=== PATIENT | male | born 1985 | race Caucasian/White ===

== ENCOUNTER 2019-10-12 12:28 | Emergency (ER) | payer BC ==
--- NOTE | 2019-10-12 13:20 | RAD REPORT ---
EXAM DESCRIPTION: CT - Head Brain Wo Cont - 10/12/2019 1:08 pm CLINICAL HISTORY: Dizziness;Headache Headache, drowsiness, previous surgery COMPARISON: Head Brain Wo Cont dated 09/25/2016; Rad Therapy [facility] Head dated 09/17/2016; Head Br ain Wo Cont dated 07/02/2016; Brain W/Wo Cont dated 11/14/2016 TECHNIQUE: All CT scans are performed using dose optimization technique as appropriate and may inclu de automated exposure control or mA/KV adjustment according to patient size. FINDINGS: No intracranial hemorrhage, hydrocephalus or extra-axial fluid collection.No areas of brai n edema or evidence of midline shift. Small hypodensity in the left posterior parietal lobe appears l ess prominent than on the comparative study and is likely related to gliosis. The paranasal sinuses and mastoids are clear. Left posterior superior craniotomy changes noted. IMPRESSION: No acute intracranial abnormality.
[2019-10-12] MEDS ORDERED: MEPERIDINE HCL 25 MG/0.5 ML ONE (13:41)
[2019-10-12] MEDS ORDERED: ONDANSETRON 4 MG/2 ML VIAL ONE (13:42)
[2019-10-12] MEDS ORDERED: METOCLOPRAMIDE 10 MG/2mL INJ ONE (13:42)
[2019-10-12] MEDS ORDERED: NA CHLORIDE 0.9% 1,000 ML ONE (13:42)
[2019-10-12] MEDS ORDERED: LORazepam 2 MG/ML VIAL ONE (14:04)
[2019-10-12 14:16] LABS: Absolute Lymphocytes (CBC) 1.8 K/uL (0.7-4.9); Basophils % 0.6 % (0-1.3); Hematocrit 39.8 % (39.6-49.0); Lymphocytes % 20.6 % (15.3-44.8); MPV 7.6 fL (7.6-11.3); RBC Red Blood Cell Count 4.37 M/uL (4.33-5.43)
--- NOTE | 2019-10-12 15:06 | RAD REPORT ---
EXAM DESCRIPTION: MRI - Brain W/Wo Cont - 10/12/2019 2:56 pm CLINICAL HISTORY: hx of brain cancer, sudden onset dizzy and headache Headache, drowsiness COMPARISON: Head Brain Wo Cont dated 10/12/2019; Brain W/Wo Cont dated 11/14/2016; Brain W/Wo Cont d ated 09/12/2016; Brain W/Wo Cont dated 07/03/2016 TECHNIQUE: Multi-sequence, multiplanar MR imaging of the brain was performed with contrast. FINDINGS: No intracranial hemorrhage, hydrocephalus, or extra-axial fluid collection.Small nonenhanc ing FLAIR hyperintense focus is present in the posterior left temporal lobe measuring 7 mm. Minimal a nd T2 and FLAIR hyperintensity in the periventricular white matter noted. No edema or shift of midlin e structures. No intracranial mass. DWI is negative for acute CVA. The midline structures are normally formed. Mild right mastoid effusion noted. Paranasal sinuses appe ar clear. Post-contrast images show no abnormal enhancement to suggest tumor or infection. Evidence of prior le ft posterior parietal craniotomy noted. IMPRESSION: No acute intracranial abnormality detected. Mild right mastoid effusion is present. No pathologic post-contrast enhancement suspected. 7 mm focus of FLAIR hyperintensity in the left temporal lobe is nonspecific. Followup MRI brain would be advised in 6 months for surveillance purposes.
--- NOTE | 2019-10-12 17:22 | ER ---
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 Onset of symptoms was October 12, 2019 at 11:30. Risk Assessment: Do you want to hurt yourself or someone else? Patient reports no desire to harm self or others. Care prior to arrival: None. 12:33 Method Of Arrival: Ambulatory hb 12:33 Acuity: EAN 3 hb 14:30 Initial Sepsis Screen: Does the patient meet any 2 criteria? No. Patient's initial tr5 sepsis screen is negative. Does the patient have a suspected source of infection? No. Patient's initial sepsis screen is negative. Triage Assessment: 14:30 Pain: Also complains of. tr5 Historical: - Allergies: 12:36 Amoxicillin; hb 12:36 Aztreonam; hb 12:36 cefadyl; hb 12:36 cefotetan; hb 12:36 PENICILLINS; hb 12:36 Sulfa (Sulfonamide Antibiotics); hb 12:36 Xanax; hb - PMHx: 12:36 Cancer; Depression; chemotherapy; brain cancer; Back pain; Anemia; Osteoporosis; hb radiation therapy; LYMPHOMA; Seizures; - PSHx: 12:36 kyphoplasty; stem cell; hb - Immunization history:: Adult Immunizations up to date. - Social history:: Smoking status: Patient/guardian denies using tobacco. - Ebola Screening: : No symptoms or risks identified at this time. - Family history:: not pertinent. - Hospitalizations: : No recent hospitalization is reported. Screenin:30 Abuse screen: Denies threats or abuse. Nutritional screening: No deficits noted. tr5 Tuberculosis screening: No symptoms or risk factors identified. Fall Risk None identified. Assessment: 13:30 General: Appears uncomfortable, Behavior is calm, cooperative, appropriate for age. tr5 Pain: Complains of pain in face. Neuro: Level of Consciousness is awake, alert, obeys commands, Oriented to person, place, time, Card Services Specialist are equal bilaterally Moves all extremities. Neuro: Reports blurred vision dizziness, headache photophobia weakness. Cardiovascular: Heart tones present Capillary refill < 3 seconds Pulses are all present. Respiratory: Airway is patent Respiratory effort is even, unlabored, Respiratory pattern is regular, symmetrical. GI: No signs and/or symptoms were reported involving the gastrointestinal system. : No signs and/or symptoms were reported regarding the genitourinary system. EENT: No signs and/or symptoms were reported regarding the EENT system. Derm: No signs and/or symptoms reported regarding the dermatologic system. Musculoskeletal: No signs and/or symptoms reported regarding the musculoskeletal system. 15:00 Reassessment: Patient appears in no apparent distress at this time. Patient and/or tr5 family updated on plan of care and expected duration. Pain level reassessed. Patient is alert, oriented x 3, equal unlabored respirations, skin warm/dry/pink. 16:00 Reassessment: Patient appears in no apparent distress at this time. No changes from tr5 previously documented assessment. Patient and/or family updated on plan of care and expected duration. Pain level reassessed. Patient is alert, oriented x 3, equal unlabored respirations, skin warm/dry/pink. Vital Signs: 12:34 BP 107 / 69; Pulse 88; Resp 16; Temp 97.9; Pulse Ox 99% on R/A; Weight 77.11 kg; Height hb 5 ft. 9 in. (175.26 cm); Pain 6/10; 14:00 BP 110 / 78; Pulse 80; Resp 17; Pulse Ox 100% on R/A; tr5 16:00 BP 106 / 70; Pulse 82; Resp 15; Pulse Ox 99% on R/A; tr5 12:34 Body Mass Index 25.10 (77.11 kg, 175.26 cm) hb [place] Coma Score: 17:17 Eye Response: spontaneous(4). Verbal Response: oriented(5). Motor Response: obeys rn commands(6). Total: 15. ED Course: 12:30 Patient arrived in ED. mr 12:34 Triage completed. hb 12:34 Arm band placed on. hb 13:07 Head Brain Wo Cont CT In Process Unspecified. EDMS 13:08 Tan Carroll MD is Attending Physician. rn 13:26 Jr Callahan, MAURI is Primary Nurse. tr5 13:30 Placed in gown. Bed in low position. Call light in reach. Side rails up X 1. tr5 13:45 Initial lab(s) drawn, by me, sent to lab. Inserted saline lock: 22 gauge in right tr5 forearm, using aseptic technique. 14:51 MRI - Brain W/Wo Cont In Process Unspecified. EDMS 15:47 EKG done, by test engineering technician. reviewed by Tan Carroll MD. 3 17:20 Nolan Salas MD is Referral Physician. rn 18:11 No provider procedures requiring assistance completed. IV discontinued. tr5 Administered Medications: 13:50 Drug: NS 0.9% 1000 ml Route: IV; Rate: 1000 ml; Site: right forearm; tr5 16:11 Follow up: IV Status: Completed infusion; IV Intake: 1000ml tr5 13:50 Drug: Reglan 10 mg Route: IVP; Site: right forearm; tr5 17:35 Follow up: Response: No adverse reaction tr5 13:50 Drug: Demerol 25 mg Route: IVP; Site: right forearm; tr5 14:30 Follow up: Response: Pain is decreased; RASS: Alert and Calm (0) tr5 13:50 Drug: Zofran 4 mg Route: IVP; Site: right forearm; tr5 16:09 Follow up: Response: Marked relief of symptoms tr5 14:09 Drug: Ativan 0.5 mg Route: IVP; Site: right forearm; tr5 16:09 Follow up: Response: Marked relief of symptoms tr5 17:35 Drug: Keppra 1000 mg Route: IV; Rate: calculated rate; Site: right antecubital; tr5 Intake: 16:11 IV: 1000ml; Total: 1000ml. tr5 Outcome: 17:20 Discharge ordered by . rn 18:11 Discharged to home ambulatory. tr5 18:11 Condition: stable 18:11 Discharge instructions given to patient, Instructed on discharge instructions, follow up and referral plans. the need for admit, Demonstrated understanding of instructions, follow-up care. 18:13 Patient left the ED. tr5 Signatures: Dispatcher [employer] EDTX Jeri Contreras Roman, MD MD rn Baxter, Heather, RN RN hb Montes, Octavia sm3 Jr Callahan, RN RN tr5
--- NOTE | 2019-10-12 17:22 | EDPHYS ---
Physician Documentation [facility] Name: Alvarez Ortiz Age: 34 yrs Sex: Male : 1985 Arrival Date: 10/12/2019 Time: 12:30 Bed 24 Private MD: ED Physician Tan Carroll HPI: 10/12 13:48 This 34 yrs old Male presents to ER via Ambulatory with complaints of rn Headache, Dizziness. 13:48 The patient complains of pain to the forehead. The patient describes the headache as rn throbbing. Onset: The symptoms/episode began/occurred just prior to arrival. Associated signs and symptoms: Pertinent positives:. 14:24 Severity of symptoms: At its worst the pain was moderate, in the emergency department rn the pain has improved. The symptoms are alleviated by nothing. the symptoms are aggravated by nothing. The patient has not experienced similar symptoms in the past. Reports at work, sudden onset of headache, throbbing, assoc with nausea and dizziness, no focal weakness or paresthesias. No head trauma. 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 No fever. [place] fine prior to symptoms. Was at rest at work. . Historical: - Allergies: 12:36 Amoxicillin; hb 12:36 Aztreonam; hb 12:36 cefadyl; hb 12:36 cefotetan; hb 12:36 PENICILLINS; hb 12:36 Sulfa (Sulfonamide Antibiotics); hb 12:36 Xanax; hb - PMHx: 12:36 Cancer; Depression; chemotherapy; brain cancer; Back pain; Anemia; Osteoporosis; hb radiation therapy; LYMPHOMA; Seizures; - PSHx: 12:36 kyphoplasty; stem cell; hb - Immunization history:: Adult Immunizations up to date. - Social history:: Smoking status: Patient/guardian denies using tobacco. - Ebola Screening: : No symptoms or risks identified at this time. - Family history:: not pertinent. - Hospitalizations: : No recent hospitalization is reported. ROS: 14:24 Constitutional: Negative for fever, chills, and weight loss, Eyes: Negative for injury, rn pain, redness, and discharge, ENT: Negative for injury, pain, and discharge, Neck: Negative for injury, pain, and swelling, Cardiovascular: Negative for chest pain, palpitations, and edema, Respiratory: Negative for shortness of breath, cough, wheezing, and pleuritic chest pain, Abdomen/GI: Negative for abdominal pain, vomiting, diarrhea, and constipation, Back: Negative for injury and pain, : Negative for injury, bleeding, discharge, and swelling, MS/Extremity: Negative for injury and deformity, Skin: Negative for injury, rash, and discoloration, Neuro: Negative for weakness, numbness, tingling, and seizure. Exam: 14:24 Constitutional: This is a well developed, well nourished patient who is awake, alert, rn and in no acute distress. Head/Face: Normocephalic, atraumatic. Eyes: Pupils equal round and reactive to light, extra-ocular motions intact. Lids and lashes normal. Conjunctiva and sclera are non-icteric and not injected. Cornea within normal limits. Periorbital areas with no swelling, redness, or edema. ENT: MMM Neck: Trachea midline, no thyromegaly or masses palpated, and no cervical lymphadenopathy. Supple, full range of motion without nuchal rigidity, or vertebral point tenderness. No Meningismus. Cardiovascular: Regular rate and rhythm. No pulse deficits. Respiratory: No increased work of breathing, no retractions or nasal flaring. Abdomen/GI: soft, non-tender MS/ Extremity: Pulses equal, no cyanosis. Neurovascular intact. Full, normal range of motion. Equal circumference. Neuro: Awake and alert, GCS 15, oriented to person, place, time, and situation. Cranial nerves II-XII grossly intact. Motor strength 5/5 in all extremities. Sensory grossly intact. Cerebellar exam normal. Vital Signs: 12:34 BP 107 / 69; Pulse 88; Resp 16; Temp 97.9; Pulse Ox 99% on R/A; Weight 77.11 kg; Height hb 5 ft. 9 in. (175.26 cm); Pain 6/10; 14:00 BP 110 / 78; Pulse 80; Resp 17; Pulse Ox 100% on R/A; tr5 16:00 BP 106 / 70; Pulse 82; Resp 15; Pulse Ox 99% on R/A; tr5 12:34 Body Mass Index 25.10 (77.11 kg, 175.26 cm) hb [place] Coma Score: 17:17 Eye Response: spontaneous(4). Verbal Response: oriented(5). Motor Response: obeys rn commands(6). Total: 15. MDM: 13:08 Patient medically screened. rn 13:09 ED course: Went to see patient, in CT. rn 17:17 Differential diagnosis: migraine, neoplasm, tension headache, vasomotor headache, rn partial seizure, seizure. Data reviewed: vital signs, nurses notes, lab test result(s), EKG, radiologic studies, CT scan, MRI, and as a result, I will discharge patient. Counseling: I had a detailed discussion with the patient and/or guardian regarding: the historical points, exam findings, and any diagnostic results supporting the discharge/admit diagnosis, lab results, radiology results, the need for outpatient follow up, to return to the emergency department if symptoms worsen or persist or if there are any questions or concerns that arise at home. Response to treatment: the patient's symptoms have markedly improved after treatment, the patient's condition has returned to base line, the patient is now symptom free, patient is well hydrated. and as a result, I will discharge patient. Special discussion: I discussed with the patient/guardian in detail that at this point there is no indication for admission to the hospital. It is understood, however, that if the symptoms persist or worsen the patient needs to return immediately for re-evaluation. Based on the history and exam findings, there is no indication for further emergent testing or inpatient evaluation. I discussed with the patient/guardian the need to see the neurologist for further evaluation of the symptoms. ED course: Consulted with Dr. Salas after MRI results, thinks may have been partial seizure given aura and visual/speech problems and rapid resolution. Recommend placing patient back on keppra, which patient had been on and taken off. FLAIR hyperintensity corresponds to surgical and resection location. Back to baseline with no other acute findings on imaging or bloodwork.. 10/12 13:35 Order name: CBC with Diff; Complete Time: 14:53 rn 10/12 13:35 Order name: Basic Metabolic Panel; Complete Time: 14:53 rn 10/12 12:38 Order name: Head Brain Wo Cont CT; Complete Time: 13:33 hb 10/12 13:35 Order name: MRI - Brain W/Wo Cont; Complete Time: 15:14 rn 10/12 13:35 Order name: IV Start; Complete Time: 14:10 rn 10/12 13:35 Order name: EKG; Complete Time: 13:36 rn 10/12 13:35 Order name: EKG - Nurse/Tech; Complete Time: 16:11 rn Administered Medications: 13:50 Drug: NS 0.9% 1000 ml Route: IV; Rate: 1000 ml; Site: right forearm; tr5 16:11 Follow up: IV Status: Completed infusion; IV Intake: 1000ml tr5 13:50 Drug: Reglan 10 mg Route: IVP; Site: right forearm; tr5 17:35 Follow up: Response: No adverse reaction tr5 13:50 Drug: Demerol 25 mg Route: IVP; Site: right forearm; tr5 14:30 Follow up: Response: Pain is decreased; RASS: Alert and Calm (0) tr5 13:50 Drug: Zofran 4 mg Route: IVP; Site: right forearm; tr5 16:09 Follow up: Response: Marked relief of symptoms tr5 14:09 Drug: Ativan 0.5 mg Route: IVP; Site: right forearm; tr5 16:09 Follow up: Response: Marked relief of symptoms tr5 17:35 Drug: Keppra 1000 mg Route: IV; Rate: calculated rate; Site: right antecubital; tr5 Disposition: 10/12/19 17:20 Discharged to Home. Impression: Localization-related (focal) (partial) symptomatic epilepsy and epileptic syndromes with complex partial seizures. - Condition is Stable. - Discharge Instructions: Seizure, Adult. - Prescriptions for Keppra 500 mg Oral Tablet - take 1 tablet by ORAL route every 12 hours; 60 tablet. - Medication Reconciliation Form, Thank You Letter, Antibiotic Education, Prescription Opioid Use form. - Follow up: Nolan Salas MD; When: As needed; Reason: Recheck today's complaints, Re-evaluation by your physician. - Problem is new. - Symptoms have improved. Signatures: Dispatcher [employer] EDTan Schaeffer MD MD rn Baxter, Heather, RN RN hb Acob, Cheryl, RN RN ca1 Rodriguez, Tommie, RN RN tr5 Corrections: (The following items were deleted from the chart) 18:13 17:20 10/12/2019 17:20 Discharged to Home. Impression: Localization-related (focal) tr5 (partial) symptomatic epilepsy and epileptic syndromes with complex partial seizures. Condition is Stable. Forms are Medication Reconciliation Form, Thank You Letter, Antibiotic Education, Prescription Opioid Use. Follow up: Nolan Salas; When: As needed; Reason: Recheck today's complaints, Re-evaluation by your physician. Problem is new. Symptoms have improved. rn
[2019-10-12] MEDS ORDERED: levETIRAcetam 1,000 MG in NA CHLORIDE 0.9% 100 ML IV ONE (18:00)
[2019-10-12 18:39] VITALS: TEMP 97.8
[2019-10-12 18:50] VITALS: BP 198/61; O2SAT 97
--- NOTE | 2019-10-13 07:25 | EKG ---
Test Date: 2019-10-12 Test Time: 15:28:44 Product Development Scientist: SHMUEL MEASUREMENT RESULTS: Intervals: Rate: 84 ND: 162 QRSD: 80 QT: 354 QTc: 418 [place]: P: 74 ND: 162 QRS: 43 T: 113 INTERPRETIVE STATEMENTS: Normal sinus rhythm ST & T wave abnormality, consider lateral ischemia Abnormal ECG Compared to ECG 08/07/2017 22:50:46 Possible ischemia now present ST (T wave) deviation still present Electronically Signed On 10-13-19 07:23:41 [employer] by Barry Nichols
== END 2019-10-12 18:13 | disposition home or self-care (01) ==
LOC: ER 12:28
DX: G40.209 Localization-related (focal) (partial) symptomatic epilepsy and epileptic syndromes with complex partial seizures, not intractable, without status epilepticus (principal); Z85.841 Personal history of malignant neoplasm of brain; Z85.72 Personal history of non-Hodgkin lymphomas; Z88.2 Allergy status to sulfonamides; Z88.5 Allergy status to narcotic agent; Z88.6 Allergy status to analgesic agent
CPT/HCPCS: 93005; 85025; 80048; 36415; 70450; 70553; 99284; A9577; J2765; J2175; J1953; J7030; J2405

== ENCOUNTER 2020-01-13 16:17 | Emergency (ER) | payer BC, OTHER ==
[2020-01-13] MEDS ORDERED: LORazepam 2 MG/ML VIAL ONE (16:58)
--- NOTE | 2020-01-13 17:17 | RAD REPORT ---
EXAM DESCRIPTION: CT - Head Brain Wo Cont - 01/13/2020 5:11 pm CLINICAL HISTORY: Dizziness;Seizure COMPARISON: Head Brain Wo Cont dated 10/12/2019; Head Brain Wo Cont dated 09/25/2016 TECHNIQUE: All CT scans are performed using dose optimization technique as appropriate and may inclu de automated exposure control or mA/KV adjustment according to patient size. FINDINGS: No intracranial hemorrhage, hydrocephalus or extra-axial fluid collection.Small area of gl iosis left posterior parietal lobe is unchanged.No areas of brain edema or evidence of midline shift. The paranasal sinuses and mastoids are clear. Left posterior parietal craniotomy. IMPRESSION: No acute intracranial abnormality.
[2020-01-13 17:33] LABS: Protime INR 0.96
[2020-01-13 17:50] LABS: Albumin 4.4 g/dL (3.4-5.0); Bilirubin Direct 0.2 mg/dL (0-0.2); Bilirubin Total 0.6 mg/dL (0.2-1.0); Magnesium 2.1 mg/dL (1.8-2.4); Potassium 3.7 mmol/L (3.5-5.1); Protein, Total 8.2 g/dL (6.4-8.2)
[2020-01-13 17:55] LABS: Absolute Lymphocytes (CBC) 5.6 K/uL (0.7-4.9); Basophils % 0.5 % (0-1.3); Hematocrit 43.9 % (39.6-49.0); Lymphocytes % 53.8 % (15.3-44.8); MPV 8.1 fL (7.6-11.3); RBC Red Blood Cell Count 4.81 M/uL (4.33-5.43)
[2020-01-13] MEDS ORDERED: METOCLOPRAMIDE 10 MG/2mL INJ ONE (18:15)
[2020-01-13] MEDS ORDERED: NA CHLORIDE 0.9% 100 ML IV ONE (18:15)
[2020-01-13] MEDS ORDERED: DIPHENHYDRAMINE 50 MG/ML VIAL ONE (18:15)
--- NOTE | 2020-01-13 18:29 | ER ---
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 Presenting complaint: Father states: he is taking the keppra only once a day, dr. Gonzalez is his oncologist, they consulted with a neurologist here, dr. duque. Transition of care: patient was not received from another setting of care. Onset of symptoms was January 13, 2020. Risk Assessment: Do you want to hurt yourself or someone else? Patient reports no desire to harm self or others. Initial Sepsis Screen: Does the patient meet any 2 criteria? No. Patient's initial sepsis screen is negative. Does the patient have a suspected source of infection? No. Patient's initial sepsis screen is negative. Care prior to arrival: None. 16:31 Method Of Arrival: Wheelchair tw2 16:31 Acuity: EAN 3 tw2 Triage Assessment: 16:38 General: Appears in no apparent distress. Behavior is calm, cooperative, appropriate tw2 for age. Pain: Complains of pain in headache. Neuro: Level of Consciousness is awake, alert, obeys commands. Historical: - Allergies: 16:37 Amoxicillin; tw2 16:37 Aztreonam; tw2 16:37 cefadyl; tw2 16:37 cefotetan; tw2 16:37 PENICILLINS; tw2 16:37 Sulfa (Sulfonamide Antibiotics); tw2 16:37 Xanax; tw2 16:37 Alprazolam; tw2 - Home Meds: 16:37 Keppra 500 mg Oral tab 1 tab once a day [Active]; doxycycline hyclate 100 mg Oral cap 1 tw2 cap every 12 hours [Active]; venlafaxine 75 mg Oral cp24 2 caps once daily [Active]; valacyclovir 500 mg Oral tab 1 tab once daily [Active]; mirtazapine 15 mg Oral TbDL 1 tab once daily [Active]; montelukast 10 mg Oral tab 1 tab once daily [Active]; levetiracetam 500 mg Oral tab 1 tab 2 times per day [Active]; Klor-Con 10 10 mEq Oral TbER 2 tabs 2 times per day [Active]; gabapentin 300 mg Oral cap 1 cap 3 times per day [Active]; - PMHx: 16:37 Anemia; Back pain; brain cancer; Cancer; chemotherapy; Depression; LYMPHOMA; tw2 Osteoporosis; radiation therapy; Seizures; - PSHx: 16:37 kyphoplasty; stem cell; tw2 - Immunization history:: Adult Immunizations. - Coronavirus screen:: The patient has NOT traveled to [place] in the past 14 days. - Social history:: Smoking status: . - Ebola Screening: : Patient denies travel to an Ebola-affected area in the 21 days before illness onset. Screenin:09 Abuse screen: Denies threats or abuse. Denies injuries from another. Nutritional mg2 screening: No deficits noted. Tuberculosis screening: No symptoms or risk factors identified. Fall Risk Secondary diagnosis (15 points) seizures, IV access (20 points). Assessment: 17:00 General: Appears in no apparent distress. comfortable, Behavior is calm, cooperative. mg2 Pain: Denies pain. Neuro: Level of Consciousness is awake, alert, obeys commands, Oriented to person, place, time, situation. Cardiovascular: Capillary refill < 3 seconds Patient's skin is warm and dry. Respiratory: Airway is patent Respiratory effort is even, unlabored, Respiratory pattern is regular, symmetrical. GI: No signs and/or symptoms were reported involving the gastrointestinal system. : No signs and/or symptoms were reported regarding the genitourinary system. EENT: No signs and/or symptoms were reported regarding the EENT system. Derm: Skin is intact, is healthy with good turgor, Skin is pink, warm \T\ dry. normal. Musculoskeletal: Circulation, motion, and sensation intact. Capillary refill < 3 seconds. 17:08 Reassessment: patient sent to ct scan via stretcher. mg2 18:56 Reassessment: Patient appears in no apparent distress at this time. Patient states mg2 feeling better. Patient states symptoms have improved. Vital Signs: 16:37 BP 99 / 67; Pulse 88; Resp 17; Temp 97.8(TE); Pulse Ox 100% on R/A; Weight 79.38 kg tw2 (R); Height 5 ft. 9 in. (175.26 cm); Pain 6/10; 18:15 BP 116 / 78; Pulse 76; Resp 18; Pulse Ox 100% on R/A; mg2 16:37 Body Mass Index 25.84 (79.38 kg, 175.26 cm) tw2 [place] Coma Score: 16:38 Eye Response: spontaneous(4). Verbal Response: oriented(5). Motor Response: obeys tw2 commands(6). Total: 15. ED Course: 16:20 Patient arrived in ED. mr 16:35 Triage completed. tw2 16:35 Arm band placed on. tw2 16:39 [facility]. jr8 16:39 Myke Crawford MD is Attending Physician. jr8 16:58 Som Wills, MAURI is Primary Nurse. mg2 17:07 No provider procedures requiring assistance completed. Inserted saline lock: 20 gauge mg2 in right forearm, using aseptic technique. Blood collected. by MIKE Alves Tech. 17:09 Patient has correct armband on for positive identification. Placed in gown. Call light mg2 in reach. Side rails up X2. Seizure precautions initiated. multi skilled operator on. Pulse ox on. NIBP on. Door closed. Warm blanket given. 17:19 Safety checks: Family/friend present: yes. Family/friends encouraged to stay with jp3 patient. 17:19 Initial lab(s) drawn, by me, sent to lab. EKG done, by ED staff, reviewed by Prashanth CAR[place]. Patient maintains SpO2 saturation greater than 95% on room air. 18:26 Nolan Duque MD is Referral Physician. jr8 18:55 IV discontinued, intact, bleeding controlled, No redness/swelling at site. Pressure mg2 dressing applied. Administered Medications: 17:07 Drug: Ativan 0.5 mg Route: IVP; Site: right forearm; mg2 17:46 Follow up: Response: No adverse reaction mg2 18:14 Drug: Benadryl 12.5 mg Route: IVP; Site: right forearm; mg2 18:45 Follow up: Response: No adverse reaction; Marked relief of symptoms mg2 18:15 Drug: Reglan 10 mg Route: IVP; Site: right forearm; mg2 18:45 Follow up: Response: No adverse reaction; Marked relief of symptoms mg2 Outcome: 18:26 Discharge ordered by . areli 18:57 Discharged to home ambulatory, with family. mg2 18:57 Condition: stable 18:57 Discharge instructions given to patient, family, Instructed on discharge instructions, follow up and referral plans. medication usage, Demonstrated understanding of instructions, follow-up care, medications, Prescriptions given X 1. 18:59 Patient left the ED. mg2 Signatures: Jeri Contreras Josh, PA PA jr8 Gisell Posey RN RN tw2 Som Wills RN RN mg2 Steven Sheehan jp3
--- NOTE | 2020-01-13 18:30 | EDPHYS ---
Physician Documentation [facility] Name: Alvarez Ortiz Age: 34 yrs Sex: Male : 1985 Arrival Date: 01/13/2020 Time: 16:20 Bed 25 Private MD: ED Physician Myke Crawford HPI: 01/13 17:28 This 34 yrs old Male presents to ER via Wheelchair with complaints of jr8 Probable Seizure. 17:28 Seizure onset: today. Current symptoms: headache, that is moderate, visual disturbance, jr8 blurred vision. The patient has experienced similar episodes in the past, a few times. The patient has not recently seen a physician. Patient with history of micro seizures secondary to lymphoma. Had been doing well and off meds for quite a while. About 3 months ago started to have problems. Was put back on Keppra. Stated that he started to have it again today. Scheduling appointment with neurologist but has yet to get into him since they have restarted. Stated that his seizures present as migraines, speech deficits, visual deficits, and paresthesias which is exactly what he is feeling today . Historical: - Allergies: 16:37 Amoxicillin; tw2 16:37 Aztreonam; tw2 16:37 cefadyl; tw2 16:37 cefotetan; tw2 16:37 PENICILLINS; tw2 16:37 Sulfa (Sulfonamide Antibiotics); tw2 16:37 Xanax; tw2 16:37 Alprazolam; tw2 - Home Meds: 16:37 Keppra 500 mg Oral tab 1 tab once a day [Active]; doxycycline hyclate 100 mg Oral cap 1 tw2 cap every 12 hours [Active]; venlafaxine 75 mg Oral cp24 2 caps once daily [Active]; valacyclovir 500 mg Oral tab 1 tab once daily [Active]; mirtazapine 15 mg Oral TbDL 1 tab once daily [Active]; montelukast 10 mg Oral tab 1 tab once daily [Active]; levetiracetam 500 mg Oral tab 1 tab 2 times per day [Active]; Klor-Con 10 10 mEq Oral TbER 2 tabs 2 times per day [Active]; gabapentin 300 mg Oral cap 1 cap 3 times per day [Active]; - PMHx: 16:37 Anemia; Back pain; brain cancer; Cancer; chemotherapy; Depression; LYMPHOMA; tw2 Osteoporosis; radiation therapy; Seizures; - PSHx: 16:37 kyphoplasty; stem cell; tw2 - Immunization history:: Adult Immunizations. - Coronavirus screen:: The patient has NOT traveled to [place] in the past 14 days. - Social history:: Smoking status: . - Ebola Screening: : Patient denies travel to an Ebola-affected area in the 21 days before illness onset. ROS: 17:28 Eyes: Negative for injury, pain, redness, and discharge, ENT: Negative for injury, jr8 pain, and discharge, Neck: Negative for injury, pain, and swelling, Cardiovascular: Negative for chest pain, palpitations, and edema, Respiratory: Negative for shortness of breath, cough, wheezing, and pleuritic chest pain, Abdomen/GI: Negative for abdominal pain, nausea, vomiting, diarrhea, and constipation, Back: Negative for injury and pain, MS/Extremity: Negative for injury and deformity, Skin: Negative for injury, rash, and discoloration. 17:28 Neuro: Positive for headache, seizure activity, speech changes, tingling, visual changes. Exam: 17:28 Eyes: Pupils equal round and reactive to light, extra-ocular motions intact. Lids and jr8 lashes normal. Conjunctiva and sclera are non-icteric and not injected. Cornea within normal limits. Periorbital areas with no swelling, redness, or edema. ENT: Nares patent. No nasal discharge, no septal abnormalities noted. Tympanic membranes are normal and external auditory canals are clear. Oropharynx with no redness, swelling, or masses, exudates, or evidence of obstruction, uvula midline. Mucous membranes moist. Neck: Trachea midline, no thyromegaly or masses palpated, and no cervical lymphadenopathy. Supple, full range of motion without nuchal rigidity, or vertebral point tenderness. No Meningismus. Cardiovascular: Regular rate and rhythm with a normal S1 and S2. No gallops, murmurs, or rubs. Normal PMI, no JVD. No pulse deficits. Respiratory: Lungs have equal breath sounds bilaterally, clear to auscultation and percussion. No rales, rhonchi or wheezes noted. No increased work of breathing, no retractions or nasal flaring. Abdomen/GI: Soft, non-tender, with normal bowel sounds. No distension or tympany. No guarding or rebound. No evidence of tenderness throughout. Back: No spinal tenderness. No costovertebral tenderness. Full range of motion. Skin: Warm, dry with normal turgor. Normal color with no rashes, no lesions, and no evidence of cellulitis. MS/ Extremity: Pulses equal, no cyanosis. Neurovascular intact. Full, normal range of motion. 17:28 Neuro: Orientation: to person, place, time \T\ situation. Mentation: is normal, Memory: immediate memory is intact, remote memory is intact. recent memory is intact, Cranial nerves: CN I not tested, CN II- XII are normal as tested, extraocular movements are intact, no gross hearing deficit,. Nystagmus is absent. Speech is slowed, Tongue strength is normal, Cerebellar function: normal finger to nose testing, heel to grijalva testing is normal, Motor: moves all fours, strength is 5/5 in all extremities, Sensation: no obvious gross deficits, Gait: not tested. Abnormal movements: there are no abnormal movements. 17:40 ECG was reviewed by the Attending Physician. [facility] Vital Signs: 16:37 BP 99 / 67; Pulse 88; Resp 17; Temp 97.8(TE); Pulse Ox 100% on R/A; Weight 79.38 kg tw2 (R); Height 5 ft. 9 in. (175.26 cm); Pain 6/10; 18:15 BP 116 / 78; Pulse 76; Resp 18; Pulse Ox 100% on R/A; mg2 16:37 Body Mass Index 25.84 (79.38 kg, 175.26 cm) tw2 [place] Coma Score: 16:38 Eye Response: spontaneous(4). Verbal Response: oriented(5). Motor Response: obeys tw2 commands(6). Total: 15. MDM: 16:43 Patient medically screened. [facility] 18:26 Data reviewed: vital signs, nurses notes, lab test result(s), EKG, radiologic studies, [facility] CT scan, plain films. Data interpreted: Pulse oximetry: on room air is 100 %. Interpretation: normal. Counseling: I had a detailed discussion with the patient and/or guardian regarding: the historical points, exam findings, and any diagnostic results supporting the discharge/admit diagnosis, lab results, radiology results, the need for outpatient follow up, a family practitioner, a neurologist, to return to the emergency department if symptoms worsen or persist or if there are any questions or concerns that arise at home. Response to treatment: the patient's symptoms have markedly improved after treatment. 01/13 16:55 Order name: Basic Metabolic Panel; Complete Time: 18:01/13 16:55 Order name: CBC with Diff 01/13 16:55 Order name: LFT's; Complete Time: 18:01/13 16:55 Order name: Magnesium; Complete Time: 18:01/13 16:55 Order name: PT-INR; Complete Time: 18:01/13 16:55 Order name: CT Head Brain wo Cont 01/13 16:55 Order name: EKG; Complete Time: 16:56 01/13 16:55 Order name: Cardiac monitoring; Complete Time: 17:01/13 16:55 Order name: EKG - Nurse/Tech; Complete Time: 17:01/13 16:55 Order name: IV Saline Lock; Complete Time: 17:01/13 16:55 Order name: Labs collected and sent; Complete Time: 17:01/13 16:55 Order name: O2 Per Protocol; Complete Time: :01/13 16:55 Order name: O2 Sat Monitoring; Complete Time: : EC:40 Rate is 73 beats/min. Rhythm is regular, Normal Sinus Rhythm. QRS [place] is Normal. [place] jr8 interval is normal at 156 msec. QRS interval is normal at 84 msec. QT interval is normal at 396 msec. No Q waves. T waves are Inverted in leads I, aVL. T waves are Flattened in leads V5, V6. No ST changes noted. Clinical impression: NSR w/ Non-specific ST/T Changes. Interpreted by me. Reviewed by me. Administered Medications: 17:07 Drug: Ativan 0.5 mg Route: IVP; Site: right forearm; mg2 17:46 Follow up: Response: No adverse reaction mg2 18:14 Drug: Benadryl 12.5 mg Route: IVP; Site: right forearm; mg2 18:45 Follow up: Response: No adverse reaction; Marked relief of symptoms mg2 18:15 Drug: Reglan 10 mg Route: IVP; Site: right forearm; mg2 18:45 Follow up: Response: No adverse reaction; Marked relief of symptoms mg2 Disposition: 01/14 08:47 Co-signature as Attending Physician, Myke Crawford MD I agree with the assessment and kdr plan of care. Disposition: 01/13/20 18:26 Discharged to Home. Impression: Migraine, Seizure . - Condition is Stable. - Discharge Instructions: Migraine Headache, Nonepileptic Seizures. - Prescriptions for Ativan 1 mg Oral Tablet - take 1 tablet by ORAL route every 8 hours As needed; 20 tablet. - Medication Reconciliation Form, Thank You Letter, Antibiotic Education, Prescription Opioid Use, Work release form form. - Follow up: Nolan Salas MD; When: 5 - 6 days; Reason: Recheck today's complaints, Continuance of care, Re-evaluation by your physician. - Problem is new. - Symptoms have improved. Signatures: Dispatcher [employer] EDMS Myke Crawford MD MD [facility] Prashanth Chavez PA PA jr8 Gisell Posey RN RN tw2 Som Wills RN RN mg2 Corrections: (The following items were deleted from the chart) 01/13 18:59 18:26 01/13/2020 18:26 Discharged to Home. Impression: Migraine; Seizure . Condition is mg2 Stable. Forms are Medication Reconciliation Form, Thank You Letter, Antibiotic Education, Prescription Opioid Use. Follow up: Nolan Salas; When: 5 - 6 days; Reason: Recheck today's complaints, Continuance of care, Re-evaluation by your physician. Problem is new. Symptoms have improved. jr8
[2020-01-13 19:11] VITALS: TEMP 97.8; O2SAT 100
[2020-01-13 19:13] VITALS: BP 116/78
[2020-01-13 19:58] LABS: Platelet Estimate ADEQ
[2020-01-13 19:59] LABS: Blood Morphology Comment NOT SEEN (NOT SEEN)
--- NOTE | 2020-01-14 07:52 | EKG ---
Test Date: 2020-01-13 Test Time: 16:58:36 Boat Ride Operator: MEASUREMENT RESULTS: Intervals: Rate: 73 TX: 156 QRSD: 84 QT: 360 QTc: 396 [place]: P: 78 TX: 156 QRS: 36 T: 126 INTERPRETIVE STATEMENTS: Normal sinus rhythm T wave abnormality, consider lateral ischemia Abnormal ECG Compared to ECG 10/12/2019 15:28:44 T-wave abnormality now present ST (T wave) deviation no longer present Possible ischemia still present Electronically Signed On 01-14-20 07:51:35 GUN BARREL FINISHER by Barry Nichols
== END 2020-01-13 18:59 | disposition home or self-care (01) ==
LOC: ER 16:17
DX: G40.909 Epilepsy, unspecified, not intractable, without status epilepticus (principal); F32.9 Major depressive disorder, single episode, unspecified; Z85.72 Personal history of non-Hodgkin lymphomas; Z88.0 Allergy status to penicillin; Z88.1 Allergy status to other antibiotic agents; Z88.2 Allergy status to sulfonamides; Z88.5 Allergy status to narcotic agent; Z88.8 Allergy status to other drugs, medicaments and biological substances; Z85.841 Personal history of malignant neoplasm of brain
CPT/HCPCS: 93005; 85025; 80048; 36415; 83735; 85610; 80076; 70450; 96375; 96374; 99285; J2765; J1200

== ENCOUNTER 2020-03-30 13:16 | Emergency (ER) | payer BC, OTHER ==
--- OUTSIDE RECORDS SUMMARY | 2020-03-30 13:20 | XMS REPORT | Clinical Summary ---
:1985 Author Organization [facility] Address [address] [place] [address] Care Team Providers Name Role Phone Michael Gonzalez MD Primary Care Provider Allergies Active Allergy Reactions Severity Noted Date Comments Amoxicillin Hives 04/15/2016 Pt states he ge ts fever Aztreonam Rash Medium 02/11/2017 Cefadyl Hives 04/15/2016 Pt states he ge ts fever Penicillins Hives 04/15/2016 Pt states he ge ts fevers Jon Other (See 04/15/2016 Numbness Comments) Sulfa (Sulfonamide Hives 04/15/2016 Pt states he gets fever Antibiotics) Alprazolam Other (See 07/12/2016 "climbing up wa lls" and Comments) hallucinations Medications Medication Sig Dispensed Refills Start Date End Date Status calcium Take 1 tablet 0 Active carbonate-vitamin D3 by mouth 500 mg-200 unit per daily. tablet ergocalciferol Take 1 12 capsule 3 01/12/2019 Act arie (VITAMIN D2) 50,000 capsule unit capsule (50,000 Units total) by mouth once a week. ibuprofen Take 200 mg 0 Active (ADVIL,MOTRIN) 400 by mouth MG tablet every 12 (twelve) hours as needed for mild pain (due to vaccines). therapeutic Take 1 tablet 0 Disc ontinued multivitamin by mouth 9 (THERAGRAN) tablet daily. venlafaxine XR Take 1 90 capsule 3 01/12/2019 Exp ired (EFFEXOR-XR) 75 MG capsule (75 0 24 hr capsule mg total) by mouth daily. levoFLOXacin Take 1 tablet 14 tablet 0 03/16/2019 Ex pired (LEVAQUIN) 500 MG (500 mg 9 tablet total) by mouth daily for 14 days. fexofenadine-pseudoe Take 1 tablet 30 tablet 3 03/16/2019 06/2 0/201 Discontinued pHEDrine (EUGENE-D by mouth 9 24 HOUR) 180-240 mg daily for 30 per 24 hr tablet days. Active Problems Problem Noted Date Need for vaccinations against single bacterial disease 04/27/2018 Need for hepatitis B vaccination 02/04/2018 Need for Tdap vaccination 02/04/2018 Osteoporosis 08/20/2017 Bone pain 02/24/2017 H/O stem cell transplant 02/06/2017 Overview: 1. 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 A. Received 4.826 x 10(6) CD34/kg cells on 02/06/17. Transplant was complicated with non-infectious neutropenic fever with negative blood cxs, grade II nausea/diarrhea/mucositis. GI panel was negative, bone pain B. Engrafted 02/20/17 (day 14) with WBC 1 .88, ANC 564, Hgb 9.2, and Plts 144K. Received Pentamidine prophylaxis due to Sulfa allergies. ischarged home on 02/21/17 (day 15). 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 Anemia of chronic disease 08/31/2016 NHL (non-Hodgkin's lymphoma) 08/29/2016 Chronic back pain 08/29/2016 Seizure disorder 07/13/2016 Brain metastases 07/04/2016 Depression 04/15/2016 Anxiety 04/15/2016 Encounters Date Type Specialty Care Team Description 11/12/2019 Hospital Encounter Radiology Janes Gonzalez and rodger cell (diffuse) non-Hodgkin's lymphoma (HCC); MD Michael Nonintractable headache, unspecified chronicity pattern, unspecified headache type 11/12/2019 Hospital Encounter Radiology Janes Gonzalez and rodger Rodriguez MD cell (diffuse) non-Hodgkin's l ymphoma (HCC) 11/12/2019 Orders Only Oncology Janes Gonzalez MD 08/05/2019 Transcribe Orders Access Janes Gonzalez sm all and large cell (diffuse) non-Hodgkin's lymphoma (HCC) (Primary Dx); MD Michael Nonintractable headache, unspecified chronicity pattern, unspecified headache type 07/15/2019 Hospital Encounter Hematology and Lidia Siu fuse large B- cell lymphoma of lymph nodes of multiple regions (HCC) (Primary Dx); Oncology C., DISTRICT MANAGER IN TRAINING H/O stem cell transplant (HCC); Lui Flaherty, Need for vac cinations against single bacterial disease; Need for vaccination Yudith Piña MD Anyadike, Gloria A., DONOVAN 07/13/2019 Hospital Encounter Hematology and Lidia Siu Dif fuse large B- cell lymphoma of lymph nodes of multiple regions (HCC) (Primary Dx); Oncology C., DISTRICT MANAGER IN TRAINING Need for vaccination; Lui Flaherty, H/O stem isha l transplant (HCC); Other osteoporosis, unspecified patholog ical fracture presence; Yudith Piña Need for va ccinations against single bacterial disease MD Fartun Parsons Gloria A., DONOVAN 06/08/2019 Infusion Oncology Janes Gonzalez Osteoporosis with current pathological fracture with routine healing, unspecified osteoporosis type, subsequent encounter (Primary Dx); MD Michael Bone pain; H/O stem cell t ransplant (HCC); Diffuse large B -cell lymphoma of lymph nodes of multiple regions (HCC) 05/18/2019 Hospital Encounter Hematology and Lidia Siu fuse large B-cell Oncology C., DISTRICT MANAGER IN TRAINING lymphoma of lymph Lui Flaherty, nodes of mul tiple MD regions (HCC) (Primary Yudith Piña Dx) MD Fartun Parsons Gloria A., DISTRICT MANAGER IN TRAINING 05/14/2019 Hospital Encounter Radiology Janes Gnozalez pecified types of non-hodgkin lymphoma, unspecified site (HCC); MD Michael Chronic intract able headache, unspecified headache type 05/14/2019 Hospital Encounter Radiology Janes Gonzalez pecified types of non-hodgkin lymphoma, unspecified site (HCC); MD Michael Chronic intract able headache, unspecified headache type 05/14/2019 Orders Only Oncology Janes Gonzalez MD 05/13/2019 Hospital Encounter Hematology and Lidia Siu fuse large B- cell lymphoma of lymph nodes of multiple regions (HCC) (Primary Dx); Oncology C., DISTRICT MANAGER IN TRAINING Need for vaccinations against single natalia terial disease Lui Flaherty, Yudith Umaña, Michelle Hudson, DISTRICT MANAGER IN TRAINING 04/20/2019 Transcribe Orders Access Janes Gonzalez sp ecified types of non- hodgkin lymphoma, unspecified site (HCC) (Primary Dx); MD Michael Chronic intract able headache, unspecified headache type 04/13/2019 Hospital Encounter Hematology and Lidia Siu for vaccinations against single bacterial disease (Primary Dx); Oncology C., DISTRICT MANAGER IN TRAINING H/O stem cell transplant (HCC); Lui Flaherty, Rochelle larg e B-cell lymphoma of lymph nodes of multiple regions (HCC) Yudith Umaña, Michelle Hudson, DISTRICT MANAGER IN TRAINING after 03/30/2019 Immunizations Name Administration Dates Next Due Hepatitis A 06/24/2018 Hepatitis B 09/30/2018, 03/31/2018, 02/04/2018 Hib (PRP-T) 01/12/2019, 06/24/2018, 03/31/2018 IPV 09/30/2018, 07/29/2018, 04/28/2018 MMR 05/13/2019, 04/13/2019 Meningococcal MCV4P 06/24/2018 Pneumococcal Conjugate 13-Valent 04/28/2018 Pneumococcal Polysaccharide 05/13/2019 Tdap 07/29/2018, 04/28/2018, 02/04/2018 Zoster Vaccine Recombinant 07/15/2019, 04/13/2019 Family History Medical History Relation Name Comments Diabetes type II Father Hyperlipidemia Father Hypertension Father Prostate cancer Maternal Grandfather Breast cancer Maternal Grandmother Lung cancer Paternal Grandfather Relation Name Status Comments Father Maternal Grandfather Maternal Grandmother Paternal Grandfather Social History Tobacco Use Types Packs/Day Years Used Date Former Smoker Smokeless Tobacco: Never Used Alcohol Use Drinks/Week oz/Week Comments Yes socially/ past Sex Assigned at Date Recorded Not on file Job Start Date Occupation Industry Not on file Not on file Not on file Travel History Travel Start Travel End No recent travel history available. Last Filed Vital Signs Vital Sign Reading Time Taken Comments Blood Pressure 133/67 11/12/2019 10:53 AM GEOGRAPHIC INFORMATION SYSTEMS MANAGER Pulse 93 11/12/2019 10:53 AM GEOGRAPHIC INFORMATION SYSTEMS MANAGER Temperature 37 C (98.6 F) 07/15/2019 12:04 PM CDT Respiratory Rate 16 11/12/2019 10:53 AM GEOGRAPHIC INFORMATION SYSTEMS MANAGER Oxygen Saturation 99% 11/12/2019 10:53 AM GEOGRAPHIC INFORMATION SYSTEMS MANAGER Inhaled Oxygen Concentration - - Weight 77.1 kg (170 lb) 11/12/2019 10:50 AM GEOGRAPHIC INFORMATION SYSTEMS MANAGER Height 172.7 cm (5' 8") 11/12/2019 10:50 AM GEOGRAPHIC INFORMATION SYSTEMS MANAGER Body Mass Index 25.85 11/12/2019 10:50 AM GEOGRAPHIC INFORMATION SYSTEMS MANAGER Plan of Treatment Health Maintenance Due Date Last Done Comments INFLUENZA VACCINE 06/24/2020 Implants Implanted Type Area Insurance Premium Auditor Device Shelf Model / Identifier Expiration Serial / Lot Date Screw Bone Slf-Drl Mtrxnuro Ti 4mm - [id number] Cranial Left: SYNT HES [id number] / Implanted: Qty: 12 on 07/12/2016 by Kathe Wallace MD at [facility] Plate or Skull MAXIOFACIAL / [place] IMPLANT Cover Cover Bur Hol Lpr Nurosurgy 17mm - [id number] Cranial Left: SYNTHE S 11/24/2019 [id number] / Implanted: Qty: 2 on 07/12/2016 by Kathe Wallace MD at [facility] Plate or Skull MAXIOFACIAL / [place] IMPLANT N/A Cover Screw Bone Slf-Drl Mtrxnuro Ti 4mm - [id number] Cranial Left: SYNT HES [id number] / Implanted: Qty: 4 on 07/12/2016 by Kathe Wallace MD at [facility] Plate or Skull MAXIOFACIAL / [place] IMPLANT Cover Plate Bone Lpr 4hl Box Ti Neuro [id number] - [id number] Cranial Left: SYNTHES 11/24/2019 [id number] / Implanted: Qty: 1 on 07/12/2016 by Kathe Wallace MD at [facility] Plate or Skull MAXIOFACIAL / [place] IMPLANT N/A Cover Kit Cmnt Spinal Hiviscocty 11ml Confidence Plus - [id number] Spina l N/A: N/A DEPUY SPINE 03/23/2018 [id number] / Implanted: 07/09/2016 at [facility] (Quantity not on file) Implants / HVGBH3 Kit Spinal Cmnt W/O Ndl Pmma Confidence Strl Ltxf - [id number] Spi nal N/A: N/A DEPUY SPINE 03/23/2018 [id number] / Implanted: 07/09/2016 at [facility] (Quantity not on file) Implants / [id number] Matrix Hmstc Floseal 10ml W/ Humn F2 - [id number] Surgical Left: DAVIS 10/23/2017 [id number] / Implanted: Qty: 1 on 07/12/2016 by Kathe Wallace MD at [facility] Implants; Skull BIOSCIENCE / Expanders; [id number] Extenders; Surgical Wires Procedures Procedure Name Priority Date/Time Associated Diagnosis Comme nts MRI BRAIN W WO Routine 11/12/2019 11:53 Mixed small and Result s for this CONTRAST AM GEOGRAPHIC INFORMATION SYSTEMS MANAGER large cell (diffuse) procedu re are in non-Hodgkin's the results lymphoma (HCC) section. Nonintractable headache, unspecified chronicity pattern, unspecified headache type PET CT SKULL BASE TO Routine 11/12/2019 10:36 Mixed small and Results for this MID THIGH AM GEOGRAPHIC INFORMATION SYSTEMS MANAGER large cell (diffuse) procedu re are in non-Hodgkin's the results lymphoma (HCC) section. POC GLUCOSE Routine 11/12/2019 9:00 Results for this AM GEOGRAPHIC INFORMATION SYSTEMS MANAGER procedure are i n the results section. ESTIMATED GFR STAT 07/15/2019 11:03 Results fo r this AM CDT procedure are i n the results section. MAGNESIUM LEVEL STAT 07/15/2019 11:03 Need for Results for this AM CDT vaccinations against procedu re are in single bacterial the results disease section. Diffuse large B-cell lymphoma of lymph nodes of multiple regions (HCC) LDH STAT 07/15/2019 11:03 Need for Results for this AM CDT vaccinations against procedu re are in single bacterial the results disease section. Diffuse large B-cell lymphoma of lymph nodes of multiple regions (HCC) COMPREHENSIVE STAT 07/15/2019 11:03 Need for Results fo r this METABOLIC PANEL AM CDT vaccinations against proc edure are in single bacterial the results disease section. Diffuse large B-cell lymphoma of lymph nodes of multiple regions (HCC) HC COMPLETE BLD COUNT STAT 07/15/2019 11:03 Need for Re sults for this W/AUTO DIFF AM CDT vaccinations against procedu re are in single bacterial the results disease section. Diffuse large B-cell lymphoma of lymph nodes of multiple regions (HCC) ESTIMATED GFR STAT 06/08/2019 10:36 Results fo r this AM CDT procedure are i n the results section. COMPREHENSIVE STAT 06/08/2019 10:36 Osteoporosis with Resul ts for this METABOLIC PANEL AM CDT current pathological proc edure are in fracture with the results routine healing, section. unspecified osteoporosis type, subsequent encou nter Bone pain H/O stem cell transplant (HCC) Diffuse large B-cell lymphoma of lymph nodes of multiple regions (HCC) MRI BRAIN W WO Routine 05/14/2019 1:03 Other specified Result s for this CONTRAST PM CDT types of non-hodgkin procedu re are in lymphoma, the results unspecified site section. (HCC) Chronic intractable headache, unspecified headache type PET CT SKULL BASE TO Routine 05/14/2019 10:13 Other specified Results for this MID THIGH AM CDT types of non-hodgkin procedu re are in lymphoma, the results unspecified site section. (HCC) Chronic intractable headache, unspecified headache type POC GLUCOSE Routine 05/14/2019 8:50 Results for this AM CDT procedure are i n the results section. after 03/30/2019 Results MRI Brain W Wo Contrast (11/12/2019 11:53 AM GEOGRAPHIC INFORMATION SYSTEMS MANAGER)Only the most recent of2 resultswithin the time period is included. Specimen Narrative Performed At This result has an attachment that is no t available. EXAMINATION: MRI BRAIN W WO CONTRAST HM RADIANT CLINICAL HISTORY: C85.80 Other specified types of non-hodgkin lymphoma unspecified site, R51 Headache, HEADACHE R51 NHL C85.80 COMPARISON: MRI brain 05/14/2019 TECHNIQUE: Multiplanar and multisequence MRI imaging of the brain was obtained with and without contrast. FINDINGS: No evidence of acute intracranial hemorr abel, mass, mass effect, midline shift, or acute infarct. Stable postsurgical changes related to l eft parieto-occipital craniotomy with small subjacent resection cavity in the left parietal lobe where there is minimal hemosiderin deposition. Stable scattered s ubcortical and periventricular white matter T2 FLAIR hyperintensities likely reflecting mini mal chronic microvascular ischemic changes. Major intracranial vascular flow voids appear preserved. Orbits are normal in appearance. Small l eft and moderate right mastoid fluid. Few areas of mild mucosal thickening within the paranasal sinuses. IMPRESSION: Stable exam compared with 05/14/2019. [id number] Procedure Note Hm Interface, Radiology Results Incoming - 11/12/2019 12:06 PM GEOGRAPHIC INFORMATION SYSTEMS MANAGER EXAMINATION: MRI BRAIN W WO CONTRAST CLINICAL HISTORY: C85.80 Other specified types of non-hodgkin lymphoma unspecified site, R51 Headache, HEADACHE R51 NHL C85.80 COMPARISON: MRI brain 05/14/2019 TECHNIQUE: Multiplanar and multisequence MRI imaging of the brain was obtained with and without contrast. FINDINGS: No evidence of acute intracranial hemorr abel, mass, mass effect, midline shift, or acute infarct. Stable postsurgical changes related to l eft parieto-occipital craniotomy with small subjacent resection cavity in the left parietal lobe where there is minimal hemosiderin deposition. Stable scattered subcortical and periventricular white matter T2 FLAIR hyperintensities likely reflecting mini mal chronic microvascular ischemic changes. Major intracranial vascular flow voids appear preserved. Orbits are normal in appearance. Small l eft and moderate right mastoid fluid. Few areas of mild mucosal thickening within the paranasal sinuses. IMPRESSION: Stable exam compared with 05/14/2019. [id number] Performing Organization Address City/State/Zipcode Phone Number [facility] [address] [place] [address] PET/CT Skull Base To Mid Thigh (11/12/2019 10:36 AM GEOGRAPHIC INFORMATION SYSTEMS MANAGER)Only the most recent of2 resultswithin the time period is included. Specimen Narrative Performed At EXAMINATION: PET CT SKULL BASE TO MID THIGH RADIANT CLINICAL HISTORY: C85.80 Other specified types of non- hodgkin lymphoma unspecified site, C85.80 NHL ; RESTAGI NG COMPARISON: PET/CT 05/14/2019, MRI brain 05/14/2009. M RI brain today will be performed later TECHNIQUE: The patient received 10-15 mCi 18-FDG intra venously. 1 hour later, PET/CT scanning from the top of the head to the mid thighs was performed. CT scanning was nondiagnostic and used for attenuation correction purposes and to aid in locali zation of any abnormal findings on the PET images. Automated dose exposure control was utilized. Blood glucose = 95 . FINDINGS: Head and Neck There is no suspicious lymph node uptake and no eviden ce of malignancy in the visualized brain. Mild uptake in a small right upper parajugular lymph node is likely benign/inflammatory Chest No suspicious uptake in the lungs, media stinum, courtney, or axillae. Abdomen Uptake in the liver, spleen, adrenal glands, pancreas, kidneys, and stomach is normal. There is no suspicious retroperiton eal or mesenteric lymph node uptake. Pelvis There is no suspicious pelvic or inguina l lymph node uptake. Osseous Structures There is no suspicious osseous uptake. IMPRESSION: No evidence of active lymphoma, unchange d. [id number] Procedure Note Interface, Radiology Results Incoming - 11/12/2019 11:36 AM GEOGRAPHIC INFORMATION SYSTEMS MANAGER EXAMINATION: PET CT SKULL BASE TO MID THIGH CLINICAL HISTORY: C85.80 Other specified types of non-hodgkin lymphoma unspecified site, C85.80 NHL ; RESTAGING COMPARISON: PET/CT 05/14/2019, MRI brain 05/14/2009. MRI brain today will be performed later TECHNIQUE: The patient received 10-15 mC i 18-FDG intravenously. 1 hour later, PET/CT scanning from the top of the head to the mid thighs was performed. CT scanning was nondiagnostic and used for attenuation correction purposes and to aid in locali zation of any abnormal findings on the PET imag es. Automated dose exposure control was utilized. Blood glucose = 95. FINDINGS: Head and Neck There is no suspicious lymph node uptake and no evidence of malignancy in the visualized brain. Mild uptake in a small right upper parajugular lymph node is likely benign/inflammatory Chest No suspicious uptake in the lungs, media stinum, courtney, or axillae. Abdomen Uptake in the liver, spleen, adrenal gla nds, pancreas, kidneys, and stomach is normal. There is no suspicious retroperitoneal or mesenteric lymph node uptake. Pelvis There is no suspicious pelvic or inguina l lymph node uptake. Osseous Structures There is no suspicious osseous uptake. IMPRESSION: No evidence of active lymphoma, unchange d. [id number] Performing Organization Address [facility] Cent[facility]ode Phone Number [facility] [address] [place] [phone] POC glucose (11/12/2019 9:00 AM GEOGRAPHIC INFORMATION SYSTEMS MANAGER)Only the most recent of2 resultswithin the time period is included. Pathologist [facility] [place] POC glucose 95 65 - 99 mg/dL [facility] Comment: HOSPITAL Lookback Coordinator Name: Shoshana Clark Device ID: [id number] Chartable: No Action Needed Specimen Performing Organization Address City/[facility]/Zipcode Phone Number [facility] DEPARTMENT OF PATHOLOGY AND [address], [place] [address] GENOM[address] [address] Estimated GFR (07/15/2019 11:03 AM CDT)Only the most recent of2 resultswithin the time period is included. Estimated GFR 85 mL/min/1.73 [facility] Comment: m2 HOSPITAL Catergory Units Interpretation G1 >=90 Normal or high G2 60-89 Mildly decreased G3a 45-59 Mildly to moderately decreas ed G3b 30-44 Moderately to severely decre ased G4 15-29 Severely decreased G5 <15 Kidney failure The eGFR was calculated using the Chronic Kidney Disea se Epidemiology Collaboration (CKD-EPI) equation. Interpretation is based on recommendations of the National Kidney Foundation-Kidney Disease Outcomes Chente lity Initiative (NKF-KDOQI) published in 2014. Specimen Plasma specimen Performing Organization Address City/State/[facility] Centercoil Phone Number [facility] DEPARTMENT OF PATHOLOGY AND [address], [place] [address] GENOMIC MEDICINE [facility] [address] [place] [address] CBC with platelet and differential (07/15/2019 11:03 AM CDT) Pathologist Sig nature WBC 7.52 4.50 - 11.00 k/uL [facility] RBC 4.39 (L) 4.40 - 6.00 m/uL [facility] HGB 14.2 14.0 - 18.0 g/dL [facility] HCT 40.1 (L) 41.0 - 51.0 % [facility] MCV 91.3 82.0 - 100.0 fL [facility] MCH 32.3 27.0 - 34.0 pg [facility] MCHC 35.4 31.0 - 37.0 g/dL [facility] RDW - SD 41.2 37.0 - 55.0 fL [facility] MPV 9.5 8.8 - 13.2 fL [facility] Platelet count 281 150 - 400 k/uL [facility] Neutrophils 54.7 39.0 - 69.0 % [facility] Lymphocytes 36.2 25.0 - 45.0 % [facility] Monocytes 7.3 0.0 - 10.0 % [facility] Eosinophils 1.5 0.0 - 5.0 % [facility] Basophils 0.3 0.0 - 1.0 % [facility] Specimen Blood Performing Organization Address City/State/[facility] Centercode Phone Number [facility] DEPARTMENT OF PATHOLOGY AND [address] [place] [phone] [facility] [address] [place] [phone] Magnesium level (07/15/2019 11:03 AM CDT) Pathologist Sig nature Magnesium 2.2 1.6 - 2.6 mg/dL [facility] L Specimen Plasma specimen Performing Organization Address City/[facility] Centercode Phone Number [facility] DEPARTMENT OF PATHOLOGY AND [address] [place] [phone] LDH (07/15/2019 11:03 AM CDT) Pathologist Sig nature LDH 157 87 - 225 U/L [facility] Specimen Plasma specimen Performing Organization Address [facility] Phone Number [facility] DEPARTMENT OF PATHOLOGY AND [address] [place] [address] [place] [phone] Comprehensive metabolic panel (07/15/2019 11:03 AM CDT)Only the most recent of2 resultswithin the time period is included. Sodium 139 135 - 148 [facility] mEq/L [facility] Potassium 4.2 3.5 - 5.0 [facility] mEq/L [facility] Chloride 101 98 - 112 [facility] mEq/L [facility] CO2 25 24 - 31 mEq/L [facility] Anion gap 13@ANIO 7 - 15 mEq/L [facility] BUN 12 6 - 20 mg/dL [facility] Creatinine 1.12 0.70 - 1.20 [facility] mg/dL HOSPITAL Glucose 146 (H) 65 - 99 mg/dL [facility] Calcium 9.5 8.3 - 10.2 [facility] mg/dL HOSPITAL Protein 7.8 6.3 - 8.3 [facility] Comment: g/dL HOSPITAL 4.6-7.0 g/dL 1 week 4.4-7.6 g/dL 7 months-1year 5.1-7.3 g/dL 1-2 years 5.6-7.5 g/dL >3 years 6.0-8.0 g/dL 18-150 6.3-8.3 g/dL Albumin 4.3 3.5 - 5.0 [facility] g/dL HOSPITAL A/G ratio 1.2 0.7 - 3.8 [facility] Alkaline phosphatase 74 40 - 129 U/L [facility] AST 28 10 - 50 U/L [facility] ALT 51 (H) 5 - 50 U/L [facility] Total bilirubin 0.6 0.0 - 1.2 [facility] mg/dL HOSPITAL Specimen Plasma specimen Performing Organization Address City/State/Zipcode Phone Number [facility] DEPARTMENT OF PATHOLOGY AND [address], [place] [address] GENOMIC MEDICINE [facility] [address] [place] [address] after 03/30/2019 Advance Directives For more information, please contact: [phone] Type Date Recorded Patient Step Finisher Explanati on Advance Directives, copy is at t he transplant Living Will and Medical facility Power of Stripper Soft Plastic Code Status Date Activated Date Inactivated Comments Full Code 08/29/2016 2:56 PM 09/04/2016 6:24 PM Code Status decision reached by: Patient
[2020-03-30] MEDS ORDERED: ONDANSETRON 4 MG/2 ML VIAL ONE (13:59)
[2020-03-30] MEDS ORDERED: NA CHLORIDE 0.9% 1,000 ML ONE ×2 (13:59→15:32)
[2020-03-30 14:16] LABS: Absolute Lymphocytes (CBC) 3.9 K/uL (0.7-4.9); Basophils % 0.7 % (0-1.3); Hematocrit 44.1 % (39.6-49.0); Lymphocytes % 33.1 % (15.3-44.8); MPV 8.1 fL (7.6-11.3); RBC Red Blood Cell Count 4.77 M/uL (4.33-5.43)
[2020-03-30 14:41] LABS: Albumin 4.4 g/dL (3.4-5.0); Bilirubin Direct 0.1 mg/dL (0-0.2); Bilirubin Total 0.5 mg/dL (0.2-1.0); Potassium 3.9 mmol/L (3.5-5.1); Protein, Total 8.2 g/dL (6.4-8.2)
[2020-03-30] MEDS ORDERED: PROMETHAZINE INJ 25 MG/ML AMP ONE (15:08)
--- NOTE | 2020-03-30 15:23 | RAD REPORT ---
EXAM DESCRIPTION: CT - Abdomen Pelvis W Contrast - 03/30/2020 3:11 pm CLINICAL HISTORY: ABD PAIN COMPARISON: No comparisons TECHNIQUE: Biphasic, helical CT imaging of the abdomen and pelvis was performed following 100 ml non -ionic IV contrast. No oral contrast administered. All CT scans are performed using dose optimization technique as appropriate and may include automated exposure control or mA/KV adjustment according to patient size. FINDINGS: No acute lung base finding. There are atelectasis changes adjacent to a significantly elev ated left hemidiaphragm The liver, spleen, and pancreas show no suspicious findings. Gallbladder and biliary tree are also wi thout suspicious finding. Symmetric renal function is seen with no hydronephrosis or suspicious renal mass. No pyelonephritis o r acute parenchymal process. No bladder abnormalities. No adrenal abnormalities. No dilated bowel loops or bowel wall thickening. No appendicitis findings. No free air, free fluid or inflammatory stranding. No hernia, mass or bulky lymphadenopathy. No suspicious bony findings. IMPRESSION: Contrast enhanced CT abdomen and pelvis showing no significant or emergent finding.
--- NOTE | 2020-03-30 16:24 | EDPHYS ---
Physician Documentation [facility] Name: Alvarez Ortiz Age: 34 yrs Sex: Male : 1985 Arrival Date: 03/30/2020 Time: 13:20 Bed 6 Private MD: ED Physician Myke Crawford HPI: 03/30 14:45 This 34 yrs old Male presents to ER via Wheelchair with complaints of jr8 Abdominal Pain, Vomiting. 14:45 The patient presents with abdominal pain in the upper abdomen. Onset: The jr8 symptoms/episode began/occurred acutely, today. The symptoms do not radiate. Associated signs and symptoms: Pertinent positives: nausea and vomiting. The symptoms are described as stabbing. Modifying factors: The symptoms are alleviated by nothing, the symptoms are aggravated by nothing. Severity of pain: At its worst the pain was moderate in the emergency department the pain is unchanged. The patient has not experienced similar symptoms in the past. The patient has not recently seen a physician. Historical: - Allergies: 13:40 Alprazolam; iw 13:40 Amoxicillin; iw 13:40 Aztreonam; iw 13:40 cefadyl; iw 13:40 cefotetan; iw 13:40 PENICILLINS; iw 13:40 Sulfa (Sulfonamide Antibiotics); iw 13:40 Xanax; iw - Home Meds: 13:40 Keppra 500 mg Oral tab 1 tab once a day [Active]; venlafaxine 75 mg Oral cp24 2 caps iw once daily [Active]; 17:28 valacyclovir 500 mg Oral tab 1 tab once daily [Active]; montelukast 10 mg Oral tab 1 bp tab once daily [Active]; mirtazapine 15 mg Oral TbDL 1 tab once daily [Active]; levetiracetam 500 mg Oral tab 1 tab 2 times per day [Active]; Klor-Con 10 10 mEq Oral TbER 2 tabs 2 times per day [Active]; gabapentin 300 mg Oral cap 1 cap 3 times per day [Active]; doxycycline hyclate 100 mg Oral cap 1 cap every 12 hours [Active]; - PMHx: 13:40 Anemia; Back pain; brain cancer; Cancer; chemotherapy; Depression; LYMPHOMA; iw Osteoporosis; radiation therapy; Seizures; - PSHx: 13:41 kyphoplasty; stem cell; iw - Immunization history:: Adult Immunizations up to date. - Social history:: Smoking status: Patient/guardian denies using tobacco. ROS: 14:45 Eyes: Negative for injury, pain, redness, and discharge, ENT: Negative for injury, jr8 pain, and discharge, Neck: Negative for injury, pain, and swelling, Cardiovascular: Negative for chest pain, palpitations, and edema, Respiratory: Negative for shortness of breath, cough, wheezing, and pleuritic chest pain, Back: Negative for injury and pain, MS/Extremity: Negative for injury and deformity, Skin: Negative for injury, rash, and discoloration, Neuro: Negative for headache, weakness, numbness, tingling, and seizure. 14:45 Abdomen/GI: Positive for abdominal pain, nausea and vomiting, Negative for diarrhea, constipation, abdominal distension. Exam: 14:45 Eyes: Pupils equal round and reactive to light, extra-ocular motions intact. Lids and jr8 lashes normal. Conjunctiva and sclera are non-icteric and not injected. Cornea within normal limits. Periorbital areas with no swelling, redness, or edema. ENT: Nares patent. No nasal discharge, no septal abnormalities noted. Tympanic membranes are normal and external auditory canals are clear. Oropharynx with no redness, swelling, or masses, exudates, or evidence of obstruction, uvula midline. Mucous membranes moist. Neck: Trachea midline, no thyromegaly or masses palpated, and no cervical lymphadenopathy. Supple, full range of motion without nuchal rigidity, or vertebral point tenderness. No Meningismus. Cardiovascular: Regular rate and rhythm with a normal S1 and S2. No gallops, murmurs, or rubs. Normal PMI, no JVD. No pulse deficits. Respiratory: Lungs have equal breath sounds bilaterally, clear to auscultation and percussion. No rales, rhonchi or wheezes noted. No increased work of breathing, no retractions or nasal flaring. Back: No spinal tenderness. No costovertebral tenderness. Full range of motion. MS/ Extremity: Pulses equal, no cyanosis. Neurovascular intact. Full, normal range of motion. Neuro: Awake and alert, GCS 15, oriented to person, place, time, and situation. Cranial nerves II-XII grossly intact. Motor strength 5/5 in all extremities. Sensory grossly intact. Cerebellar exam normal. Normal gait. 14:45 Abdomen/GI: Inspection: abdomen appears normal, Bowel sounds: active, all quadrants, Palpation: soft, in all quadrants, mild abdominal tenderness, in the epigastric area, left upper quadrant and left lower quadrant, mass, is not appreciated, rebound tenderness, is not appreciated, voluntary guarding, is elicited in all quadrants, involuntary guarding, is not appreciated, no appreciated organomegaly, Indicators: McBurney's point is not tender, Sagastume's sign is negative, Rovsing's sign is negative, Obturator sign is negative, Liver: tenderness, is not appreciated. 14:45 Skin: Appearance: Color: pale, Temperature: cool, Moisture: damp. Vital Signs: 13:36 BP 111 / 68; Pulse 87; Resp 16; Pulse Ox 100% on R/A; Weight 78.02 kg; Height 5 ft. 8 iw in. (172.72 cm); 14:42 BP 116 / 83; Pulse 78; Resp 16; Pulse Ox 98% ; bp 16:00 BP 105 / 71; Pulse 72; Resp 15; Pulse Ox 97% ; bp 17:26 BP 123 / 75; Pulse 81; Resp 16; Temp 98; Pulse Ox 98% ; bp 13:36 Body Mass Index 26.15 (78.02 kg, 172.72 cm) iw MDM: 13:43 Patient medically screened. jr8 16:21 Data reviewed: vital signs, nurses notes, lab test result(s), radiologic studies, CT jr8 scan. Data interpreted: Pulse oximetry: on room air is 98 %. Interpretation: normal. Counseling: I had a detailed discussion with the patient and/or guardian regarding: the historical points, exam findings, and any diagnostic results supporting the discharge/admit diagnosis, lab results, radiology results, the need for outpatient follow up, a family practitioner, to return to the emergency department if symptoms worsen or persist or if there are any questions or concerns that arise at home. Response to treatment: the patient's symptoms have markedly improved after treatment, patient is well hydrated. and as a result, I will discharge patient. Special discussion: Based on the patient's Hx, exam, and Dx evaluation, there is no indication for emergent surgery or inpatient Tx. It is understood by the patient/guardian that if the Sx's persist or worsen they need to return immediately for re-evaluation. 03/30 13:43 Order name: Basic Metabolic Panel; Complete Time: 14:46 03/30 13:43 Order name: CBC with Diff; Complete Time: 14:46 03/30 13:43 Order name: Creatinine for Radiology; Complete Time: 14:46 03/30 13:43 Order name: Hepatic Function; Complete Time: 14:46 03/30 13:43 Order name: Lipase; Complete Time: 14:46 03/30 14:47 Order name: CT Abd/Pelvis - IV Contrast Only; Complete Time: 15:43 03/30 13:43 Order name: IV Saline Lock; Complete Time: 13:57 03/30 13:43 Order name: Labs collected and sent; Complete Time: 13:57 Administered Medications: 13:50 Drug: NS 0.9% 1000 ml Route: IV; Rate: 1000 ml; Site: right antecubital; bp 17:29 Follow up: IV Status: Completed infusion; IV Intake: 1000ml bp 13:50 Drug: Zofran (Ondansetron) 4 mg Route: IVP; Site: right antecubital; bp 15:30 Follow up: Response: Nausea is decreased bp 15:00 Drug: NS 0.9% 1000 ml Route: IV; Rate: 1000 ml; Site: right antecubital; bp 17:29 Follow up: IV Status: Completed infusion; IV Intake: 1000ml bp 15:06 Drug: Promethazine 12.5 mg Route: IVP; Site: right antecubital; iw 17:28 Follow up: Response: Nausea is decreased bp Disposition: 03/31 01:29 Co-signature as Attending Physician, Myke Crawford MD I agree with the assessment and kdr plan of care. Disposition: 03/30/20 16:23 Discharged to Home. Impression: Acute Gastroenteritis, Dehydration. - Condition is Stable. - Discharge Instructions: Dehydration, Adult, Viral Gastroenteritis, Adult. - Prescriptions for promethazine 25 mg Oral Tablet - take 1 tablet by ORAL route every 6 hours As needed; 20 tablet. - Medication Reconciliation Form, Thank You Letter, Antibiotic Education, Prescription Opioid Use form. - Follow up: Private Physician; When: 2 - 3 days; Reason: Recheck today's complaints, Continuance of care, Re-evaluation by your physician. - Problem is new. - Symptoms have improved. Signatures: Dispatcher [employer] EDMS Myke Crawford MD MD kdr Mine Hammer, RN RN Prashanth Pepper PA PA jr8 Rajesh Mcneal, RN RN bp Corrections: (The following items were deleted from the chart) 03/30 17:29 16:23 03/30/2020 16:23 Discharged to Home. Impression: Acute Gastroenteritis; bp Dehydration. Condition is Stable. Forms are Medication Reconciliation Form, Thank You Letter, Antibiotic Education, Prescription Opioid Use. Follow up: Private Physician; When: 2 - 3 days; Reason: Recheck today's complaints, Continuance of care, Re-evaluation by your physician. Problem is new. Symptoms have improved. jr8
--- NOTE | 2020-03-30 16:24 | ER ---
Nurse's Notes [facility] Name: Alvarez Ortiz Age: 34 yrs Sex: Male : 1985 Arrival Date: 03/30/2020 Time: 13:20 Bed 6 Private MD: Diagnosis: Acute Gastroenteritis;Dehydration Presentation: 03/30 13:36 Chief complaint: Patient states: worsening vomiting since last night, has bad motion iw sickness, has pain all over, feels sore in joints, denies fever, +constipation, denies urinary s/s , pain with respiration, appears pale, cool, clammy. Coronavirus screen: Proceed with normal triage. Patient denies a cough. Patient denies shortness of breath or difficulty breathing. Patient denies measured and/or subjective temperature greater than 100.4F prior to today's visit. Patient denies travel on a cruise ship or to a country the [facility] currently lists as an affected area. Patient denies contact with known and/or suspected case of COVID-19. Ebola Screen: Patient negative for fever greater than or equal to 101.5 degrees Fahrenheit, and additional compatible Ebola Virus Disease symptoms Patient denies exposure to infectious person. Patient denies travel to an Ebola-affected area in the 21 days before illness onset. No symptoms or risks identified at this time. Initial Sepsis Screen: Does the patient meet any 2 criteria? No. Patient's initial sepsis screen is negative. Does the patient have a suspected source of infection? No. Patient's initial sepsis screen is negative. Risk Assessment: Do you want to hurt yourself or someone else? Patient reports no desire to harm self or others. Onset of symptoms was March 29, 2020. 13:36 Method Of Arrival: Wheelchair iw 13:36 Acuity: EAN 2 iw Triage Assessment: 13:45 General: Appears in no apparent distress. comfortable, Behavior is cooperative, bp appropriate for age, anxious. Pain: Complains of pain in abdomen. EENT: No deficits noted. Neuro: No deficits noted. Cardiovascular: No deficits noted. Respiratory: No deficits noted. GI: Reports nausea, vomiting. : No signs and/or symptoms were reported regarding the genitourinary system. Derm: No deficits noted. Musculoskeletal: No deficits noted. Historical: - Allergies: 13:40 Alprazolam; iw 13:40 Amoxicillin; iw 13:40 Aztreonam; iw 13:40 cefadyl; iw 13:40 cefotetan; iw 13:40 PENICILLINS; iw 13:40 Sulfa (Sulfonamide Antibiotics); iw 13:40 Xanax; iw - Home Meds: 13:40 Keppra 500 mg Oral tab 1 tab once a day [Active]; venlafaxine 75 mg Oral cp24 2 caps iw once daily [Active]; 17:28 valacyclovir 500 mg Oral tab 1 tab once daily [Active]; montelukast 10 mg Oral tab 1 bp tab once daily [Active]; mirtazapine 15 mg Oral TbDL 1 tab once daily [Active]; levetiracetam 500 mg Oral tab 1 tab 2 times per day [Active]; Klor-Con 10 10 mEq Oral TbER 2 tabs 2 times per day [Active]; gabapentin 300 mg Oral cap 1 cap 3 times per day [Active]; doxycycline hyclate 100 mg Oral cap 1 cap every 12 hours [Active]; - PMHx: 13:40 Anemia; Back pain; brain cancer; Cancer; chemotherapy; Depression; LYMPHOMA; iw Osteoporosis; radiation therapy; Seizures; - PSHx: 13:41 kyphoplasty; stem cell; iw - Immunization history:: Adult Immunizations up to date. - Social history:: Smoking status: Patient/guardian denies using tobacco. Screenin:46 Abuse screen: Denies threats or abuse. Denies injuries from another. Nutritional bp screening: No deficits noted. Tuberculosis screening: No symptoms or risk factors identified. Fall Risk None identified. Assessment: 13:46 General: SEE TRIAGE NOTE. bp 14:43 Reassessment: NO ACTIVE VOMITING, NO S/S ACUTE DISTRESS. bp 16:30 Reassessment: D/C ON HOLD FOR IVF. bp 17:24 Reassessment: PT D/C HOME VIA W/C, DX WITH VIRAL GASTROENTERITIS. bp Vital Signs: 13:36 BP 111 / 68; Pulse 87; Resp 16; Pulse Ox 100% on R/A; Weight 78.02 kg; Height 5 ft. 8 iw in. (172.72 cm); 14:42 BP 116 / 83; Pulse 78; Resp 16; Pulse Ox 98% ; bp 16:00 BP 105 / 71; Pulse 72; Resp 15; Pulse Ox 97% ; bp 17:26 BP 123 / 75; Pulse 81; Resp 16; Temp 98; Pulse Ox 98% ; bp 13:36 Body Mass Index 26.15 (78.02 kg, 172.72 cm) ED Course: 13:20 Patient arrived in ED. ag5 13:38 Triage completed. iw 13:43 Prashanth Chavez PA is PHCP. jr8 13:43 Myke Crawford MD is Attending Physician. jr8 13:45 Rajesh Mcneal RN is Primary Nurse. bp 13:46 Arm band placed on. bp 13:46 Patient has correct armband on for positive identification. Bed in low position. Call bp light in reach. Side rails up X2. 13:50 Inserted saline lock: 20 gauge in right antecubital area, using aseptic technique. bp Blood collected. 15:20 CT Abd/Pelvis - IV Contrast Only In Process Unspecified. EDMS 17:25 No provider procedures requiring assistance completed. IV discontinued, intact, bp bleeding controlled, No redness/swelling at site. Pressure dressing applied. Administered Medications: 13:50 Drug: NS 0.9% 1000 ml Route: IV; Rate: 1000 ml; Site: right antecubital; bp 17:29 Follow up: IV Status: Completed infusion; IV Intake: 1000ml bp 13:50 Drug: Zofran (Ondansetron) 4 mg Route: IVP; Site: right antecubital; bp 15:30 Follow up: Response: Nausea is decreased bp 15:00 Drug: NS 0.9% 1000 ml Route: IV; Rate: 1000 ml; Site: right antecubital; bp 17:29 Follow up: IV Status: Completed infusion; IV Intake: 1000ml bp 15:06 Drug: Promethazine 12.5 mg Route: IVP; Site: right antecubital; iw 17:28 Follow up: Response: Nausea is decreased bp Intake: 17:29 IV: 1000ml; Total: 1000ml. bp 17:29 IV: 1000ml; Total: 2000ml. bp Outcome: 16:23 Discharge ordered by . jr8 17:25 Discharged to home via wheelchair. bp 17:25 Condition: stable 17:25 Discharge instructions given to patient, Instructed on discharge instructions, follow up and referral plans. medication usage, Demonstrated understanding of instructions, follow-up care, medications, Prescriptions given X 1. 17:29 Patient left the ED. bp Signatures: Dispatcher [employer] Mine Villalta, MAURI RN Prashanth Pepper PA PA jr8 Rajesh Mcneal RN RN Slime Gallagher ag5
[2020-03-31 05:20] VITALS: BP 123/75; TEMP 98; O2SAT 98
== END 2020-03-30 17:29 | disposition home or self-care (01) ==
LOC: ER 13:16
DX: K52.9 Noninfective gastroenteritis and colitis, unspecified (principal); E86.0 Dehydration; R11.2 Nausea with vomiting, unspecified; F32.9 Major depressive disorder, single episode, unspecified; G40.909 Epilepsy, unspecified, not intractable, without status epilepticus; Z88.0 Allergy status to penicillin; Z88.1 Allergy status to other antibiotic agents; Z88.2 Allergy status to sulfonamides; Z88.8 Allergy status to other drugs, medicaments and biological substances; Z85.72 Personal history of non-Hodgkin lymphomas; Z85.841 Personal history of malignant neoplasm of brain
CPT/HCPCS: 96361; 85025; 80048; 36415; 80076; 83690; 74177; 96375; 96374; 99284; Q9967; J2550; J7030 ×2; J2405

== ENCOUNTER 2021-01-24 13:27 | Emergency (ER) | payer BC, OTHER ==
--- OUTSIDE RECORDS SUMMARY | 2021-01-24 13:31 | XMS REPORT | Continuity of Care Document ---
:1985 Author Organization [facility] t Address [address] [place] [address] Care Team Providers Name Role Phone Carlos EASTMAN A. Primary Care Physician Michael Gonzalez MD Attending Clinician Provider, Urgent Care Attending Clinician Unavailable Payers Payer Name Policy Type Policy Effective Date Expiration Date Sour ce Number BCBSBCBS CHOICE [id number] 2016 [place] PPO/FEDERAL 00:00:00 Gnosticism EMPL [id number] 2016-Presen tPPO Problems Condition Condition Condition Status Onset Resolution Last Treating Co mments Source Name Details Category Date Date Treatment Clinician Date Need for Need for Disease Active [place] vaccinatio vaccinatio 6-04 Me thodi ns against ns against 00:00: st single single 00 bacterial bacterial disease disease Need for Need for Disease Active [place] hepatitis hepatitis 3-14 Meth juan miguel B B 00:00: st vaccinatio vaccinatio 00 n n Need for Need for Disease Active [place] Tdap Tdap 3-14 Methodi vaccinatio vaccinatio 00:00: st n n 00 Osteoporos Osteoporos Disease Active [place] is is 9 Methodi 00:00: st 00 Bone pain Bone pain Disease Active Sun[place] ston 4-03 Methodi 00:00: st 00 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 A. Received 4.826 x 10(6) CD34/kg cells on 02/06/17. Transplan t was complicat ed with non-infec tious neutropen ic fever with negative blood cxs, grade II nausea/di arrhea/mu cositis. GI panel was negative, bone painB. Engrafted 02/20/17 (day 14) with WBC 1.88, ANC 564, Hgb 9.2, and Plts 144K. Received Pentamidi ne prophylax is due to Sulfa allergies . ischarged home on 02/21/17 (day 15). 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 of nodes of multiple multiple regions regions Anemia of Anemia of Disease Active 2015-11 [place] chronic chronic 0-08 Methodi disease disease 00:00: st 00 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 [place] (non-Hodgk (non-Hodgk 0-06 Me thodi in's in's 00:00: st lymphoma) lymphoma) 00 Chronic Chronic Disease Active 2015-11 [place] back pain back pain 0-06 Meth juan miguel 00:00: st 00 Seizure Seizure Disease Active [place] disorder disorder 8-20 Method i 00:00: st 00 Brain Brain Disease Active [place] metastases metastases 8-11 Me thodi 00:00: st 00 Depression Depression Disease Active [place] 5-23 Methodi 00:00: st 00 Anxiety Anxiety Disease Active [place] 5-23 Methodi 00:00: st 00 Allergies, Adverse Reactions, Alerts Allergy Allergy Status Severity Reaction(s) Onset Inactive Treating Comm ents Source Name Type Date Date Clinician Aztremikhail Propensi Active Rash [place] m ty to 3-21 Method[facility] adverse 00:00: st reaction 00 s to drug Alprazol Propensi Active Other (See "climbing [place] am ty to Comments) 07-12 up huang" Meth juan miguel adverse 00:00: and st reaction 00 hallucina s to tions drug Amoxicil Propensi Active Hives Pt states Suni ston adri ty to 04-15 he gets Methodi adverse 00:00: fever st reaction 00 s to drug Cefadyl Propensi Active Hives Pt states [place] ty to 04-15 he gets Methodi adverse 00:00: fever st reaction 00 s to drug Penicill Propensi Active Hives Pt states [place] ins ty to 04-15 he gets Methodi adverse 00:00: fevers st reaction 00 s to drug Jon Propensi Active Other (See Numbness [place] ty to Comments) 04-15 Methodi adverse 00:00: st reaction 00 s to drug Sulfa Propensi Active Hives Pt states [place] (Sulfona ty to 04-15 he gets Methodi mide adverse 00:00: fever st Antibiot reaction 00 ics) s to drug Family History Family Member Diagnosis Comments Start Date Stop Date Source Natural father Diabetes type II [place] Gnosticism Natural father Hyperlipidemia [place] Gnosticism Natural father Hypertension [place] Gnosticism Maternal grandfather Prostate cancer [place] Gnosticism Maternal grandmother [facility] Gnostic[facility] Paternal grandfather Lung cancer Suni Arceoist Social History Social Habit Start Date Stop Date Quantity Comments Source Sex Assigned At [facility] ethodist Tobacco use and 2020-12-20 2020-12-20 Never used [facility] ethodist exposure 00:00:00 00:00:00 Alcohol intake 2020-12-20 2020-12-20 Current drinker [place] Gnosticism 00:00:00 00:00:00 of alcohol (finding) Alcohol Comment 2017-01-31 2017-01-31 socially/ past [place] Gnosticism 00:00:00 00:00:00 Smoking Status Start Date Stop Date Source Former smoker 2020-12-20 00:00:00 2020-12-20 00:00:00 [place] Gnosticism Medications Ordered Filled Start Stop Current Ordering Indication Dosage Frequency Signature Comments Components Source Medication Medication Date Date Medication? Clinician (SIG) Name Name calcium 2018- Yes 1{tbl} QD Take 1 [place] carbonate-v 2-20 tablet by Met lopez itamin D3 11:02: mouth st 500 mg-200 31 daily. unit per tablet ibuprofen 2018-11 Yes 200mg Q12H Take 200 [place] (ADVIL,MOTR 2-20 mg by Methodi IN) 400 MG 11:02: mouth st tablet 31 every 12 (twelve) hours as needed for mild pain (due to vaccines). ergocalcife Yes [id number] Q7D Take 1 [place] rol 2-19 capsule Methodi (VITAMIN 00:00: (50,000 st D2) 50,000 00 Units unit total) by capsule mouth once a week. Immunizations Ordered Immunization Filled Immunization Date Status Commen ts Source Name Name Zoster Vaccine 2019-07-15 Completed [place] Recombinant 00:00:00 [place] MMR 2019-05-13 Completed [place] 00:00:00 [facility] Pneumococcal 2019-05-13 Completed [place] Polysaccharide 00:00:00 Gnosticism MMR 2019-04-13 Completed [place] 00:00:00 [place] Zoster Vaccine 2019-04-13 Completed [place] Recombinant 00:00:00 Gn[facility] Hib (PRP-T) 2019-01-12 Completed [place] 00:00:00 Gnosticism IPV 2018-09-30 Completed [place] 00:00:00 Gnosticism Hepatitis B 2018-09-30 Completed [place] 00:00:00 Gnosticism Tdap 2018-07-29 Completed [place] 00:00:00 Gnosticism IPV 2018-07-29 Completed [place] 00:00:00 Gnosticism Hepatitis A 2018-06-24 Completed [place] 00:00:00 Gnosticism Meningococcal MCV4P 2018-06-24 Completed [facility] on 00:00:00 Gnosticism Hib (PRP-T) 2018-06-24 Completed [place] 00:00:00 Gnosticism Tdap 2018-04-28 Completed [place] 00:00:00 Gnosticism IPV 2018-04-28 Completed [place] 00:00:00 Gnosticism Pneumococcal 2018-04-28 Completed [place] Conjugate 13-Valent 00:00:00 Metho dist Hepatitis B 2018-03-31 Completed [place] 00:00:00 Gnosticism Hib (PRP-T) 2018-03-31 Completed [place] 00:00:00 Gnosticism Tdap 2018-02-04 Completed [place] 00:00:00 Gnosticism Hepatitis B 2018-02-04 Completed [place] 00:00:00 Gnosticism Vital Signs Vital Name Observation Time Observation Value Comments Source Body weight 2020-12-20 12:47:00 81.647 kg Jerome Martins BMI 2020-12-20 12:47:00 28.19 kg/m2 Jerome Martins Systolic blood 2020-12-20 12:08:00 135 mm[Hg] [place] Gnosticism pressure Diastolic blood 2020-12-20 12:08:00 68 mm[Hg] [place] Gnosticism pressure Heart rate 2020-12-20 12:08:00 91 /min Jerome Martins Respiratory rate 2020-12-20 12:08:00 18 /min Chapin Martins Oxygen saturation in 2020-12-20 12:08:00 98 /min Jerome Martins Arterial blood by Pulse oximetry Body temperature 2020-10-26 14:30:00 36.61 Mayuri Chapin Martins Body height 2020-10-26 14:30:00 170.2 cm Jerome Martins Procedures Procedure Date / Time Performed Performing Clinician [facility] e MRI BRAIN W WO CONTRAST 2020-12-20 13:09:34 BeJanes brantley BASIC METABOLIC PANEL 2020-10-26 14:45:00 BeJanes brantley Gnosticism ESTIMATED GFR 2020-10-26 14:45:00 Janes Gonzalez Pr thodist VITAMIN D 25 HYDROXY 2020-10-26 14:21:00 Janes Gonzalez on Gnosticism LEVEL HCG QUALITATIVE, URINE 2020-10-26 14:21:00 BeJanes brantley Gnosticism SCREEN HCG QUALITATIVE, URINE 2020-09-20 15:15:00 BeJanes brantley Gnosticism SCREEN BASIC METABOLIC PANEL 2020-09-20 15:10:00 BeJanes brantley Gnosticism ESTIMATED GFR 2020-09-20 15:10:00 Janes Gonzalez Me thodist HEPATIC FUNCTION PANEL 2020-09-20 15:10:00 BeJanes brantley VITAMIN D 25 HYDROXY 2020-09-20 14:45:00 Janes Gonzalez on Gnosticism LEVEL MRI BRAIN W WO CONTRAST 2020-09-19 16:15:[address] SKULL BASE TO MID 2020-09-19 14:49:39 Janes Gonzalez [place] Gnosticism THIGH POC GLUCOSE 2020-09-19 13:29:00 Janes Gonzalez Pr thodi Plan of Care Planned Activity Planned Date Details Comments Source Future Scheduled 2020-06-24 INFLUENZA VACCINE [place] [facility] Test 00:00:00 [code = INFLUENZA VACCINE] Future Scheduled 2000 COVID-19 VACCINE (1 [place] Gnosticism Test 00:00:00 of 2) [code = COVID-19 VACCINE (1 of 2)] Encounters Start End Encounter Admission Attending Care Care Encounter Source Date/Time Date/Time Type Type Clinicians Facility Department ID 2020-12-20 2020-12-20 Outpatient [place], [facility] [id number] [place] 00:00:00 00:00:00 JANES [address] 2020-11-07 2020-11-07 Urgent Provider, [facility] [id number] 13:02:18 13:56:39 [facility] [id number] [facility] [id number] [facility] [id number] [address]al [address] 2020-10-26 2020-10-26 Outpatient [place], [facility] [id number] [place] 00:00:00 00:00:00 JANES [address] 2020-09-20 2020-09-20 Outpatient [place], [facility] [id number] [place] 00:00:00 00:00:00 JANES [address] 2020-09-19 2020-09-19 Outpatient [place], [facility] [id number] [place] 00:00:00 00:00:00 JANES [address] 2020-09-19 2020-09-19 Outpatient [place], [facility] [id number] [place] 00:00:00 00:00:00 JANES [address] 2019-11-12 2019-11-12 Outpatient [place], [facility] [id number] [place] 00:00:00 00:00:00 JANES [address] 2019-11-12 2019-11-12 Outpatient [place], [facility] [id number] [place] 00:00:00 00:00:00 GARTH [address] Results Test Description Test Time Test Comments Results Result Sourc e Comments MRI Brain W Wo 2020-11- [facility] [place] Contrast [address] 13:23:55 - 12/20/2020 1:26 PM CSTEXAMINATION: MRI BRAIN W WO CONTRASTCLINICAL HISTORY: C85.90 Non-Hodgkin lymphoma unspecified unspecified site, R51.9 Headache unspecified, C85.90 NHL R51 HEADACHECOMPARISON: Brain MR September 19, 2020.TECHNIQUE: Multiplanar and multisequence MRI imaging of the brain was obtained with and without contrast.FINDINGS:No evidence of acute intracranial hemorrhage, mass, mass effect, acute infarct or midline shift. Stable left parietal postsurgical changes/craniotomy.No abnormal intracranial enhancement. No suspicious leptomeningeal enhancement or disease identified.There is a similar pattern of scattered punctate foci of white matter T2/flair hyperintensities that are nonspecific however likely related to microvascular ischemic changes. Ventricles and sulci are normal in appearance for patient's age. With a punctate focus of susceptibility within the posterior aspect of the pontomedullary junction, possibly sequela from old microhemorrhage. Basal cisterns are clear. Major intracranial flow voids are maintained. Orbits are normal in appearance. Visualized paranasal sinuses and mastoid air cells are clear.IMPRESSION:1. No acute intracranial abnormality. No suspicious enhancement.2. Unchanged punctate focus of susceptibility within the posterior aspect of the pontomedullary junction, and remains nonspecific and suspected sequela from chronic microvascular hemorrhage.[id number] Vitamin D 25 hydroxy level 2020-10-26 16:55:56 Test Item Value Reference Range Interpretation Comme nts Vitamin D, 25-hydroxy (test 30.5 ng/mL 30-150 This assay reports the sum of code = 1989-3) 25-hydroxy vi tamin D3 and 25-hydroxy vitamin D2. Ref erence range:0-17 years:Deficienc y: less than 20ng/mLOptimum level: greater than or equal to 20 ng/ mL.18 years and older:Deficienc y: less than 20ng/mLInsuffic iency: 20-29 ng/mLOptimum Le celia: 30-80 ng/mLThe assay reportabl e range is 3.4 155.9 ng/mL. Levels h igher than 150 ng/mL may be associat ed with toxicity.If toxicity is cli nically suspected and the reported re sult is >155.9 ng/mL,contact l ab for alternative methods to obta in a definitive level.If separa te quantitation of 25-hydroxy shruthi min D3 and 25-hydroxy vitamin D2 is n eeded, please contact lab for alterna tive methods. [place] [facility] [id number] 15:43:02 Test Item Value Reference Range Interpretation Comments Sodium (test code = 141 See_Comment [Automa noemy message] 2951-2) The system [employer] generated this result transmitted ref erence range: 135 - 14 8 mEq/L. The refe rence range was not u sed to interpret this result as normal/abnor mal. Potassium (test code 4.2 See_Comment [Autom ated message] = 2203-3) The system [employer] generated this result transmitted ref erence range: 3.5 - 5. 0 mEq/L. The refe rence range was not u sed to interpret this result as normal/abnor mal. Chloride (test code = 105 See_Comment [Auto mated message] 2074-0) The system [employer] generated this result transmitted ref erence range: 98 - 112 mEq/L. The reference r karen was not used to interpret this result as normal/abnor mal. CO2 (test code = 27 See_Comment [Automated message] 2028-07) The system [employer] generated this result transmitted ref erence range: 24 - 31 mEq/L. The reference r karen was not used to interpret this result as normal/abnor mal. Anion gap (test code 9@ANIO See_Comment [Autom ated message] = 74319-5) The system [employer] generated this result transmitted ref erence range: 7 - 15 m Eq/L. The reference r karen was not used to interpret this result as normal/abnor mal. BUN (test code = 16 mg/dL 6-20 3094-0) Creatinine (test code 1.00 mg/dL 0.7-1.2 = 2160-0) Glucose (test code = 87 mg/dL 65-99 2345-7) Calcium (test code = 9.6 mg/dL 8.3-10.2 26598-0) Jerome MartinsEstimated [id number] 15:43:02 Test Item Value Reference Range Interpretation Comments Estimated GFR (test >=90 mL/min/1.73 m2 Adela fontaine Units code = 5488) InterpretationG 1 >=90 Normal or highG2 60-89 Mildly oygyertycK0e 45-59 Mildly to mode rately chvrzghwsG2g 30-44 Moderately to severely decreasedG4 15-29 Severely decre asedG5 <15 Kidn ey failureThe eGFR was calculated walter elder the Chronic Kidney Disease Epidemiology Co llaboration (CKD-EPI) equat ion. Interpretation is based on recommendations of the National Kidney Foundation-Kidn ey Disease Outcomes Qualit y Initiative (NKF-KDOQI) pub lished in 2014. Jerome MartinshCG qualitative, urine [id number] 14:49:24 Test Item Value Reference Range Interpretation Comments hCG qualitative, Negative Sensitivity of HCG test: urine (test code = 25 mIU/mL 2105-3) Jerome MartinsHepatic function [id number] 21:06:59 Test Item Value Reference Range Interpretation Comments Albumin (test code = 4.1 g/dL 3.5-5 175-7) Total bilirubin 0.4 mg/dL 0-1.2 (test code = 1974-2) Bilirubin direct <0.2 0-0.3 (test code = 1967-7) Alkaline phosphatase 66 U/L 40-129 (test code = 6768-6) Protein (test code = 7.2 g/dL 6.3-8.3 -[place] n 2885-2) 4.6-7.0 g/dL1 week 4.4-7.6 g/dL7 months-1year 5.1-7.3 g/dL1-2 years 5.6-7.5 g/dL>3 years 6.0-8.0 g/rC18-296 6.3-8.3 g/dL ALT (test code = 44 U/L 2-6) AST (test code = 28 U/L 1920-8) LIDIA (test code = LIVER ADDED AND LIDIA) READ BACK TO DR NYE ON 09/20/2020 16:50 NXL Jerome MartinsPET/CT Skull Base To Mid [id number] 16:08:04Hm Interface, Radiology Results - 09/19/2020 4:11 PM CDTPROCEDURE: PET CT SKULL BASE TO MID THIGHINDICATION: C85.90 Non-Hodgkin lymphoma unspecified unspecified site, R51.9 Headache unspecified, C85.90 NHL Restaging PET scan. COMPARISON: PET CT 11/12/2019 TECHNIQUE: Blood glucose measured at the time of injection was 99 mg/dL. The patient was then intravenously injected with 12 mCi of 18F-FDG. Approximately one hour later, PET images were acquired from the skull base to the mid thighs.Corresponding, low dose, non-contrast CT scanning was performed as part of the attenuation correction process. FINDINGS: Head and neck: Left parietal lobe craniotomy changes should be evaluated with MRI. No suspicious lesions are seen in the imaged head and neck. Chest: Chronic parenchymal changes in the anterior and medial pleura of the left upper lung and volume loss are stable. No hypermetabolicpulmonary lesions are seen in the remainder of the left lung or throughout the entire right lung. Nomediastinal or hilar lymphadenopathy is seen. There are no suspicious axillary lesions. Abdomen: Intr a-abdominal solid organs demonstrate normal metabolic activity without evidence of mass lesions. No hypermetabolic retroperitoneal or mesenteric lymphadenopathy is seen. Pelvis: There are no suspiciouspelvic masses or lymphadenopathy. Musculoskeletal: No worrisome bony lesions are identified. IMPRESSION: Interval stable PET scan demonstrating no definitive evidence of FDG-avid lymphoma. [facility]-[id number] MethodistPOC [id number] 13:37:51 Test Item Value Reference Range Interpretation Comments POC glucose (test 99 mg/dL 65-99 Curing Finisher N brit: Naldo code = 74930-1) GordonDevice ID: [id number] able: [facility] Notified MAURI Martins
[2021-01-24 14:14] LABS: Absolute Lymphocytes (CBC) 2.3 K/uL (0.7-4.9); Basophils % 0.7 % (0-1.3); Hematocrit 40.9 % (39.6-49.0); Lymphocytes % 41.9 % (15.3-44.8); MPV 7.6 fL (7.6-11.3); RBC Red Blood Cell Count 4.48 M/uL (4.33-5.43)
[2021-01-24 14:27] LABS: Protime INR 1.01
--- NOTE | 2021-01-24 14:43 | RAD REPORT ---
EXAM DESCRIPTION: Jamar Single View01/24/2021 2:30 pm CLINICAL HISTORY: Shortness of breath COMPARISON: Due to technical issues the prior exams were available for comparison FINDINGS: Chronic elevation of the left hemidiaphragm with left lung scarring. Right lung appears clear of acute infiltrate. Heart is normal size
[2021-01-24 14:57] LABS: ALT/SGPT 60 U/L (12-78); AST/SGOT 26 U/L (15-37); Albumin 3.9 g/dL (3.4-5.0); Alkaline Phosphatase 59 U/L (45-117); BUN Blood Urea Nitrogen 10 mg/dL (7-18); Bicarbonate 24 mmol/L (21-32); Bilirubin Direct < 0.1 mg/dL (0-0.2); Bilirubin Total 0.5 mg/dL (0.2-1.0); Glucose Level 118 mg/dL (74-106); Magnesium 1.9 mg/dL (1.8-2.4); NT PRO-BNP 111 pg/mL (<125); Potassium 3.7 mmol/L (3.5-5.1); Protein, Total 7.1 g/dL (6.4-8.2); Sodium Level 141 mmol/L (136-145); Troponin (Emerg Dept Use Only) < 0.02 ng/mL (0.0-0.045)
[2021-01-24] MEDS ORDERED: NA CHLORIDE 0.9% 1,000 ML ONE (15:21)
[2021-01-24 15:27] LABS: Thyroid Stimulating Hormone 1.36 uIU/mL (0.360-3.740)
--- NOTE | 2021-01-24 15:36 | ER ---
Nurse's Notes [facility] Name[facility] Alvarez Ortiz Age: 35 yrs Sex: Male : 1985 Arrival Date: 01/24/2021 Time: 13:29 Bed 8 Private MD: Rajesh Birmingham Diagnosis: Chest pain, unspecified;Palpitations Presentation: 01/24 13:36 Chief complaint: Patient states: Chest pain, SOB, and palpitations since 2 am. No fever ll1 or cough. Coronavirus screen: Client denies travel out of the [place] in the last 14 days. At this time, the client does not indicate any symptoms associated with coronavirus-19. Ebola Screen: Patient denies travel to an Ebola-affected area in the 21 days before illness onset. Initial Sepsis Screen: Does the patient meet any 2 criteria? HR > 90 bpm. No. Patient's initial sepsis screen is negative. Does the patient have a suspected source of infection? Yes: Other: chest pain. Risk Assessment: Do you want to hurt yourself or someone else? Patient reports no desire to harm self or others. Onset of symptoms was January 24, 2021. 13:36 Method Of Arrival: Wheelchair ll1 13:36 Acuity: EAN 3 ll1 Historical: - Allergies: 13:39 Sulfa (Sulfonamide Antibiotics); ll1 13:39 PENICILLINS; ll1 13:39 Xanax; ll1 13:39 cefotetan; ll1 13:39 cefadyl; ll1 13:39 Aztreonam; ll1 13:39 Amoxicillin; ll1 13:39 Alprazolam; ll1 - PMHx: 13:39 Osteoporosis; Depression; radiation therapy; LYMPHOMA; chemotherapy; brain cancer; Back ll1 pain; Anemia; Cancer; Seizures; - PSHx: 13:39 kyphoplasty; stem cell; ll1 - Immunization history:: Flu vaccine is up to date. - Social history:: Smoking status: Patient denies any tobacco usage or history of. Screenin:45 Abuse screen: Denies threats or abuse. Nutritional screening: No deficits noted. vg1 Tuberculosis screening: No symptoms or risk factors identified. Fall Risk No fall in past 12 months (0 pts). No secondary diagnosis (0 pts). IV access (20 points). Ambulatory Aid- None/Bed Rest/Nurse Assist (0 pts). Gait- Normal/Bed Rest/Wheelchair (0 pts) Mental Status- Oriented to own ability (0 pts). Total Lind Fall Scale indicates No Risk (0-24 pts). Assessment: 14:31 General: Appears in no apparent distress. uncomfortable, Behavior is calm, cooperative. vg1 Pain: Complains of pain in chest Pain does not radiate. Pain currently is 5 out of 10 on a pain scale. Pain began last night around 2am. Neuro: Level of Consciousness is awake, alert, obeys commands, Oriented to person, place, time, situation. Neuro: Reports dizziness. Cardiovascular: Patient's skin is warm and dry. Respiratory: Airway is patent Respiratory effort is even, unlabored, Respiratory pattern is regular, symmetrical, Breath sounds are diminished in left posterior lower lobe. GI: Patient currently denies diarrhea, nausea, vomiting. : No signs and/or symptoms were reported regarding the genitourinary system. EENT: Derm: Skin is intact, is healthy with good turgor. Musculoskeletal: Circulation, motion, and sensation intact. Vital Signs: 13:36 BP 120 / 77; Pulse 110; Resp 17; Temp 97.3; Pulse Ox 100% ; Weight 81.65 kg; Height 5 ll1 ft. 8 in. (172.72 cm); Pain 4/10; 13:45 BP 121 / 73; Pulse 108; Resp 16; Pulse Ox 100% ; vg1 13:36 Body Mass Index 27.37 (81.65 kg, 172.72 cm) ll1 [place] Coma Score: 14:13 Eye Response: spontaneous(4). Verbal Response: oriented(5). Motor Response: obeys jr8 commands(6). Total: 15. NIH Stroke Scale Scores: 14:13 NIHSS Score: 0 jr8 ED Course: 13:29 Patient arrived in ED. am2 13:29 Rajesh Birmingham MD is Private Physician. am2 13:38 Triage completed. ll1 13:39 Arm band placed on Patient placed in an exam room, on a stretcher. ll1 13:40 Prashanth Chavez PA is PHCP. jr8 13:40 Myke Crawford MD is Attending Physician. jr8 13:41 Danae Mckeon RN is Primary Nurse. vg1 13:45 Allergy band placed. Placed in gown. Bed in low position. Call light in reach. Side vg1 rails up X2. 14:05 Initial lab(s) drawn, by me, sent to lab. Inserted saline lock: 20 gauge in right vg1 forearm, using aseptic technique. Blood collected. 14:36 director strategic planning on. Pulse ox on. NIBP on. vg1 15:36 Rajesh Birmingham MD is Referral Physician. jr8 16:29 No provider procedures requiring assistance completed. IV discontinued, intact, ss bleeding controlled, No redness/swelling at site. Pressure dressing applied. Patient maintains SpO2 saturation greater than 95% on room air. Administered Medications: 15:11 Drug: NS 0.9% 1000 ml Route: IV; Rate: 1000 ml; Site: right forearm; vg1 16:31 Follow up: IV Status: Completed infusion; IV Intake: 1000ml ss Intake: 16:31 IV: 1000ml; Total: 1000ml. Outcome: 15:36 Discharge ordered by . jr8 16:29 Discharged to home ambulatory. 16:29 Condition: improved 16:29 Discharge instructions given to patient, Instructed on discharge instructions, follow up and referral plans. Demonstrated understanding of instructions. 16:31 Patient left the ED. NIH Stroke Scale - NIH Stroke Score Date: 01/24/2021 Time: 14:13 Total Score = 0 1a. Level of Consciousness (LOC) - 0(Alert) 1b. Level of Consciousness (LOC) (Year \T\ Age) - 0(Both) 1c. LOC Commands (Open \T\ Closes Eyes/Pilates Coordinator) - 0(Both) 2. Best Gaze (Lateral Gaze Paresis) - 0(Normal) 3. Visual Field Loss - 0(No visual loss) 4. Facial Palsy - 0(Normal) 5a. Left Arm: Motor (10-second hold) - 0(No drift) 5b. Right Arm: Motor (10-second hold) - 0(No drift) 6a. Left Leg: Motor (5-second hold - always test supine) - 0(No drift) 6b. Right Leg: Motor (5-second hold - always test supine) - 0(No drift) 7. Limb Ataxia (finger/nose \T\ heel/grijalva - test with eyes open) - 0(Absent) 8. Sensory Loss (pinprick arms/legs/face) - 0(Normal) 9. Best Language: Aphasia (description/naming/reading) - 0(No aphasia) 10. Dysarthria (speech clarity - read or repeat words) - 0(Normal) 11. Extinction and Inattention (visual/tactile/auditory/spatial/personal) - 0(No abnormality) Initials: jr8 Signatures: Divina Hernandez, RN RN ss Prashanth Chavez PA PA jr8 Zabrina Freed am2 Danae Mckeon RN RN vg1 Dave Rico RN RN ll1
--- NOTE | 2021-01-24 15:37 | EDPHYS ---
Physician Documentation [facility] Name: Alvarez Ortiz Age: 35 yrs Sex: Male : 1985 Arrival Date: 01/24/2021 Time: 13:29 Bed 8 Private MD: Rajesh Birmingham ED Physician Myke Crawford HPI: 01/24 14:09 This 35 yrs old Male presents to ER via Wheelchair with complaints of Chest jr8 Tightness, Headache, Dizziness, heart fluttering. 14:09 Onset: The symptoms/episode began/occurred this morning, at 02:00. Associated signs and jr8 symptoms: Pertinent positives: chest pain, shortness of breath. The patient has not experienced similar symptoms in the past. Pt reports having palpitations this morning at 2 am with non-radiating CP, SOB. He denies N/V with episode. His PMHx: Seizures, lymphoma with radiation. During that course he received a pericardial window for effusion. He denies drug use, smoking, or drinking. He take Keppra and Effexor daily. Radiation location was to chest and head.. Historical: - Allergies: 13:39 Sulfa (Sulfonamide Antibiotics); ll1 13:39 PENICILLINS; ll1 13:39 Xanax; ll1 13:39 cefotetan; ll1 13:39 cefadyl; ll1 13:39 Aztreonam; ll1 13:39 Amoxicillin; ll1 13:39 Alprazolam; ll1 - PMHx: 13:39 Osteoporosis; Depression; radiation therapy; LYMPHOMA; chemotherapy; brain cancer; Back ll1 pain; Anemia; Cancer; Seizures; - PSHx: 13:39 kyphoplasty; stem cell; ll1 - Immunization history:: Flu vaccine is up to date. - Social history:: Smoking status: Patient denies any tobacco usage or history of. ROS: 14:12 Eyes: Negative for injury, pain, redness, and discharge, Abdomen/GI: Negative for jr8 abdominal pain, nausea, vomiting, diarrhea, and constipation, MS/Extremity: Negative for injury and deformity, Skin: Negative for injury, rash, and discoloration, Neuro: Negative for headache, weakness, numbness, tingling, and seizure. 14:12 Cardiovascular: Positive for palpitations, Tightness. 14:12 Respiratory: Positive for shortness of breath, at rest. 14:12 Neuro: Positive for dizziness. 15:15 All other systems are negative. jr8 Exam: 14:13 Head/Face: Normocephalic, atraumatic. Eyes: Pupils equal round and reactive to light, jr8 extra-ocular motions intact. Lids and lashes normal. Conjunctiva and sclera are non-icteric and not injected. Cornea within normal limits. Periorbital areas with no swelling, redness, or edema. Back: No spinal tenderness. No costovertebral tenderness. Full range of motion. Skin: Warm, dry with normal turgor. Normal color with no rashes, no lesions, and no evidence of cellulitis. MS/ Extremity: Pulses equal, no cyanosis. Neurovascular intact. Full, normal range of motion. Neuro: Awake and alert, GCS 15, oriented to person, place, time, and situation. Cranial nerves II-XII grossly intact. Motor strength 5/5 in all extremities. Sensory grossly intact. Cerebellar exam normal. Normal gait. 14:13 Cardiovascular: Rate: tachycardic, actual rate is 108 bpm, Rhythm: regular, Pulses: Pulses are 2+ in right radial artery and left radial artery. Heart sounds: normal. 14:13 Respiratory: the patient does not display signs of respiratory distress, Respirations: normal, Breath sounds: are clear throughout, decreased on LL. 15:28 Abdomen/GI: Soft, non-tender, with normal bowel sounds. No distension or tympany. No jr8 guarding or rebound. No evidence of tenderness throughout. 15:30 ECG was reviewed by the Attending Physician. jr8 Vital Signs: 13:36 BP 120 / 77; Pulse 110; Resp 17; Temp 97.3; Pulse Ox 100% ; Weight 81.65 kg; Height 5 ll1 ft. 8 in. (172.72 cm); Pain 4/10; 13:45 BP 121 / 73; Pulse 108; Resp 16; Pulse Ox 100% ; vg1 13:36 Body Mass Index 27.37 (81.65 kg, 172.72 cm) ll1 NIH Stroke Scale Scores: 14:13 NIHSS Score: 0 jr8 [place] Coma Score: 14:13 Eye Response: spontaneous(4). Verbal Response: oriented(5). Motor Response: obeys jr8 commands(6). Total: 15. MDM: 13:47 Patient medically screened. [facility] 14:15 Differential diagnosis:. Data reviewed: vital signs, nurses notes, old medical records, [facility] lab test result(s), EKG, radiologic studies, Chest Xray. 15:28 Counseling: I had a detailed discussion with the patient and/or guardian regarding: the [facility] historical points, exam findings, and any diagnostic results supporting the discharge/admit diagnosis, lab results, radiology results, the need for outpatient follow up, a chiropractor, a family practitioner, to return to the emergency department if symptoms worsen or persist or if there are any questions or concerns that arise at home. 15:35 ED course: Patients chest pain was 0200 today. Came in and was assessed at almost 12 jr8 hours since the onset. Negative acute findings on blood work. No significant change in ECG. Hemodynamically stable. Fluids given. Feeling better at this time. Will d/c home to f/u with PCP and cardiology. Knows to come back if worse . 01/24 14:01 Order name: Basic Metabolic Panel [facility] 01/24 14:01 Order name: CBC with Diff [facility] 01/24 14:01 Order name: LFT's [facility] 01/24 14:01 Order name: Magnesium [facility] 01/24 14:01 Order name: NT PRO-BNP [facility] 01/24 14:01 Order name: PT-INR [facility] 01/24 14:01 Order name: Troponin (emerg Dept Use Only) [facility] 01/24 14:01 Order name: DD [facility] 01/24 14:06 Order name: TSH [facility] 01/24 14:06 Order name: T4 Free [facility] 01/24 14:15 Order name: CBC with Automated Diff; Complete Time: 14:16 EDMS 01/24 14:27 Order name: Protime (+INR); Complete Time: 14:42 EDMS 01/24 14:27 Order name: D-Dimer; Complete Time: 14:42 EDMS 01/24 14:57 Order name: Basic Metabolic Panel; Complete Time: 14:58 EDMS 01/24 14:01 Order name: XRAY Chest (1 view) [facility] 01/24 14:01 Order name: EKG; Complete Time: 14:03 [facility] 01/24 14:01 Order name: Cardiac monitoring; Complete Time: 14:04 01/24 14:01 Order name: EKG - Nurse/Tech; Complete Time: 14:04 8 01/24 14:01 Order name: IV Saline Lock; Complete Time: 14:04 8 01/24 14:01 Order name: Labs collected and sent; Complete Time: 14:04 01/24 14:01 Order name: O2 Per Protocol; Complete Time: 14:01/24 14:01 Order name: O2 Sat Monitoring; Complete Time: 14:8 01/24 14:43 Order name: RAD; Complete Time: 14:44 EDMS 01/24 14:57 Order name: Liver (Hepatic) Function; Complete Time: 14:58 EDMS 01/24 14:57 Order name: Troponin (Emerg Dept Use Only); Complete Time: 14:58 EDMS 01/24 14:57 Order name: NT PRO-BNP; Complete Time: 14:58 EDMS 01/24 14:57 Order name: Magnesium; Complete Time: 14:58 EDMS 01/24 15:27 Order name: T4 Free; Complete Time: 15:28 EDMS 01/24 15:27 Order name: Thyroid Stimulating Hormone; Complete Time: 15:28 EDMS EC:30 Rate is 98 beats/min. Rhythm is regular, Normal Sinus Rhythm. QRS Pet[place] is Normal. FL jr8 interval is normal at 146 msec. QRS interval is normal at 78 msec. QT interval is normal at 20 msec. No Q waves. T waves are Inverted in leads I, aVL. T waves are Flattened in lead V6. No ST changes noted. Clinical impression: NSR w/ Non-specific ST/T Changes. on January 13, 2020. Previous findings: Still shows lateral t wave inversion . Interpreted by me. Reviewed by me. Administered Medications: 15:11 Drug: NS 0.9% 1000 ml Route: IV; Rate: 1000 ml; Site: right forearm; vg1 16:31 Follow up: IV Status: Completed infusion; IV Intake: 1000ml ss Disposition: 01/25 07:20 Co-signature as Attending Physician, Myek Crawford MD I agree with the assessment and kdr plan of care. Disposition: 01/24/21 15:36 Discharged to Home. Impression: Chest pain, unspecified, Palpitations. - Condition is Stable. - Discharge Instructions: Nonspecific Chest Pain, Holter Monitoring, Palpitations. - Work release form, Medication Reconciliation Form, Thank You Letter, Antibiotic Education, Prescription Opioid Use form. - Follow up: Rajesh Birmingham MD; When: 2 - 3 days; Reason: Recheck today's complaints, Continuance of care, Re-evaluation by your physician. - Problem is new. - Symptoms have improved. NIH Stroke Scale - NIH Stroke Score Date: 01/24/2021 Time: 14:13 Total Score = 0 1a. Level of Consciousness (LOC) - 0(Alert) 1b. Level of Consciousness (LOC) (Year \T\ Age) - 0(Both) 1c. LOC Commands (Open \T\ Closes Eyes/Commissioning Agent) - 0(Both) 2. Best Gaze (Lateral Gaze Paresis) - 0(Normal) 3. Visual Field Loss - 0(No visual loss) 4. Facial Palsy - 0(Normal) 5a. Left Arm: Motor (10-second hold) - 0(No drift) 5b. Right Arm: Motor (10-second hold) - 0(No drift) 6a. Left Leg: Motor (5-second hold - always test supine) - 0(No drift) 6b. Right Leg: Motor (5-second hold - always test supine) - 0(No drift) 7. Limb Ataxia (finger/nose \T\ heel/grijalva - test with eyes open) - 0(Absent) 8. Sensory Loss (pinprick arms/legs/face) - 0(Normal) 9. Best Language: Aphasia (description/naming/reading) - 0(No aphasia) 10. Dysarthria (speech clarity - read or repeat words) - 0(Normal) 11. Extinction and Inattention (visual/tactile/auditory/spatial/personal) - 0(No abnormality) Initials: areli Signatures: Dispatcher [employer] EDMS Myke Crawford MD MD [facility] Divina Hernandez RN RN ss Roszak, Josh, PA PA jr8 Danae Mckeon RN RN vg1 Dave Rico RN RN ll1 Corrections: (The following items were deleted from the chart) 01/24 14:16 14:09 Pt reports having palpitations this morning at 2 am with non-radiating jr8 CP, SOB. He denies N/V with episode. His PMHx: Seizures, lymphoma with radiation. During that course he received a pericardial window for effusion. He denies drug use, smoking, or drinking. He take Keppra and Effexor daily. . jr8 15:14 14:13 Neuro: jr8 jr8 15:34 15:30 Rate is 98 beats/min. Rhythm is regular, Normal Sinus Rhythm. QRS Peterman is jr8 Normal. FL interval is normal at 146 msec. QRS interval is normal at 78 msec. QT interval is normal at 20 msec. No Q waves. T waves are Inverted in leads I, aVL. T waves are Flattened in lead V6. No ST changes noted. Clinical impression: NSR w/ Non-specific ST/T Changes. Interpreted by me. Reviewed by me. jr8 16:31 15:36 01/24/2021 15:36 Discharged to Home. Impression: Chest pain, unspecified; ss Palpitations. Condition is Stable. Forms are Medication Reconciliation Form, Thank You Letter, Antibiotic Education, Prescription Opioid Use. Follow up: Rajesh Birmingham; When: 2 - 3 days; Reason: Recheck today's complaints, Continuance of care, Re-evaluation by your physician. Problem is new. Symptoms have improved. jr8
[2021-01-25 10:14] VITALS: BP 121/73; TEMP 97.3; O2SAT 100
== END 2021-01-24 16:31 | disposition home or self-care (01) ==
LOC: ER 13:27
DX: R00.2 Palpitations (principal); Z85.841 Personal history of malignant neoplasm of brain; Z85.72 Personal history of non-Hodgkin lymphomas; Z88.0 Allergy status to penicillin; Z88.1 Allergy status to other antibiotic agents; Z88.2 Allergy status to sulfonamides; Z88.5 Allergy status to narcotic agent; Z88.8 Allergy status to other drugs, medicaments and biological substances
CPT/HCPCS: 93005; 85025; 80048; 36415; 83735; 85610; 85379; 80076; 84443; 84484; 84439; 83880; 71045; 96360; 99285; J7030

== ENCOUNTER 2022-05-03 16:37 | Emergency (ER) | payer OTHER ==
--- OUTSIDE RECORDS SUMMARY | 2022-05-03 16:40 | XMS REPORT | Continuity of Care Document ---
:1985 Author Organization [facility] t Address [address] [place] [address] Care Team Providers Name Role Phone Group, [facility] Primary Care Physician [phone] PREZAS Attending Clinician Unavailable Prezas Attending Clinician SERENA Attending Clinician Unavailable VITALIY Attending Clinician Unavailable MD LAYTON ALVARENGA Attending Clinician Unavailable ARCHANA Attending Clinician Unavailable Provider, Urgent Care Attending Clinician Unavailable Gauri CLOTH PRINTER Attending Clinician GAURI Attending Clinician Unavailable COLETTE Admitting Clinician Unavailable MD LAYTON ALVARENGA Admitting Clinician Unavailable Payers Payer Name Policy Type Policy Number Effective Date Expiration Date Brynn PRATHER 2 [id number] 2022 00:00:00 Problems Condition Condition Condition Status Onset Resolution Last Treating Co mments Source Name Details Category Date Date Treatment Clinician Date Acute pain Acute pain Disease Active K elsey of left of left 6-03 Seybold shoulder shoulder 00:00: 00 Current Current Disease Active Betsy mild mild 6-03 Seybold 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:00: major major 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 depressive disorder disorder without without prior prior episode episode Autism Autism Disease Active Betsy 6-03 Seybold 00:00: 00 Anxiety, Anxiety, Disease Active Kelse y generalize generalize 6-03 Se ybold d d 00:00: 00 History of History of Disease Active K robbie Hodgkin's Hodgkin's 505 Seyb 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 00:00: 00 Anxiety Anxiety Disease Active Betsy 5-05 Seybold 00:00: 00 Depression Depression Disease Active Marko elsey 5-05 Seybold 00:00: 00 No known No known Disease Unive rs active active ity of problems problems [facility] Allergies, Adverse Reactions, Alerts Allergy Allergy Status Severity Reaction(s) Onset Inactive Treating Comm ents Source Name Type Date Date Clinician ALPRAZOL DRUG Active Other-Cmnt Univ ers AM INGREDI 07-12 ity of 00:00: [place] 00 Medical Branch Alprazol Propensi Active Other "climbing Karel sey am ty to 07-12 up huang" Seybold adverse 00:00: and reaction 00 hallucina s tions Penicill Propensi Active Hives Pt states Uni vers ins ty to 5-23 he gets ity of adverse 00:00: fevers Pt [place] reaction 00 states he Medic al s gets Branch fever PENICILL Drug Active Hives Univers INS Class 5-23 ity of 00:00: [place] 00 Medical Branch SULFA Drug Active Hives Univers (SULFONA Class 5-23 ity of MIDE 00:00: [place] ANTIBIOT 00 Medical ICS) Branch Sulfa Propensi Active Hives Pt states Unive rs (Sulfona ty to 5-23 he gets ity of mide adverse 00:00: fever [place] Antibiot reaction 00 Medica l ics) s Branch Penicill Propensi Active Hives Pt states Karel sey ins ty to 5-23 he gets Seybold adverse 00:00: fevers Pt reaction 00 states he s gets fever Sulfa Propensi Active Hives Pt states Kelse y Drugs ty to 5-23 he gets Seybold adverse 00:00: fever reaction 00 s NO KNOWN Drug Active Univers ALLERGIE Class ity of S [facility] Social History Social Habit Start Date Stop Date Quantity Comments Source Exposure to Not sure University of SARS-CoV-2 [place] [facility] (event) Branch History of Cigarette Smoker Betsy rogers tobacco use Alcohol intake 2022-04-26 2022-04-26 Ex-drinker Betsy Maldonado bold 00:00:00 00:00:00 (finding) Tobacco use and 2021-03-28 2021-03-28 Smokeless tobacco Ke bryson Tapiaybold exposure 00:00:00 00:00:00 non-user Sex [birth year] At [birth year] Betsy ann 00:00:00 00:00:00 Smoking Status Start Date Stop Date Source Ex-smoker 2021-03-28 00:00:00 2021-03-28 00:00:00 Betsy rogers Never smoker [facility] Branch Medications Ordered Filled Start Stop Current Ordering Indication Dosage Frequency Signature Comments Components Source Medication Medication Date Date Medication? Clinician (SIG) Name Name Venlafaxine Yes [id number] 75mg Take 1 Betsy HCl 75 MG 04-26 capsule Seybold oral 00:00: (75 mg Capsule 24 00 total) by Hour mouth in Sustained the Release morning and 1 capsule (75 mg total) in the evening. Acetaminoph Yes [id number] 1{tbl} [id number] Take 1 Betsy en-Codeine 04-26 [id number] tablet by Seybold 300-30 MG 00:00: 3D mouth 3 oral Tablet 00 times daily as needed for pain Cyclobenzap Yes 10mg Take 10 mg Betsy rine HCl 10 04-24 by mouth 3 Se ybold MG oral 00:00: times Tablet 00 daily Levetiracet 2021- No Levetirace Betsy am 1000 MG 07-03 zhang 500 Seybo ld oral Tablet 00:00: 00:00 mg, take 2 00 :00 tabs orally twice daily Levetiracet 2021- No TAKE ONE K elsey am 1000 MG 07-03 (1) Seybold oral Tablet 00:00: 00:00 TABLET(S) 00 :00 BY MOUTH TWICE A DAY. Venlafaxine 2021- No 75mg Take 1 Karel sey HCl 75 MG 06-11 capsule Seybol d oral 00:00: 00:00 (75 mg Capsule 24 00 :00 total) by Hour mouth 2 Sustained times Release daily Eliquis 5 2021- No 5mg Take 5 mg Ke lsey MG oral 03-16 by mouth Seybold Tablet 00:00: 00:00 every 12 00 :00 hours venlafaxine 2019-11 Yes Take by Un paco HCl 2-15 mouth. ity of (EFFEXOR 19:15: [place] ORAL) 12 Medical Branch levetiracet 2019-11 Yes Take by Un paco am (KEPPRA 2-15 mouth. ity of ORAL) 19:15: [place] 12 Medical Branch albuterol 2019-11- No [id number] 2{puff} Inhale 2 Univers (VENTOLIN 2-15 01-15 Puffs ity of HFA) 90 00:00: 05:59 every 6 [place] mcg/actuati 00 :00 (six) Medical on inhaler hours as Branc h needed for Shortness of Breath for up to 30 days. benzonatate 2019-11- No [id number] 100mg Take 1 Univers (TESSALON 2-15 12-30 capsule by ity of ALON) 100 00:00: 05:59 mouth 3 [place] capsule 00 :00 (three) Medica l times Branch daily for 14 days. Immunizations Ordered Immunization Filled Immunization Date Status Commen Source Name Name Covid-19 Vaccine 2021-03-02 Completed Betsy rogers ([place]), Mrna-lnp, 00:00:00 Dagoberto Protein, Pf, 30mcg/0.3ml,IM Influenza, Injectable, 2021-02-05 Completed Artur Harkins Mdck, Preservative 00:00:00 Free, Quadrivalt Shingles IM (Shingrix) 2019-07-15 Completed Artur massey Seybold 00:00:00 MMR- Measles, Mumps, 2019-05-13 Completed Cristiane Harkins Rubella 00:00:00 Pneumococcal Vaccine, 2019-05-13 Completed Karel Harkins Polysaccharide 00:00:00 MMR- Measles, Mumps, 2019-04-13 Completed Cristiane Harkins Rubella 00:00:00 Shingles IM (Shingrix) 2019-04-13 Completed Ke lsey Seybold 00:00:00 Tetanus Toxoid/HIB 2019-01-12 Completed Betsy Seybold 00:00:00 Hepatitis B, Adult (3 2018-09-30 Completed Karel sey Seybold dose) 00:00:00 IPV- Inactivated Polio 2018-09-30 Completed Ke lsey Seybold Vaccine 00:00:00 IPV- Inactivated Polio 2018-07-29 Completed Ke lsey Seybold Vaccine 00:00:00 Tdap- (Boostrix, 2018-07-29 Completed Betsy S eybold Adacel) 00:00:00 HEPATITIS A- ADULT 2018-06-24 Completed Betsy Seybold 00:00:00 Tetanus Toxoid/HIB 2018-06-24 Completed Betsy Seybold 00:00:00 Meningococcal Vaccine- 2018-06-24 Completed Ke lsey Seybold Conjugate(Menactra) 00:00:00 IPV- Inactivated Polio 2018-04-28 Completed Ke lsey Seybold Vaccine 00:00:00 Pneumococcal Vaccine, 2018-04-28 Completed Karel sey Seybold Conjugate 13 00:00:00 Tdap- (Boostrix, 2018-04-28 Completed Betsy S eybold Adacel) 00:00:00 Tetanus Toxoid/HIB 2018-03-31 Completed Betsy Seybold 00:00:00 Hepatitis B, Adult (3 2018-03-31 Completed Karel sey Seybold dose) 00:00:00 Hepatitis B, Adult (3 2018-02-04 Completed Karel sey Seybold dose) 00:00:00 Tdap- (Boostrix, 2018-02-04 Completed Betsy S eybold Adacel) 00:00:00 Vital Signs Vital Name Observation Time Observation Value Comments Source Systolic blood 2022-04-26 21:25:00 140 mm[Hg] Betsy Seybold pressure Diastolic blood 2022-04-26 21:25:00 79 mm[Hg] Kelse y Seybold pressure Heart rate 2022-04-26 21:25:00 129 /min Betsy S eybotani Body temperature 2022-04-26 21:25:00 36.39 Mayuri Cristiane ey Seybold Respiratory rate 2022-04-26 21:25:00 17 /min Cristiane ey Seybold Body height 2022-04-26 21:25:00 170.2 cm Betsy Swain eybotani Body weight 2022-04-26 21:25:00 87.272 kg Betsy Swain eybold BMI 2022-04-26 21:25:00 30.13 kg/m2 Betsy Swain eybotani Oxygen saturation in 2022-04-26 21:25:00 97 /min Betsy Harkins Arterial blood by Pulse oximetry Systolic blood 2020-11-07 19:14:00 126 mm[Hg] Univer sity of pressure [facility] Diastolic blood 2020-11-07 19:14:00 74 mm[Hg] Unive rsity of pressure [facility] Heart rate 2020-11-07 19:14:00 113 /min Universi ty of [facility] Body temperature 2020-11-07 19:14:00 36.67 Mayuri Univ ersity of [facility] Branch Respiratory rate 2020-11-07 19:14:00 18 /min Univ ersity of [facility] Body height 2020-11-07 19:14:00 175.3 cm Universi ty of [place] [facility] [place] Body weight 2020-11-07 19:14:00 81.647 kg [facility]i ty [facility] [place] [facility] BMI 2020-11-07 19:14:00 26.58 kg/m2 Universi ty of [facility] Branch Oxygen saturation in 2020-11-07 19:14:00 98 /min University Arterial blood by [facility] [place] [facility] Pulse oximetry Branch Systolic blood 2020-11-07 19:14:00 126 mm[Hg] Univer sity of pressure [facility] Diastolic blood 2020-11-07 19:14:00 74 mm[Hg] Unive rsity of pressure [facility] Heart rate 2020-11-07 19:14:00 113 /min [facility]i [facility] Body temperature 2020-11-07 19:14:00 36.67 Mayuri Univ ersity of [facility] Respiratory rate 2020-11-07 19:14:00 18 /min Univ ersity of [facility] Body height 2020-11-07 19:14:00 175.3 cm [facility]i ty [facility] [place] [facility] Body weight 2020-11-07 19:14:00 81.647 kg [facility] [place] [facility] BMI 2020-11-07 19:14:00 26.58 kg/m2 [facility]i ty [facility] [place] [facility] Oxygen saturation in 2020-11-07 19:14:00 98 /min University Arterial blood by [facility] [place] [facility] Pulse oximetry Branch Procedures Procedure Date / Time Performed Performing Clinician Fadia e POCT FLU A AND B 2020-11-07 19:37:00 Paulette Astorga [facility] (MOLECULAR) Medical Branch Encounters Start End Encounter Admission Attending Care Care Encounter Source Date/Time Date/Time Type Type Clinicians Facility Department ID 2022-05-03 2022-05-03 Outpatient BETSY HEREDIA [id number] [place]y 00:00:00 00:00:00 SAADIA camacho 2022-04-26 2022-04-26 Office Darrell Heredia [id number] [place]y 16:30:00 16:45:00 Visit Saadia Bolaños [id number] Se ann [id number] 2022-04-15 2022-04-15 Outpatient BEINART, [facility] [id number] [place] 00:00:00 00:00:00 GARTH 637 Method i 2022-04-15 2022-04-15 Outpatient BEINART, [facility] [id number] [place] 00:00:00 00:00:00 GARTH 487 Method i 2021-10-22 2021-10-22 Outpatient BEINART, [facility] [id number] [place] 00:00:00 00:00:00 GARTH 701 Method i 2021-07-16 2021-07-16 Outpatient BEINART, [facility] [id number] [place] 00:00:00 00:00:00 GARTH 154 Method i 2021-07-16 2021-07-16 Outpatient BEINART, [facility] [id number] [place] 00:00:00 00:00:00 GARTH 411 Method i 2021-03-12 2021-03-12 Outpatient BEINART, [facility] [id number] [place] 00:00:00 00:00:00 GARTH 996 Method i 2021-02-19 2021-02-19 Outpatient [facility] [id number] [place] 00:00:00 00:00:[address] 2021-02-12 2021-02-12 Outpatient BEINART, [facility] [id number] [place] 00:00:00 00:00:00 GARELISA 678 Method i 2021-02-01 2021-02-05 Inpatient DEREKGLEKAR, [facility] [id number] [place] 00:00:00 00:00:00 CLARITZA 887 Method i 2021-02-01 2021-02-01 Outpatient [facility] [id number] [place] 00:00:00 00:00:[address] 2021-02-01 2021-02-01 Outpatient TRACHTENBER [facility] [id number] [place] 00:00:00 00:00:00 ROMY GuillermoY 840 [place] girish 2020-12-20 2020-12-20 Outpatient BEINART, [facility] [id number] [place] 00:00:00 00:00:00 GARTH 352 Method i 2020-11-07 2020-11-07 Urgent Provider, [facility] [id number] 13:02:18 13:56:39 Care [facility] [id number] Care [place] [id number] Professio [id number] [place] [address] [address] [facility] 2020-11-07 2020-11-07 Urgent Provider, [facility] [id number] [facility] 13:02:18 13:56:39 Care Anene, Paulette Health [id number] ity of [place] [id number] [place] Professio [id number] [address] Office Building [facility] 2020-11-07 2020-11-07 Outpatient R ANENE, [facility] [id number] [facility] 13:00:00 13:00:00 PAULETTE ity of [facility] 2020-10-26 2020-10-26 Outpatient BEINART, [facility] [id number] [place] 00:00:00 00:00:00 GARTH 049 Method i 2020-09-20 2020-09-20 Outpatient BEINART, [facility] [id number] [place] 00:00:00 00:00:00 ALAN 508 Method i 2020-09-19 2020-09-19 Outpatient BEINART, [facility] [id number] [place] 00:00:00 00:00:00 GARTH [address] 2020-09-19 2020-09-19 Outpatient BEINART, [facility] [id number] [place] 00:00:00 00:00:00 GARTH [address] 2019-11-12 2019-11-12 Outpatient BEINART, [facility] [id number] [place] 00:00:00 00:00:00 GARTH [address] 2019-11-12 2019-11-12 Outpatient BEINART, [facility] [id number] [place] 00:00:00 00:00:00 GARTH [address] Results Test Description Test Time Test Comments Results Result Comments Source SARS-CoV-2 (COVID-19) RNA [Presence] in Respiratory sp ecimen by 2021-02-02 02:43:04 BRO with probe detection Test Item Value Reference Range Interpretation Comme nts SARS-CoV-2 (COVID-19) RNA [Presence] in Respiratory Not detected No t-Detected specimen by BRO with probe detection (test code = 65022-8) POCT FLU A AND B (MOLECULAR)2020-11-07 19:37:00 Test Item Value Reference Range Interpretation Comments POCT INFLUENZA A (test code = 3840) neg Negative - Negativ e POCT INFLUENZA B (test code = 3841) neg Negative - Negativ e [facility]
[2022-05-03 17:26] LABS: Absolute Lymphocytes (CBC) 2.1 K/uL (0.7-4.9); Lymphocytes % 20.8 % (15.3-44.8); RBC Red Blood Cell Count 5.05 M/uL (4.33-5.43)
[2022-05-03 17:27] LABS: Protime INR 1.03
[2022-05-03 17:52] LABS: ALT/SGPT 68 U/L (12-78); AST/SGOT 27 U/L (15-37); Albumin 4.2 g/dL (3.4-5.0); Alkaline Phosphatase 72 U/L (45-117); BUN Blood Urea Nitrogen 21 mg/dL (7-18); Bicarbonate 26 mmol/L (21-32); Bilirubin Total 0.4 mg/dL (0.2-1.0); Glomerular Filtration Rate 52 ml/min (=/>90); Glucose Level 102 mg/dL (74-106); Magnesium 2.3 mg/dL (1.8-2.4); NT PRO-BNP 79 pg/mL (<125); Protein, Total 7.9 g/dL (6.4-8.2); Sodium Level 134 mmol/L (136-145); Troponin High Sensitivity 8.2 pg/mL (<58.9)
--- NOTE | 2022-05-03 17:53 | RAD REPORT ---
EXAM DESCRIPTION: RAD - Chest Single View - 05/03/2022 5:31 pm CLINICAL HISTORY: COUGH COMPARISON: Portable 01/24/2021 TECHNIQUE: AP portable chest image was obtained 05/03/2022 5:31 pm . FINDINGS: Right lung field is clear. No right-sided pneumothorax or pleural effusion. Patient has a very pronounced elevation of left hemidiaphragm. There are chronic left base pleural and parenchymal changes present that are similar to the prior study. No acute lung field finding confirmed. Heart size appears normal. The elevated left hemidiaphragm obscures most of the heart. Upper lobe va sculature within normal limits. No left-sided pneumothorax. No acute bony abnormality seen. No acute aortic findings suspected. IMPRESSION: No acute cardiopulmonary process. Above detailed findings are similar to comparison.
[2022-05-03 17:59] LABS: Bilirubin Direct < 0.1 mg/dL (0-0.2)
--- NOTE | 2022-05-03 18:16 | RAD REPORT ---
EXAM DESCRIPTION: US - CP - 05/03/2022 5:59 pm CLINICAL HISTORY: DIZZINESS COMPARISON: Soft Tissue Neck W/Contr dated 08/10/2017 TECHNIQUE: Real-time sonographic evaluation of bilateral carotid and vertebral systems was performed . Rosen scale and Doppler interrogation were performed with waveform tracing bilaterally. FINDINGS: Normal high resistance waveforms are noted in both external carotid arteries. The common c arotid arteries and internal carotid arteries show normal low resistance waveforms. Minimal plaquing changes are present with no significant luminal narrowing on visual inspection. Peak systolic and end diastolic velocity values and the ICA/CCA ratios are in the non-hemodynamically sig nificant range. Antegrade flow seen in both vertebral arteries. Velocity values and ratios were recorded and are retained in the patient's imaging records. IMPRESSION: Minimal bilateral plaquing changes. No evidence of a hemodynamically significant stenosis.
--- NOTE | 2022-05-03 18:16 | RAD REPORT ---
EXAM DESCRIPTION: US - Extrem Venous W Compress Lior - 05/03/2022 5:59 pm CLINICAL HISTORY: PAIN COMPARISON: None. TECHNIQUE: Real-time sonographic evaluation of the bilateral lower extremity common femoral, superfi cial femoral, popliteal and posterior tibial veins was performed. FINDINGS: Normal compressibility, flow augmentation, phasic flow and spontaneous flow are identified in the left and right lower extremity common femoral, superficial femoral, popliteal and posterior t ibial veins. No intraluminal filling defects seen. IMPRESSION: No DVT in either lower extremity.
--- NOTE | 2022-05-03 18:18 | RAD REPORT ---
EXAM DESCRIPTION: CT - [id number] - 05/03/2022 6:02 pm CLINICAL HISTORY: mcadams / neclk pain COMPARISON: Soft Tissue Neck W/Contr dated 08/10/2017; Chest Single View dated 05/03/2022 TECHNIQUE: Axial 5 mm thick images of the head were obtained. Axial 2 mm thick images of the cervic al spine were obtained with sagittal and coronal reconstruction images generated and reviewed. All CT scans are performed using dose optimization technique as appropriate and may include automated exposure control or mA/KV adjustment according to patient size. FINDINGS: No intracranial hemorrhage, mass, edema or acute intracranial finding. No suspicion for ac ricardo infarction. No extra-axial fluid collections. Mastoid air cells and paranasal sinuses are clear. No globe or orbit abnormality seen. No skull fracture or acute bone finding. Postsurgical changes not ed posterior left parietal bone. Cervical body height and alignment are normal. No disk space narrowing. No fracture or acute bony abn ormality. Central canal detail is inherently limited. No paraspinal mass or hematoma. Left apical pleural thickening is present. Prior chest imaging shows chronic pleural and parenchymal left hemithorax findings. IMPRESSION: Negative CT head examination for acute or significant finding. Negative CT cervical spine examination for acute or significant finding.
[2022-05-03] MEDS ORDERED: ASPIRIN 81 MG CHEWABLE TABLET ONE (18:48)
[2022-05-03] MEDS ORDERED: ACETYLCYST 6,000 MG/30 ML VIAL ONE (18:48)
[2022-05-03] MEDS ORDERED: NA CHLORIDE 0.9% 1,000 ML ONE (18:48)
--- NOTE | 2022-05-03 19:04 | EDPHYS ---
Physician Documentation [facility] Name: Alvarez Ortiz Age: 36 yrs Sex: Male : 1985 Arrival Date: 05/03/2022 Time: 16:38 Bed 3 Private MD: ED Physician Gulshan Cardenas HPI: 05/03 16:58 This 36 yrs old Male presents to ER via Ambulatory with complaints of S/S of coty Possible Stroke. 16:58 The patient's problem is reported as weakness, that is generalized. Onset: The coty symptoms/episode began/occurred just prior to arrival. Duration: This was a single incident. Context: the episode(s) was witnessed, by co-worker(s). The symptoms are alleviated by nothing. The symptoms are aggravated by nothing. Associated signs and symptoms: The patient has no apparent associated signs or symptoms. Severity of symptoms: At their worst the symptoms were moderate in the emergency department the symptoms have improved. Patient's baseline: Neuro: alert and fully oriented, Motor: no deficits. The patient has not experienced similar symptoms in the past. Historical: - Allergies: 16:41 Alprazolam; ld1 16:41 Amoxicillin; ld1 16:41 Aztreonam; ld1 16:41 cefadyl; ld1 16:41 cefotetan; ld1 16:41 PENICILLINS; ld1 16:41 Sulfa (Sulfonamide Antibiotics); ld1 16:41 Xanax; ld1 16:41 Lasix; ld1 16:41 BENZODIAZEPINES; ld1 - PMHx: 16:41 Anemia; Back pain; brain cancer; Cancer; chemotherapy; Depression; LYMPHOMA; ld1 Osteoporosis; radiation therapy; Seizures; - PSHx: 16:41 None; ld1 - Immunization history:: Adult Immunizations up to date, Client reports receiving the 2nd dose of the Covid vaccine. - Social history:: Smoking status: Patient denies any tobacco usage or history of. Patient/guardian denies using alcohol. - Family history:: not pertinent. ROS: 16:58 Constitutional: Negative for fever, chills, and weight loss, Eyes: Negative for injury, coty pain, redness, and discharge, ENT: Negative for injury, pain, and discharge, Cardiovascular: Negative for chest pain, palpitations, and edema, Respiratory: Negative for shortness of breath, cough, wheezing, and pleuritic chest pain, Abdomen/GI: Negative for abdominal pain, nausea, vomiting, diarrhea, and constipation, Back: Negative for injury and pain, : Negative for injury, bleeding, discharge, and swelling, MS/Extremity: Negative for injury and deformity, Skin: Negative for injury, rash, and discoloration, Neuro: Negative for headache, weakness, numbness, tingling, and seizure. 16:58 Neck: Positive for tenderness, of the right trapezius. Exam: 16:58 Constitutional: This is a well developed, well nourished patient who is awake, alert, coty and in no acute distress. Head/Face: Normocephalic, atraumatic. Eyes: Pupils equal round and reactive to light, extra-ocular motions intact. Lids and lashes normal. Conjunctiva and sclera are non-icteric and not injected. Cornea within normal limits. Periorbital areas with no swelling, redness, or edema. ENT: Nares patent. No nasal discharge, no septal abnormalities noted. Tympanic membranes are normal and external auditory canals are clear. Oropharynx with no redness, swelling, or masses, exudates, or evidence of obstruction, uvula midline. Mucous membranes moist. Neck: Trachea midline, no thyromegaly or masses palpated, and no cervical lymphadenopathy. Supple, full range of motion without nuchal rigidity, or vertebral point tenderness. No Meningismus. Chest/axilla: Normal chest wall appearance and motion. Nontender with no deformity. No lesions are appreciated. Cardiovascular: Regular rate and rhythm with a normal S1 and S2. No gallops, murmurs, or rubs. Normal PMI, no JVD. No pulse deficits. Respiratory: Lungs have equal breath sounds bilaterally, clear to auscultation and percussion. No rales, rhonchi or wheezes noted. No increased work of breathing, no retractions or nasal flaring. Abdomen/GI: Soft, non-tender, with normal bowel sounds. No distension or tympany. No guarding or rebound. No evidence of tenderness throughout. Back: No spinal tenderness. No costovertebral tenderness. Full range of motion. Male : Normal genitalia with no discharge or lesions. Skin: Warm, dry with normal turgor. Normal color with no rashes, no lesions, and no evidence of cellulitis. MS/ Extremity: Pulses equal, no cyanosis. Neurovascular intact. Full, normal range of motion. Neuro: Awake and alert, GCS 15, oriented to person, place, time, and situation. Cranial nerves II-XII grossly intact. Motor strength 5/5 in all extremities. Sensory grossly intact. Cerebellar exam normal. Normal gait. Psych: Awake, alert, with orientation to person, place and time. Behavior, mood, and affect are within normal limits. 18:31 ECG was reviewed by the Attending Physician. [facility] 18:33 Radiologist reports: NEGATIVE [facility] Vital Signs: 16:41 BP 126 / 66; Pulse 120; Resp 18; Temp 98.6(O); Pulse Ox 98% on R/A; Weight 86.18 kg; ld1 Height 5 ft. 7 in. (170.18 cm); Pain 5/10; 18:30 BP 112 / 73; Pulse 100; Resp 19; Pulse Ox 100% ; ap3 18:55 BP 122 / 82; Pulse 104; Pulse Ox 98% on R/A; ap3 19:30 BP 142 / 105; Pulse 97; Resp 18; Pulse Ox 99% on R/A; sm5 16:41 Body Mass Index 29.76 (86.18 kg, 170.18 cm) ld1 NIH Stroke Scale Scores: 17:13 NIHSS Score: 0 ap3 MDM: 16:43 Patient medically screened. [facility] 17:05 Differential diagnosis: CVA, TIA, metabolic disorder. Data reviewed: vital signs, [facility] nurses notes, lab test result(s), EKG, radiologic studies, CT scan, plain films. Data interpreted: agile coach: rate is 120 beats/min, rhythm is regular, Pulse oximetry: on room air is 98 %. Test interpretation: by ED physician or midlevel provider: ECG, plain radiologic studies. Counseling: I had a detailed discussion with the patient and/or guardian regarding: the historical points, exam findings, and any diagnostic results supporting the discharge/admit diagnosis, lab results, radiology results. 05/03 16:54 Order name: Basic Metabolic Panel; Complete Time: 18:17 [facility] 05/03 16:54 Order name: CBC with Diff; Complete Time: 17:33 [facility] 05/03 16:54 Order name: LFT's; Complete Time: 18:17 [facility] 05/03 16:54 Order name: Magnesium; Complete Time: 18:17 [facility] 05/03 16:54 Order name: NT PRO-BNP; Complete Time: 18:17 [facility] 05/03 16:54 Order name: PT-INR; Complete Time: 17:33 [facility] 05/03 16:54 Order name: Troponin HS; Complete Time: 18:17 [facility] 05/03 16:54 Order name: XRAY Chest (1 view); Complete Time: 18:17 [facility] 05/03 16:54 Order name: CT Head C Spine; Complete Time: 18:24 [facility] 05/03 16:54 Order name: US Carotid Artery Bilateral; Complete Time: 18:18 [facility] 05/03 16:58 Order name: Sed Rate 05/03 16:58 Order name: CRP [facility] 05/03 17:05 Order name: D-Dimer; Complete Time: 18:40 [facility] 05/03 16:54 Order name: EKG; Complete Time: 16:55 [facility] 05/03 16:54 Order name: Cardiac monitoring; Complete Time: 17:36 [facility] 05/03 16:54 Order name: EKG - Nurse/Tech; Complete Time: 18:37 [facility] 05/03 16:54 Order name: IV Saline Lock; Complete Time: 17:13 [facility] 05/03 16:54 Order name: Labs collected and sent; Complete Time: 17:13 [facility] 05/03 16:54 Order name: O2 Per Protocol; Complete Time: 17:00 [facility] 05/03 16:54 Order name: O2 Sat Monitoring; Complete Time: 17:00 [facility] 05/03 17:05 Order name: US Extremity Venous W Compression Lior; Complete Time: 18:18 [facility] EC:31 Rate is 102 beats/min. Rhythm is regular. QRS Pool is Normal. IA interval is normal. [facility] QRS interval is normal. QT interval is normal. No Q waves. T waves are Normal. No ST changes noted. Clinical impression: Sinus tachycardia and No evidence of ischemia. Interpreted by me. Reviewed by me. Administered Medications: 17:13 Drug: NS 0.9% 1000 ml Route: IV; Rate: 1 bolus; Site: right antecubital; ap3 18:51 Follow up: IV Status: Completed infusion ap3 17:13 Drug: foLIC Acid 1 mg Route: IVPB; Site: right antecubital; ap3 18:50 Drug: NS 0.9% 1000 ml Route: IV; Rate: 1 bolus; Site: right antecubital; ap3 20:07 Follow up: IV Status: Completed infusion; IV Intake: 1000ml [facility] 18:50 Drug: Aspirin Chewable Tablet 162 mg Route: PO; ap3 20:07 Follow up: Response: No adverse reaction 5 18:50 Drug: Mucomyst - Acetylcysteine 600 mg Route: PO; ap3 20:07 Follow up: Response: No adverse reaction [facility] Disposition Summary: 05/03/22 19:03 Discharge Ordered Location: Home coty Problem: new coty Symptoms: have improved coty Condition: Stable coty Diagnosis - Dehydration coty - Weakness coty - Unspecified kidney failure - RENAL INSUFFICENCY coty Followup: coty - With: Private Physician - When: 2 - 3 days - Reason: Recheck today's complaints, Continuance of care, Re-evaluation by your physician Followup: coty - With: Magdaleno Heredia DO - When: 2 - 3 days - Reason: Recheck today's complaints, Re-evaluation by your physician Discharge Instructions: - Discharge Summary Sheet coty - Dehydration, Adult coty - Weakness coty - Fatigue coty - Acute Kidney Injury, Adult coty - Weakness, [id number] coty - Aspirin and Your Heart coty Forms: - Medication Reconciliation Form coty - Thank You Letter coty - Antibiotic Education coty - Prescription Opioid Use coty - Work release form [facility] NIH Stroke Scale - NIH Stroke Score Date: 05/03/2022 Time: 17:13 Total Score = 0 1a. Level of Consciousness (LOC) - 0(Alert) 1b. Level of Consciousness (LOC) (Month \T\ Age) - 0(Both) 1c. LOC Commands (Open \T\ Closes Eyes/Snuff Drier) - 0(Both) 2. Best Gaze (Lateral Gaze Paresis) - 0(Normal) 3. Visual Field Loss - 0(No visual loss) 4. Facial Palsy - 0(Normal) 5a. Left Arm: Motor (10-second hold) - 0(No drift) 5b. Right Arm: Motor (10-second hold) - 0(No drift) 6a. Left Leg: Motor (5-second hold - always test supine) - 0(No drift) 6b. Right Leg: Motor (5-second hold - always test supine) - 0(No drift) 7. Limb Ataxia (finger/nose \T\ heel/grijalva - test with eyes open) - 0(Absent) 8. Sensory Loss (pinprick arms/legs/face) - 0(Normal) 9. Best Language: Aphasia (description/naming/reading) - 0(No aphasia) 10. Dysarthria (speech clarity - read or repeat words) - 0(Normal) 11. Extinction and Inattention (visual/tactile/auditory/spatial/personal) - 0(No abnormality) Initials: ap3 Signatures: Dispatcher [employer] EDGulshan Rucker MD MD cha Prokisch, Amanda, RN RN ap3 Joellen Thomason RN RN ld1 Agueda Davalos RN sm5
--- NOTE | 2022-05-03 19:04 | ER ---
Nurse's Notes [facility] Name: Alvarez Ortiz Age: 36 yrs Sex: Male : 1985 Arrival Date: 05/03/2022 Time: 16:38 Bed 3 Private MD: Diagnosis: Dehydration;Weakness;Unspecified kidney failure-RENAL INSUFFICENCY Presentation: 05/03 16:41 Chief complaint: Patient states: I was at work today and everything became ld1 "disorienting and dizzy." C/O headache. Coronavirus screen: At this time, the client does not indicate any symptoms associated with coronavirus-19. Ebola Screen: No symptoms or risks identified at this time. No acute neurological deficit is noted. Pre-hospital glucose is not applicable to this patient. Initial Sepsis Screen: Does the patient meet any 2 criteria? No. Patient's initial sepsis screen is negative. Does the patient have a suspected source of infection? No. Patient's initial sepsis screen is negative. Risk Assessment: Do you want to hurt yourself or someone else? Patient reports no desire to harm self or others. Onset of symptoms was May 03, 2022 at 16:43. 16:41 Method Of Arrival: Ambulatory ld1 16:41 Acuity: EAN 3 ld1 Triage Assessment: 16:41 The onset of the patients symptoms was May 03, 2022 at 14:45. General: Appears in no ld1 apparent distress. comfortable, Behavior is calm, cooperative, appropriate for age. Pain: Complains of pain in face Pain does not radiate. Pain currently is 5 out of 10 on a pain scale. EENT: No signs and/or symptoms were reported regarding the EENT system. Neuro: Level of Consciousness is awake, alert, obeys commands, Oriented to person, place, time, situation, Director Business are equal bilaterally Reports dizziness, headache. Cardiovascular: Capillary refill < 3 seconds Patient's skin is warm and dry. Respiratory: Airway is patent Respiratory effort is even, unlabored. GI: Abdomen is flat, non-distended. : No signs and/or symptoms were reported regarding the genitourinary system. Derm: No signs and/or symptoms reported regarding the dermatologic system. Musculoskeletal: No signs and/or symptoms reported regarding the musculoskeletal system. Historical: - Allergies: 16:41 Alprazolam; ld1 16:41 Amoxicillin; ld1 16:41 Aztreonam; ld1 16:41 cefadyl; ld1 16:41 cefotetan; ld1 16:41 PENICILLINS; ld1 16:41 Sulfa (Sulfonamide Antibiotics); ld1 16:41 Xanax; ld1 16:41 Lasix; ld1 16:41 BENZODIAZEPINES; ld1 - PMHx: 16:41 Anemia; Back pain; brain cancer; Cancer; chemotherapy; Depression; LYMPHOMA; ld1 Osteoporosis; radiation therapy; Seizures; - PSHx: 16:41 None; ld1 - Immunization history:: Adult Immunizations up to date, Client reports receiving the 2nd dose of the Covid vaccine. - Social history:: Smoking status: Patient denies any tobacco usage or history of. Patient/guardian denies using alcohol. - Family history:: not pertinent. Screenin:14 Abuse screen: Denies threats or abuse. Nutritional screening: No deficits noted. ap3 Tuberculosis screening: No symptoms or risk factors identified. 20:05 Fall Risk None identified. sm5 Assessment: 16:40 Reassessment: ERP in triage assessing patient. ld1 17:13 VAN Scoring: Arm Drift: Patients demonstrates NO arm weakness. Patient is VAN Negative. ap3 17:30 General: Appears in no apparent distress. ultrasound arrived at bedside. ap3 18:55 Reassessment: Patient and/or family updated on plan of care and expected duration. Pain ap3 level reassessed. Patient is alert, oriented x 3, equal unlabored respirations, skin warm/dry/pink. 19:20 Reassessment: pt will [place] bolus and then discharge. kd3 20:05 Reassessment: No changes from previously documented assessment. Patient and/or family sm5 updated on plan of care and expected duration. Pain level reassessed. Vital Signs: 16:41 BP 126 / 66; Pulse 120; Resp 18; Temp 98.6(O); Pulse Ox 98% on R/A; Weight 86.18 kg; ld1 Height 5 ft. 7 in. (170.18 cm); Pain 5/10; 18:30 BP 112 / 73; Pulse 100; Resp 19; Pulse Ox 100% ; ap3 18:55 BP 122 / 82; Pulse 104; Pulse Ox 98% on R/A; ap3 19:30 BP 142 / 105; Pulse 97; Resp 18; Pulse Ox 99% on R/A; sm5 16:41 Body Mass Index 29.76 (86.18 kg, 170.18 cm) ld1 NIH Stroke Scale Scores: 17:13 NIHSS Score: 0 ap3 ED Course: 16:38 Patient arrived in ED. jj6 16:41 Arm band placed on right wrist. ld1 16:43 Triage completed. ld1 16:43 Gulshan Cardenas MD is Attending Physician. coty 17:00 Zabrina Moon RN is Primary Nurse. ap3 17:13 Inserted saline lock: 20 gauge in right antecubital area, using aseptic technique. ap3 Blood collected. 17:14 Patient has correct armband on for positive identification. Bed in low position. Call ap3 light in reach. Side rails up X2. Adult w/ patient. color television console monitor on. Pulse ox on. NIBP on. Door closed. Noise minimized. 17:33 XRAY Chest (1 view) In Process Unspecified. EDMS 18:01 US Carotid Artery Bilateral In Process Unspecified. EDMS 18:01 US Extremity Venous W Compression Lior In Process Unspecified. EDMS 18:04 CT Head C Spine In Process Unspecified. EDMS 18:36 EKG done, by ED staff, reviewed by Gulshan Cardenas MD. 3 19:02 Magdaleno Heredia DO is Referral Physician. coty 20:05 No provider procedures requiring assistance completed. IV discontinued, intact, sm5 bleeding controlled, No redness/swelling at site. Pressure dressing applied. Administered Medications: 17:13 Drug: NS 0.9% 1000 ml Route: IV; Rate: 1 bolus; Site: right antecubital; ap3 18:51 Follow up: IV Status: Completed infusion ap3 17:13 Drug: foLIC Acid 1 mg Route: IVPB; Site: right antecubital; ap3 18:50 Drug: NS 0.9% 1000 ml Route: IV; Rate: 1 bolus; Site: right antecubital; ap3 20:07 Follow up: IV Status: Completed infusion; IV Intake: 1000ml sm5 18:50 Drug: Aspirin Chewable Tablet 162 mg Route: PO; ap3 20:07 Follow up: Response: No adverse reaction sm5 18:50 Drug: Mucomyst - Acetylcysteine 600 mg Route: PO; ap3 20:07 Follow up: Response: No adverse reaction sm5 Medication: 17:14 VIS not applicable for this client. ap3 Intake: 20:07 IV: 1000ml; Total: 1000ml. sm5 Outcome: 19:03 Discharge ordered by . coty 20:05 Discharged to home ambulatory, with family. sm5 20:05 Condition: stable 20:05 Discharge instructions given to patient, family, Instructed on discharge instructions, follow up and referral plans. Demonstrated understanding of instructions, follow-up care. 20:23 Patient left the ED. ds4 NIH Stroke Scale - NIH Stroke Score Date: 05/03/2022 Time: 17:13 Total Score = 0 1a. Level of Consciousness (LOC) - 0(Alert) 1b. Level of Consciousness (LOC) (Month \\T\\ Age) - 0(Both) 1c. LOC Commands (Open \\T\\ Closes Eyes/Instructional Services Specialist) - 0(Both) 2. Best Gaze (Lateral Gaze Paresis) - 0(Normal) 3. Visual Field Loss - 0(No visual loss) 4. Facial Palsy - 0(Normal) 5a. Left Arm: Motor (10-second hold) - 0(No drift) 5b. Right Arm: Motor (10-second hold) - 0(No drift) 6a. Left Leg: Motor (5-second hold - always test supine) - 0(No drift) 6b. Right Leg: Motor (5-second hold - always test supine) - 0(No drift) 7. Limb Ataxia (finger/nose \\T\\ heel/grijalva - test with eyes open) - 0(Absent) 8. Sensory Loss (pinprick arms/legs/face) - 0(Normal) 9. Best Language: Aphasia (description/naming/reading) - 0(No aphasia) 10. Dysarthria (speech clarity - read or repeat words) - 0(Normal) 11. Extinction and Inattention (visual/tactile/auditory/spatial/personal) - 0(No abnormality) Initials: ap3 Signatures: Dispatcher [employer] EDMS Gulshan Cardenas MD MD cha Swanson, Donovan ds4 Laury Mitchell dh3 Zabrina Moon RN RN ap3 Joellen Thomason RN RN ld1 [place] jj6 Hanna Jacques RN RN kd3 Susannah, Agueda, RN RN sm5
[2022-05-03 20:29] VITALS: TEMP 98.6
[2022-05-03 20:37] VITALS: BP 142/105; O2SAT 99
--- NOTE | 2022-05-04 09:12 | EKG ---
Test Date: 2022-05-03 Test Time: 18:23:57 Angle Dozer Operator: BRANDIN MEASUREMENT RESULTS: Intervals: Rate: 102 IL: 156 QRSD: 80 QT: 350 QTc: 456 [place]: P: 65 IL: 156 QRS: 15 T: 134 INTERPRETIVE STATEMENTS: Sinus tachycardia Possible Left atrial enlargement T wave abnormality, consider lateral ischemia Abnormal ECG Compared to ECG 01/24/2021 13:46:43 Sinus rhythm no longer present T-wave abnormality still present Possible ischemia still present Electronically Signed On 05-04-22 09:10:39 CDT by Barry Nichols
== END 2022-05-03 20:23 | disposition home or self-care (01) ==
LOC: ER 16:37
DX: E86.0 Dehydration (principal); R53.1 Weakness; N19 Unspecified kidney failure; N28.9 Disorder of kidney and ureter, unspecified; Z88.1 Allergy status to other antibiotic agents; Z88.0 Allergy status to penicillin; Z88.8 Allergy status to other drugs, medicaments and biological substances
CPT/HCPCS: 96361; 93005; 85025; 80048; 36415; 83735; 85610; 85379; 80076; 85652; 84484; 83880; 86140; 70450; 72125; 71045; 93880; 93970; 96374; 99284; J7030

== ENCOUNTER 2023-05-26 15:34 | Emergency (ER) | payer OTHER ==
--- OUTSIDE RECORDS SUMMARY | 2023-05-26 15:39 | XMS REPORT | Continuity of Care Document ---
:1985 Author Organization [facility] [place] [facility] t Address [address] [facility] [address] [place] [address] Care Team Providers Name Role Phone Group, Betsy Briggs Primary Care Physician [phone] SAADIA HEREDIA Attending Clinician Unavailable FAWAD GONZALEZ Attending Clinician Unavailable GROUP, BETSY HARKINS MEDICAL Attending Clinician Unavailluis e Gonzalez MD, Janes Dennis Attending Clinician Saadia Heredia DO Attending Clinician CLARITZA BURKS Attending Clinician Unavailable MD JOSE JUAN ALVARENGA Attending Clinician Unavailable TAMIKO MAGAÑA Attending Clinician Unavailable Provider, [facility] Attending Clinician Unavailable Paulette Velez Attending Clinician PAULETTE ASTORGA Attending Clinician Unavailable JOSE JUAN ALVARENGA Admitting Clinician Unavailable MD JOSE JUAN ALVARENGA Admitting Clinician Unavailable Payers Payer Name Policy Type Policy Number Effective Date Expiration Date Brynn PRATHER 2 [id number] 2022 00:00:00 Problems Condition Condition Condition Status Onset Resolution Last Treating Co mments Source Name Details Category Date Date Treatment Clinician Date Acute pain Acute pain Disease Active Marko avalos of left of left 6-03 Seybold shoulder [...] 00 History of History of Disease Active Marko 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 00:00: 00 Anxiety Anxiety Disease Active Betsy 5-05 Seybold 00:00: 00 Depression Depression Disease Active Marko avalos 5-05 Seybold 00:00: 00 Pulmonary Pulmonary Disease Active Met hodi embolism embolism 3-13 st 00:00: Hospita 00 l Chest pain Chest pain Disease Active M ethodi 311 st 00:00: Hospita 00 l Need for Need for Disease Active Metho di vaccinatio vaccinatio 6-04 st ns against ns against 00:00: Ho spita single single 00 l bacterial bacterial disease disease Need for Need for Disease Active Metho di hepatitis hepatitis 3-14 st B B 00:00: Hospita vaccinatio vaccinatio 00 l n n Need for Need for Disease Active Metho di Tdap Tdap 3-14 st vaccinatio vaccinatio 00:00: Ho spita n n 00 l Osteoporos Osteoporos Disease Active M ethodi is is 08-20 st 00:00: Hospita 00 l Bone pain Bone pain Disease Active Met hodi 4-03 st 00:00: Hospita 00 l 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 1. Admitted 01/31/17 for Autologou s HSCT, received high [...] 02/21/17 (day 15). 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 (non-Hodgk 0 st in's in's 00:00: Hospita lymphoma) lymphoma) 00 l Chronic Chronic Disease Active 2015-11 Methodi back pain back pain 0-06 st 00:00: Hospita 00 l Seizure Seizure Disease Active Methodi disorder disorder 8 st 00:00: Hospita 00 l Brain Brain Disease Active Methodi metastases metastases 8 st 00:00: Hospita 00 l Depression Depression Disease Active M ethodi 04-15 st 00:00: Hospita 00 l Anxiety Anxiety Disease Active Methodi 04-15 st 00:00: Hospita 00 l No known No known Disease Unive rs active active ity of problems problems [facility] Allergies, Adverse Reactions, Alerts Allergy Allergy Status Severity Reaction(s) Onset Inactive Treating Comm ents Source Name Type Date Date Clinician Furosemi Propensi Active Hypertension Methodi de ty to 04-15 st adverse 00:00: Hospita reaction 00 l s to drug Benzodia Propensi Active Other (See Severe Me thodi zepines ty to Comments) 07-[address] adverse 00:00: on Hospita reaction 00 l s to drug Aztreona Propensi Active Rash Method i m ty to 3-21 st adverse 00:00: Hospita reaction 00 l s to drug Alprazol Propensi Active Other (See "climbing Methodi am ty to Comments) 07-12 up huang" st adverse 00:00: and Hospita reaction 00 hallucina l s to tions drug ALPRAZOL DRUG Active Other-Cmnt Univ ers AM INGREDI 07-12 ity of 00:00: [place] 00 [facility] Alprazol Propensi Active Other "climbing Karel sey am ty to 07-12 up huang" Seybold adverse 00:00: and reaction 00 hallucina s tions Amoxicil Propensi Active Hives Pt states Met hodi adri ty to 04-[address] adverse 00:00: fever Hospita reaction 00 l s to drug Cefadyl Propensi Active Hives Pt states Meth juan miguel ty to 04-[address] adverse 00:00: fever Hospita reaction 00 l s to drug Penicill Propensi Active Hives Pt states Met hodi ins ty to 04-[address] adverse 00:00: fevers Hospita reaction 00 l s to drug Jon Propensi Active Other (See Numbness Me thodi ty to Comments) 04-15 st adverse 00:00: Hospita reaction 00 l s to drug Sulfa Propensi Active Hives Pt states Metho di (Sulfona ty to 04-[address] mide adverse 00:00: fever Hospita Antibiot reaction 00 l ics) s to drug Penicill Propensi Active Hives Pt states Uni vers ins ty to 04-15 he gets ity of adverse 00:00: fevers Pt [place] reaction 00 states he Medic al s gets Branch fever PENICILL Drug Active Hives Univers INS Class -23 ity of 00:00: [place] 00 [facility] SULFA Drug Active Hives Univers (SULFONA Class 5-23 ity of MIDE 00:00: [place] ANTIBIOT 00 Medical ICS) Branch Sulfa Propensi Active Hives Pt states Unive rs (Sulfona ty to 04-15 he gets ity of mide adverse 00:00: fever [place] Antibiot reaction 00 Medica l ics) s Branch Penicill Propensi Active Hives Pt states Karel sey ins ty to 04-15 he gets Seybold adverse 00:00: fevers Pt reaction 00 states he s gets fever Sulfa Propensi Active Hives Pt states Kelse y Drugs ty to 04-15 he gets Seybold adverse 00:00: fever reaction 00 s NO KNOWN Drug Active Univers ALLERGIE Class ity of S [facility] Family History Family Member Diagnosis Comments Start Date Stop Date Source Natural father Diabetes type II Meth [facility] Natural father Hyperlipidemia Method [facility] Natural father Hypertension [facility] Maternal grandfather Prostate cancer [facility] Maternal grandmother Breast cancer [facility] Paternal grandfather Lung cancer Met [facility] Social History Social Habit Start Date Stop Date Quantity Comments Source Exposure to Not sure [facility] SARS-CoV-2 (event) [facility] Gender identity [facility] Sexual orientation Method [facility] History of tobacco Cigarette Smoker Betsy Fallybold use Alcohol intake 2021-07-16 2021-07-16 Current drinker Metho dist 00:00:00 00:00:00 of [facility] (finding) History of Social 2021-07-16 2021-07-[address] function 00:00:00 00:00:00 Hospital Tobacco use and 2021-03-28 2021-03-28 Smokeless Betsy Fall ybold exposure 00:00:00 00:00:00 tobacco non-user Alcohol Comment 2017-01-31 2017-01-31 socially/ past Metho dist 00:00:00 00:00:00 Hospital Sex Assigned At [birth year] [facility] 00:00:00 00:00:00 Hospital Smoking Status Start Date Stop Date Source Ex-smoker 2021-03-28 00:00:00 2021-03-28 00:00:00 Betsy rogers Never smoker [facility] Medications Ordered Filled Start Stop Current Ordering Indication Dosage Frequency Signature Comments Components Source Medication Medication Date Date Medication? Clinician (SIG) Name Name venlafaxine Yes 75mg QD Take 75 mg Methodi XR 04-[address] (EFFEXOR-XR 13:28: daily. Hosp norma ) 75 MG 24 24 l hr capsule Venlafaxine Yes [id number] 75mg Take 1 Betsy HCl 75 MG 6- capsule Seybold oral 00:00: (75 mg Capsule 24 00 total) by Hour mouth in Sustained the Release morning and 1 capsule (75 mg total) in the evening. Acetaminoph Yes [id number] 1{tbl} Q.[id number] Take 1 Betsy en-Codeine 04-26 [id number] tablet by Seybold 300-30 MG 00:00: 3D [...] :00 hours venlafaxine 2019-11 Yes Take by Uni vers HCl 2-15 mouth. ity of (EFFEXOR 19:15: [place] ORAL) Medical Branch levetiracet 2019-11 Yes Take by Uni vers am (KEPPRA 2-15 mouth. ity of ORAL) 19:15: [place] [id number] Medical Branch albuterol 2019-11- No [id number] 2{puff} Inhale 2 Univers (VENTOLIN 2-15 01-15 Puffs ity of HFA) 90 00:00: 05:59 every 6 [place] mcg/actuati 00 :00 (six) Medical on inhaler hours as Branc h needed for Shortness of Breath for up to 30 days. benzonatate 2019-11 2020- No [id number] 100mg Take 1 Univers (TESSALON 2-15 12-30 capsule by Erica) 100 00:00: 05:59 mouth 3 [place] capsule 00 :00 (three) Medica l times Branch daily for 14 days. calcium 2018-0 Yes QD Take by Methodi carbonate 6-[address] (CALCIUM 00:00: daily. Hospita 500 ORAL) 00 l Immunizations Ordered Immunization Filled Immunization Date Status Commen ts Source Name Name PFIZER COVID-19 MRNA 2021-04-05 Completed Meth odist VACCINATION 00:00:00 Hospital PFIZER COVID-19 MRNA 2021-03-12 Completed Meth odist VACCINATION 00:00:00 [facility] Covid-19 Vaccine 2021-03-02 Completed Betys rogers ([employer]), Mrna-lnp, 00:00:00 Dagoberto Protein, Pf, 30mcg/0.3ml,IM FLUCELVAX QUAD PF 2021-02-[address] 00:00:00 [facility] Influenza, 2021-02-05 Completed Betys Harkins Injectable, Mdck, 00:00:00 Preservative Free, Quadrivalt Zoster Vaccine 2019-07-15 Completed [facility] Recombinant 00:00:00 Hospital Shingles IM 2019-07-15 Completed Betsy Romano d (Shingrix) 00:00:00 MMR 2019-05-13 Completed [facility] 00:00:00 Hospital Pneumococcal 2019-05-13 Completed [facility] Polysaccharide 00:00:00 Hospital MMR- Measles, Mumps, 2019-05-13 Completed Cristiane Leónold Rubella 00:00:00 Pneumococcal Vaccine, 2019-05-13 Completed Karel Harkins Polysaccharide 00:00:00 MMR 2019-04-13 Completed [facility] 00:00:00 Hospital Zoster Vaccine 2019-04-13 Completed [facility] Recombinant 00:00:00 Hospital MMR- Measles, Mumps, 2019-04-13 Completed Cristiane colon Seybold Rubella 00:00:00 Shingles IM 2019-04-13 Completed Betsy Leónol d (Shingrix) 00:00:00 Hib (PRP-T) 2019-01-12 Completed [facility] 00:00:00 Hospital Tetanus Toxoid/HIB 2019-01-12 Completed Betsy Seybold 00:00:00 IPV 2018-09-30 Completed [facility] 00:00:00 Hospital Hepatitis B 2018-09-30 Completed [facility] 00:00:00 Hospital Hepatitis B, Adult (2018-09-30 Completed Karel y Seybold dose) 00:00:00 IPV- Inactivated 2018-09-30 Completed Betsy S eybold Polio Vaccine 00:00:00 Tdap 2018-07-29 Completed [facility] 00:00:00 Hospital IPV 2018-07-29 Completed [facility] 00:00:00 Hospital IPV- Inactivated 2018-07-29 Completed Betsy S eybold Polio Vaccine 00:00:00 Tdap- (Boostrix, 2018-07-29 Completed Betsy S eybold Adacel) 00:00:00 Hepatitis A 2018-06-24 Completed [facility] 00:00:00 [facility] Meningococcal MCV4P 2018-06-24 Completed Metho dist 00:00:00 [facility] Hib (PRP-T) 2018-06-24 Completed [facility] 00:00:00 [facility] HEPATITIS A- ADULT 2018-06-24 Completed Betsy Seybold 00:00:00 Tetanus Toxoid/HIB 2018-06-24 Completed Betsy Seybold 00:00:00 Meningococcal 2018-06-24 Completed Betsy Fallyb old Vaccine- 00:00:00 Conjugate(Menactra) Tdap- (Boostrix, 2018-04-28 Completed Betsy S eybold Adacel) 00:00:00 Tdap 2018-04-28 Completed [facility] 00:00:00 Hospital IPV 2018-04-28 Completed [facility] 00:00:00 Hospital Pneumococcal 2018-04-28 Completed [facility] Conjugate 13-Valent 00:00:00 Hospi jac IPV- Inactivated 2018-04-28 Completed Betsy S eybold Polio Vaccine 00:00:00 Pneumococcal Vaccine, 2018-04-28 Completed Karel fally Seybold Conjugate 13 00:00:00 Hepatitis B, Adult (3 2018-03-31 Completed Karel carvajal Seybold dose) 00:00:00 Tetanus Toxoid/HIB 2018-03-31 Completed Betsy Seybold 00:00:00 Hepatitis B 2018-03-31 Completed [facility] 00:00:00 [facility] Hib (PRP-T) 2018-03-31 Completed [facility] 00:00:00 Hospital Hepatitis B, Adult (3 2018-02-04 Completed Karel sey Seybold dose) 00:00:00 Tdap- (Boostrix, 2018-02-04 Completed Betsy Swain eybold Adacel) 00:00:00 Tdap 2018-02-04 Completed [facility] 00:00:00 Hospital Hepatitis B 2018-02-04 Completed [facility] 00:00:00 Hospital Vital Signs Vital Name Observation Time Observation Value Comments Source Systolic blood 2022-04-26 21:25:00 140 mm[Hg] Betsy Seybold pressure Diastolic blood 2022-04-26 21:25:00 79 mm[Hg] Kelse y Seybold pressure Heart rate 2022-04-26 21:25:00 129 /min Betsy colonbold Body temperature 2022-04-26 21:25:00 36.39 Mayuri Cristiane ey Seybold Respiratory rate 2022-04-26 21:25:00 17 /min Cristiane colon Seybold Body height 2022-04-26 21:25:00 170.2 cm Betsy colonbold Body weight 2022-04-26 21:25:00 87.272 kg Betsy colonbold BMI 2022-04-26 21:25:00 30.13 kg/m2 Betsy colonbold Oxygen saturation in 2022-04-26 21:25:00 97 /min Betsy Harkins Arterial blood by Pulse oximetry Systolic blood 2020-11-07 19:14:00 126 mm[Hg] Univer sity of [facility] Diastolic blood 2020-11-07 19:14:00 74 mm[Hg] Unive rsity of [facility] Heart rate 2020-11-07 19:14:00 113 /min Universi ty [facility] Body temperature 2020-11-07 19:14:00 36.67 Mayuri Univ ersity [facility] Respiratory rate 2020-11-07 19:14:00 18 /min [facility] Body height 2020-11-07 19:14:00 175.3 cm Universi ty [facility] Body weight 2020-11-07 19:14:00 81.647 kg Universi ty [facility] BMI 2020-11-07 19:14:00 26.58 kg/m2 [facility] Oxygen saturation in 2020-11-07 19:14:00 98 /min University of Arterial blood by [facility] Pulse oximetry Branch Systolic blood 2020-11-07 19:14:00 126 mm[Hg] Univer sity of pressure [facility] Diastolic blood 2020-11-07 19:14:00 74 mm[Hg] Unive rsity of pressure [facility] Heart rate 2020-11-07 19:14:00 113 /min Universi [facility] Body temperature 2020-11-07 19:14:00 36.67 Mayuri [facility] Respiratory rate 2020-11-07 19:14:00 18 /min [facility] Body height 2020-11-07 19:14:00 175.3 cm [facility] Body weight 2020-11-07 19:14:00 81.647 kg [facility] BMI 2020-11-07 19:14:00 26.58 kg/m2 [facility] Oxygen saturation in 2020-11-07 19:14:00 98 /min University of Arterial blood by [facility] Pulse oximetry Branch Systolic blood 2023-04-15 18:24:00 132 mm[Hg] [facility] pressure Diastolic blood 2023-04-15 18:24:00 78 mm[Hg] [facility] pressure Heart rate 2023-04-15 18:24:00 85 /min [facility] Body weight 2023-04-15 18:24:00 85.276 kg [facility] BMI 2023-04-15 18:24:00 27.76 kg/m2 [facility] Oxygen saturation in 2023-04-15 18:24:00 98 /min [facility] Arterial blood by Pulse oximetry Procedures Procedure Date / Time Performing Clinician Source Performed MAGNESIUM LEVEL 2023-04-25 18:00:00 Janes Gonzalez [facility] CBC WITH PLATELET AND 2023-04-15 19:06:00 Carlos [facility] DIFFERENTIAL COMPREHENSIVE METABOLIC 2023-04-15 19:06:00 Janes Gonzalez casey castellano [facility] PANEL AMYLASE LEVEL 2023-04-15 19:06:00 Janes Gonzalez [facility] LIPASE LEVEL 2023-04-15 19:06:00 BeJanes brantley [facility] LDH 2023-04-15 19:06:00 Janes Gonzalez [facility] MAGNESIUM LEVEL 2023-04-15 19:06:00 Janes Gonzalez [facility] VITAMIN D 25 HYDROXY 2023-04-15 19:06:00 Janes Gonzalez [facility] LEVEL POCT FLU A AND B 2020-11-07 19:37:00 Paulette Astorga [facility] ([facility]) Medical Branch Plan of Care Planned Activity Planned Date Details Comments Source Future Scheduled 2023-05-26 INFLUENZA VACCINE [facility] Test 15:37:18 [code = INFLUENZA VACCINE] Future Scheduled 2023-05-26 Pneumococcal Vaccine: [facility] Test 15:37:18 Pediatrics (0 to 5 Years) and At-Risk Patients (6 to 64 Years) (3 - PPSV23 if available, else PCV20) [code = Pneumococcal Vaccine: Pediatrics (0 to 5 Years) and At-Risk Patients (6 to 64 Years) (3 - PPSV23 if available, else PCV20)] Future Scheduled 2023-05-26 COVID-19 VACCINE (3 - [facility] Test 15:37:18 Pfizer risk series) [code = COVID-19 VACCINE (3 - Pfizer risk series)] Encounters Start End Encounter Admission Attending Care Care Encounter Source Date/Time Date/Time Type Type Clinicians Facility Department ID 2023-06-26 2023-06-26 Outpatient BETSY HEREDIA [id number] Betsy 15:30:00 15:30:00 SAADIA camacho 2023-05-26 2023-05-26 Outpatient BETSY GONZALEZ [id number] Betsy 15:30:00 15:30:00 FAWAD camacho 2023-05-26 2023-05-26 Outpatient BETSY CORONADO [id number] Betsy 00:00:00 00:00:00 BETSY camacho 2023-05-23 2023-05-23 Orders Carlos, 1.2.840.1 [id number] Methodi 00:00:00 00:00:00 Only Garth [address]16.1.[address] [place] 3.430.2.7 Hospit a .3.860959 l .8 2023-05-16 2023-05-16 Orders Beinart, 1.2.840.1 [id number] Methodi 00:00:00 00:00:00 Only Garth 74766.1.[address] [place] 3.430.2.7 Hospit a .3.969727 l .8 2023-05-09 2023-05-09 Orders [place]inart, 1.2.840.1 [id number] Methodi 00:00:00 00:00:00 Only Garth 65939.1.[address] [place] 3.430.2.7 Hospit a .3.609988 l .8 2023-05-02 2023-05-02 Orders [place], 1.2.840.1 [id number] Methodi 00:00:00 00:00:00 Only Garth [address]9587.1.[address] [place] 3.430.2.7 Hospit a .3.100580 l .8 2023-04-25 2023-04-25 Orders [place], 1.2.840.1 [id number] Methodi 00:00:00 00:00:00 Only Garth 48994.1.[address] [place] 3.430.2.7 Hospit a .3.301301 l .8 2023-04-18 2023-04-18 Orders [place], 1.2.840.1 [id number] Methodi 00:00:00 00:00:00 Only Garth 52369.1.[address] [place] 3.430.2.7 Hospit a .3.773664 l .8 2023-04-15 2023-04-15 Office [place], 1.2.840.1 [id number] Methodi 13:30:00 14:17:09 Visit Garth 74689.1.[address] [place] 3.430.2.7 Hospit a .3.236833 l .8 2023-04-15 2023-04-15 Travel 1.2.840.1 1.2.307.153 [id number] Methodi 00:00:00 00:00:[address] 3.430.2.7 0.2.7.3.698 spita .3.897126 084.8 l .8 2023-04-15 2023-04-15 Outpatient BEINART, [facility] [id number] [place] 00:00:00 00:00:00 GARTH [address] 2023-03-19 2023-03-19 Abstract [place], 1.2.840.1 [id number] Methodi 00:00:00 00:00:[address] [place] 3.430.2.7 Hospit a .3.849324 l .8 2022-05-03 2022-05-03 Outpatient BETSY HEREDIA [id number] Betsy 00:00:00 00:00:00 SAADIA camacho 2022-04-26 2022-04-26 Office aDrrell Heredia 1.2.840.114 [id number] Betsy 16:30:00 16:45:00 Visit Saadia Bolaños 350.1.13.13 marissa 1.2.7.2.686 [id number] 2022-04-15 2022-04-15 Outpatient BEINART, [facility] [id number] [place] 00:00:00 00:00:00 GARTH [address] 2022-04-15 2022-04-15 Outpatient BEINART, [facility] [id number] [place] 00:00:00 00:00:00 GARTH [address] 2021-10-22 2021-10-22 Outpatient BEINART, [facility] [id number] [place] 00:00:00 00:00:00 GARTH [address] 2021-07-16 2021-07-16 Outpatient BEINART, [facility] [id number] [place] 00:00:00 00:00:00 GARTH [address] 2021-07-16 2021-07-16 Outpatient BEINART, [facility] [id number] [place] 00:00:00 00:00:00 GARTH [address] 2021-03-12 2021-03-12 Outpatient BEINART, [facility] [id number] [place] 00:00:00 00:00:00 GARTH [address] 2021-02-19 2021-02-19 Outpatient [facility] [id number] [place] 00:00:00 00:00:[address] 2021-02-12 2021-02-12 Outpatient BEINART, [facility] [id number] [place] 00:00:00 00:00:00 GARTH [address] 2021-02-01 2021-02-05 Inpatient JOGLEKAR, [facility] [id number] [place] 00:00:00 00:00:00 CLARITZA [address] 2021-02-01 2021-02-01 Outpatient [facility] [id number] [place] 00:00:00 00:00:[address] 2021-02-01 2021-02-01 Outpatient TRACHTENBER [facility] [id number] [place] 00:00:00 00:00:00 TAMIKO Guillermo [address] 2020-12-20 2020-12-20 Outpatient BEINART, [facility] [id number] [place] 00:00:00 00:00:00 GARTH [address] 2020-11-07 2020-11-07 Urgent Provider, [facility] 1.2.840.114 [id number] [facility] 13:02:18 13:56:39 Care Anejenise, [facility] 350.1.13.10 ity of [place] 4.2.7.2.686 Ced as Professio [id number] [address] Office [facility] 2020-11-07 2020-11-07 Urgent Provider, [facility] [id number] 13:02:18 13:56:39 Care [facility] 350.1.13.10 Care [place] 4.2.7.2.686 Professio [id number] nal [address] 2020-11-07 2020-11-07 Outpatient R MALACHI, [facility] [id number] Univers 13:00:00 13:00:00 PAULETTE villasenor of [facility] 2020-10-26 2020-10-26 Outpatient BEINART, [facility] [id number] [place] 00:00:00 00:00:00 GARTH [address] 2020-09-20 2020-09-20 Outpatient BEINART, [facility] [id number] [place] 00:00:00 00:00:00 GARTH [address] 2020-09-19 2020-09-19 Outpatient BEINART, [facility] [id number] [place] 00:00:00 00:00:00 GARTH [address] 2020-09-19 2020-09-19 Outpatient BEINART, [facility] [id number] [place] 00:00:00 00:00:00 GARTH [address] 2019-11-12 2019-11-12 Outpatient BEINART, [facility] [id number] [place] 00:00:00 00:00:00 GARTH [address] 2019-11-12 2019-11-12 Outpatient BEINART, [facility] [id number] [place] 00:00:00 00:00:00 GARTH [address] Results Test Description Test Time Test Comments Results Result Comments Source Magnesium level 2023-05-07 23:00:00 Test Item Value Reference Range Interpretation Comme nts Magnesium (test code = 61252-4) TNP LIDIA (test code = LIDIA) Tests marked TNP not performed.Please contact the lab for more information. [facility] 25 hydroxy [id number] 21:03:00 Test Item Value Reference Range Interpretation Comments Vitamin D, 25-hydroxy 32 ng/mL 30-100 (test code = 1989-3) LIDIA (test code = LIDIA) Items were attached to this order: xgld, xgr [facility] metabolic [id number] 20:44:00 Test Item Value Reference Range Interpretation Comments Hemolysis (test <15 <=15 code = 3440) Sodium (test code = 139 mmol/L 135-449 6341931) Potassium (test 4.4 mmol/L 3.5-5.0 code = 7370124) Chloride (test code 102 mmol/L 98-107 = 2075-0) CO2 (test code = 26 mmol/L 23-32 2027-9) Glucose (test code 89 mg/dL 60-100 = 2345-7) BUN (test code = 16 mg/dL 9-20 3010357) Creatinine (test 1.1 mg/dL 0.7-1.3 code = 1861871) eGFR MDRD (test 73.9 See_Comment If code = 8846) [place], multi ply the GFR by 1.21 0. [Automated mess age] The system [employer] generated this result transmit noemy reference range : 60.0 - 137.0 mL/min/1.73m^2. The reference range was not used to interpret this result as normal/abnormal . Total bilirubin 0.4 mg/dL 0.2-1.3 (test code = 1974-2) Alkaline 74 U/L 38-126 phosphatase (test code = 6768-6) Protein (test code 7.9 g/dL 6.0-8.5 = 2885-2) Albumin (test code 4.7 g/dL 3.5-5.0 = 2385641) Calcium (test code 10.2 mg/dL 8.4-10.6 = 0083245) AST (test code = 26 U/L 10-50 1919-8) ALT (test code = 48 U/L -60 2-6) Anion gap (test 15.0 5.0-17.0 code = 5520893) BUN/creatinine 14.0 7.0-25.0 ratio (test code = 3097-3) LIDIA (test code = Items were LIDIA) attached to this order: xgld, xgr [facility] [id number] 20:44:00 Test Item Value Reference Range Interpretation Comments Amylase (test code = 84 U/L 28-100 1798-8) LIDIA (test code = LIDIA) Items were attached to this order: xgld, xgr [facility] [id number] 20:44:00 Test Item Value Reference Range Interpretation Comments Hemolysis (test code = <15 <=15 3440) LDH (test code = 191 U/L 135-899 4633353) LIDIA (test code = LIDIA) Items were attached to this order: xgld, xgr [facility] [id number] 20:44:00 Test Item Value Reference Range Interpretation Comments Lipase (test code = 35 U/L 13-60 3040-3) LIDIA (test code = LIDIA) Items were attached to this order: xgld, xgr [facility]CBC with platelet and [id number] 20:37:00 Test Item Value Reference Range Interpretation Comments WBC (test code = 6690-2) 6.8 10^3/uL 4.0-10.6 RBC (test code = 9409799) 4.65 10^6/uL 4.15-4.90 HGB (test code = 280) 14.6 g/dL 13.0-18.0 HCT (test code = 4852813) 41.9 % 42.0-52.0 L MCV (test code = 9322965) 90.1 fL 80.0-98.0 MCH (test code = 1642440) 31.4 pg 28.0-33.0 MCHC (test code = 5998575) 34.8 g/dL 32.0-36.0 RDW (test code = 2973) 12.4 % 10.6-15.4 Platelet count (test code 312 10^3/uL 150-400 = 777-3) MPV (test code = 2758854) 9.4 fL 9.4-12.4 Nucleated RBC (test code = 0.0 % 0.0-1.0 254) Absolute nRBC (test code = 0.0 10^3/uL 0.0-0.0 7016425) Neutrophils (test code = 50.5 % 45.0-74.0 0092746) Lymphocytes (test code = 39.3 % 16.0-45.0 736-9) Monocytes (test code = 8.1 % 4.0-10.0 5905-5) Eosinophils (test code = 1.0 % 0.0-5.0 1352) Basophils (test code = 0.7 % 0.0-2.0 706-2) Immature granulocytes 0.4 % 0.0-1.0 (test code = 1594) Neutrophils, absolute 3.4 10^3/uL 1.6-9.0 (test code = 1801) Lymphocytes, absolute 2.7 10^3/uL 0.4-4.4 (test code = 5140978) Monocytes, absolute (test 0.6 10^3/uL 0.2-1.7 code = 8900255) Eosinophils, absolute 0.1 10^3/uL 0.0-1.7 (test code = 1353) Basophils, absolute (test 0.1 10^3/uL 0.0-0.3 code = 929) Immature granulocytes, 0.0 10^3/uL 0.0-0.0 absolute (test code = 2839) LIDIA (test code = LIDIA) Items were attached to this order: xgld, xgr Lab Interpretation (test Abnormal code = 79528-8) [facility] QuxilzdcJSHD-HrY-8 (COVID-19) RNA [Presence] in Respiratory specimen by BRO with probe [id number] 02:43:04 Test Item Value Reference Range Interpretation Comments SARS-CoV-2 (COVID-19) RNA Not detected Not-Detected [Presence] in Respiratory specimen by BRO with probe detection (test code = 05447-9) [facility] LAKSHMI WESTPOCT FLU A AND B (MOLECULAR)2020-11-07 19:37:00 Test Item Value Reference Range Interpretation Comments POCT INFLUENZA A (test code = 3840) neg Negative - Negativ e POCT INFLUENZA B (test code = 3841) neg Negative - Negativ e [facility]
[2023-05-26 16:19] LABS: Absolute Lymphocytes (CBC) 2.7 K/uL (0.7-4.9); Hematocrit 36.6 % (39.6-49.0); Lymphocytes % 44.7 % (15.3-44.8); MPV 7.2 fL (7.6-11.3); RBC Red Blood Cell Count 4.02 M/uL (4.33-5.43)
[2023-05-26 16:24] LABS: Protime INR 1.01
[2023-05-26] MEDS ORDERED: LEVETIRACETAM 500 MG/5 ML VIAL IV ONE (16:28)
[2023-05-26] MEDS ORDERED: NA CHLORIDE 0.9% 500 ML ONE (16:28)
[2023-05-26 16:43] LABS: ALT/SGPT 85 U/L (16-61); AST/SGOT 28 U/L (15-37); Albumin 3.3 g/dL (3.4-5.0); Alkaline Phosphatase 59 U/L (45-117); BUN Blood Urea Nitrogen 13 mg/dL (7-18); Bicarbonate 27 mEq/L (21-32); Bilirubin Total 0.4 mg/dL (0.2-1.0); Glomerular Filtration Rate 109 ml/min (=/>90); Glucose Level 88 mg/dL (74-106); Magnesium 1.9 mg/dL (1.6-2.4); Potassium 3.5 mEq/L (3.5-5.1); Protein, Total 6.5 g/dL (6.4-8.2); Sodium Level 141 mEq/L (136-145); Troponin High Sensitivity 7.7 pg/mL (<58.9)
[2023-05-26 16:44] LABS: Bilirubin Direct < 0.1 mg/dL (0-0.2); Bilirubin Indirect, Calculated ND mg/dL (0.2-0.8)
--- NOTE | 2023-05-26 16:47 | RAD REPORT ---
EXAM DESCRIPTION: CT - Ct Stroke Brain Wo Cont - 05/26/2023 4:41 pm CLINICAL HISTORY: STROKE ALERT Headache, drowsiness, history of lymphoma COMPARISON: Head Brain Wo Cont dated 01/13/2020; Head Brain Wo Cont dated 10/12/2019 TECHNIQUE: All CT scans are performed using dose optimization technique as appropriate and may inclu de automated exposure control or mA/KV adjustment according to patient size. FINDINGS: No intracranial hemorrhage, hydrocephalus or extra-axial fluid collection.Small area of gl iosis is noted left posterior parietal region. This is likely related to previous intervention. Small adjacent craniotomy.No areas of brain edema or evidence of midline shift. The paranasal sinuses and mastoids are clear. The calvarium is intact. IMPRESSION: No acute intracranial abnormality. Postsurgical changes are present without unusual fin ding seen. The findings were discussed with Kaitlin Rader in the ER on 05/26/2023 at 4:44 p.m. by telephone.
--- NOTE | 2023-05-26 16:55 | RAD REPORT ---
EXAM DESCRIPTION: CT - Head angio - 05/26/2023 4:43 pm CLINICAL HISTORY: HEADACHE Headache, drowsiness, history of lymphoma. COMPARISON: Ct Stroke Brain Wo Cont dated 05/26/2023; Head Brain Wo Cont dated 01/13/2020; Chest Abdome n Pelvis W Cont dated 05/26/2023; Neck Angio dated 05/26/2023 TECHNIQUE: CT angiography of the head was performed with MIPs. All CT scans are performed using dose optimization technique as appropriate and may include automated exposure control or mA/KV adjustment according to patient size. FINDINGS: No evidence of large vessel occlusion. No evidence of aneurysm is detected. No flow-limiti ng stenosis or vascular malformation identified. Antegrade flow is seen in the vertebral arteries. The vertebral arteries are codominant. The visualized dural venous sinuses are patent. IMPRESSION: No significant flow abnormality is detected.
--- NOTE | 2023-05-26 16:57 | RAD REPORT ---
EXAM DESCRIPTION: CT - Neck Angio - 05/26/2023 4:43 pm CLINICAL HISTORY: HEADACHE COMPARISON: Head C Spine Mpr Wo Con dated 05/03/2022; Soft Tissue Neck W/Contr dated 08/10/2017 TECHNIQUE: CT angiography of the neck vessels was performed with MIPs. All CT scans are performed using dose optimization technique as appropriate and may include automated exposure control or mA/KV adjustment according to patient size. FINDINGS: A left aortic arch is identified with bovine configuration of the great vessels. Mild scar ring seen left apex. No significant flow abnormality is seen of the common carotid bilaterally. No significant stenosis is identified involving the cervical segments of both internal carotid arteri es. Normal flow is seen within both vertebral arteries. IMPRESSION: No significant flow abnormality of the neck vessels is identified. NASCET criteria used. Mild 0-49% stenosis Moderate 50-69% stenosis Severe 70-99% stenosis
--- NOTE | 2023-05-26 16:59 | RAD REPORT ---
EXAM DESCRIPTION: CT - Chest Abdomen Pelvis W Cont - 05/26/2023 4:43 pm CLINICAL HISTORY: Chest and abdomen pain. hx of [place] lymphoma COMPARISON: Chest Abdomen Pelvis W Cont dated 08/07/2017; Chest Abdomen Pelvis W Cont dated 07/02/2016 TECHNIQUE: Approximately 100 mL nonionic IV contrast was administered to the patient. All CT scans are performed using dose optimization technique as appropriate and may include automated exposure control or mA/KV adjustment according to patient size. FINDINGS: Scarring is present in the left apex. Scarring also noted lingula.No pulmonary nodule or m ass seen.No pleural or pericardial effusion.No intrathoracic adenopathy. The liver, spleen, pancreas, adrenal glands and kidneys are within normal limits. No bowel obstruction, free air, free fluid or abscess. Nonvisualized appendix. No pathologic lymphad enopathy in the abdomen or pelvis. Evidence of prior midthoracic vertebroplasty. No lytic or blastic bone lesion. IMPRESSION: No acute or worrisome finding.
--- NOTE | 2023-05-26 17:09 | RAD REPORT ---
EXAM DESCRIPTION: RAD - Chest Single View - 05/26/2023 5:01 pm CLINICAL HISTORY: seizure activity/hx brain mass Chest pain. COMPARISON: Chest Single View dated 05/03/2022; Chest Single View dated 01/24/2021; Chest Single View d ated 08/10/2017; Chest Single View dated 08/09/2017 FINDINGS: Portable technique limits examination quality. Chronic to atelectasis and scarring left lung is again seen. No right-sided acute infiltrate. The hea rt is normal in size. No displaced fractures. IMPRESSION: No acute intrathoracic process suspected.
--- NOTE | 2023-05-26 18:11 | ER ---
Nurse's Notes [facility] Name: Alvarez Ortiz Age: 37 yrs Sex: Male : 1985 Arrival Date: 05/26/2023 Time: 15:34 Bed 14 Private MD: Diagnosis: Other seizures Presentation: 05/26 15:47 Chief complaint: EMS states: "Toned out due to being lightheaded, weak, slurring mb9 speech, and stumbling after a car with loud love passed by his work home. Pt's speech is delayed. BGL 110, 12 lead NSR, 18 g to right AC with 500 mls of NS. Pt has history of brain cancer and has been in remission for the past 6 years.". Coronavirus screen: Vaccine status: Patient reports receiving the 2nd dose of the covid vaccine. Ebola Screen: No symptoms or risks identified at this time. Initial Sepsis Screen: Does the patient meet any 2 criteria? No. Patient's initial sepsis screen is negative. Does the patient have a suspected source of infection? No. Patient's initial sepsis screen is negative. Risk Assessment: Do you want to hurt yourself or someone else? Patient reports no desire to harm self or others. Onset of symptoms was May 26, 2023. 15:47 Method Of Arrival: EMS: [facility] mb9 15:47 Acuity: EAN 2 mb9 Triage Assessment: 15:56 General: Appears in no apparent distress. Behavior is calm, cooperative. Pain:. Neuro: mb9 Gray Agitation-Sedation Scale (RASS): 0 - Alert and Calm Level of Consciousness is awake, alert, obeys commands, Oriented to person, place, time, situation, Appropriate for age Millinery Department Manager are equal bilaterally Moves all extremities. Gait is unsteady, Speech delayed. Facial symmetry appears normal, Pupils are PERRLA, Intact Reports headache in left frontal area. Respiratory: Airway is patent Respiratory effort is even, unlabored, Respiratory pattern is regular, symmetrical. Derm: Skin is pink, warm \\T\\ dry. Musculoskeletal: Range of motion: intact in all extremities. Historical: - Allergies: 15:54 Alprazolam; mb9 15:54 Amoxicillin; mb9 15:54 Aztreonam; mb9 15:54 BENZODIAZEPINES; mb9 15:54 cefadyl; mb9 15:54 cefotetan; mb9 15:54 Lasix; mb9 15:54 PENICILLINS; mb9 15:54 Sulfa (Sulfonamide Antibiotics); mb9 15:54 Xanax; mb9 - Home Meds: 15:55 None [Active]; mb9 - PMHx: 15:54 Anemia; Back pain; brain cancer; Cancer; chemotherapy; Depression; LYMPHOMA; mb9 Osteoporosis; radiation therapy; Seizures; NonHodgkin's Lymphoma- stage 4; - PSHx: 15:54 Appendectomy; mb9 - Immunization history:: Adult Immunizations up to date. - Social history:: Smoking status: Patient denies any tobacco usage or history of. Screenin:15 [facility] ED Fall Risk Assessment (Adult) History of falling in the last 3 months, bp including since admission No falls in past 3 months (0 pts). Abuse screen: Denies threats or abuse. Denies injuries from another. Nutritional screening: No deficits noted. Tuberculosis screening: No symptoms or risk factors identified. Assessment: 15:57 Reassessment: seizure pads in place. mb9 17:15 Reassessment: Patient appears in no apparent distress at this time. Patient is alert, bp oriented x 3, equal unlabored respirations, skin warm/dry/pink. Vital Signs: 15:47 BP 140 / 122; Pulse 84; Resp 18; Temp 98; Pulse Ox 98% on R/A; Weight 83.91 kg; Height mb9 5 ft. 8 in. ; 16:01 BP 115 / 66; Pulse 85; Resp 16; Pulse Ox 100% on R/A; iw 17:14 BP 119 / 78; Pulse 81; Resp 16; Pulse Ox 98% ; bp 18:35 BP 121 / 89; Pulse 73; Resp 18; Pulse Ox 100% ; bp 15:47 Body Mass Index 28.13 (83.91 kg, 172.72 cm) mb9 ED Course: 15:43 Patient arrived in ED. bp 15:47 Arm band placed on. mb9 15:48 Kaitlin Rader FNP-C is [facility]. snw 15:48 Omega Croft MD is Attending Physician. snw 15:54 Triage completed. mb9 16:01 Rajesh Mcneal, MAURI is Primary Nurse. bp 16:43 CT Stroke Brain w/o Contrast In Process Unspecified. EDMS 16:45 CT Head Angio In Process Unspecified. EDMS 16:45 CT Neck Angio In Process Unspecified. EDMS 16:45 CT Chest, Abdomen, Pelvis - W/Contrast In Process Unspecified. EDMS 17:03 Stroke CXR 1 View In Process Unspecified. EDMS 17:15 Patient has correct armband on for positive identification. Bed in low position. Call bp light in reach. Side rails up X2. Adult w/ patient. 17:15 Inserted saline lock: 20 gauge in right antecubital area, using aseptic technique. bp Blood collected. 18:10 Nolan Salas MD is Referral Physician. snw 18:35 No provider procedures requiring assistance completed. IV discontinued, intact, bp bleeding controlled, No redness/swelling at site. Pressure dressing applied. Administered Medications: 16:10 Drug: Keppra IV 1000 mg Route: IV; Rate: calculated rate; Site: right antecubital; bp 18:36 Follow up: IV Status: Completed infusion; IV Intake: 100ml bp 16:10 Drug: NS 0.9% IV 500 ml Route: IV; Rate: bolus; Site: right antecubital; bp 18:35 Follow up: IV Status: Completed infusion; IV Intake: 500ml bp Intake: 18:35 IV: 500ml; Total: 500ml. bp 18:36 IV: 100ml; Total: 600ml. bp Outcome: 18:10 Discharge ordered by . snw 18:35 Discharged to home via wheelchair. bp 18:35 Condition: stable 18:35 Discharge instructions given to patient, Instructed on discharge instructions, follow up and referral plans. medication usage, Demonstrated understanding of instructions, follow-up care, medications. 18:36 Patient left the ED. bp Signatures: Dispatcher [employer] EDMS Kaitlin Rader, MOTOR HOTEL MANAGER-C MOTOR HOTEL MANAGER-Csnw Mine aHmmer, RN MAURI iw Rajesh Mcneal RN RN Jeri Sue RN RN mb9 Corrections: (The following items were deleted from the chart) 17:16 17:14 BP 133 / 74; Pulse 71bpm; Resp 16bpm; Pulse Ox 98%; bp bp
--- NOTE | 2023-05-26 18:11 | EDPHYS ---
Physician Documentation [facility] Name: Alvarez Ortiz Age: 37 yrs Sex: Male : 1985 Arrival Date: 05/26/2023 Time: 15:34 Bed 14 Private MD: ED Physician Omega Croft HPI: 05/26 16:11 This 37 yrs old Male presents to ER via EMS with complaints of Slurred Speech. snw 16:11 The patient presents to the emergency department with probable seizure like activity, snw sudden left frontal headache. Onset: The symptoms/episode began/occurred acutely, just prior to arrival. Context: occurred at work, occurred while the patient was standing, pt stated it seemed an immediate reaction to hearing/feeling a car stereo love. Severity of symptoms: At their worst the symptoms were moderate in the emergency department the symptoms have improved moderately. Patient's baseline: Neuro: alert and fully oriented, Motor: no deficits, Ambulation: walks without assistance, Speech: normal, The patient has a previous history of non Hodgkin's Lymphoma with mets to brain in 2017. Pt rec'd chemo, radiation, and surgery to chest and then pt had mets to left frontal lobe with resultant gran mal seizure. Pt was on Keppra but was taken off in 2019.. as noted. Historical: - Allergies: 15:54 Alprazolam; mb9 15:54 Amoxicillin; mb9 15:54 Aztreonam; mb9 15:54 BENZODIAZEPINES; mb9 15:54 cefadyl; mb9 15:54 cefotetan; mb9 15:54 Lasix; mb9 15:54 PENICILLINS; mb9 15:54 Sulfa (Sulfonamide Antibiotics); mb9 15:54 Xanax; mb9 - Home Meds: 15:55 None [Active]; mb9 - PMHx: 15:54 Anemia; Back pain; brain cancer; Cancer; chemotherapy; Depression; LYMPHOMA; mb9 Osteoporosis; radiation therapy; Seizures; NonHodgkin's Lymphoma- stage 4; - PSHx: 15:54 Appendectomy; mb9 - Immunization history:: Adult Immunizations up to date. - Social history:: Smoking status: Patient denies any tobacco usage or history of. ROS: 16:06 Eyes: Negative for injury, pain, redness, and discharge. snw 16:06 Neck: Negative for injury, pain, and swelling, Cardiovascular: Negative for chest pain, palpitations, and edema, Respiratory: Negative for shortness of breath, cough, wheezing, and pleuritic chest pain, Abdomen/GI: Negative for abdominal pain, nausea, vomiting, diarrhea, and constipation, Back: Negative for injury and pain, : Negative for injury, bleeding, discharge, and swelling, MS/Extremity: Negative for injury and deformity, Skin: Negative for injury, rash, and discoloration, Psych: Negative for depression, anxiety, suicide ideation, homicidal ideation, and hallucinations. 16:06 Constitutional: Positive for sudden onset near syncope, mental fog, pain to left frontal head, felt like if the counter he was standing at was not there he would have "went down". 16:06 ENT: Positive for hearing, feeling love of someone's stereo and he had sudden, severe reaction . 16:06 Neuro: Positive for headache. Exam: 16:04 Head/Face: Normocephalic, atraumatic. Eyes: Pupils equal round and reactive to light, snw extra-ocular motions intact. Lids and lashes normal. Conjunctiva and sclera are non-icteric and not injected. Cornea within normal limits. Periorbital areas with no swelling, redness, or edema. ENT: Nares patent. No nasal discharge, no septal abnormalities noted. Tympanic membranes are normal and external auditory canals are clear. Oropharynx with no redness, swelling, or masses, exudates, or evidence of obstruction, uvula midline. Mucous membranes moist. Neck: Trachea midline, no thyromegaly or masses palpated, and no cervical lymphadenopathy. Supple, full range of motion without nuchal rigidity, or vertebral point tenderness. No Meningismus. Chest/axilla: Normal chest wall appearance and motion. Nontender with no deformity. No lesions are appreciated. Cardiovascular: Regular rate and rhythm with a normal S1 and S2. No gallops, murmurs, or rubs. Normal PMI, no JVD. No pulse deficits. Respiratory: Lungs have equal breath sounds bilaterally, clear to auscultation and percussion. No rales, rhonchi or wheezes noted. No increased work of breathing, no retractions or nasal flaring. Abdomen/GI: Soft, non-tender, with normal bowel sounds. No distension or tympany. No guarding or rebound. No evidence of tenderness throughout. Back: No spinal tenderness. No costovertebral tenderness. Full range of motion. Skin: Warm, dry with normal turgor. Normal color with no rashes, no lesions, and no evidence of cellulitis. MS/ Extremity: Pulses equal, no cyanosis. Neurovascular intact. Full, normal range of motion. Psych: Awake, alert, with orientation to person, place and time. Behavior, mood, and affect are within normal limits. 16:04 Constitutional: The patient appears alert, awake, mildly slurred speech 16:04 Neuro: Orientation: is normal, Mentation: is normal, Memory: is normal, Cerebellar function: is grossly normal, Motor: is normal, Sensation: is normal, Gait: not tested. seizure activity, pt describes atypical seizure like activity, seizure pads placed. Vital Signs: 15:47 BP 140 / 122; Pulse 84; Resp 18; Temp 98; Pulse Ox 98% on R/A; Weight 83.91 kg; Height mb9 5 ft. 8 in. ; 16:01 BP 115 / 66; Pulse 85; Resp 16; Pulse Ox 100% on R/A; iw 17:14 BP 119 / 78; Pulse 81; Resp 16; Pulse Ox 98% ; bp 18:35 BP 121 / 89; Pulse 73; Resp 18; Pulse Ox 100% ; bp 15:47 Body Mass Index 28.13 (83.91 kg, 172.72 cm) mb9 MDM: 15:48 Patient medically screened. snw 18:10 Data reviewed: vital signs, nurses notes. I considered the following discharge snw prescriptions or medication management in the emergency department Medications were administered in the Emergency Department. See MAR. Counseling: I had a detailed discussion with the patient and/or guardian regarding: the historical points, exam findings, and any diagnostic results supporting the discharge/admit diagnosis, lab results, radiology results, the need for outpatient follow up, a neurologist, to return to the emergency department if symptoms worsen or persist or if there are any questions or concerns that arise at home. Response to treatment: the patient's symptoms have markedly improved after treatment. Special discussion: Based on the history and exam findings, there is no indication for further emergent testing or inpatient evaluation. I discussed with the patient/guardian the need to see the neurologist for further evaluation of the symptoms. 07/03 16:01 Order name: Basic Metabolic Panel; Complete Time: 16:50 snw 05/26 16:01 Order name: CBC with Diff; Complete Time: 16:23 snw 05/26 16:01 Order name: Hepatic Function; Complete Time: 16:50 snw 05/26 16:01 Order name: High Sensitivity Troponin; Complete Time: 16:50 snw 05/26 16:01 Order name: Magnesium; Complete Time: 16:50 snw 05/26 16:01 Order name: Protime (+inr); Complete Time: 16:26 snw 05/26 16:01 Order name: Ptt, Activated; Complete Time: 16:26 snw 05/26 16:32 Order name: Glucose, Ancillary Testing; Complete Time: 16:50 EDMS 05/26 16:01 Order name: CT Stroke Brain w/o Contrast; Complete Time: 16:50 snw 05/26 16:01 Order name: Stroke CXR 1 View; Complete Time: 17:14 snw 05/26 16:04 Order name: CT Head Angio; Complete Time: 16:56 snw 05/26 16:04 Order name: CT Neck Angio; Complete Time: 16:58 snw 05/26 16:04 Order name: CT Chest, Abdomen, Pelvis - W/Contrast; Complete Time: 17:02 snw 05/26 16:01 Order name: EKG; Complete Time: 16:01 snw 05/26 16:01 Order name: Accucheck; Complete Time: 16:10 snw 05/26 16:01 Order name: Cardiac monitoring; Complete Time: 16:10 snw 05/26 16:01 Order name: EKG - Nurse/Tech; Complete Time: 16:10 snw 05/26 16:01 Order name: IV Saline Lock; Complete Time: 16:10 snw 05/26 16:01 Order name: Labs collected and sent; Complete Time: 16:10 snw 05/26 16:01 Order name: NPO; Complete Time: 16:10 snw 05/26 16:01 Order name: O2 Per Protocol; Complete Time: 16:10 snw 05/26 16:01 Order name: O2 Sat Monitoring; Complete Time: 16:10 snw 05/26 16:01 Order name: Stroke Swallow Screen; Complete Time: 16:10 snw EC:24 Rate is 82 beats/min. Rhythm is regular. QRS [place] is Normal. T waves are Inverted in snw lead I. ST Segment is depressed in leads V4, V5, V6, 1-2mm. Clinical impression: NSR w/ Non-specific ST/T Changes. Administered Medications: 16:10 Drug: Keppra IV 1000 mg Route: IV; Rate: calculated rate; Site: right antecubital; bp 18:36 Follow up: IV Status: Completed infusion; IV Intake: 100ml bp 16:10 Drug: NS 0.9% IV 500 ml Route: IV; Rate: bolus; Site: right antecubital; bp 18:35 Follow up: IV Status: Completed infusion; IV Intake: 500ml bp Disposition: 05/27 12:03 Co-signature as Attending Physician, Omega Croft MD I reviewed the patient's care rt provided by the Advanced Practice Provider and agree with the diagnosis and treatment plan. Disposition Summary: 05/26/23 18:10 Discharge Ordered Location: Home snw Condition: Stable snw Diagnosis - Other seizures snw Followup: snw - With: Emergency Department - When: As needed - Reason: Worsening of condition Followup: snw - With: Nolan Salas MD - When: 1 week - Reason: Recheck today's complaints, Continuance of care Discharge Instructions: - Discharge Summary Sheet snw - Electroencephalogram, Adult snw - Seizure, Adult snw - Personal Safety Information, Adult snw Forms: - Work release form snw - Medication Reconciliation Form snw - Thank You Letter snw - Antibiotic Education snw - Prescription Opioid Use snw - [email or web address] snw Prescriptions: - Keppra 500 mg Oral Tablet - take 1 tablet by ORAL route every 12 hours; 60 tablet; Refills: 0, Product snw Selection Permitted Signatures: Dispatcher [employer] Kaitlin Smyth FNP-C ELECTRONIC WARFARE SPECIALIST-Csnw Rajesh Mcneal RN RN Jeri Sue RN RN mb9 Omega Croft MD MD rt
[2023-05-26 18:52] VITALS: TEMP 98
[2023-05-26 18:58] VITALS: BP 121/89; O2SAT 100
--- NOTE | 2023-05-28 12:34 | EKG ---
Test Date: 2023-05-26 Test Time: 16:07:38 Call Center Operator: KEKE MEASUREMENT RESULTS: Intervals: Rate: 82 CO: 164 QRSD: 74 QT: 362 QTc: 422 [place]: P: 77 CO: 164 QRS: 28 T: 146 INTERPRETIVE STATEMENTS: Normal sinus rhythm T wave abnormality, consider lateral ischemia Abnormal ECG Compared to ECG 05/03/2022 18:23:57 Sinus tachycardia no longer present T-wave abnormality still present Possible ischemia still present Electronically Signed On 05-28-23 12:33:08 CDT by Rhys Abdul
== END 2023-05-26 18:36 | disposition home or self-care (01) ==
LOC: ER 15:34
DX: G40.89 Other seizures (principal); Z85.841 Personal history of malignant neoplasm of brain; Z85.72 Personal history of non-Hodgkin lymphomas; Z88.0 Allergy status to penicillin; Z88.1 Allergy status to other antibiotic agents; Z88.2 Allergy status to sulfonamides; Z88.5 Allergy status to narcotic agent; Z88.8 Allergy status to other drugs, medicaments and biological substances
CPT/HCPCS: 96365; 93005; 85025; 80048; 36415; 83735; 85610; 82947; 80076; 85730; 84484; 71260; 70496; 70498; 74177; 70450; 71045; 99284; 96366; Q9967; J1953; J7040

== ENCOUNTER 2023-05-30 18:11 | Emergency (ER) | payer OTHER ==
--- OUTSIDE RECORDS SUMMARY | 2023-05-30 18:18 | XMS REPORT | Continuity of Care Document ---
:1985 Author Organization [facility] t Address [address]. [address]emal[address] [place] [address] Care Team Providers Name Role Phone Group, Betsy Harkins [facility] Primary Care Physician SAADIA HEREDIA Attending Clinician Unavailable MARISSA CURRY Attending Clinician Unavailable Serena EASTMAN, Janes Dennis Attending Clinician FAWAD GONZALEZ Attending Clinician Unavailable GROUP, [facility] Attending Clinician UnavailSaadia Le DO Attending Clinician CLARITZA BURKS Attending Clinician Unavailable MD JOSE JUAN ALVARENGA Attending Clinician Unavailable TAMIKO MAGAÑA Attending Clinician Unavailable Provider, [facility] Attending Clinician Unavailable Paulette Velez Attending Clinician PAULETTE ASTORGA Attending Clinician Unavailable JOSE JUAN ALVARENGA Admitting Clinician Unavailable MD JOSE JUAN ALVARENGA Admitting Clinician Unavailable Payers Payer Name Policy Type Policy Number Effective Date Expiration Date Brynn PRATHER 2 [id number] 2022 00:00:00 Problems Condition Condition Condition Status Onset Resolution Last Treating Co mments Source Name Details Category Date Date Treatment Clinician Date Acute pain Acute pain Disease Active K elsenona of left of left 6 Seybold shoulder shoulder 00:00: - 00 Externa l Current Current Disease Active Betsy mild mild 6-03 Seybold 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: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 without without prior prior episode episode Autism Autism Disease Active Betsy 6- Seybold 00:00: - 00 Externa l Anxiety, Anxiety, Disease Active Kelse y generalize generalize 6-03 Se ybold d d 00:00: - 00 Externa l History of 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 00:00: - 00 Externa l Anxiety Anxiety Disease Active Betsy 5-05 Seybold 00:00: - 00 Externa l Depression Depression Disease Active K robbie 5-05 Seybold 00:00: - 00 Externa l Pulmonary Pulmonary Disease Active Met hodi embolism embolism [address] [facility] 00:00: Hospita 00 l Chest pain Chest pain Disease Active M ethodi 3-11 st 00:00: Hospita 00 l Need for [...] 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 [...] NHL Disease Active 2015-11 Methodi (non-Hodgk (non-Hodgk 0-06 st in's in's 00:00: Hospita lymphoma) lymphoma) [...] rs active active ity of problems problems [facility] Allergies, Adverse Reactions, Alerts Allergy Allergy Status Severity Reaction(s) Onset Inactive Treating Comm ents Source Name Type Date Date Clinician Furosemi Propensi Active Hypertension Methodi de ty to 04-15 st adverse 00:00: Hospita reaction 00 l s to drug Benzodia Propensi Active Other (See Severe Me thodi zepines ty to Comments) 8-[address] adverse 00:00: on Hospita reaction 00 l s to drug Aztreona Propensi Active Rash Method i m ty to 02-11 st adverse 00:00: Hospita reaction 00 l s to drug ALPRAZOL DRUG Active Other-Cmnt Univ ers AM INGREDI 07-12 ity of 00:00: [place] [facility] Alprazol Propensi Active Other "climbing Karel sey am ty to 07-12 up huang" Seybold adverse 00:00: and reaction 00 hallucina s tions Alprazol Propensi Active Other "climbing Karel sey am ty to 07-12 up huang" Seybold adverse 00:00: and - reaction 00 hallucina Exter na s tions l Alprazol Propensi Active Other (See "climbing Methodi am ty to Comments) 07-12 up huang" st adverse 00:00: and Hospita reaction 00 hallucina l s to tions drug Penicill Propensi Active Hives Pt states [...] Pt states Karel sey ins ty to 523 he gets Seybold adverse 00:00: fevers Pt reaction 00 states he s gets fever Sulfa Propensi Active Hives Pt states Kelse y Drugs ty to 5-23 he gets Seybold adverse 00:00: fever reaction 00 s Penicill Propensi Active Hives Pt states Karel sey ins ty to 523 he gets Seybold adverse 00:00: fevers Pt - reaction 00 states he Exter na s gets l fever Sulfa Propensi Active Hives Pt states Kelse y Drugs ty to 04-15 he gets Seybold adverse 00:00: fever - reaction 00 Externa s l Amoxicil Propensi Active Hives Pt states Met [...] reaction 00 l ics) s to drug NO KNOWN Drug Active Univers ALLERGIE Class ity of S [facility] [place] Family History Family Member Diagnosis Comments Start Date Stop Date Source Natural father Diabetes type II Meth [facility] Natural father Hyperlipidemia Method [facility] Natural father Hypertension [facility] Maternal grandfather Prostate cancer [facility] Maternal grandmother Breast cancer [facility] Paternal grandfather Lung cancer Met [facility] Social History Social Habit Start Date Stop Date Quantity Comments Source Exposure to Not sure University SARS-CoV-2 (event) [facility] [place] Gender identity [facility] Sexual orientation Method [facility] History of tobacco Cigarette Smoker Betsy marissa - use External Alcohol intake 2021-07-16 2021-07-16 Current drinker [facility] dist 00:00:00 00:00:00 of alcohol Hospital (finding) History of Social 2021-07-16 2021-07-[address] function 00:00:00 00:00:00 Hospital Tobacco use and 2021-03-28 2021-03-28 Smokeless Betsy Tapia ybjuliann - exposure 00:00:00 00:00:00 tobacco non-user External Alcohol Comment 2017-01-31 2017-01-31 socially/ past [facility] 00:00:00 00:00:00 Hospital Sex Ass[birth year] At [birth year] [facility] 00:00:00 00:00:00 Hospital Smoking Status Start Date Stop Date Source Ex-smoker 2021-03-28 00:00:00 2021-03-28 00:00:00 Betsy rogers - External Never smoker [facility] Medications Ordered Filled Start Stop Current Ordering Indication Dosage Frequency Signature Comments Components Source Medication Medication Date Date Medication? Clinician (SIG) Name Name venlafaxine Yes 75mg QD Take 75 mg Methodi XR 5-[address] (EFFEXOR-XR 13:28: daily. Hosp norma ) 75 MG 24 24 l hr capsule venlafaxine Yes 75mg QD Take 75 mg Methodi XR 5-[address] (EFFEXOR-XR 13:28: daily. Hosp norma ) 75 MG 24 24 l hr capsule Venlafaxine Yes [id number] 75mg Take 1 Betsy HCl 75 MG 6-03 capsule Seybold oral 00:00: (75 mg Capsule 24 00 total) by Hour mouth in Sustained the Release morning and 1 capsule (75 mg total) in the evening. Acetaminoph Yes [id number] 1{tbl} Q.[id number] Take 1 Betsy en-Codeine 6-03 [id number] tablet by Seybold 300-30 MG 00:00: 3D mouth 3 oral Tablet 00 times daily as needed for pain Venlafaxine Yes [id number] 75mg Take 1 Betsy HCl 75 MG 6-03 capsule Seybold oral 00:00: (75 mg - Capsule 24 00 total) by Exte rna Hour mouth in l Sustained the Release morning and 1 capsule (75 mg total) in the evening. Acetaminoph Yes [id number] 1{tbl} Q.[id number] Take 1 Betsy en-Codeine 6-03 [id number] tablet by Seybold 300-30 MG 00:00: 3D mouth 3 - oral Tablet 00 times Externa daily as l needed for pain Cyclobenzap Yes 10mg Take 10 mg Betsy rine HCl 10 6-01 by mouth 3 Se ybold MG oral 00:00: times Tablet 00 daily Cyclobenzap Yes 10mg Take 1 Cristiane ey rine HCl 10 04-24 tablet (10 Se ybold MG oral 00:00: mg total) - Tablet 00 by mouth 3 Externa times l daily Levetiracet 2021- No Levetirace Betsy am [...] mouth. ity of (EFFEXOR 19:15: [place] ORAL) [address] [place] [address] Branch levetiracet 2019-11 Yes Take by Uni vers am (KEPPRA 2-15 mouth. ity of ORAL) 19:15: [address] Branch albuterol 2019-11- No [id number] 2{puff} Inhale 2 Univers (VENTOLIN 2-15 01-15 Puffs ity of HFA) 90 00:00: 05:59 every 6 [place] mcg/actuati 00 :00 (six) Medical on inhaler hours as Branc h needed for Shortness of Breath for up to 30 days. benzonatate 2019-11- No [id number] 100mg Take 1 Univers (TESSALON 2-15 12-30 capsule by ity of ALON) 100 00:00: 05:59 mouth 3 [place] capsule [place] :00 (three) Medica l times Branch daily for 14 days. calcium Yes QD Take by Methodi carbonate 6-[address] (CALCIUM 00:00: daily. Hospita 500 ORAL) 00 l calcium 2018-0 Yes QD Take by Methodi carbonate 6-[address] (CALCIUM 00:00: daily. Hospita 500 ORAL) 00 l Immunizations Ordered Immunization Filled Immunization Date Status Commen ts Source Name Name PFIZER COVID-19 MRNA 2021-04-05 Completed Meth odist VACCINATION 00:00:00 Hospital PFIZER COVID-19 MRNA 2021-04-05 Completed Meth odist VACCINATION 00:00:00 Hospital PFIZER COVID-19 MRNA 2021-03-12 Completed Meth odist VACCINATION 00:00:00 [facility] PFIZER COVID-19 MRNA 2021-03-12 Completed Meth odist VACCINATION 00:00:00 Hospital Covid-19 Vaccine 2021-03-12 Completed Betsy rogers ([employer]), Mrna-lnp, 00:00:00 - Ext ernal Dagoberto Protein, Pf, 30mcg/0.3ml,IM Covid-19 Vaccine 2021-03-02 Completed Betys rogers ([employer]), Mrna-lnp, 00:00:00 Dagoberto Protein, Pf, 30mcg/0.3ml,IM Covid-19 Vaccine 2021-03-02 Completed Betsy colonbotani ([employer]), Mrna-lnp, 00:00:00 - Ext ernal Dagoberto Protein, Pf, 30mcg/0.3ml,IM FLUCELVAX QUAD PF 2021-02-[address] 00:00:00 Hospital FLUCELVAX QUAD PF 2021-02-[address] 00:00:00 Hospital Influenza, 2021-02-05 Completed Betsy Harkins Injectable, Mdck, 00:00:00 Preservative Free, Quadrivalt Influenza, 2021-02-05 Completed Betsy Leónold Injectable, Mdck, 00:00:00 - Exter nal Preservative Free, Quadrivalt Zoster Vaccine 2019-07-15 Completed [facility] Recombinant 00:00:00 Hospital Zoster Vaccine 2019-07-15 Completed [facility] Recombinant 00:00:00 [facility] Shingles IM 2019-07-15 Completed Betsy Tapiaybol d (Shingrix) 00:00:00 Shingles IM 2019-07-15 Completed Betsy Tapiaybol d (Shingrix) 00:00:00 - External MMR 2019-05-13 Completed [facility] 00:00:00 Hospital Pneumococcal 2019-05-13 Completed [facility] Polysaccharide 00:00:00 Hospital MMR 2019-05-13 Completed [facility] 00:00:00 Hospital Pneumococcal 2019-05-13 Completed [facility] Polysaccharide 00:00:00 Hospital MMR- Measles, Mumps, 2019-05-13 Completed Cristiane ey Seybold Rubella 00:00:00 Pneumococcal Vaccine, 2019-05-13 Completed Karel sey Seybold Polysaccharide 00:00:00 MMR- Measles, Mumps, 2019-05-13 Completed Cristiane ey Seybold Rubella 00:00:00 - External Pneumococcal Vaccine, 2019-05-13 Completed Karel sey Seybold Polysaccharide 00:00:00 - External Shingles IM 2019-04-13 Completed Betsy Seybol d (Shingrix) 00:00:00 - External MMR 2019-04-13 Completed [facility] 00:00:00 Hospital Zoster Vaccine 2019-04-13 Completed [facility] Recombinant 00:00:00 Hospital MMR 2019-04-13 Completed [facility] 00:00:00 Hospital Zoster Vaccine 2019-04-13 Completed [facility] Recombinant 00:00:00 Hospital MMR- Measles, Mumps, 2019-04-13 Completed Cristiane ey Seybold Rubella 00:00:00 Shingles IM 2019-04-13 Completed Betsy Seybol d (Shingrix) 00:00:00 MMR- Measles, Mumps, 2019-04-13 Completed Cristiane ey Seybold Rubella 00:00:00 - External Tetanus Toxoid/HIB 2019-01-12 Completed Betsy Seybold 00:00:00 Tetanus Toxoid/HIB 2019-01-12 Completed Betsy Seybold 00:00:00 - External Hib (PRP-T) 2019-01-12 Completed [facility] 00:00:00 Hospital Hib (PRP-T) 2019-01-12 Completed [facility] 00:00:00 Hospital Hepatitis B, Adult (3 2018-09-30 Completed Karel sey Seybold dose) 00:00:00 IPV- Inactivated 2018-09-30 Completed Betsy S eybold Polio Vaccine 00:00:00 Hepatitis B, Adult (3 2018-09-30 Completed Karel sey Seybold dose) 00:00:00 - External IPV- Inactivated 2018-09-30 Completed Betsy S eybold Polio Vaccine 00:00:00 - External IPV 2018-09-30 Completed [facility] 00:00:00 Hospital Hepatitis B 2018-09-30 Completed [facility] 00:00:00 Hospital IPV 2018-09-30 Completed [facility] 00:00:00 Hospital Hepatitis B 2018-09-30 Completed [facility] 00:00:00 Hospital IPV- Inactivated 2018-07-29 Completed Betsy S eybold Polio Vaccine 00:00:00 Tdap- (Boostrix, 2018-07-29 Completed Betsy S eybold Adacel) 00:00:00 IPV- Inactivated 2018-07-29 Completed Betsy S eybold Polio Vaccine 00:00:00 - External Tdap- (Boostrix, 2018-07-29 Completed Betsy S eybold Adacel) 00:00:00 - External Tdap 2018-07-29 Completed [facility] 00:00:00 Hospital IPV 2018-07-29 Completed [facility] 00:00:00 Hospital Tdap 2018-07-29 Completed [facility] 00:00:00 Hospital IPV 2018-07-29 Completed [facility] 00:00:00 Hospital HEPATITIS A- ADULT 2018-06-24 Completed Betsy Seybold 00:00:00 Tetanus Toxoid/HIB 2018-06-24 Completed Betsy Seybold 00:00:00 Meningococcal 2018-06-24 Completed Betsy Tapiayb old Vaccine- 00:00:00 Conjugate(Menactra) HEPATITIS A- ADULT 2018-06-24 Completed Betsy Seybold 00:00:00 - External Tetanus Toxoid/HIB 2018-06-24 Completed Betsy Seybold 00:00:00 - External Meningococcal 2018-06-24 Completed Betsy Seyb old Vaccine- 00:00:00 - External Conjugate(Menactra) Hepatitis A 2018-06-24 Completed [facility] 00:00:00 Hospital Meningococcal MCV4P 2018-06-24 Completed [facility] 00:00:00 Hospital Hib (PRP-T) 2018-06-24 Completed [facility] 00:00:00 Hospital Hepatitis A 2018-06-24 Completed [facility] 00:00:00 Hospital Meningococcal MCV4P 2018-06-24 Completed [facility] 00:00:00 Hospital Hib (PRP-T) 2018-06-24 Completed [facility] 00:00:00 Hospital IPV- Inactivated 2018-04-28 Completed Betsy S eybold Polio Vaccine 00:00:00 Pneumococcal Vaccine, 2018-04-28 Completed Karel sey Seybold Conjugate 13 00:00:00 Tdap- (Boostrix, 2018-04-28 Completed Betsy S eybold Adacel) 00:00:00 IPV- Inactivated 2018-04-28 Completed Betsy S eybold Polio Vaccine 00:00:00 - External Pneumococcal Vaccine, 2018-04-28 Completed Karel sey Seybold Conjugate 13 00:00:00 - External Tdap- (Boostrix, 2018-04-28 Completed Betsy S eybold Adacel) 00:00:00 - External Tdap 2018-04-28 Completed [facility] 00:00:00 Hospital IPV 2018-04-28 Completed [facility] 00:00:00 Hospital Pneumococcal 2018-04-28 Completed [facility]rian Conjugate 13-Valent 00:00:00 Hospi jac Tdap 2018-04-28 Completed [facility] 00:00:00 Hospital IPV 2018-04-28 Completed [facility] 00:00:00 Hospital Pneumococcal 2018-04-28 Completed [facility] 2018-03-31 Completed Karel sey Seybold dose) 00:00:00 Tetanus Toxoid/HIB 2018-03-31 Completed Betsy Seybold 00:00:00 Hepatitis B, Adult (3 2018-03-31 Completed Karel sey Seybold dose) 00:00:00 - External Tetanus Toxoid/HIB 2018-03-31 Completed Betsy Seybold 00:00:00 - External Hepatitis B 2018-03-31 Completed [facility] 00:00:00 Hospital Hib (PRP-T) 2018-03-31 Completed [facility] 00:00:00 Hospital Hepatitis B 2018-03-31 Completed [facility] 00:00:00 Hospital Hib (PRP-T) 2018-03-31 Completed [facility] 00:00:00 Hospital Hepatitis B, Adult (3 2018-02-04 Completed Karel sey Seybold dose) 00:00:00 Tdap- (Boostrix, 2018-02-04 Completed Betsy S eybold Adacel) 00:00:00 Hepatitis B, Adult (3 2018-02-04 Completed Karel sey Seybold dose) 00:00:00 - External Tdap- (Boostrix, 2018-02-04 Completed Betsy Swain eybold Adacel) 00:00:00 - External Tdap 2018-02-04 Completed [facility] 00:00:00 Hospital Hepatitis B 2018-02-04 Completed [facility] 00:00:00 Hospital Tdap 2018-02-04 Completed [facility] 00:00:00 Hospital Hepatitis B 2018-02-04 Completed [facility] 00:00:00 Hospital Vital Signs Vital Name Observation Time Observation Value Comments Source Heart rate 2023-05-26 19:40:00 104 /min Betsy colonbold - External Body temperature 2023-05-26 19:40:00 36.83 Mayuri Cristiane colon Seybold - External Oxygen saturation in 2023-05-26 19:40:00 98 /min Betsy Harkins - Arterial blood by External Pulse oximetry Systolic blood 2023-05-26 19:40:00 118 mm[Hg] Betsy Seybold - pressure External Diastolic blood 2023-05-26 19:40:00 80 mm[Hg] Kelse y Seybold - pressure External Systolic blood 2022-04-26 21:25:00 140 mm[Hg] Betsy Seybold pressure Diastolic blood 2022-04-26 21:25:00 79 mm[Hg] Kelse y Seybold pressure Heart rate 2022-04-26 21:25:00 129 /min Betsy colonbotani Body temperature 2022-04-26 21:25:00 36.39 Mayuri Cristiane ey Seybold Respiratory rate 2022-04-26 21:25:00 17 /min Cristiane ey Seybold Body height 2022-04-26 21:25:00 170.2 cm Betsy colonbotani Body weight 2022-04-26 21:25:00 87.272 kg Betsy colonbotani BMI 2022-04-26 21:25:00 30.13 kg/m2 Betsy colonbotani Oxygen saturation in 2022-04-26 21:25:00 97 /min Betsy Tapiaybjuliann Arterial blood by Pulse oximetry Systolic blood 2020-11-07 19:14:00 126 mm[Hg] Univer sity of pressure [facility] [place] Diastolic blood 2020-11-07 19:14:00 74 mm[Hg] Unive rsity of pressure [place] [facility] Heart rate 2020-11-07 19:14:00 113 /min [facility] [place] [facility] Body temperature 2020-11-07 19:14:00 36.67 Mayuri [facility] [place] [facility] Respiratory rate 2020-11-07 19:14:00 18 /min [facility] Body height 2020-11-07 19:14:00 175.3 cm [facility] Body weight 2020-11-07 19:14:00 81.647 kg [facility] BMI 2020-11-07 19:14:00 26.58 kg/m2 [facility] Oxygen saturation in 2020-11-07 19:14:00 98 /min University of Arterial blood by [place] [facility] Pulse oximetry Branch Systolic blood 2020-11-07 19:14:00 126 mm[Hg] Univer sity of pressure [facility] Diastolic blood 2020-11-07 19:14:00 74 mm[Hg] Unive rsity of pressure [facility] Heart rate 2020-11-07 19:14:00 113 /min [facility] Body temperature 2020-11-07 19:14:00 36.67 Mayuri Univ ersity of [facility] Respiratory rate 2020-11-07 19:14:00 18 /min Univ ersity of [facility] Body height 2020-11-07 19:14:00 175.3 cm [facility] Body weight 2020-11-07 19:14:00 81.647 kg [facility] [place] [facility] BMI 2020-11-07 19:14:00 26.58 kg/m2 [facility] Oxygen saturation in 2020-11-07 19:14:00 98 /min University of Arterial blood by [employer] Pulse oximetry Branch Oxygen saturation in 2023-04-15 18:24:00 98 /min [facility] Arterial blood by Pulse oximetry Systolic blood 2023-04-15 18:24:00 132 mm[Hg] Method ist [facility] pressure Diastolic blood 2023-04-15 18:24:00 78 mm[Hg] [facility] Hospital pressure Heart rate 2023-04-15 18:24:00 85 /min [facility] Body weight 2023-04-15 18:24:00 85.276 kg [facility] BMI 2023-04-15 18:24:00 27.76 kg/m2 [facility] Procedures Procedure Date / Time Performing Clinician Source Performed MAGNESIUM LEVEL 2023-04-25 18:00:00 [facility] CBC WITH PLATELET AND 2023-04-15 19:06:00 [facility] DIFFERENTIAL COMPREHENSIVE METABOLIC 2023-04-15 19:06:00 [facility] PANEL AMYLASE LEVEL 2023-04-15 19:06:00 [facility] LIPASE LEVEL 2023-04-15 19:06:00 [facility] LDH 2023-04-15 19:06:00 [facility] MAGNESIUM LEVEL 2023-04-15 19:06:00 [facility] VITAMIN D 25 HYDROXY 2023-04-15 19:06:00 [facility] LEVEL POCT FLU A AND B 2020-11-07 19:37:00 Paulette Astorga [facility] ([facility] Medical Branch Plan of Care Planned Activity Planned Date Details Comments Source Future Scheduled 2023-05-30 COVID-19 VACCINE ([address] [place] [address] Test 11:09:18 Pfizer risk series) [code = COVID-19 VACCINE (3 - Pfizer risk series)] Future Scheduled 2023-05-30 INFLUENZA VACCINE Method [facility] Test 11:09:18 [code = INFLUENZA VACCINE] Future Scheduled 2023-05-30 Pneumococcal Vaccine: [facility] Test 11:09:18 Pediatrics (0 to 5 Years) and At-Risk Patients (6 to 64 Years) (3 - PPSV23 if available, else PCV20) [code = Pneumococcal Vaccine: Pediatrics (0 to 5 Years) and At-Risk Patients (6 to 64 Years) (3 - PPSV23 if available, else PCV20)] Future Scheduled 2023-05-26 COVID-19 VACCINE ([address] [place] [address] Test 15:37:18 Pfizer risk series) [code = COVID-19 VACCINE (3 - Pfizer risk series)] Future Scheduled 2023-05-26 INFLUENZA VACCINE Method [facility] Test 15:37:18 [code = INFLUENZA VACCINE] Future Scheduled 2023-05-26 Pneumococcal Vaccine: [facility] Test 15:37:18 Pediatrics (0 to 5 Years) and At-Risk Patients (6 to 64 Years) (3 - PPSV23 if available, else PCV20) [code = Pneumococcal Vaccine: Pediatrics (0 to 5 Years) and At-Risk Patients (6 to 64 Years) (3 - PPSV23 if available, else PCV20)] Encounters Start End Encounter Admission Attending Care Care Encounter Source Date/Time Date/Time Type Type Clinicians Facility Department ID 2023-06-26 2023-06-26 Outpatient BETSY HEREDIA [id number] Betsy 15:30:00 15:30:00 SAADIA camacho 2023-05-30 2023-05-30 Outpatient BETSY CURRY [id number] Betsy 00:00:00 00:00:00 MARISSA camacho 2023-05-30 2023-05-30 Orders Serena, 1.2.840.1 [id number] Methodi 00:00:00 00:00:00 Only Janes 29436.1.[address] [place] 3.430.2.7 Hospit a .3.717746 l .8 2023-05-26 2023-05-26 Outpatient BETSY GONZALEZ [id number] Betsy 15:30:00 15:30:00 FAWAD camacho 2023-05-26 2023-05-26 Outpatient BETSY CORONADO [id number] Betsy 00:00:00 00:00:00 BETSY camacho 2023-05-23 2023-05-23 Orders Serena, 1.2.840.1 [id number] Methodi 00:00:00 00:00:00 Only Janes 69631.1.[address] [place] 3.430.2.7 Hospit a .3.169079 l .8 2023-05-23 2023-05-23 Orders Serena, 1.2.840.1 [id number] Methodi 00:00:00 00:00:00 Only Garth 49912.1.[address] [place] 3.430.2.7 Hospit a .3.987916 l .8 2023-05-16 2023-05-16 Orders Beinart, 1.2.840.1 [id number] Methodi 00:00:00 00:00:00 Only Garth 83564.1.[address] [place] 3.430.2.7 Hospit a .3.674335 l .8 2023-05-16 2023-05-16 Orders Beinart, 1.2.840.1 [id number] Methodi 00:00:00 00:00:00 Only Garth 36723.1.[address] [place] 3.430.2.7 Hospit a .3.323830 l .8 2023-05-09 2023-05-09 Orders Beinart, 1.2.840.1 [id number] Methodi 00:00:00 00:00:00 Only Garth 14817.1.[address] [place] 3.430.2.7 Hospit a .3.162732 l .8 2023-05-09 2023-05-09 Orders Beinart, 1.2.840.1 [id number] Methodi 00:00:00 00:00:00 Only Garth 00442.1.[address] [place] 3.430.2.7 Hospit a .3.852469 l .8 2023-05-02 2023-05-02 Orders Beinart, 1.2.840.1 [id number] Methodi 00:00:00 00:00:00 Only Garth 94888.1.[address] [place] 3.430.2.7 Hospit a .3.478894 l .8 2023-05-02 2023-05-02 Orders Beinart, 1.2.840.1 [id number] Methodi 00:00:00 00:00:00 Only Garth 85689.1.[address] [place] 3.430.2.7 Hospit a .3.418951 l .8 2023-04-25 2023-04-25 Orders Beinart, 1.2.840.1 [id number] Methodi 00:00:00 00:00:00 Only Garth 36918.1.[address] [place] 3.430.2.7 Hospit a .3.179099 l .8 2023-04-25 2023-04-25 Orders Beinart, 1.2.840.1 [id number] Methodi 00:00:00 00:00:00 Only Garth 24200.1.[address] [place] 3.430.2.7 Hospit a .3.548739 l .8 2023-04-18 2023-04-18 Orders Beinart, 1.2.840.1 [id number] Methodi 00:00:00 00:00:00 Only Garadriana 75906.1.[address] [place] 3.430.2.7 Hospit a .3.371224 l .8 2023-04-18 2023-04-18 Orders Beinart, 1.2.840.1 [id number] Methodi 00:00:00 00:00:00 Only Garadriana 49036.1.[address] [place] 3.430.2.7 Hospit a .3.566783 l .8 2023-04-15 2023-04-15 Office Beinart, 1.2.840.1 [id number] Methodi 13:30:00 14:17:09 Visit Janes 76944.1.[address] [place] 3.430.2.7 Hospit a .3.163656 l .8 2023-04-15 2023-04-15 Office Beinart, 1.2.840.1 [id number] Methodi 13:30:00 14:17:09 Visit Garadriana 66038.1.[address] [place] 3.430.2.7 Hospit a .3.914623 l .8 2023-04-15 2023-04-15 Travel 1.2.840.1 1.2.072.616 [id number] Methodi 00:00:00 00:00:[address] 3.430.2.7 0.2.7.3.698 Ho spita .3.673541 084.8 l .8 2023-04-15 2023-04-15 Travel 1.2.840.1 1.2.015.768 [id number] Methodi 00:00:00 00:00:[address] 3.430.2.7 0.2.7.3.698 Ho spita .3.539089 084.8 l .8 2023-03-19 2023-03-19 Abstract Beinart, 1.2.840.1 [id number] Methodi 00:00:00 00:00:[address] [place] 3.430.2.7 Hospit a .3.057039 l .8 2023-03-19 2023-03-19 Abstract Beinart, 1.2.840.1 [id number] Methodi 00:00:00 00:00:[address] [place] 3.430.2.7 Hospit a .3.047075 l .8 2022-05-03 2022-05-03 Outpatient BETSY HEREDIA [id number] [address] [place] 00:00:00 00:00:00 SAADIA camacho 2022-04-26 2022-04-26 Office Darrell Heredia [id number] [place] 16:30:00 16:45:00 Visit Saadia Bolaños [id number] Se ann [id number] 2022-04-15 2022-04-15 Outpatient SERENA [facility] [id number] [place] 00:00:00 00:00:00 JANES [address] 2022-04-15 2022-04-15 Outpatient SERENA [facility] [id number] [place] 00:00:00 00:00:00 GARTH [address] 2021-10-22 2021-10-22 Outpatient BEINART, [facility] [id number] [place] 00:00:00 00:00:00 GARTH [address] 2021-07-16 2021-07-16 Outpatient BEINART, [facility] [id number] [place] 00:00:00 00:00:00 GARTH [address] 2021-07-16 2021-07-16 Outpatient BEINART, [facility] [id number] [place] 00:00:00 00:00:00 GARTH 411 Method i 2021-03-12 2021-03-12 Outpatient BEINART, [facility] [id number] [place] 00:00:00 00:00:00 GARTH [address] 2021-02-19 2021-02-19 Outpatient [facility] [id number] [place] 00:00:00 00:00:00 103 Method i 2021-02-12 2021-02-12 Outpatient BEINART, [facility] [id number] [place] 00:00:00 00:00:00 GARTH 678 Method i 2021-02-01 2021-02-05 Inpatient JOGLEKAR, [facility] 012 [id number] [place] 00:00:00 00:00:00 CLARITZA 887 Method i 2021-02-01 2021-02-01 Outpatient [facility] [id number] [place] 00:00:00 00:00:00 825 Method i 2021-02-01 2021-02-01 Outpatient TRACHTENBER [facility] [id number] [place] 00:00:00 00:00:00 TAMIKO Guillermo [address] 2020-12-20 2020-12-20 Outpatient BEINART, [facility] [id number] [place] 00:00:00 00:00:00 GARTH [address] 2020-11-07 2020-11-07 Urgent Provider, [facility] [id number] 13:02:18 13:56:39 Care [facility] [id number] [facility] [id number] Professio [id number] nal [address] 2020-11-07 2020-11-07 Urgent Provider, [facility] Urgent Care [facility] [id number] [facility] 13:02:18 13:56:39 Paulette Mckeon [id number] [facility] [id number] Ced as Professio [phone] Wy dical [facility] [address] [place] [address] 2020-11-07 2020-11-07 Outpatient R MALACHI [facility] [id number] [facility] 13:00:00 13:00:00 PAULETTE itnona [facility] 2020-10-26 2020-10-26 Outpatient BEINART, [facility] [id number] [place] 00:00:00 00:00:00 GARTH [address] 2020-09-20 2020-09-20 Outpatient BEINART, [facility] [id number] [place] 00:00:00 00:00:00 DIONNETH [address] 2020-09-19 2020-09-19 Outpatient BEINART, [facility] [id number] 1974 [place] 00:00:00 00:00:00 GARTH [address] 2020-09-19 2020-09-19 Outpatient BEINART, [facility] [id number] [place] 00:00:00 00:00:00 GARTH [address] 2019-11-12 2019-11-12 Outpatient BEINART, [facility] [id number] [place] 00:00:00 00:00:00 GARTH [address] 2019-11-12 2019-11-12 Outpatient BEINART, [facility] [id number] [place] 00:00:00 00:00:00 GARTH [address] Results Test Description Test Time Test Comments Results Result Comments Source Magnesium level 2023-05-07 23:00:00 Test Item Value Reference Range Interpretation Comme nts Magnesium (test code = 37194-9) TNP LIDIA (test code = LIDIA) Tests marked TNP not performed.Please contact the lab for more information. [id number] 23:00:00 Test Item Value Reference Range Interpretation Comments Magnesium (test code = TNP 79616-5) LIDIA (test code = LIDIA) Tests marked TNP not performed.Please contact the lab for more information. [facility] [id number] 21:03:00 Test Item Value Reference Range Interpretation Comments Vitamin D, 25-hydroxy 32 ng/mL 30-100 (test code = 1989-01) LIDIA (test code = LIDIA) Items were attached to this order: xgld, [facility] hydroxy [id number] 21:03:00 Test Item Value Reference Range Interpretation Comments Vitamin D, 25-hydroxy 32 ng/mL 30-100 (test code = 1989-01) LIDIA (test code = LIDIA) Items were attached to this order: xgld, [facility] [id number] 20:44:00 Test Item Value Reference Range Interpretation Comments Hemolysis (test <15 <=15 code = 3440) Sodium (test code = 139 mmol/L 135-076 5429298) Potassium (test 4.4 mmol/L 3.5-5.0 code = 4747785) Chloride (test code 102 mmol/L 98-107 = 2075-0) CO2 (test code = 26 mmol/L 23-32 2027-9) Glucose (test code 89 mg/dL 60-100 = 2345-7) BUN (test code = 16 mg/dL -20 7135074) Creatinine (test 1.1 mg/dL 0.7-1.3 code = 7760665) eGFR MDRD (test 73.9 See_Comment If code = 8846) Chadian, multi ply the GFR by 1.21 0. [Automated mess age] The system [employer] generated this result transmit noemy reference range : 60.0 - 137.0 mL/min/1.73m^2. The reference range was not used to interpret this result as normal/abnormal . Total bilirubin 0.4 mg/dL 0.2-1.3 (test code = 1974-2) Alkaline 74 U/L 38-126 phosphatase (test code = 6768-6) Protein (test code 7.9 g/dL 6.0-8.5 = 2885-2) Albumin (test code 4.7 g/dL 3.5-5.0 = 6116550) Calcium (test code 10.2 mg/dL 8.4-10.6 = 7794223) AST (test code = 26 U/L 10-50 1920-8) ALT (test code = 48 U/L 12-60 1742-6) Anion gap (test 15.0 5.0-17.0 code = 0946554) BUN/creatinine 14.0 7.0-25.0 ratio (test code = 3097-3) LIDIA (test code = Items were LIDIA) attached to this order: xgld, [facility] [id number] 20:44:00 Test Item Value Reference Range Interpretation Comments Amylase (test code = 84 U/L 28-100 1798-8) LIDIA (test code = LIDIA) Items were attached to this order: xgld, [facility] [id number] 20:44:00 Test Item Value Reference Range Interpretation Comments Hemolysis (test code = <15 <=15 3440) LDH (test code = 191 U/L 135-476 6781807) LIDIA (test code = LIDIA) Items were attached to this order: xgld, [facility] Hospital[facility] [id number] 20:44:00 Test Item Value Reference Range Interpretation Comments Lipase (test code = 35 U/L 13-60 3040-3) LIDIA (test code = LIDIA) Items were attached to this order: xgld, [facility] [id number] 20:44:00 Test Item Value Reference Range Interpretation Comments Hemolysis (test <15 <=15 code = 3440) Sodium (test code = 139 mmol/L 135-012 4085154) Potassium (test 4.4 mmol/L 3.5-5.0 code = 3719731) Chloride (test code 102 mmol/L 98-107 = 2075-0) CO2 (test code = 26 mmol/L 23-32 2027-9) Glucose (test code 89 mg/dL 60-100 = 2345-7) BUN (test code = 16 mg/dL -20 8537456) Creatinine (test 1.1 mg/dL 0.7-1.3 code = 8334526) eGFR MDRD (test 73.9 See_Comment If code = 8846) Chadian, multi ply the GFR by 1.21 0. [Automated mess age] The system [employer] generated this result transmit noemy reference range : 60.0 - 137.0 mL/min/1.73m^2. The reference range was not used to interpret this result as normal/abnormal . Total bilirubin 0.4 mg/dL 0.2-1.3 (test code = 1975-2) Alkaline 74 U/L 38-126 phosphatase (test code = 6768-6) Protein (test code 7.9 g/dL 6.0-8.5 = 2885-2) Albumin (test code 4.7 g/dL 3.5-5.0 = 3705841) Calcium (test code 10.2 mg/dL 8.4-10.6 = 4385257) AST (test code = 26 U/L 1920-8) ALT (test code = 48 U/L 1742-6) Anion gap (test 15.0 5.0-17.0 code = 3619685) BUN/creatinine 14.0 7.0-25.0 ratio (test code = 3097-3) LIDIA (test code = Items were LIDIA) attached to this order: xgld, xgr [facility] [id number] 20:44:00 Test Item Value Reference Range Interpretation Comments Amylase (test code = 84 U/L 28-100 1798-8) LIDIA (test code = LIDIA) Items were attached to this order: xgld, xgr [facility] [id number] 20:44:00 Test Item Value Reference Range Interpretation Comments Hemolysis (test code = <15 <=15 3440) LDH (test code = 191 U/L 135-080 2398397) LIDIA (test code = LIDIA) Items were attached to this order: xgld, x [facility] [id number] 20:44:00 Test Item Value Reference Range Interpretation Comments Lipase (test code = 35 U/L 60 3040-3) LIDIA (test code = LIDIA) Items were attached to this order: xgld, xgr [facility] and [id number] 20:37:00 Test Item Value Reference Range Interpretation Comments WBC (test code = 6690-2) 6.8 10^3/uL 4.0-10.6 RBC (test code = 5277208) 4.65 10^6/uL 4.15-4.90 HGB (test code = 280) 14.6 g/dL 13.0-18.0 HCT (test code = 8490851) 41.9 % 42.0-52.0 L MCV (test code = 3681812) 90.1 fL 80.0-98.0 MCH (test code = 0222018) 31.4 pg 28.0-33.0 MCHC (test code = 4609585) 34.8 g/dL 32.0-36.0 RDW (test code = 2973) 12.4 % 10.6-15.4 Platelet count (test code 312 10^3/uL 150-400 = 777-3) MPV (test code = 7072642) 9.4 fL 9.4-12.4 Nucleated RBC (test code = 0.0 % 0.0-1.0 254) Absolute nRBC (test code = 0.0 10^3/uL 0.0-0.0 9076030) Neutrophils (test code = 50.5 % 45.0-74.0 7176101) Lymphocytes (test code = 39.3 % 16.0-45.0 736-9) Monocytes (test code = 8.1 % 4.0-10.0 5905-5) Eosinophils (test code = 1.0 % 0.0-5.0 1352) Basophils (test code = 0.7 % 0.0-2.0 706-2) Immature granulocytes 0.4 % 0.0-1.0 (test code = 1594) Neutrophils, absolute 3.4 10^3/uL 1.6-9.0 (test code = 1801) Lymphocytes, absolute 2.7 10^3/uL 0.4-4.4 (test code = 1534763) Monocytes, absolute (test 0.6 10^3/uL 0.2-1.7 code = 3185441) Eosinophils, absolute 0.1 10^3/uL 0.0-1.7 (test code = 1353) Basophils, absolute (test 0.1 10^3/uL 0.0-0.3 code = 929) Immature granulocytes, 0.0 10^3/uL 0.0-0.0 absolute (test code = 2839) LIDIA (test code = LIDIA) Items were attached to this order: xgld, xgr Lab Interpretation (test Abnormal code = 06923-1) [facility] with platelet and [id number] 20:37:00 Test Item Value Reference Range Interpretation Comments WBC (test code = 6690-2) 6.8 10^3/uL 4.0-10.6 RBC (test code = 7657048) 4.65 10^6/uL 4.15-4.90 HGB (test code = 280) 14.6 g/dL 13.0-18.0 HCT (test code = 0347993) 41.9 % 42.0-52.0 L MCV (test code = 8602217) 90.1 fL 80.0-98.0 MCH (test code = 1726553) 31.4 pg 28.0-33.0 MCHC (test code = 7372621) 34.8 g/dL 32.0-36.0 RDW (test code = 2973) 12.4 % 10.6-15.4 Platelet count (test code 312 10^3/uL 150-400 = 777-3) MPV (test code = 4917676) 9.4 fL 9.4-12.4 Nucleated RBC (test code = 0.0 % 0.0-1.0 254) Absolute nRBC (test code = 0.0 10^3/uL 0.0-0.0 8148394) Neutrophils (test code = 50.5 % 45.0-74.0 3423636) Lymphocytes (test code = 39.3 % 16.0-45.0 736-9) Monocytes (test code = 8.1 % 4.0-10.0 5905-5) Eosinophils (test code = 1.0 % 0.0-5.0 1352) Basophils (test code = 0.7 % 0.0-2.0 706-2) Immature granulocytes 0.4 % 0.0-1.0 (test code = 1594) Neutrophils, absolute 3.4 10^3/uL 1.6-9.0 (test code = 1801) Lymphocytes, absolute 2.7 10^3/uL 0.4-4.4 (test code = 6214133) Monocytes, absolute (test 0.6 10^3/uL 0.2-1.7 code = 1948770) Eosinophils, absolute 0.1 10^3/uL 0.0-1.7 (test code = 1353) Basophils, absolute (test 0.1 10^3/uL 0.0-0.3 code = 929) Immature granulocytes, 0.0 10^3/uL 0.0-0.0 absolute (test code = 2839) LIDAI (test code = LIDIA) Items were attached to this order: xgld, xgr Lab Interpretation (test Abnormal code = 41510-2) [facility] PphibbjzBCNR-ZyS-3 (COVID-19) RNA [Presence] in Respiratory specimen by BRO with probe [id number] 02:43:04 Test Item Value Reference Range Interpretation Comments SARS-CoV-2 (COVID-19) RNA Not detected Not-Detected [Presence] in Respiratory specimen by BRO with probe detection (test code = 65714-1) [facility] LAKSHMI WESTPOCT FLU A AND B (MOLECULAR)2020-11-07 19:37:00 Test Item Value Reference Range Interpretation Comments POCT INFLUENZA A (test code = 3840) neg Negative - Negativ e POCT INFLUENZA B (test code = 3841) neg Negative - Negativ e [facility]
[2023-05-30] MEDS ORDERED: ONDANSETRON 4 MG (ODT) TAB ONE (19:35)
[2023-05-30] MEDS ORDERED: MECLIZINE HCL 12.5 MG TAB ONE (19:58)
[2023-05-30 20:26] LABS: Lymphocytes % 40.7 % (15.3-44.8); MCV 90.8 fL (80-100); MPV 7.1 fL (7.6-11.3); RBC Red Blood Cell Count 4.52 M/uL (4.33-5.43)
[2023-05-30 20:53] LABS: ALT/SGPT 83 U/L (16-61); AST/SGOT 30 U/L (15-37); Albumin 4.2 g/dL (3.4-5.0); Alkaline Phosphatase 63 U/L (45-117); BUN Blood Urea Nitrogen 17 mg/dL (7-18); Bicarbonate 27 mEq/L (21-32); Bilirubin Direct 0.1 mg/dL (0-0.2); Bilirubin Indirect, Calculated 0.3 mg/dL (0.2-0.8); Bilirubin Total 0.4 mg/dL (0.2-1.0); Glomerular Filtration Rate 86 ml/min (=/>90); Glucose Level 93 mg/dL (74-106); Potassium 4.1 mEq/L (3.5-5.1); Protein, Total 7.9 g/dL (6.4-8.2); Sodium Level 137 mEq/L (136-145)
[2023-05-30 21:05] LABS: Specific Gravity 1.009 (1.005-1.030); Urine Bilirubin NEGATIVE (Negative); Urine Blood Negative (Negative); Urine Clarity Clear (Clear); Urine Color Colorless (Yellow); Urine Glucose NEGATIVE (Negative); Urine Protein NEGATIVE (Negative); Urine Urobilinogen Normal (Normal); Urine pH 6.5 (5.0-7.0)
[2023-05-30 21:14] LABS: Barbiturates NEGATIVE (NEGATIVE); Benzodiazepines NEGATIVE (NEGATIVE); Cocaine NEGATIVE (NEGATIVE); METHAMPHETAM NEGATIVE (NEGATIVE); Methadone NEGATIVE (NEGATIVE); Opiates NEGATIVE (NEGATIVE); Phencyclidine NEGATIVE (NEGATIVE); THC Cannibis NEGATIVE (NEGATIVE)
--- NOTE | 2023-05-30 21:33 | ER ---
Nurse's Notes [facility] Name: Alvarez Ortiz Age: 37 yrs Sex: Male : 1985 Arrival Date: 05/30/2023 Time: 18:11 Bed 13 Private MD: Ramona Gray Diagnosis: Dizziness and giddiness;Syncope Near Presentation: 05/30 18:34 Chief complaint: Patient states: I have been having an aura/zoned out for the past os couple of hours. My last seizure was this past Friday. I called my neurologist, and he said to go in the ER. Coronavirus screen: At this time, the client does not indicate any symptoms associated with coronavirus-19. Ebola Screen: No symptoms or risks identified at this time. Initial Sepsis Screen: Does the patient meet any 2 criteria? No. Patient's initial sepsis screen is negative. Does the patient have a suspected source of infection? No. Patient's initial sepsis screen is negative. Risk Assessment: Do you want to hurt yourself or someone else? Patient reports no desire to harm self or others. Onset of symptoms was May 30, 2023. 18:34 Method Of Arrival: Wheelchair os 18:34 Acuity: EAN 3 os Triage Assessment: 18:37 General: Appears uncomfortable, Behavior is calm, cooperative, appropriate for age. os Pain: Denies pain. Neuro: No deficits noted. Cardiovascular: No deficits noted. Respiratory: No deficits noted. Historical: - Immunization history:: Adult Immunizations unknown. - Social history:: Smoking status: Patient denies any tobacco usage or history of. Screenin:00 [facility] ED Fall Risk Assessment (Adult) Score/Fall Risk Level 0 - 2 = Low Risk. Abuse eh3 screen: Denies threats or abuse. Denies injuries from another. Nutritional screening: No deficits noted. Tuberculosis screening: No symptoms or risk factors identified. Assessment: 19:00 General: Appears in no apparent distress. uncomfortable, Behavior is calm, cooperative, eh3 appropriate for age. Pain: Denies pain. Neuro: Level of Consciousness is awake, alert, obeys commands, Oriented to person, place, time, situation. Cardiovascular: Capillary refill < 3 seconds Patient's skin is warm and dry. Respiratory: Airway is patent Respiratory effort is even, unlabored, Respiratory pattern is regular, symmetrical. GI: Abdomen is round non-distended. Derm: Skin is pink, warm \T\ dry. Musculoskeletal: Circulation, motion, and sensation intact. 20:00 Reassessment: Patient appears in no apparent distress at this time. Patient and/or eh3 family updated on plan of care and expected duration. Pain level reassessed. Patient is alert, oriented x 3, equal unlabored respirations, skin warm/dry/pink. 21:10 Reassessment: Assumed care of pt from MAURI Willard. vc1 Vital Signs: 18:34 BP 123 / 72; Pulse 90; Resp 17; Temp 98.4; Pulse Ox 99% ; Weight 83.91 kg; os 19:20 BP 120 / 69 Supine; Pulse 74; Resp 14; Pulse Ox 99% on R/A; eh3 19:22 BP 122 / 71 Sitting; Pulse 94; Resp 18; Pulse Ox 100% on R/A; eh3 19:24 BP 119 / 76 Standing; Pulse 97; Resp 15; Pulse Ox 98% on R/A; eh3 20:00 BP 127 / 74; Pulse 82; Resp 17; Pulse Ox 100% on R/A; eh3 21:08 BP 104 / 83; Pulse 77; Resp 17; Pulse Ox 100% ; vc1 Hooper Coma Score: 18:37 Eye Response: spontaneous(4). Motor Response: obeys commands(6). Verbal Response: os oriented(5). Total: 15. ED Course: 18:12 Patient arrived in ED. am2 18:13 Ramona Gray is Private Physician. am2 18:17 [facility] cp 18:17 Tan Carroll MD is Attending Physician. cp 18:36 Triage completed. os 18:45 Montse Bean RN is Primary Nurse. eh3 19:00 Missed attempt(s): 22 gauge in left upper arm. Bleeding controlled, band aid applied, eh3 catheter tip intact. 19:00 Patient has correct armband on for positive identification. Bed in low position. Call 3 light in reach. Side rails up X2. Adult w/ patient. Seizure precautions initiated. Client placed on continuous cardiac and pulse oximetry monitoring. NIBP monitoring applied. 20:20 Initial lab(s) drawn, by me, sent to lab. Missed attempt(s): 22 gauge in right jw7 antecubital area. Bleeding controlled, band aid applied, catheter tip intact. 20:21 Acetaminophen Sent. jw7 20:21 Basic Metabolic Panel Sent. jw7 20:21 CBC with Diff Sent. jw7 20:21 ETOH Level Sent. jw7 20:21 Hepatic Function Sent. jw7 20:21 PT-INR Sent. jw7 20:21 Ptt, Activated Sent. jw7 20:21 Salicylate Sent. jw7 21:21 Arm band placed on right wrist. vc1 21:32 Nolan Salas MD is Referral Physician. cp 21:46 No provider procedures requiring assistance completed. Patient did not have IV access vc1 during this emergency room visit. Administered Medications: 19:30 Drug: Ondansetron PO 4 mg Route: PO; eh3 19:58 Drug: Meclizine PO 25 mg Route: PO; eh3 Medication: 21:21 VIS not applicable for this client. vc1 Outcome: 21:32 Discharge ordered by MD. cp 21:46 Discharged to home ambulatory, with family. vc1 21:46 Condition: good 21:46 Discharge instructions given to patient, Instructed on discharge instructions, follow up and referral plans. medication usage, Demonstrated understanding of instructions, follow-up care, medications, Prescriptions given X 2. 21:46 Patient left the ED. vc1 Signatures: Gulshan Otero PA PA cp Moreno, Amanda am2 Daphney Leach RN RN vc1 Margarita Birmingham jw7 Montse Bean, MAURI RN 3 Neda Rodriguez, RN RN os Corrections: (The following items were deleted from the chart) 18:37 18:36 PMHx: LYMPHOMA; os os 18:37 18:36 PMHx: radiation therapy; os os 18:37 18:36 PMHx: chemotherapy; os os 18:37 18:36 PMHx: Cancer; os os 18:37 18:36 PMHx: Back pain; os os 18:37 18:36 PMHx: Osteoporosis; os os 18:37 18:36 PMHx: Depression; os os 18:37 18:36 PMHx: brain cancer; os os 18:37 18:36 PMHx: Seizures; os os 18:37 18:36 PMHx: Anemia; os os 18:37 18:36 PMHx: NonHodgkin's Lymphoma- stage 4; os os 18:37 18:36 PSHx: Appendectomy; os os
--- NOTE | 2023-05-30 21:33 | EDPHYS ---
Physician Documentation [facility] Name: Alvarez Ortiz Age: 37 yrs Sex: Male : 1985 Arrival Date: 05/30/2023 Time: 18:11 Bed 13 Private MD: Ramona Gray ED Physician Tan Carroll HPI: 05/30 18:50 This 37 yrs old Male presents to ER via Wheelchair with complaints of Probable Seizure. cp 18:50 The patient presents after having a possible seizure episode, dizzy, lightheaded. cp Character of seizure(s): Loss of consciousness: the patient did not lose consciousness, Incontinence: none. Seizure onset: today, while at work. Patient reports he works at [employer] and customer was playing loud music with "love" prior to symptoms. Patient reports similar episode 4 days ago and patient was seen in this ED and evaluated. Head CT was done. 18:50 Current symptoms: headache, dizziness. 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 Patient reports she had surgery to remove the partially removed tumors from the brain which resulted in a history of seizures. Patient was seen 4 days ago in the emergency room after reported concern for a seizure that was induced by loud music exposure while at work at [employer] in which the patient reported that he got lightheaded and almost passed out. Patient reports she was standing in which he almost fell to the ground but was caught by another employee and so he did not strike his head. Patient returns to the emergency room today after another episode in which a customer was planning his musical out which induced similar symptoms today. Patient reports that the previous visit he was prescribed Keppra which she has been taking daily. Historical: - Immunization history:: Adult Immunizations unknown. - Social history:: Smoking status: Patient denies any tobacco usage or history of. ROS: 18:55 Constitutional: Negative for body aches, chills, fever, poor PO intake. cp 18:55 Eyes: Negative for injury, pain, redness, and discharge. cp 18:55 ENT: Negative for drainage from ear(s), ear pain, sore throat, difficulty swallowing, difficulty handling secretions. 18:55 Cardiovascular: Negative for chest pain. 18:55 Respiratory: Negative for cough, shortness of breath, wheezing. 18:55 Abdomen/GI: Negative for abdominal pain, nausea, vomiting, and diarrhea. 18:55 Neuro: Positive for dizziness, headache, near syncope, weakness, Negative for altered mental status, numbness, syncope. 18:55 All other systems are negative. Exam: 19:00 Constitutional: The patient appears in no acute distress, alert, awake, cp non-diaphoretic, non-toxic, well developed, well nourished. 19:00 Head/Face: Normocephalic, atraumatic. cp 19:00 Eyes: Periorbital structures: appear normal, Pupils: equal, round, and reactive to light and accomodation, Extraocular movements: intact throughout, Conjunctiva: normal, no exudate, no injection, Sclera: no appreciated abnormality, Lids and lashes: appear normal, bilaterally. 19:00 ENT: External ear(s): are unremarkable, Ear canal(s): are normal, clear, TM's: dullness, bilaterally, Nose: is normal, Mouth: Lips: moist, Oral mucosa: pink and intact, moist, Posterior pharynx: is normal, airway is patent, no erythema, no exudate. 19:00 Neck: ROM/movement: is normal, is supple, without pain, no range of motions limitations, no meningismus, no nuchal rigidity. 19:00 Chest/axilla: Inspection: normal. 19:00 Cardiovascular: Rate: normal, Rhythm: regular, Edema: is not appreciated, JVD: is not appreciated. 19:00 Respiratory: the patient does not display signs of respiratory distress, Respirations: normal, no use of accessory muscles, no retractions, labored breathing, is not present, Breath sounds: are clear throughout, no decreased breath sounds, no stridor, no wheezing. 19:00 Abdomen/GI: Exam negative for discomfort, distension, guarding, Inspection: abdomen appears normal. 19:00 Back: pain, is absent, ROM is normal. 19:00 Neuro: Orientation: to person, place \\T\\ time. Mentation: able to follow commands, slow to respond, Cerebellar function: Romberg testing is negative, Motor: moves all fours, strength is normal, Sensation: is normal. 19:02 ECG was reviewed by the Attending Physician. cp Vital Signs: 18:34 BP 123 / 72; Pulse 90; Resp 17; Temp 98.4; Pulse Ox 99% ; Weight 83.91 kg; os 19:20 BP 120 / 69 Supine; Pulse 74; Resp 14; Pulse Ox 99% on R/A; eh3 19:22 BP 122 / 71 Sitting; Pulse 94; Resp 18; Pulse Ox 100% on R/A; eh3 19:24 BP 119 / 76 Standing; Pulse 97; Resp 15; Pulse Ox 98% on R/A; eh3 20:00 BP 127 / 74; Pulse 82; Resp 17; Pulse Ox 100% on R/A; eh3 21:08 BP 104 / 83; Pulse 77; Resp 17; Pulse Ox 100% ; vc1 [place] Coma Score: 18:37 Eye Response: spontaneous(4). Motor Response: obeys commands(6). Verbal Response: os oriented(5). Total: 15. MDM: 18:32 Patient medically screened. 20:00 Differential diagnosis: cardiac arrhythmia, seizure, electrolyte abnormality. 21:30 Data reviewed: vital signs, nurses notes, lab test result(s), EKG. 21:30 I considered the following discharge prescriptions or medication management in the emergency department Medications were administered in the Emergency Department. See MAR. Counseling: I had a detailed discussion with the patient and/or guardian regarding: the historical points, exam findings, and any diagnostic results supporting the discharge/admit diagnosis, lab results, radiology results, the need for outpatient follow up, for definitive care, a neurologist, to return to the emergency department if symptoms worsen or persist or if there are any questions or concerns that arise at home. Response to treatment: the patient's symptoms have markedly improved after treatment, and as a result, I will discharge patient. 21:31 ED course: VSS. Labs, EKG, CT head report from 05/26, CT Head and Neck angio report from 05/26 all reviewed. Will discharge to home with seizure precautions and recommend neuro f/u. 05/30 18:43 Order name: Acetaminophen; Complete Time: 21:20 05/30 21:20 Interpretation: Reviewed. 05/30 18:43 Order name: Basic Metabolic Panel; Complete Time: 21:20 05/30 21:20 Interpretation: Normal except: GFR 86. 05/30 18:43 Order name: CBC with Diff; Complete Time: 20:38 05/30 20:39 Interpretation: MPV 7.1; Reviewed. 05/30 18:43 Order name: ETOH Level; Complete Time: 21:20 05/30 21:21 Interpretation: Reviewed. 05/30 18:43 Order name: Hepatic Function; Complete Time: 21:20 05/30 21:21 Interpretation: Normal except: ALT 83; GLOB 3.7. 05/30 18:43 Order name: PT-INR; Complete Time: 21:20 05/30 18:43 Order name: Ptt, Activated; Complete Time: 21:20 05/30 18:43 Order name: Salicylate; Complete Time: 21:20 05/30 18:43 Order name: Urinalysis w/ reflexes; Complete Time: 21:20 05/30 21:21 Interpretation: Reviewed. 05/30 18:43 Order name: Urine Drug Screen; Complete Time: 21:20 05/30 21:21 Interpretation: Reviewed. 05/30 18:43 Order name: EKG; Complete Time: 18:44 05/30 18:43 Order name: EKG - Nurse/Tech; Complete Time: 19:18 05/30 18:43 Order name: Labs collected and sent; Complete Time: 19:18 05/30 18:43 Order name: Suicide Screening ([place]); Complete Time: 19:18 05/30 18:43 Order name: Orthostatics; Complete Time: 19:24 cp EC:02 Rate is 82 beats/min. Rhythm is regular. [place] interval is normal. QRS interval is normal. cp QT interval is normal. T waves are Inverted in leads I, aVL. Interpreted by me. Reviewed by me. Administered Medications: 19:30 Drug: Ondansetron PO 4 mg Route: PO; eh3 19:58 Drug: Meclizine PO 25 mg Route: PO; eh3 Disposition Summary: 05/30/23 21:32 Discharge Ordered Location: Home cp Problem: new cp Symptoms: have improved cp Condition: Stable cp Diagnosis - Dizziness and giddiness cp - Syncope Near cp Followup: cp - With: Nolan Salas MD - When: next week - Reason: Recheck today's complaints Discharge Instructions: - Discharge Summary Sheet cp - Dizziness cp - Near-Syncope cp Forms: - Medication Reconciliation Form cp - Thank You Letter cp - Antibiotic Education cp - Prescription Opioid Use cp - [email or web address] cp Prescriptions: - Meclizine 25 mg Oral Tablet - take 1 tablet by ORAL route every 8 hours As needed; 30 tablet; Refills: 0, cp Product Selection Permitted - Zofran 4 mg Oral Tablet - take 1 tablet by ORAL route every 12 hours As needed; 20 tablet; Refills: 0, cp Product Selection Permitted Addendum: 06/02/2023 10:47 Co-signature as Attending Physician, Tan Carroll MD I reviewed the patient's care r n provided by the Advanced Practice Provider and agree with the diagnosis and treatment plan. Signatures: Dispatcher [facility] EDMS Tan Carroll MD MD rn Gulshan Otero PA PA cp Hall, Erin RN RN 3 Neda Rodriguez RN RN os Corrections: (The following items were deleted from the chart) 05/30 18:37 18:36 PMHx: LYMPHOMA; os os 18:37 18:36 PMHx: radiation therapy; os os 18:37 18:36 PMHx: chemotherapy; os os 18:37 18:36 PMHx: Cancer; os os 18:37 18:36 PMHx: Back pain; os os 18:37 18:36 PMHx: Osteoporosis; os os 18:37 18:36 PMHx: Depression; os os 18:37 18:36 PMHx: brain cancer; os os 18:37 18:36 PMHx: Seizures; os os 18:37 18:36 PMHx: Anemia; os os 18:37 18:36 PMHx: NonHodgkin's Lymphoma- stage 4; os os 18:37 18:36 PSHx: Appendectomy; os os 05/31 20:08 05/30 18:50 Patient reports he works at [employer] and customer was playing loud music cp with "love" prior to symptoms. Patient reports similar episode 2 days ago and patient was seen in this ED and evaluated. Head CT was done. cp
[2023-05-30 21:52] VITALS: TEMP 98.4
[2023-05-30 21:59] VITALS: O2SAT 100
[2023-05-30 22:00] VITALS: BP 104/83
--- NOTE | 2023-05-31 16:17 | EKG ---
Test Date: 2023-05-30 Test Time: 18:56:29 Lens Blank Gauger: QUYEN MEASUREMENT RESULTS: Intervals: Rate: 82 AK: 160 QRSD: 78 QT: 370 QTc: 432 [place]: P: 84 AK: 160 QRS: 30 T: 128 INTERPRETIVE STATEMENTS: Normal sinus rhythm ST & T wave abnormality, consider lateral ischemia Abnormal ECG Compared to ECG 05/26/2023 16:07:38 ST (T wave) deviation now present T-wave abnormality no longer present Possible ischemia still present Electronically Signed On 05-31-23 16:16:32 CDT by Rhys Abdul
== END 2023-05-30 21:46 | disposition home or self-care (01) ==
LOC: ER 18:11
DX: R42 Dizziness and giddiness (principal); R55 Syncope and collapse
CPT/HCPCS: 93005; 85025; 80048; 36415; 85610; 80076; 85730; 81003; 80307; 99284; 80143; 80179; 82077; J8597; Q0162

== ENCOUNTER 2023-07-01 23:20 | Emergency (ER) | payer OTHER ==
--- OUTSIDE RECORDS SUMMARY | 2023-07-01 23:48 | XMS REPORT | Continuity of Care Document ---
:1985 Author Organization [facility] t Address [address] [place] [address] Care Team Providers Name Role Phone Group, Betsy Harkins [facility] Primary Care Physician [phone] SAADIA HEREDIA Attending Clinician Unavailable SILVESTRE VELEZ Attending Clinician Unavailable Serena EASTMAN, Janes Dennis Attending Clinician [id number] Attending Clinician Unavailable MARISSA CURRY Attending Clinician Unavailable FAWAD GONZALEZ Attending Clinician Unavailable [facility] Attending Clinician UnavailSaadia Le DO Attending Clinician [...] Effective Date Expiration Date Brynn PRATHER 2 [id number] 2022 00:00:00 Problems Condition Condition Condition Status Onset Resolution Last Treating Co mments Source Name Details Category Date Date Treatment Clinician Date Acute pain Acute pain Disease Active Marko avalos of left of left 6 Seybold shoulder shoulder 00:00: - 00 Externa l Current Current Disease Active Betsy mild mild 6-03 Seybold 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: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 without without prior prior episode episode Autism Autism Disease Active Betsy 6-03 Seybold 00:00: - 00 Externa l Anxiety, Anxiety, Disease Active Kelse y generalize generalize 6-03 Se ybold d d 00:00: - 00 Externa l 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 00:00: - without without 00 Externa status status l epilepticu epilepticu s s History of History of Disease Active Marko 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 00:00: - 00 Externa l Anxiety Anxiety Disease Active Betsy 5-05 Seybold 00:00: - 00 Externa l Depression Depression Disease Active Marko avalos 5-05 Seybold 00:00: - 00 Externa l Pulmonary Pulmonary Disease Active [facility] embolism embolism 3 [facility] 00[facility]osp[facility] 00 l Chest pain Chest pain Disease Active M ethodi 3-11 st 00:00: Hospita 00 l Need for Need for Disease Active Metho di vaccinatio vaccinatio [address] ns against ns against 00:00: Ho [...] Osteoporos Disease Active M ethodi is is 9[address] st 00:00: Hospita 00 l Bone pain [...] Active M ethodi n lymphoma n lymphoma 3 00:00: Hospita 00 l 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 Anemia of Anemia of Disease Active 2015-11 [facility]odi chronic chronic 0 disease disease 00:00: Hospita 00 l 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 [facility] (non-Hodgk (non-Hodgk 0 in's in's 00:00: Hospita lymphoma) lymphoma) 00 l Chronic Chronic Disease Active 2015-11 [facility] back pain back pain 0 st 00:00: Hospita 00 l Seizure Seizure Disease Active [facility] disorder disorder 07-13 st 00:00: Hospita 00 l Brain Brain Disease Active [facility] metastases metastases 8 st 00:00: Hospita 00 l Depression Depression Disease Active M ethodi 04-15 00:00: Hospita 00 l Anxiety Anxiety Disease Active [facility] 04-15 00:00: Hospita 00 l No known No known Disease Unive rs active active ity of problems problems [facility] Allergies, Adverse Reactions, Alerts Allergy Allergy [...] 00 [facility] Alprazol Propensi Active Other (See "climbing Methodi am ty to Comments) 07-12 up huang" st adverse 00:00: and Hospita reaction 00 hallucina l s to tions drug Alprazol Propensi Active Other "climbing Karel sey am ty to 07-12 up huang" Seybold adverse 00:00: and reaction 00 hallucina s tions Alprazol Propensi Active Other "climbing Karel sey am ty to 07-12 up huang" Seybold adverse 00:00: and - reaction 00 hallucina Exter na s tions l Penicill Propensi Active Hives Pt states Uni [...] reaction 00 Medica l ics) s Branch Amoxicil Propensi Active Hives Pt states Met [...] drug Penicill Propensi Active Hives Pt states Karel [...] fever - reaction 00 Externa s l NO KNOWN Drug Active Univers ALLERGIE Class ity of S [facility] Family History Family Member Diagnosis Comments Start Date Stop Date Source Natural father Diabetes type II Meth [facility] Natural father Hyperlipidemia [facility] Natural father Hy[facility] Maternal grandfather Prostate cancer [facility] Maternal grandmother Breast cancer [facility] Paternal grandfather Lung cancer Met [facility] Social History Social Habit Start Date Stop Date Quantity Comments Source History of tobacco Cigarette Smoker Betsy Harkins - use External Exposure to Not sure University of SARS-CoV-2 (event) [facility] Gender identity [facility] Sexual orientation [facility] Alcohol intake 2021-07-16 2021-07-16 Current drinker Meth[facility] dist 00:00:00 00:00:00 of alcohol Hospital (finding) History of Social 2021-07-16 2021-07-[address] function 00:00:00 00:00:00 Hospital Tobacco use and 2021-03-28 2021-03-28 Smokeless Betsy Se ybold - exposure 00:00:00 00:00:00 tobacco non-user External Alcohol Comment 2017-01-31 2017-01-31 socially/ past [facility] 00:00:00 00:00:00 Hospital Sex Assigned At [birth year] [facility] 00:[facility] 00:[facility]:00 Hospital Smoking Status Start Date Stop Date Source Ex-smoker 2021-03-28 00:00:00 2021-03-28 00:00:00 Betsy rogers - External Never smoker [facility] Medications Ordered Filled Start Stop Current Ordering Indication Dosage Frequency Signature Comments Components Source Medication Medication Date Date Medication? Clinician (SIG) Name Name Levetiracet Yes [id number] 500mg Take 1 Betsy am 500 MG 8-03 tablet Seybold oral Tablet 00:00: (500 mg - 00 total) by Externa mouth l every 12 hours Levetiracet 2022-2022- No [id number] 500mg Take 1 Betsy am 500 MG 7-04 08-03 tablet Seybold oral Tablet 00:00: 00:00 (500 mg - 00 :00 total) by Externa mouth l every 12 hours venlafaxine 2022-0 Yes 75mg QD Take 75 mg Methodi XR 5-[address] (EFFEXOR-XR 13:28: daily. Hosp norma ) 75 MG 24 24 l hr capsule venlafaxine 2022-0 Yes 75mg QD Take 75 mg Methodi XR 5-[address] (EFFEXOR-XR 13:28: daily. Hosp norma ) 75 MG 24 24 l hr capsule venlafaxine 2022-0 Yes 75mg QD Take 75 mg Methodi XR 5-[address] (EFFEXOR-XR 13:28: daily. Hosp norma ) 75 MG 24 24 l hr capsule Venlafaxine 2021-0 Yes [id number] 75mg Take 1 Betsy HCl 75 MG 6-03 capsule Seybold oral 00:00: (75 mg Capsule 24 00 total) by Hour mouth in Sustained the Release morning and 1 capsule (75 mg total) in the evening. Acetaminoph 2021- Yes [id number] 1{tbl} [id number] Take 1 Betsy en-Codeine 6-03 [id number] tablet by Seybold 300-30 MG 00:00: 3D mouth 3 oral Tablet 00 times daily as needed for pain Venlafaxine 2021-0 Yes [id number] 75mg Take 1 Betsy HCl 75 MG 6-03 capsule Seybold oral 00:00: (75 mg - Capsule 24 00 total) by Exte rna Hour mouth in l Sustained the Release morning and 1 capsule (75 mg total) in the evening. Acetaminoph 0 Yes [id number] 1{tbl} Q.[id number] Take 1 Betsy en-Codeine 6- [id number] tablet by Seybold 300-30 MG 00:00: 3D mouth 3 - oral Tablet 00 times Externa daily as l needed for pain Venlafaxine 2022- No [id number] 75mg Take 1 Betsy HCl 75 MG 6- 08- capsule Seybol d oral 00:00: 00:00 (75 mg - Capsule 24 00 :00 total) by Exte rna Hour mouth in l Sustained the Release morning and 1 capsule (75 mg total) in the evening. Acetaminoph 2021-2022- No [id number] 1{tbl} Q.[id number] Take 1 Betsy en-Codeine 6-03 08- [id number] tablet by Seybold 300-30 MG 00:00: 00:00 3D mouth 3 - oral Tablet 00 :00 times Externa daily as l needed for pain Cyclobenzap 2021-0 Yes 10mg Take 10 mg Betsy rine HCl 10 6- by mouth 3 Se ybold MG oral 00:00: times Tablet 00 daily Cyclobenzap 2021-0 Yes 10mg Take 1 Cristiane ey rine HCl 10 6- tablet (10 Se ybold MG oral 00:00: mg total) - Tablet 00 by mouth 3 Externa times l daily Cyclobenzap 2021-0 2022- No 10mg Take 1 Karel sey rine HCl 10 6- 08-03 tablet (10 S eybold MG oral 00:00: 00:00 mg total) - Tablet 00 :00 by mouth 3 Externa times l daily Levetiracet 0 2021- No Levetirace Betsy am 1000 MG [...] 2-15 mouth. ity of ORAL) 19:15: [place] [address] [place] [address] Branch albuterol 2019-11- No [id number] 2{puff} Inhale 2 Univers (VENTOLIN 2-15 01-15 Puffs ity of HFA) 90 00:00: 05:59 every 6 [place] mcg/actuati 00 :00 (six) Medical on inhaler hours as Branc h needed for Shortness of Breath for up to 30 days. benzonatate 2019-11 2020- No [id number] 100mg Take 1 Univers (TESSALON 2-15 12-30 capsule by ity of ALON) 100 [place]:00[place] 05:59 mouth [place] capsule [place] :00 (three) [facility] daily for 14 days. calcium 2018-0 Yes [...] MRNA 2021-04-05 Completed Meth odist VACCINATION 00:00:00 [facility] PFIZER COVID-19 MRNA 2021-04-05 Completed Meth odist VACCINATION 00:00:00 Hospital Covid-19 Vaccine 2021-03-12 Completed Betsy colonbotani ([employer]), Mrna-lnp, 00:00:00 - Ext ernal Dagoberto Protein, Pf, 30mcg/0.3ml,IM Covid-19 Vaccine 2021-03-12 Completed Betsy rogers ([employer]), Mrna-lnp, 00:00:00 - Ext ernal Dagoberto Protein, Pf, 30mcg/0.3ml,IM PFIZER COVID-19 MRNA 2021-03-12 Completed Meth odist VACCINATION 00:00:00 [facility] PFIZER COVID-19 MRNA 2021-03-12 Completed Meth odist VACCINATION 00:00:00 [facility] PFIZER COVID-19 MRNA 2021-03-12 Completed Meth odist VACCINATION 00:00:00 [facility] Covid-19 Vaccine 2021-03-02 Completed Betsy rogers ([employer]), Mrna-lnp, 00:00:00 - Ext ernal Dagoberto Protein, Pf, 30mcg/0.3ml,IM Covid-19 Vaccine 2021-03-02 Completed Betsy colonbotani ([employer]), Mrna-lnp, 00:00:00 Dagoberto Protein, Pf, 30mcg/0.3ml,IM Covid-19 Vaccine 2021-03-02 Completed Betsy colonbotani ([employer]), Mrna-lnp, 00:00:00 - Ext ernal Dagoberto Protein, Pf, 30mcg/0.3ml,IM Influenza, 2021-02-05 Completed Betsy Harkins Injectable, Mdck, 00:00:00 - Exter nal Preservative Free, Quadrivalt Influenza, 2021-02-05 Completed Betsy Harkins Injectable, Mdck, 00:00:00 Preservative Free, Quadrivalt Influenza, 2021-02-05 Completed Betsy Harkins Injectable, Mdck, 00:00:00 - Exter nal Preservative Free, Quadrivalt FLUCELVAX QUAD PF 2021-02-[address] 00:[facility] Hospital FLUCELVAX QUAD PF 2021-02-[address] 00:00:00 Hospital FLUCELVAX QUAD PF 2021-02-[address] 00:00:00 Hospital Shingles IM 2019-07-15 Completed Betsy Seybol d (Shingrix) 00:00:00 - External Shingles IM 2019-07-15 Completed Betsy Seybol d (Shingrix) 00:00:00 Shingles IM 2019-07-15 Completed Betsy Seybol d (Shingrix) 00:00:00 - External Zoster Vaccine 2019-07-15 Completed [facility] Recombinant 00:00:00 Hospital Zoster Vaccine 2019-07-15 Completed [facility] Recombinant 00:00:00 Hospital Zoster Vaccine 2019-07-15 Completed [facility] Recombinant 00:00:00 Hospital MMR- Measles, Mumps, 2019-05-13 Completed Cristiane ey Seybold Rubella 00:00:00 - External Pneumococcal Vaccine, 2019-05-13 Completed Karel sey Seybold Polysaccharide 00:00:00 - External MMR- Measles, Mumps, 2019-05-13 Completed Cristiane ey Seybold Rubella 00:00:00 Pneumococcal Vaccine, 2019-05-13 Completed Karel sey Seybold Polysaccharide 00:00:00 MMR- Measles, Mumps, 2019-05-13 Completed Cristiane ey Seybold Rubella 00:00:00 - External Pneumococcal Vaccine, 2019-05-13 Completed Karel sey Seybold Polysaccharide 00:00:00 - External MMR 2019-05-13 Completed [facility] 00:[facility]:00 Hospital Pneumococcal 2019-05-13 Completed [facility] Polysaccharide 00:00:00 Hospital MMR 2019-05-13 Completed [facility] 00:00:00 Hospital Pneumococcal 2019-05-13 Completed [facility] Polysaccharide 00:00:00 Hospital MMR 2019-05-13 Completed [facility] 00:00:00 Hospital Pneumococcal 2019-05-13 Completed [facility] Polysaccharide 00:00:00 Hospital MMR- Measles, Mumps, 2019-04-13 Completed Cristiane ey Seybold Rubella 00:00:00 - External Shingles IM 2019-04-13 Completed Betsy Seybol d (Shingrix) 00:00:00 - External MMR- Measles, Mumps, 2019-04-13 Completed Cristiane ey Seybold Rubella 00:00:00 Shingles IM 2019-04-13 Completed Betsy Seybol d (Shingrix) 00:00:00 MMR- Measles, Mumps, 2019-04-13 Completed Cristiane ey Seybold Rubella 00:00:00 - External Shingles IM 2019-04-13 Completed Betsy Seybol d (Shingrix) 00:00:00 - External MMR 2019-04-13 Completed [facility] Hospital Zoster Vaccine 2019-04-13 Completed [facility] Recombinant 00:00:00 Hospital MMR 2019-04-13 Completed [facility] 00:00:00 Hospital Zoster Vaccine 2019-04-13 Completed [facility] Recombinant 00:00:00 Hospital MMR 2019-04-13 Completed [facility] 00:00:00 Hospital Zoster Vaccine 2019-04-13 Completed [facility] Recombinant 00:00:00 [facility] Tetanus Toxoid/HIB 2019-01-12 Completed Betsy Seybold 00:00:00 - External Tetanus Toxoid/HIB 2019-01-12 Completed Betsy Seybold 00:00:00 Tetanus Toxoid/HIB 2019-01-12 Completed Betsy Seybold 00:00:00 - External Hib (PRP-T) 2019-01-12 Completed [facility] 00:00:00 [facility] Hib (PRP-T) 2019-01-12 Completed [facility] 00:00:00 [facility] Hib (PRP-T) 2019-01-12 Completed [facility] 00:00:00 [facility] Hepatitis B, Adult (3 2018-09-30 Completed Karel sey Seybold dose) 00:00:00 - External IPV- Inactivated 2018-09-30 Completed Betsy S eybold Polio Vaccine 00:00:00 - External Hepatitis B, Adult (3 2018-09-30 Completed Karel sey Seybold dose) 00:00:00 IPV- Inactivated 2018-09-30 Completed Betsy S eybold Polio Vaccine 00:00:00 Hepatitis B, Adult (3 2018-09-30 Completed Karel sey Seybold dose) 00:00:00 - External IPV- Inactivated 2018-09-30 Completed Betsy S eybold Polio Vaccine 00:00:00 - External IPV 2018-09-30 Completed [facility] Hepatitis B 2018-09-30 Completed [facility] 00[facility] Hospital IPV 2018-09-30 Completed [facility] 00:00:00 Hospital Hepatitis B 2018-09-30 Completed [facility] 00:00:00 Hospital IPV 2018-09-30 Completed [facility] 00:00:00 Hospital Hepatitis B 2018-09-30 Completed [facility] 00:[facility]:00 Hospital IPV- Inactivated 2018-07-29 Completed Betsy S eybold Polio Vaccine 00:00:00 - External Tdap- (Boostrix, 2018-07-29 Completed Betsy S eybold Adacel) 00:00:00 - External IPV- Inactivated 2018-07-29 Completed Betsy S eybold Polio Vaccine 00:00:00 Tdap- (Boostrix, 2018-07-29 Completed Betsy S eybold Adacel) 00:00:00 IPV- Inactivated 2018-07-29 Completed Betsy S eybold Polio Vaccine 00:00:00 - External Tdap- (Boostrix, 2018-07-29 Completed Betsy S eybold Adacel) 00:00:00 - External Tdap 2018-07-29 Completed [facility] IPV 2018-07-29 Completed [facility] 00:00:00 Hospital Tdap 2018-07-29 Completed [facility] 00:00:00 Hospital IPV 2018-07-29 Completed [facility] 00:00:00 Hospital Tdap 2018-07-29 Completed [facility] 00:00:00 Hospital IPV 2018-07-29 Completed [facility] 00:00:00 [facility] HEPATITIS A- ADULT 2018-06-24 Completed Betsy Seybold 00:00:00 - External Tetanus Toxoid/HIB 2018-06-24 Completed Betsy Seybold 00:00:00 - External Meningococcal 2018-06-24 Completed Betsy Seyb old Vaccine- 00:00:00 - External Conjugate(Menactra) HEPATITIS A- ADULT 2018-06-24 Completed Betsy Seybold 00:00:00 Tetanus Toxoid/HIB 2018-06-24 Completed Betsy Seybold 00:00:00 Meningococcal 2018-06-24 Completed Betsy Seyb old Vaccine- 00:00:00 Conjugate(Menactra) HEPATITIS A- ADULT 2018-06-24 Completed Betsy Seybold 00:00:00 - External Tetanus Toxoid/HIB 2018-06-24 Completed Betsy Seybold 00:00:00 - External Meningococcal 2018-06-24 Completed Betsy Seyb old Vaccine- 00:00:00 - External Conjugate(Menactra) Hepatitis A 2018-06-24 Completed [facility] Hospital Meningococcal MCV4P 2018-06-24 Completed [facility] 00:00:00 Hospital Hib (PRP-T) 2018-06-24 Completed [facility] 00:[facility]:00 Hospital Hepatitis A 2018-06-24 Completed [facility] 00:[facility]:00 Hospital Meningococcal MCV4P 2018-06-24 Completed [facility] 00:00:00 Hospital Hib (PRP-T) 2018-06-24 Completed [facility] 00:[facility]:00 Hospital Hepatitis A 2018-06-24 Completed [facility] 00:00:00 Hospital Meningococcal MCV4P 2018-06-24 Completed [facility] 00:00:00 Hospital Hib (PRP-T) 2018-06-24 Completed [facility] 00:[facility]:00 Hospital IPV- Inactivated 2018-04-28 Completed Betsy S eybold Polio Vaccine 00:00:00 - External Pneumococcal Vaccine, 2018-04-28 Completed Karel sey Seybold Conjugate 13 00:00:00 - External Tdap- (Boostrix, 2018-04-28 Completed Betsy S eybold Adacel) 00:00:00 - External IPV- Inactivated 2018-04-28 Completed Betsy S eybold [...] Adacel) 00:00:00 - External Tdap 2018-04-28 Completed [facility] IPV 2018-04-28 Completed [facility] 00:[facility]:00 Hospital Pneumococcal 2018-04-28 Completed [facility] Conjugate 13-Valent 00:00:00 Hospi jac Tdap 2018-04-28 Completed [facility] 00[facility]00:00 Hospital IPV 2018-04-28 Completed [facility] 00:00:00 Hospital Pneumococcal 2018-04-28 Completed [facility] Conjugate 13-Valent 00:00:00 Hospi jac Tdap 2018-04-28 Completed [facility] 00:00:00 Hospital IPV 2018-04-28 Completed [facility] 00:00:00 Hospital Pneumococcal 2018-04-28 Completed [facility] Conjugate 13-Valent 00:00:00 Hospi jac Hepatitis B, Adult (3 2018-03-31 Completed Karel sey Seybold dose) 00:00:00 - External Tetanus Toxoid/HIB 2018-03-31 Completed Betsy Seybold 00:00:00 - External Hepatitis B, Adult (3 2018-03-31 Completed Karel sey Seybold dose) 00:00:00 Tetanus Toxoid/HIB 2018-03-31 Completed Betsy Seybold 00:00:00 Hepatitis B, Adult (3 2018-03-31 Completed Karel sey Seybold dose) 00:00:00 - External Tetanus Toxoid/HIB 2018-03-31 Completed Betsy Seybold 00:00:00 - External Hepatitis B 2018-03-31 Completed [facility] Hib (PRP-T) 2018-03-31 Completed [facility] 00:00:00 Hospital Hepatitis B 2018-03-31 Completed [facility] 00:00:00 [facility] Hib (PRP-T) 2018-03-31 Completed [facility] 00:00:00 Hospital Hepatitis B 2018-03-31 Completed [facility] 00:00:00 [facility] Hib (PRP-T) 2018-03-31 Completed [facility] 00:00:00 [facility] Hepatitis B, Adult (3 2018-02-04 Completed Karel sey Seybold dose) 00:00:00 - External Tdap- (Boostrix, 2018-02-04 Completed Betsy S eybold Adacel) 00:00:00 - External Hepatitis B, Adult (3 2018-02-04 Completed Karel sey Seybold dose) 00:00:00 Tdap- (Boostrix, 2018-02-04 Completed Betsy S eybold Adacel) 00:00:00 Hepatitis B, Adult (3 2018-02-04 Completed Karel sey Seybold dose) 00:00:00 - External Tdap- (Boostrix, 2018-02-04 Completed Betsy Brynn eybold Adacel) 00:00:00 - External Tdap 2018-02-04 Completed [facility] Hepatitis B 2018-02-04 Completed [facility] 00:[facility]:00 Hospital Tdap 2018-02-04 Completed [facility] 00:00:00 Hospital Hepatitis B 2018-02-04 Completed [facility] 00:00:00 Hospital Tdap 2018-02-04 Completed [facility] 00:00:00 Hospital Hepatitis B 2018-02-04 Completed [facility] 00:[facility]:00 Hospital Vital Signs Vital Name Observation Time Observation Value Comments Source Systolic blood 2023-06-26 20:29:00 125 mm[Hg] Betsy Seybold - pressure External Diastolic blood 2023-06-26 20:29:00 75 mm[Hg] Kelse y Seybold - pressure External Heart rate 2023-06-26 20:29:00 81 /min Betsy Brynn darlenebold - External Body temperature 2023-06-26 20:29:00 36.17 Mayuri Cristiane ey Seybold - External Respiratory rate 2023-06-26 20:29:00 16 /min Cristiane ey Seybold - External Body height 2023-06-26 20:29:00 172.7 cm Betsy Brynn darlenebotani - External Body weight 2023-06-26 20:29:00 86.183 kg Betsy Brynn eybold - External BMI 2023-06-26 20:29:00 28.89 kg/m2 Betsy colonbold - External Oxygen saturation in 2023-06-26 20:29:00 98 /min Betsy Harkins - Arterial blood by External Pulse oximetry Oxygen saturation in 2023-05-26 19:40:00 98 /min Betsy Tapiaybold - Arterial blood by External Pulse oximetry Systolic blood 2023-05-26 19:40:00 118 mm[Hg] Betsy Seybold - pressure External Diastolic blood 2023-05-26 19:40:00 80 mm[Hg] Kelse y Seybold - pressure External Heart rate 2023-05-26 19:40:00 104 /min Betsy Brynn eybold - External Body temperature 2023-05-26 19:40:00 36.83 Mayuri Cristiane ey Seybold - External Systolic blood 2022-04-26 21:25:00 140 mm[Hg] Betsy Seybold pressure Diastolic blood 2022-04-26 21:25:00 79 mm[Hg] Kelse y Seybold pressure Heart rate 2022-04-26 21:25:00 129 /min Betsy Swain eybold Body temperature 2022-04-26 21:25:00 36.39 Mayuri Cristiane ey Seybold Respiratory rate 2022-04-26 21:25:00 17 /min Cristiane ey Seybold Body height 2022-04-26 21:25:00 170.2 cm Betsy Swain eybold Body weight 2022-04-26 21:25:00 87.272 kg Betsy Swain eybold BMI 2022-04-26 21:25:00 30.13 kg/m2 Betsy colonbold Oxygen saturation in 2022-04-26 21:25:00 97 /min Betsy Harkins Arterial blood by Pulse oximetry Systolic blood 2020-11-07 19:14:00 126 mm[Hg] [facility] Diastolic blood 2020-11-07 19:14:00 74 mm[Hg] [facility]ive [facility] Heart rate 2020-11-07 19:14:00 113 /min [facility] Body temperature 2020-11-07 19:14:00 36.67 Mayuri [facility] Respiratory rate 2020-11-07 19:14:00 18 /min [facility] 2020-11-07 19:14:00 175.3 cm Universi ty [facility] Body weight 2020-11-07 19:14:00 81.647 kg Universi ty [facility] BMI 2020-11-07 19:14:00 26.58 kg/m2 [facility]i ty [facility] Oxygen saturation in 2020-11-07 19:14:00 98 /min University of Arterial blood by [facility] Pulse oximetry Branch Systolic blood 2020-11-07 19:14:00 126 mm[Hg] Univer sity of pressure [facility] Diastolic blood 2020-11-07 19:14:00 74 mm[Hg] Unive rsity of pressure [facility] Heart rate 2020-11-07 19:14:00 113 /min [facility] Body temperature 2020-11-07 19:14:00 36.67 Mayuri [facility] Respiratory rate 2020-11-07 19:14:00 18 /min [facility] Body height 2020-11-07 19:14:00 175.3 cm [facility] Body weight 2020-11-07 19:14:00 81.647 kg [facility] BMI 2020-11-07 19:14:00 26.58 kg/m2 [facility] Oxygen saturation in 2020-11-07 19:14:00 98 /min [facility] Arterial blood by [facility] Pulse oximetry Branch Systolic blood 2023-04-15 18:24:00 132 mm[Hg] [facility] pressure Diastolic blood 2023-04-15 18:24:00 78 mm[Hg] [facility] pressure Heart rate 2023-04-15 18:24:00 85 /min [facility] Body weight 2023-04-15 18:24:00 85.276 kg [facility] BMI 2023-04-15 18:24:00 27.76 kg/m2 [facility] Oxygen saturation in 2023-04-15 18:24:00 98 /min [facility] Arterial blood by Pulse oximetry Procedures Procedure Date / Time Performing Clinician Source Performed MAGNESIUM LEVEL 2023-04-25 18:00:00 Janes Gonzalez [facility] CBC WITH PLATELET AND 2023-04-15 19:06:00 Janes Gonzalez Sonny [facility] DIFFERENTIAL COMPREHENSIVE METABOLIC 2023-04-15 19:06:00 Janes Gonzalez [facility] PANEL AMYLASE LEVEL 2023-04-15 19:06:00 Janes Gonzalez [facility] LIPASE LEVEL 2023-04-15 19:06:00 Janes Gonzalez [facility] LDH 2023-04-15 19:06:00 Janes Gonzalezbrey [facility] VITAMIN D 25 HYDROXY 2023-04-15 19:06:00 Janes Gonzalez [facility] LEVEL MAGNESIUM LEVEL 2023-04-15 19:06:00 BeinaJanes meyers [facility] POCT FLU A AND B 2020-11-07 19:37:00 Paulette Astorga [facility] Plan of Care Planned Activity Planned Date Details Comments Source Future Scheduled 2023-06-30 COVID-19 VACCINE (3 - [facility] Test 10:05:23 Pfizer risk series) [code = COVID-19 VACCINE (3 - Pfizer risk series)] Future Scheduled 2023-06-30 INFLUENZA VACCINE Method [facility] Test 10:05:23 [code = INFLUENZA VACCINE] Future Scheduled 2023-06-30 Pneumococcal Vaccine: [facility] Test 10:05:23 Pediatrics (0 to 5 Years) and At-Risk Patients (6 to 64 Years) (3 - PPSV23 if available, else PCV20) [code = Pneumococcal Vaccine: Pediatrics (0 to 5 Years) and At-Risk Patients (6 to 64 Years) (3 - PPSV23 if available, else PCV20)] Future Scheduled 2023-05-30 COVID-19 VACCINE (3 - [facility] Test 11:09:18 Pfizer risk series) [code = COVID-19 VACCINE (3 - Pfizer risk series)] Future Scheduled 2023-05-30 INFLUENZA VACCINE Method [facility] Test 11:09:18 [code = INFLUENZA VACCINE] Future Scheduled 2023-05-30 Pneumococcal Vaccine: [facility] Test 11:09:18 Pediatrics (0 to 5 Years) and At-Risk Patients (6 to 64 Years) (3 - PPSV23 if available, else PCV20) [code = Pneumococcal Vaccine: Pediatrics (0 to 5 Years) and At-Risk Patients (6 to 64 Years) (3 - PPSV23 if available, else PCV20)] Future Scheduled 2023-05-26 COVID-19 VACCINE (3 - [facility] Test 15:37:18 Pfizer risk series) [code = COVID-19 VACCINE (3 - Pfizer risk series)] Future Scheduled 2023-05-26 INFLUENZA VACCINE Method [facility] Test 15:37:18 [code = INFLUENZA VACCINE] Future Scheduled 2023-05-26 Pneumococcal Vaccine: [facility] Test 15:37:18 Pediatrics (0 to 5 Years) and At-Risk Patients (6 to 64 Years) (3 - PPSV23 if available, else PCV20) [code = Pneumococcal Vaccine: Pediatrics (0 to 5 Years) and At-Risk Patients (6 to 64 Years) (3 - PPSV23 if available, else PCV20)] Encounters Start End Encounter Admission Attending Care Care Encounter Source Date/Time Date/Time Type Type Clinicians Facility Department ID 2023-09-24 2023-09-24 Outpatient BETSY HEREDIA [id number] [place] 16:15:00 16:15:00 SAADIA camacho 2023-09-02 2023-09-02 Outpatient BERNABESUGEYQUIQUEBETSY [id number] [place] 08:15:00 08:15:00 SILVESTRE Laisha ld 2023-06-27 2023-06-27 Outpatient BETSY HEREDIA [id number] [place] 00:00:00 00:00:00 SAADIA camacho 2023-06-27 2023-06-27 Orders Serena, 1.2.840.1 [id number] Methodi 00:00:00 00:00:00 Only Garth [address]222.1.[address] 3.430.2.7 Hospit a .3.265725 l .8 2023-06-26 2023-06-26 Outpatient LAB90 BETSY HO [id number] [place] 16:00:00 16:00:00 Juan Antonio camacho 2023-06-26 2023-06-26 Outpatient BETSY HERDEIA [id number] [place] 15:30:00 15:30:00 SAADIA Leónol janice 2023-06-20 2023-06-20 Orders [place], 1.2.840.1 [id number] Methodi 00:00:00 00:00:00 Only Garth 90358.1.[address] [place] 3.430.2.7 Hospit a .3.699233 l .8 2023-06-13 2023-06-13 Orders [place], 1.2.840.1 894 [id number] Methodi 00:00:00 00:00:00 Only Garth 34292.1.[address] [place] 3.430.2.7 Hospit a .3.618714 l .8 2023-06-06 2023-06-06 Orders [place], 1.2.840.1 [id number] Methodi 00:00:00 00:00:00 Only Garth 77866.1.[address] [place] 3.430.2.7 Hospit a .3.130165 l .8 2023-05-30 2023-05-30 Outpatient BETSY CURRY [id number] [place] 00:00:00 00:00:00 MARISSA camacho 2023-05-30 2023-05-30 Orders [place], 1.2.840.1 127 [id number] Methodi 00:00:00 00:00:00 Only Garth 58323.1.[address] [place] 3.430.2.7 Hospit a .3.682658 l .8 2023-05-30 2023-05-30 Orders [place], 1.2.840.1 [id number] Methodi 00:00:00 00:00:00 Only Garth [address]309.1.[address] [place] 3.430.2.7 Hospit a .3.684615 l .8 2023-05-26 2023-05-26 Outpatient BETSY GONZALEZ [id number] [place] 15:30:00 15:30:00 FAWAD camacho 2023-05-26 2023-05-26 Outpatient BETSY CORONADO [id number] [place] 00:00:00 00:00:00 BETSY camacho 2023-05-23 2023-05-23 Orders [place], 1.2.840.1 [id number] Methodi 00:00:00 00:00:00 Only Garth 46697.1.[address] [place] 3.430.2.7 Hospit a .3.451760 l .8 2023-05-23 2023-05-23 Orders [place], 1.2.840.1 [id number] Methodi 00:00:00 00:00:00 Only Garth 61470.1.[address] [place] 3.430.2.7 Hospit a .3.523008 l .8 2023-05-16 2023-05-16 Orders [place], 1.2.840.1 835 [id number] Methodi 00:00:00 00:00:00 Only Garth 69812.1.[address] [place] 3.430.2.7 Hospit a .3.065988 l .8 2023-05-16 2023-05-16 Orders [place], 1.2.840.1 750 [id number] Methodi 00:00:00 00:00:00 Only Garth 40506.1.[address] [place] 3.430.2.7 Hospit a .3.965865 l .8 2023-05-09 2023-05-09 Orders [place], 1.2.840.1 605 [id number] Methodi 00:00:00 00:00:00 Only Garth 17651.1.[address] [place] 3.430.2.7 Hospit a .3.363293 l .8 2023-05-09 2023-05-09 Orders [place], 1.2.840.1 871 [id number] Methodi 00:00:00 00:00:00 Only Garth 18889.1.[address] [place] 3.430.2.7 Hospit a .3.380238 l .8 2023-05-02 2023-05-02 Orders [place], 1.2.840.1 [id number] Methodi 00:00:00 00:00:00 Only Garth 45080.1.[address] [place] 3.430.2.7 Hospit a .3.273922 l .8 2023-05-02 2023-05-02 Orders [place], 1.2.840.1 [id number] Methodi 00:00:00 00:00:00 Only Garth [address]506.1.[address] [place] 3.430.2.7 Hospit a .3.930487 l .8 2023-04-25 2023-04-25 Orders [place], 1.2.840.1 [id number] Methodi 00:00:00 00:00:00 Only Garth 89807.1.[address] [place] 3.430.2.7 Hospit a .3.383957 l .8 2023-04-25 2023-04-25 Orders [place], 1.2.840.1 [id number] Methodi 00:00:00 00:00:00 Only Garth [address]403.1.[address] [place] 3.430.2.7 Hospit a .3.150326 l .8 2023-04-18 2023-04-18 Orders [place], 1.2.840.1 [id number] Methodi 00:00:00 00:00:00 Only Garadriana [address]805.1.[address] [place] 3.430.2.7 Hospit a .3.724702 l .8 2023-04-18 2023-04-18 Orders [place], 1.2.840.1 [id number] Methodi 00:00:00 00:00:00 Only Garadriana 59656.1.[address] [place] 3.430.2.7 Hospit a .3.185770 l .8 2023-04-15 2023-04-15 Office [place], 1.2.840.1 [id number] Methodi 13:30:00 14:17:09 Visit Janes 79485.1.[address] [place] 3.430.2.7 Hospit a .3.596055 l .8 2023-04-15 2023-04-15 Office [place], 1.2.840.1 [id number] Methodi 13:30:00 14:17:09 Visit Janes 88143.1.[address] [place] 3.430.2.7 Hospit a .3.759807 l .8 2023-04-15 2023-04-15 Travel 1.2.840.1 1.2.304.378 0632 [id number] Methodi 00:00:00 00:00:[address] 3.430.2.7 0.2.7.3.698 Ho spita .3.813019 084.8 l .8 2023-04-15 2023-04-15 Travel 1.2.840.1 1.2.839.321 1565 [id number] Methodi 00:00:00 00:00:[address] 3.430.2.7 0.2.7.3.698 Ho spita .3.340754 084.8 l .8 2023-03-19 2023-03-19 Abstract [place], 1.2.840.1 [id number] Methodi 00:00:00 00:00:[address] [place] 3.430.2.7 Hospit a .3.172076 l .8 2023-03-19 2023-03-19 Abstract [place], 1.2.840.1 [id number] Methodi 00:00:00 00:00:[address] [place] 3.430.2.7 Hospit a .3.836012 l .8 2022-05-03 2022-05-03 Outpatient BETSY HEREDIA [id number] [place] 00:00:00 00:00:00 SAADIA camacho 2022-04-26 2022-04-26 Office Darrell Heredia 1.2.840.114 [id number] [place] 16:30:00 16:45:00 Visit Saadia Bolaños 350.1.13.13 Se ann 1.2.7.2.686 [id number] 0 2022-04-15 2022-04-15 Outpatient SERENA [facility] [id number] [place] 00:00:00 00:00:00 JANES [address] 2022-04-15 2022-04-15 Outpatient SERENA [facility] [id number] 8391 [place] 00:00:00 00:00:00 GARTH [address] 2021-10-22 2021-10-22 Outpatient [place], [facility] [id number] 2486 [place] 00:00:00 00:00:00 GARTH [address] 2021-07-16 2021-07-16 Outpatient [place], [facility] [id number] 4395 [place] 00:00:00 00:00:00 GARTH 154 Method i 2021-07-16 2021-07-16 Outpatient [place], [facility] [id number] 1858 [place] 00:00:00 00:00:00 GARTH 411 Method i 2021-03-12 2021-03-12 Outpatient [place], [facility] [id number] 0054 [place] 00:00:00 00:00:00 GARTH 996 Method i 2021-02-19 2021-02-19 Outpatient [facility] [id number] 325 [place] 00:00:00 00:00:00 103 Method i 2021-02-12 2021-02-12 Outpatient [place], [facility] [id number] 6559 [place] 00:00:00 00:00:00 GARTH 678 Method i 2021-02-01 2021-02-05 Inpatient JOGLEKAR, [facility] 012 [id number] 8771 [place] 00:00:00 00:00:00 CLARITZA 887 Method i 2021-02-01 2021-02-01 Outpatient [facility] [id number] 730 [place] 00:00:00 00:00:00 825 Method i 2021-02-01 2021-02-01 Outpatient TRACHTENBER [facility] 738 [id number] [place] 00:00:00 00:00:00 TAMIKO Guillermo 840 [address] 2020-12-20 2020-12-20 Outpatient [place], [facility] [id number] 6671 [place] 00:00:00 00:00:00 GARTH 352 Method i 2020-11-07 2020-11-07 Urgent Provider, [facility] 1.2.812.104 [id number] 5739 13:02:18 13:56:39 [facility] 350.1.13.10 [facility] 4.2.7.2.686 Professio [id number] nal [address] 2020-11-07 2020-11-07 Urgent Provider, [facility] 1.2.840.114 [id number] Univers 13:02:18 13:56:39 Paulette Mckeon 350.1.13.10 itnona [facility] 4.2.7.2.686 Ced as Augusto [phone] Al dical [address] Office [address] 2020-11-07 2020-11-07 Outpatient R MALACHI [facility] [id number] [facility] 13:00:00 13:00:00 PAULETTE nona [facility] 2020-10-26 2020-10-26 Outpatient [place], [facility] [id number] 7647 [place] 00:00:00 00:00:00 GARTH [address] 2020-09-20 2020-09-20 Outpatient [place], [facility] [id number] 8540 [place] 00:00:00 00:00:00 GARTH [address] 2020-09-19 2020-09-19 Outpatient [place], [facility] [id number] 2752 [place] 00:00:00 00:00:00 GARTH [address] 2020-09-19 2020-09-19 Outpatient [place], [facility] [id number] 2297 [place] 00:00:00 00:00:00 GARTH [address] 2019-11-12 2019-11-12 Outpatient [place], [facility] [id number] 5545 [place] 00:00:00 00:00:00 GARTH [address] 2019-11-12 2019-11-12 Outpatient [place], [facility] [id number] 2162 [place] 00:00:00 00:00:00 GARTH [address] Results Test Description Test Time Test Comments Results Result Comments Source Magnesium level 2023-05-07 23:00:00 Test Item Value Reference Range Interpretation Comme nts Magnesium (test code = 60101-8) TNP LIDIA (test code = LIDIA) Tests marked TNP not performed.Please contact the lab for more information. [facility] [id number] 23:00:00 Test Item Value Reference Range Interpretation Comments Magnesium (test code = TNP 47138-0) LIDIA (test code = LIDIA) Tests marked TNP not performed.Please contact the lab for more information. [facility] [id number] 23:00:00 Test Item Value Reference Range Interpretation Comments Magnesium (test code = TNP 26071-6) LIDIA (test code = LIDIA) Tests marked TNP not performed.Please contact the lab for more information. [facility] 25 hydroxy [id number] 21:03:00 Test Item Value Reference Range Interpretation Comments Vitamin D, 25-hydroxy 32 ng/mL 30-100 (test code = 1989-01) LIDIA (test code = LIDIA) Items were attached to this order: xgld, xgr [facility] hydroxy [id number] 21:03:00 Test Item Value Reference Range Interpretation Comments Vitamin D, 25-hydroxy 32 ng/mL 30-100 (test code = 1989-01) LIDIA (test code = LIDIA) Items were attached to this order: [facility]gld, [facility] [id number] 21:03:00 Test Item Value Reference Range Interpretation Comments Vitamin D, 25-hydroxy 32 ng/mL 30-100 (test code = 1989-01) LIDIA (test code = LIDIA) Items were attached to this order: xgld, xgr [facility] [id number] 20:44:00 Test Item Value Reference Range Interpretation Comments Hemolysis (test <15 <=15 code = 3440) Sodium (test code = 139 mmol/L 135-388 9905320) Potassium (test 4.4 mmol/L 3.5-5.0 code = 2351448) Chloride (test code 102 mmol/L 98-107 = 2075-0) CO2 (test code = 26 mmol/L 23-32 2028-07) Glucose (test code 89 mg/dL 60-100 = 2345-7) BUN (test code = 16 mg/dL -20 7753093) Creatinine (test 1.1 mg/dL 0.7-1.3 code = 5642434) eGFR MDRD (test 73.9 See_Comment If code = 8846) Haitian, multi ply the GFR by 1.21 0. [Automated mess age] The system [employer] generated this result transmit noemy reference range : 60.0 - 137.0 mL/min/1.73m^2. The reference range was not used to interpret this result as normal/abnormal . Total bilirubin 0.4 mg/dL 0.2-1.3 (test code = 1975-2) Alkaline 74 U/L 38-126 phosphatase (test code = 6768-6) Protein (test code 7.9 g/dL 6.0-8.5 = 2885-2) Albumin (test code 4.7 g/dL 3.5-5.0 = 7290221) Calcium (test code 10.2 mg/dL 8.4-10.6 = 5499934) AST (test code = 26 U/L 10-50 1920-8) ALT (test code = 48 U/L 60 1742-6) Anion gap (test 15.0 5.0-17.0 code = 4911387) BUN/creatinine 14.0 7.0-25.0 ratio (test code = 3097-3) LIDIA (test code = Items were LIDIA) attached to this order: [facility]gld, [facility] [id number] 20:44:00 Test Item Value Reference Range Interpretation Comments Amylase (test code = 84 U/L 28-100 1798-8) LIDIA (test code = LIDIA) Items were attached to this order: xgld, [facility]LDH2023-05-23 20:44:00 Test Item Value Reference Range Interpretation Comments Hemolysis (test code = <15 <=15 3440) LDH (test code = 191 U/L 135-693 9507503) LIDIA (test code = LIDIA) Items were attached to this order: xgld, [facility] [id number] 20:44:00 Test Item Value Reference Range Interpretation Comments Lipase (test code = 35 U/L 13-60 3040-3) LIDIA (test code = LIDIA) Items were attached to this order: xgld, [facility] [id number] 20:44:00 Test Item Value Reference Range Interpretation Comments Hemolysis (test <15 <=15 code = 3440) Sodium (test code = 139 mmol/L 135-357 5790743) Potassium (test 4.4 mmol/L 3.5-5.0 code = 6770397) Chloride (test code 102 mmol/L 98-107 = 2075-0) CO2 (test code = 26 mmol/L 23-32 2027-9) Glucose (test code 89 mg/dL 60-100 = 2345-7) BUN (test code = 16 mg/dL 9-20 2260873) Creatinine (test 1.1 mg/dL 0.7-1.3 code = 9346302) eGFR MDRD (test 73.9 See_Comment If code = 8846) Haitian, multi ply the GFR by 1.21 0. [Automated mess age] The system [employer] generated this result transmit noemy reference range : 60.0 - 137.0 mL/min/1.73m^2. The reference range was not used to interpret this result as normal/abnormal . Total bilirubin 0.4 mg/dL 0.2-1.3 (test code = 1974-2) Alkaline 74 U/L 38-126 phosphatase (test code = 6768-6) Protein (test code 7.9 g/dL 6.0-8.5 = 2885-2) Albumin (test code 4.7 g/dL 3.5-5.0 = 6460489) Calcium (test code 10.2 mg/dL 8.4-10.6 = 2530819) AST (test code = 26 U/L 10-50 1919-8) ALT (test code = 48 U/L 12-60 2-6) Anion gap (test 15.0 5.0-17.0 code = 2776477) BUN/creatinine 14.0 7.0-25.0 ratio (test code = 3097-3) LIDIA (test code = Items were LIDIA) attached to this order: xgld, [facility] [id number] 20:44:00 Test Item Value Reference Range Interpretation Comments Amylase (test code = 84 U/L 28-100 1798-8) LIDIA (test code = LIDIA) Items were attached to this order: xgld, [facility]LDH2023-[facility]-23 20:44:00 Test Item Value Reference Range Interpretation Comments Hemolysis (test code = <15 <=15 3440) LDH (test code = 191 U/L 135-530 5199497) LIDIA (test code = LIDIA) Items were attached to this order: xgld, [facility] [id number] 20:44:00 Test Item Value Reference Range Interpretation Comments Lipase (test code = 35 U/L 3040-3) LIDIA (test code = LIDIA) Items were attached to this order: xgld, [facility] [id number] 20:44:00 Test Item Value Reference Range Interpretation Comments Hemolysis (test <15 See_Comment [Automated code = 3650) message] The sy stem which generated this result transmitted reference range : <=15. The refer ence range was not u sed to interpret th is result as normal/abnormal . Sodium (test code = 139 mmol/L 135-572 1775334) Potassium (test 4.4 mmol/L 3.5-5.0 code = 6530520) Chloride (test code 102 mmol/L 98-107 = 2075-0) CO2 (test code = 26 mmol/L 23-32 2027-9) Glucose (test code 89 mg/dL 60-100 = 2345-7) BUN (test code = 16 mg/dL -20 8326143) Creatinine (test 1.1 mg/dL 0.7-1.3 code = 1112497) eGFR MDRD (test 73.9 See_Comment If code = 8846) Haitian, multi ply the GFR by 1.21 0. [Automated mess age] The system [employer] generated this result transmit noemy reference range : 60.0 - 137.0 mL/min/1.73m^2. The reference range was not used to interpret this result as normal/abnormal . Total bilirubin 0.4 mg/dL 0.2-1.3 (test code = 1975-2) Alkaline 74 U/L 38-126 phosphatase (test code = 6768-6) Protein (test code 7.9 g/dL 6.0-8.5 = 2885-2) Albumin (test code 4.7 g/dL 3.5-5.0 = 8670199) Calcium (test code 10.2 mg/dL 8.4-10.6 = 6755279) AST (test code = 26 U/L 50 1920-8) ALT (test code = 48 U/L 60 1742-6) Anion gap (test 15.0 5.0-17.0 code = 7511873) BUN/creatinine 14.0 7.0-25.0 ratio (test code = 3097-3) LIDIA (test code = Items were LIDIA) attached to this order: xgld, [facility] [id number] 20:44:00 Test Item Value Reference Range Interpretation Comments Amylase (test code = 84 U/L 28-100 1798-8) LIDIA (test code = LIDIA) Items were attached to this order: xgld, [facility]23 20:44:00 Test Item Value Reference Range Interpretation Comments Hemolysis (test <15 See_Comment [Automated code = 3440) message] The sy stem which generated this result transmitted reference range : <=15. The refer ence range was not u sed to interpret th is result as normal/abnormal . LDH (test code = 191 U/L 135-935 2009051) LIDIA (test code = Items were LIDIA) attached to this order: xgld, [facility] HospitalLipase [id number] 20:44:00 Test Item Value Reference Range Interpretation Comments Lipase (test code = 35 U/L 13-60 3040-3) LIDIA (test code = LIDIA) Items were attached to this order: xgld, [facility] HospitalCBC with platelet and [id number] 20:37:00 Test Item Value Reference Range Interpretation Comments WBC (test code = 6690-2) 6.8 10^3/uL 4.0-10.6 RBC (test code = 9906790) 4.65 10^6/uL 4.15-4.90 HGB (test code = 280) 14.6 g/dL 13.0-18.0 HCT (test code = 2468907) 41.9 % 42.0-52.0 L MCV (test code = 9691534) 90.1 fL 80.0-98.0 MCH (test code = 0587634) 31.4 pg 28.0-33.0 MCHC (test code = 9808338) 34.8 g/dL 32.0-36.0 RDW (test code = 2973) 12.4 % 10.6-15.4 Platelet count (test code 312 10^3/uL 150-400 = 777-3) MPV (test code = 7063442) 9.4 fL 9.4-12.4 Nucleated RBC (test code = 0.0 % 0.0-1.0 254) Absolute nRBC (test code = 0.0 10^3/uL 0.0-0.0 9889422) Neutrophils (test code = 50.5 % 45.0-74.0 6184242) Lymphocytes (test code = 39.3 % 16.0-45.0 736-9) Monocytes (test code = 8.1 % 4.0-10.0 5905-5) Eosinophils (test code = 1.0 % 0.0-5.0 1352) Basophils (test code = 0.7 % 0.0-2.0 706-2) Immature granulocytes 0.4 % 0.0-1.0 (test code = 1594) Neutrophils, absolute 3.4 10^3/uL 1.6-9.0 (test code = 1801) Lymphocytes, absolute 2.7 10^3/uL 0.4-4.4 (test code = 9522378) Monocytes, absolute (test 0.6 10^3/uL 0.2-1.7 code = 4589864) Eosinophils, absolute 0.1 10^3/uL 0.0-1.7 (test code = 1353) Basophils, absolute (test 0.1 10^3/uL 0.0-0.3 code = 929) Immature granulocytes, 0.0 10^3/uL 0.0-0.0 absolute (test code = 2839) LIDIA (test code = LIDIA) Items were attached to this order: xgld, xgr Lab Interpretation (test Abnormal code = 00361-1) [facility] with platelet and [id number] 20:37:00 Test Item Value Reference Range Interpretation Comments WBC (test code = 6690-2) 6.8 10^3/uL 4.0-10.6 RBC (test code = 4638644) 4.65 10^6/uL 4.15-4.90 HGB (test code = 280) 14.6 g/dL 13.0-18.0 HCT (test code = 1992079) 41.9 % 42.0-52.0 L MCV (test code = 6044932) 90.1 fL 80.0-98.0 MCH (test code = 4766407) 31.4 pg 28.0-33.0 MCHC (test code = 7152756) 34.8 g/dL 32.0-36.0 RDW (test code = 2973) 12.4 % 10.6-15.4 Platelet count (test code 312 10^3/uL 150-400 = 777-3) MPV (test code = 1709902) 9.4 fL 9.4-12.4 Nucleated RBC (test code = 0.0 % 0.0-1.0 254) Absolute nRBC (test code = 0.0 10^3/uL 0.0-0.0 7644264) Neutrophils (test code = 50.5 % 45.0-74.0 3729036) Lymphocytes (test code = 39.3 % 16.0-45.0 736-9) Monocytes (test code = 8.1 % 4.0-10.0 5905-5) Eosinophils (test code = 1.0 % 0.0-5.0 1352) Basophils (test code = 0.7 % 0.0-2.0 706-2) Immature granulocytes 0.4 % 0.0-1.0 (test code = 1594) Neutrophils, absolute 3.4 10^3/uL 1.6-9.0 (test code = 1801) Lymphocytes, absolute 2.7 10^3/uL 0.4-4.4 (test code = 5649704) Monocytes, absolute (test 0.6 10^3/uL 0.2-1.7 code = 2016957) Eosinophils, absolute 0.1 10^3/uL 0.0-1.7 (test code = 1353) Basophils, absolute (test 0.1 10^3/uL 0.0-0.3 code = 929) Immature granulocytes, 0.0 10^3/uL 0.0-0.0 absolute (test code = 2839) LIDIA (test code = LIDIA) Items were attached to this order: xgld, xgr Lab Interpretation (test Abnormal code = 57887-9) [facility] with platelet and [id number] 20:37:00 Test Item Value Reference Range Interpretation Comments WBC (test code = 6690-2) 6.8 10^3/uL 4.0-10.6 RBC (test code = 8394990) 4.65 10^6/uL 4.15-4.90 HGB (test code = 280) 14.6 g/dL 13.0-18.0 HCT (test code = 1323841) 41.9 % 42.0-52.0 L MCV (test code = 8825043) 90.1 fL 80.0-98.0 MCH (test code = 2188914) 31.4 pg 28.0-33.0 MCHC (test code = 6577783) 34.8 g/dL 32.0-36.0 RDW (test code = 2973) 12.4 % 10.6-15.4 Platelet count (test code 312 10^3/uL 150-400 = 777-3) MPV (test code = 4878708) 9.4 fL 9.4-12.4 Nucleated RBC (test code = 0.0 % 0.0-1.0 254) Absolute nRBC (test code = 0.0 10^3/uL 0.0-0.0 8601753) Neutrophils (test code = 50.5 % 45.0-74.0 1471750) Lymphocytes (test code = 39.3 % 16.0-45.0 736-9) Monocytes (test code = 8.1 % 4.0-10.0 5905-5) Eosinophils (test code = 1.0 % 0.0-5.0 1352) Basophils (test code = 0.7 % 0.0-2.0 706-2) Immature granulocytes 0.4 % 0.0-1.0 (test code = 1594) Neutrophils, absolute 3.4 10^3/uL 1.6-9.0 (test code = 1801) Lymphocytes, absolute 2.7 10^3/uL 0.4-4.4 (test code = 6072624) Monocytes, absolute (test 0.6 10^3/uL 0.2-1.7 code = 2985154) Eosinophils, absolute 0.1 10^3/uL 0.0-1.7 (test code = 1353) Basophils, absolute (test 0.1 10^3/uL 0.0-0.3 code = 929) Immature granulocytes, 0.0 10^3/uL 0.0-0.0 absolute (test code = 2839) LIDIA (test code = LIDIA) Items were attached to this order: xgld, xgr Lab Interpretation (test Abnormal code = 04496-5) Baptism NlnbfgtaKAJB-QjJ-0 (COVID-19) RNA [Presence] in Respiratory specimen by BRO with probe [id number] 02:43:04 Test Item Value Reference Range Interpretation Comments SARS-CoV-2 (COVID-19) RNA Not detected Not-Detected [Presence] in Respiratory specimen by BRO with probe detection (test code = 57131-3) [facility] [place] [facility] (MOLEC[facility])2020-11-07 19:37:00 Test Item Value Reference Range Interpretation Comments POCT INFLUENZA A (test code = 3840) neg Negative - Negativ e POCT INFLUENZA B (test code = 3841) neg Negative - Negativ e [facility] Notes Date/Time Note Provider Source 2023-06-26 Formatting of this note might be differe nt from the original. Rayna Jnue 15:32:08-00:00 Patient is here for follow u p for seizures. VSS Medications reconciled. Clinic Electronically signed by Rayna Youssef at 2022 3:34 PM CDT
[2023-07-02 00:34] LABS: Hematocrit 39.7 % (39.6-49.0); Lymphocytes % 52.8 % (15.3-44.8); MCV 90.5 fL (80-100); MPV 7.2 fL (7.6-11.3); Platelets 288 thou/uL (152-406); RBC Red Blood Cell Count 4.39 M/uL (4.33-5.43)
[2023-07-02] MEDS ORDERED: ASPIRIN 81 MG CHEWABLE TABLET ONE (00:34)
[2023-07-02] MEDS ORDERED: FOLIC ACID 5 MG/ML VIAL ONE (00:35)
[2023-07-02] MEDS ORDERED: TENECTEPLASE 50 MG/10 ML VIAL IV ONE (00:35)
[2023-07-02] MEDS ORDERED: NA CHLORIDE 0.9% 1,000 ML ONE (00:36)
[2023-07-02 00:37] LABS: Protime INR 1.07
[2023-07-02 00:42] LABS: Potassium 3.2 mEq/L (3.5-5.1)
[2023-07-02 00:48] LABS: Albumin 3.9 g/dL (3.4-5.0); Magnesium 1.9 mg/dL (1.6-2.4)
[2023-07-02] MEDS ORDERED: ONDANSETRON 4 MG/2 ML VIAL ONE (00:48)
[2023-07-02 00:50] LABS: Bilirubin Direct 0.1 mg/dL (0-0.2)
[2023-07-02 00:51] LABS: Bilirubin Indirect, Calculated 0.3 mg/dL (0.2-0.8); Bilirubin Total 0.4 mg/dL (0.2-1.0); Protein, Total 7.6 g/dL (6.4-8.2)
[2023-07-02 00:53] LABS: Troponin High Sensitivity 6.4 pg/mL (<58.9)
[2023-07-02] MEDS ORDERED: LEVETIRACETAM 500 MG/5 ML VIAL IV ONE (01:13)
--- NOTE | 2023-07-02 01:20 | ER ---
Nurse's Notes [facility] Name: Alvarez Ortiz Age: 37 yrs Sex: Male : 1985 Arrival Date: 07/01/2023 Time: 23:20 Bed 3 Private MD: Diagnosis: Weakness;Aphasia;Altered mental status, unspecified Presentation: 07/01 23:30 Chief complaint: Patient states: that he was at work and "things went totally blank". cm10 Pt also reports dizziness and that he was having a headache. Pt denies any weakness, numbness or tingling. Per pts friends, pt is slow to respond. LAST KNOWN NORMAL 2215. Friend and/or Co-Worker states: Pt was having confusion while at work. Pt was unable to recall a password that he always uses. CODE STROKE 2334. Coronavirus screen: Client denies travel out of the [place] in the last 14 days. Ebola Screen: Patient denies travel to an Ebola-affected area in the 21 days before illness onset. Initial Sepsis Screen: Does the patient meet any 2 criteria? No. Patient's initial sepsis screen is negative. Does the patient have a suspected source of infection? No. Patient's initial sepsis screen is negative. Risk Assessment: Do you want to hurt yourself or someone else? Patient reports no desire to harm self or others. Onset of symptoms was July 01, 2023 at 22:15. 23:30 Method Of Arrival: Wheelchair cm10 23:30 Acuity: EAN 2 cm10 Historical: - Allergies: 07/02 00:04 PENICILLINS; cm10 00:04 Alprazolam; cm10 00:04 Aztreonam; cm10 00:04 Amoxicillin; cm10 00:04 cefotetan; cm10 - PMHx: 00:04 Seizure; cm10 - Immunization history:: Adult Immunizations unknown. - Social history:: Smoking status: Patient denies any tobacco usage or history of. Screenin/08 23:40 VAN Screening: Arm Drift: Patient shows no arm weakness. Patient is VAN negative. lg3 Visual Disturbance: No visual disturbance noted. Aphasia: Expressive aphasia noted. Provider notified of +VAN scoring. Neglect: No neglect noted. 07/02 00:24 [facility] ED Fall Risk Assessment (Adult) History of falling in the last 3 months, lg3 including since admission No falls in past 3 months (0 pts). Abuse screen: Denies threats or abuse. Denies injuries from another. Nutritional screening: No deficits noted. Tuberculosis screening: No symptoms or risk factors identified. Assessment: 07/01 23:40 General: Appears in no apparent distress. Behavior is calm, cooperative. Pain: Denies lg3 pain. Neuro: Level of Consciousness is awake, obeys commands, confused, Oriented to person, Speech with expressive aphasia noted. Cardiovascular: No deficits noted. Denies chest pain, shortness of breath, Capillary refill < 3 seconds Clubbing of nail beds is absent JVD is absent Patient's skin is warm and dry. Respiratory: No deficits noted. Airway is patent Respiratory effort is even, unlabored, Respiratory pattern is regular, symmetrical. GI: No deficits noted. No signs and/or symptoms were reported involving the gastrointestinal system. Abdomen is round non-distended. : No deficits noted. No signs and/or symptoms were reported regarding the genitourinary system. EENT: No deficits noted. No signs and/or symptoms were reported regarding the EENT system. Derm: No deficits noted. No signs and/or symptoms reported regarding the dermatologic system. Skin is intact, is healthy with good turgor, Skin is dry, Skin is normal, Skin temperature is warm. Musculoskeletal: No deficits noted. No signs and/or symptoms reported regarding the musculoskeletal system. Circulation, motion, and sensation intact. Range of motion: intact in all extremities. 07/02 01:15 General: Appears in no apparent distress. comfortable, Behavior is calm, cooperative. lg3 Pain: Denies pain. Neuro: No deficits noted. Gray Agitation-Sedation Scale (RASS): 0 - Alert and Calm Level of Consciousness is awake, alert, obeys commands, Oriented to person, place, time, situation. Cardiovascular: No deficits noted. Denies chest pain, shortness of breath, Capillary refill < 3 seconds Clubbing of nail beds is absent JVD is absent Patient's skin is warm and dry. Respiratory: No deficits noted. Airway is patent Respiratory effort is even, unlabored, Respiratory pattern is regular, symmetrical. GI: No deficits noted. No signs and/or symptoms were reported involving the gastrointestinal system. : No deficits noted. No signs and/or symptoms were reported regarding the genitourinary system. EENT: No deficits noted. No signs and/or symptoms were reported regarding the EENT system. Derm: No deficits noted. No signs and/or symptoms reported regarding the dermatologic system. Skin is intact, is healthy with good turgor, Skin is dry, Skin is normal, Skin temperature is warm. Musculoskeletal: No deficits noted. No signs and/or symptoms reported regarding the musculoskeletal system. Circulation, motion, and sensation intact. Range of motion: intact in all extremities. 01:58 Reassessment: Patient appears in no apparent distress at this time. No changes from lg3 previously documented assessment. Patient and/or family updated on plan of care and expected duration. Pain level reassessed. Patient is alert, oriented x 3, equal unlabored respirations, skin warm/dry/pink. 02:07 Neuro: Reports headache in left frontal area. GI: Reports nausea. lg3 Vital Signs: 07/01 23:30 BP 138 / 86; Pulse 81; Resp 18; Pulse Ox 98% ; cm10 07/02 00:22 Weight 86.18 kg (M); lg3 00:30 BP 149 / 88; Pulse 87; Resp 19 S; Temp 98.6(O); Pulse Ox 100% on R/A; lg3 01:00 BP 130 / 81; Pulse 79; Pulse Ox 100% ; lg3 01:15 BP 128 / 84; Pulse 81; Pulse Ox 100% on R/A; lg3 02:00 BP 131 / 84; Pulse 83; Pulse Ox 100% ; lg3 02:15 BP 136 / 86; Pulse 81; Pulse Ox 99% on R/A; lg3 NIH Stroke Scale Scores: 07/01 23:40 NIHSS Score: 4 lg3 23:45 NIHSS Score: 3 cp 07/02 01:15 NIHSS Score: 0 lg3 ED Course: 07/01 23:24 Patient arrived in ED. kj1 23:28 Gulshan Otero PA is PHCP. cp 23:28 Delfin Jacques MD is Attending Physician. cp 23:30 Arm band placed on Patient placed in an exam room, on a stretcher, on pulse oximetry. cm10 23:40 Patient has correct armband on for positive identification. Placed in gown. Bed in low lg3 position. Call light in reach. Side rails up X2. Client placed on continuous cardiac and pulse oximetry monitoring. NIBP monitoring applied. playground monitor on. Family accompanied patient. 23:40 Patient maintains SpO2 saturation greater than 95% on room air. lg3 23:45 Ayah Blackwood, RN is Primary Nurse. lg3 23:47 CT Stroke Brain w/o Contrast In Process Unspecified. EDMS 08/ 00:02 CT Head Angio In Process Unspecified. EDMS 00:02 CT Neck Angio In Process Unspecified. EDMS 00:04 Triage completed. cm10 00:18 Stroke CXR 1 View In Process Unspecified. EDMS 00:18 Inserted saline lock: 20 gauge in right forearm, using aseptic technique. Blood lg3 collected. 00:19 Inserted saline lock: 20 gauge in left forearm, using aseptic technique. lg3 00:21 Initial lab(s) drawn, by me, sent to lab. mb4 00:25 Warm blanket given. Verbal reassurance given. mb4 01:21 Initiated transfer with Amanda at [facility]. rv1 01:34 Pt accepted to [facility] by Dr. Law to [address] [place] [address] Bed 9. rv1 02:08 Pt's bed aat [facility] changed to [address] [place] [address] Bed 13, nurse and provider notified. rv1 02:25 No provider procedures requiring assistance completed. Patient transferred, IV remains lg3 in place. intact, No redness/swelling at site. Administered Medications: 00:29 Drug: foLIC Acid IVPB 1 mg Route: IVPB; Site: left antecubital; lg3 01:41 Follow up: Response: No adverse reaction; IV Status: Completed infusion; IV Intake: 13ovca1 00:29 Drug: Aspirin PO 81 mg Route: PO; lg3 01:41 Follow up: Response: No adverse reaction lg3 00:30 Drug: NS 0.9% IV 1000 ml Route: IV; Rate: 1 bolus; Site: left antecubital; lg3 01:41 Follow up: Response: No adverse reaction; IV Status: Completed infusion; IV Intake: lg3 1000ml 00:30 Drug: TNK FOR STROKE - Tenecteplase IV 0.25 mg/kg {Co-Signature: jb4 (aj Kamara RN).} Route: IV; Rate: per protocol; Site: left antecubital; 01:41 Follow up: Response: No adverse reaction; IV Status: Completed infusion lg3 00:40 Drug: Ondansetron IVP 2 mg Route: IVP; Site: left antecubital; pf1 01:41 Follow up: Response: No adverse reaction; Marked relief of symptoms lg3 01:22 Drug: Keppra IV 1000 mg Route: IV; Rate: calculated rate; Site: left antecubital; lg3 01:41 Follow up: Response: No adverse reaction; IV Status: Completed infusion; IV Intake: lg3 1000ml 02:11 Drug: metoCLOPramide IVP 10 mg Route: IVP; Site: left antecubital; lg3 02:11 Follow up: Response: No adverse reaction lg3 02:11 Drug: Acetaminophen PO 1000 mg Route: PO; lg3 02:12 Follow up: Response: No adverse reaction lg3 02:11 Drug: Potassium PO Effervescent Tablet 50 mEq Route: PO; lg3 02:12 Follow up: Response: No adverse reaction lg3 02:23 Drug: morphine IVP or IV 4 mg Route: IVP; Infused Over: 4 mins; Site: left antecubital; lg3 02:23 Follow up: Response: No adverse reaction lg3 Medication: 02:29 VIS not applicable for this client. lg3 Intake: 01:41 IV: 1000ml; Total: 1000ml. lg3 01:41 IV: 10ml; Total: 1010ml. lg3 01:41 IV: 1000ml; Total: 2010ml. lg3 Outcome: 01:19 ER care complete, transfer ordered by cp 02:25 Transferred by ground EMS to [facility], Transfer form completed. lg3 02:25 Condition: stable 02:25 Instructed on the need for transfer, Demonstrated understanding of instructions. 02:30 Patient left the ED. lg3 NIH Stroke Scale - NIH Stroke Score Date: 07/01/2023 Time: 23:40 Total Score = 4 10. Dysarthria (speech clarity - read or repeat words) - 1(Mild to Moderate) 11. Extinction and Inattention (visual/tactile/auditory/spatial/personal) - 0(No abnormality) 1a. Level of Consciousness (LOC) - 0(Alert) 1b. Level of Consciousness (LOC) (Month \\T\\ Age) - 2(Neither) 1c. LOC Commands (Open \\T\\ Closes Eyes/Employment Officer) - 0(Both) 2. Best Gaze (Lateral Gaze Paresis) - 0(Normal) 3. Visual Field Loss - 0(No visual loss) 4. Facial Palsy - 0(Normal) 5a. Left Arm: Motor (10-second hold) - 0(No drift) 5b. Right Arm: Motor (10-second hold) - 0(No drift) 6a. Left Leg: Motor (5-second hold - always test supine) - 0(No drift) 6b. Right Leg: Motor (5-second hold - always test supine) - 0(No drift) 7. Limb Ataxia (finger/nose \\T\\ heel/grijalva - test with eyes open) - 0(Absent) 8. Sensory Loss (pinprick arms/legs/face) - 0(Normal) 9. Best Language: Aphasia (description/naming/reading) - 1(Mild to moderate aphasia) Initials: lg3 NIH Stroke Scale - NIH Stroke Score Date: 07/01/2023 Time: 23:45 Total Score = 3 10. Dysarthria (speech clarity - read or repeat words) - 1(Mild to Moderate) 11. Extinction and Inattention (visual/tactile/auditory/spatial/personal) - 0(No abnormality) 1a. Level of Consciousness (LOC) - 0(Alert) 1b. Level of Consciousness (LOC) (Month \\T\\ Age) - 1(One) 1c. LOC Commands (Open \\T\\ Closes Eyes/Employment Officer) - 0(Both) 2. Best Gaze (Lateral Gaze Paresis) - 0(Normal) 3. Visual Field Loss - 0(No visual loss) 4. Facial Palsy - 0(Normal) 5a. Left Arm: Motor (10-second hold) - 0(No drift) 5b. Right Arm: Motor (10-second hold) - 0(No drift) 6a. Left Leg: Motor (5-second hold - always test supine) - 0(No drift) 6b. Right Leg: Motor (5-second hold - always test supine) - 0(No drift) 7. Limb Ataxia (finger/nose \\T\\ heel/grijalva - test with eyes open) - 0(Absent) 8. Sensory Loss (pinprick arms/legs/face) - 0(Normal) 9. Best Language: Aphasia (description/naming/reading) - 1(Mild to moderate aphasia) Initials: cp NIH Stroke Scale - NIH Stroke Score Date: 07/02/2023 Time: 01:15 Total Score = 0 10. Dysarthria (speech clarity - read or repeat words) - 0(Normal) 11. Extinction and Inattention (visual/tactile/auditory/spatial/personal) - 0(No abnormality) 1a. Level of Consciousness (LOC) - 0(Alert) 1b. Level of Consciousness (LOC) (Month \\T\\ Age) - 0(Both) 1c. LOC Commands (Open \\T\\ Closes Eyes/Employment Officer) - 0(Both) 2. Best Gaze (Lateral Gaze Paresis) - 0(Normal) 3. Visual Field Loss - 0(No visual loss) 4. Facial Palsy - 0(Normal) 5a. Left Arm: Motor (10-second hold) - 0(No drift) 5b. Right Arm: Motor (10-second hold) - 0(No drift) 6a. Left Leg: Motor (5-second hold - always test supine) - 0(No drift) 6b. Right Leg: Motor (5-second hold - always test supine) - 0(No drift) 7. Limb Ataxia (finger/nose \\T\\ heel/grijalva - test with eyes open) - 0(Absent) 8. Sensory Loss (pinprick arms/legs/face) - 0(Normal) 9. Best Language: Aphasia (description/naming/reading) - 0(No aphasia) Initials: lg3 Signatures: Dispatcher [employer] EDMS Gulshan Otero PA PA cp Sandy Turner mb4 Zuri Bolaños kj1 Ayah Blackwood RN RN lg3 Lesa Rutherford RN RN pf1 Tosha Monroe rv1 Rebekah Reyes RN RN cm10 Jack Kamara RN jb4
--- NOTE | 2023-07-02 01:20 | EDPHYS ---
Physician Documentation [facility] Name: Alvarez Ortiz Age: 37 yrs Sex: Male : 1985 Arrival Date: 07/01/2023 Time: 23:20 Bed 3 Private MD: ED Physician Delfin Jacques HPI: 07/01 23:35 This 37 yrs old Male presents to ER via Unassigned with complaints of Altered Mental cp Status. 23:35 Patient is a 37-year-old male with a history of seizures who presents to the emergency cp department with onset of confusion, general weakness, headache that started approximately 30 minutes ago and was observed by another coworker. Patients last normal was 2214. Patient has 2 coworkers with him who reports serving the patient an hour ago in which he was normal. Coworkers report unsteady gait, slow speech and that patient has been altered. Since arriving in the emergency department symptoms have improved but have not resolved. Historical: - Allergies: 07/02 00:04 PENICILLINS; cm10 00:04 Alprazolam; cm10 00:04 Aztreonam; cm10 00:04 Amoxicillin; cm10 00:04 cefotetan; cm10 - PMHx: 00:04 Seizure; cm10 - Immunization history:: Adult Immunizations unknown. - Social history:: Smoking status: Patient denies any tobacco usage or history of. ROS: 07/01 23:40 Constitutional: Negative for body aches, chills, fever, poor PO intake. cp 23:40 ENT: Negative for drainage from ear(s), ear pain, sore throat, difficulty swallowing, cp difficulty handling secretions. 23:40 Cardiovascular: Negative for chest pain. 23:40 Respiratory: Negative for cough, shortness of breath, wheezing. 23:40 Abdomen/GI: Negative for abdominal pain, vomiting, diarrhea, constipation. 23:40 Neuro: Positive for altered mental status, gait disturbance, speech changes. 23:40 All other systems are negative. cp Exam: 23:42 Constitutional: The patient appears in no acute distress, alert, awake, cp non-diaphoretic, non-toxic, well developed, well nourished. 23:42 Head/Face: Normocephalic, atraumatic. cp 23:42 Eyes: Periorbital structures: appear normal, Pupils: equal, round, and reactive to light and accomodation, Extraocular movements: intact throughout, Conjunctiva: normal, no exudate, no injection, Sclera: no appreciated abnormality, Lids and lashes: appear normal, bilaterally. 23:42 ENT: External ear(s): are unremarkable, Nose: is normal, Mouth: Lips: moist, Oral mucosa: pink and intact, moist, Posterior pharynx: is normal, airway is patent, no erythema, no exudate, Voice: is normal. 23:42 Neck: ROM/movement: is normal, is supple, without pain, no range of motions limitations, no meningismus, no nuchal rigidity. 23:42 Chest/axilla: Inspection: normal, Palpation: is normal, no crepitus, no tenderness. 23:42 Cardiovascular: Rate: normal, Rhythm: regular. 23:42 Respiratory: the patient does not display signs of respiratory distress, Respirations: normal, no use of accessory muscles, no retractions, labored breathing, is not present, Breath sounds: are clear throughout, no decreased breath sounds, no stridor, no wheezing. 23:42 Abdomen/GI: Inspection: abdomen appears normal, Bowel sounds: active, all quadrants, Palpation: abdomen is soft and non-tender, in all quadrants. 23:42 Neuro: Orientation: to person, situation, Mentation: able to follow commands, slow to respond, Cerebellar function: Romberg testing is negative, normal finger to nose testing, Motor: moves all fours, general weakness with no focal deficits, Sensation: no obvious gross deficits. 07/02 00:26 ECG was reviewed by the Attending Physician. cp Vital Signs: 07/01 23:30 BP 138 / 86; Pulse 81; Resp 18; Pulse Ox 98% ; cm10 07/02 00:22 Weight 86.18 kg (M); lg3 00:30 BP 149 / 88; Pulse 87; Resp 19 S; Temp 98.6(O); Pulse Ox 100% on R/A; lg3 01:00 BP 130 / 81; Pulse 79; Pulse Ox 100% ; lg3 01:15 BP 128 / 84; Pulse 81; Pulse Ox 100% on R/A; lg3 02:00 BP 131 / 84; Pulse 83; Pulse Ox 100% ; lg3 02:15 BP 136 / 86; Pulse 81; Pulse Ox 99% on R/A; lg3 NIH Stroke Scale Scores: 07/01 23:40 NIHSS Score: 4 lg3 23:45 NIHSS Score: 3 cp 07/02 01:15 NIHSS Score: 0 lg3 MDM: 07/01 23:35 Patient medically screened. cp 23:55 Management of patient was discussed with the following: Nursing Care Attendant: DR Salas, normal cp head CT, recommendation is for Tenecteplase. 07/02 01:40 ED course: VSS. Symptoms markedly improved with meds. Patient now alert times 3 and cp answering questions appropriately, patient reports general weakness and mild paresthesias of bilateral legs. 01:50 Data reviewed: vital signs, nurses notes, lab test result(s), EKG, radiologic studies, cp CT scan, plain films. 07/01 23:37 Order name: Basic Metabolic Panel; Complete Time: 01: cp 07/02 01:32 Interpretation: Normal except: NA 135; K 3.2; ANION GAP 16.2; CA 7.9; GFR 77. 07/01 23:37 Order name: CBC with Diff; Complete Time: 02:05 07/02 02:05 Interpretation: Normal except: WBC 11.30; MPV 7.2; KERON% 38.1; LYM% 52.8; LYMA 6.0. 07/01 23:37 Order name: Hepatic Function; Complete Time: 01: cp 07/01 23:37 Order name: High Sensitivity Troponin; Complete Time: 01:31 cp 07/01 23:37 Order name: Magnesium; Complete Time: 01: cp 07/01 23:37 Order name: Protime (+inr); Complete Time: 01:31 cp 07/01 23:37 Order name: Ptt, Activated; Complete Time: 01:31 cp 07/01 23:37 Order name: UDS cp 07/02 00:26 Order name: Glucose, Ancillary Testing; Complete Time: : EDMS 07/02 00:39 Order name: Manual Differential; Complete Time: 02:05 EDMS 07/02 02:05 Interpretation: Normal except: BANDS [F] 5. 07/02 02:30 Order name: CREATININE WHOLE BLOOD EDMS 07/01 23:37 Order name: CT Stroke Brain w/o Contrast 07/01 23:37 Order name: Stroke CXR 1 View 07/01 23:37 Order name: CT Head Angio cp 07/01 23:37 Order name: CT Neck Angio cp 07/01 23:37 Order name: EKG; Complete Time: 23:38 cp 07/01 23:37 Order name: Accucheck; Complete Time: 00:29 cp 07/01 23:37 Order name: Cardiac monitoring; Complete Time: 00:29 cp 07/01 23:37 Order name: EKG - Nurse/Tech; Complete Time: 00:29 cp 07/01 23:37 Order name: IV Saline Lock; Complete Time: 00:29 cp 07/01 23:37 Order name: Labs collected and sent; Complete Time: 00:29 cp 07/01 23:37 Order name: NPO; Complete Time: 00:29 cp 07/01 23:37 Order name: O2 Per Protocol; Complete Time: 00:29 cp 07/01 23:37 Order name: O2 Sat Monitoring; Complete Time: 00:29 cp 07/01 23:37 Order name: Stroke Swallow Screen; Complete Time: 00:29 cp EC:26 Rate is 86 beats/min. Rhythm is regular. AL interval is normal. QRS interval is normal. cp QT interval is normal. T waves are Inverted in lead aVL. Interpreted by me. Reviewed by me. Administered Medications: 00:29 Drug: foLIC Acid IVPB 1 mg Route: IVPB; Site: left antecubital; lg3 01:41 Follow up: Response: No adverse reaction; IV Status: Completed infusion; IV Intake: 52wazb3 00:29 Drug: Aspirin PO 81 mg Route: PO; lg3 01:41 Follow up: Response: No adverse reaction lg3 00:30 Drug: NS 0.9% IV 1000 ml Route: IV; Rate: 1 bolus; Site: left antecubital; lg3 01:41 Follow up: Response: No adverse reaction; IV Status: Completed infusion; IV Intake: lg3 1000ml 00:30 Drug: TNK FOR STROKE - Tenecteplase IV 0.25 mg/kg {Co-Signature: jb4 Ruthie, lg3 Jack DOTSON).} Route: IV; Rate: per protocol; Site: left antecubital; 01:41 Follow up: Response: No adverse reaction; IV Status: Completed infusion lg3 00:40 Drug: Ondansetron IVP 2 mg Route: IVP; Site: left antecubital; pf1 01:41 Follow up: Response: No adverse reaction; Marked relief of symptoms lg3 01:22 Drug: Keppra IV 1000 mg Route: IV; Rate: calculated rate; Site: left antecubital; lg3 01:41 Follow up: Response: No adverse reaction; IV Status: Completed infusion; IV Intake: lg3 1000ml 02:11 Drug: metoCLOPramide IVP 10 mg Route: IVP; Site: left antecubital; lg3 02:11 Follow up: Response: No adverse reaction lg3 02:11 Drug: Acetaminophen PO 1000 mg Route: PO; lg3 02:12 Follow up: Response: No adverse reaction lg3 02:11 Drug: Potassium PO Effervescent Tablet 50 mEq Route: PO; lg3 02:12 Follow up: Response: No adverse reaction lg3 02:23 Drug: morphine IVP or IV 4 mg Route: IVP; Infused Over: 4 mins; Site: left antecubital; lg3 02:23 Follow up: Response: No adverse reaction lg3 Disposition: 04:15 Co-signature as Attending Physician, Delfin Jacques MD I agree with the assessment sp4 and plan of care. I reviewed the patient's care provided by the Advanced Practice Provider and agree with the diagnosis and treatment plan. Disposition Summary: 07/02/23 01:19 Transfer Ordered Transfer Location: [facility] cp Reason: Higher level of care cp Condition: Stable cp Problem: new cp Symptoms: have improved cp Accepting Physician: DR Law(07/02/23 02:30) lg3 Diagnosis - Weakness cp - Aphasia cp - Altered mental status, unspecified cp Forms: - Medication Reconciliation Form cp - SBAR form cp NIH Stroke Scale - NIH Stroke Score Date: 07/01/2023 Time: 23:40 Total Score = 4 10. Dysarthria (speech clarity - read or repeat words) - 1(Mild to Moderate) 11. Extinction and Inattention (visual/tactile/auditory/spatial/personal) - 0(No abnormality) 1a. Level of Consciousness (LOC) - 0(Alert) 1b. Level of Consciousness (LOC) (Month \T\ Age) - 2(Neither) 1c. LOC Commands (Open \T\ Closes Eyes/Precision Farming Coordinator) - 0(Both) 2. Best Gaze (Lateral Gaze Paresis) - 0(Normal) 3. Visual Field Loss - 0(No visual loss) 4. Facial Palsy - 0(Normal) 5a. Left Arm: Motor (10-second hold) - 0(No drift) 5b. Right Arm: Motor (10-second hold) - 0(No drift) 6a. Left Leg: Motor (5-second hold - always test supine) - 0(No drift) 6b. Right Leg: Motor (5-second hold - always test supine) - 0(No drift) 7. Limb Ataxia (finger/nose \T\ heel/grijalva - test with eyes open) - 0(Absent) 8. Sensory Loss (pinprick arms/legs/face) - 0(Normal) 9. Best Language: Aphasia (description/naming/reading) - 1(Mild to moderate aphasia) Initials: lg3 NIH Stroke Scale - NIH Stroke Score Date: 07/01/2023 Time: 23:45 Total Score = 3 10. Dysarthria (speech clarity - read or repeat words) - 1(Mild to Moderate) 11. Extinction and Inattention (visual/tactile/auditory/spatial/personal) - 0(No abnormality) 1a. Level of Consciousness (LOC) - 0(Alert) 1b. Level of Consciousness (LOC) (Month \T\ Age) - 1(One) 1c. LOC Commands (Open \T\ Closes Eyes/Precision Farming Coordinator) - 0(Both) 2. Best Gaze (Lateral Gaze Paresis) - 0(Normal) 3. Visual Field Loss - 0(No visual loss) 4. Facial Palsy - 0(Normal) 5a. Left Arm: Motor (10-second hold) - 0(No drift) 5b. Right Arm: Motor (10-second hold) - 0(No drift) 6a. Left Leg: Motor (5-second hold - always test supine) - 0(No drift) 6b. Right Leg: Motor (5-second hold - always test supine) - 0(No drift) 7. Limb Ataxia (finger/nose \T\ heel/grijalva - test with eyes open) - 0(Absent) 8. Sensory Loss (pinprick arms/legs/face) - 0(Normal) 9. Best Language: Aphasia (description/naming/reading) - 1(Mild to moderate aphasia) Initials: cp NIH Stroke Scale - NIH Stroke Score Date: 07/02/2023 Time: 01:15 Total Score = 0 10. Dysarthria (speech clarity - read or repeat words) - 0(Normal) 11. Extinction and Inattention (visual/tactile/auditory/spatial/personal) - 0(No abnormality) 1a. Level of Consciousness (LOC) - 0(Alert) 1b. Level of Consciousness (LOC) (Month \T\ Age) - 0(Both) 1c. LOC Commands (Open \T\ Closes Eyes/Precision Farming Coordinator) - 0(Both) 2. Best Gaze (Lateral Gaze Paresis) - 0(Normal) 3. Visual Field Loss - 0(No visual loss) 4. Facial Palsy - 0(Normal) 5a. Left Arm: Motor (10-second hold) - 0(No drift) 5b. Right Arm: Motor (10-second hold) - 0(No drift) 6a. Left Leg: Motor (5-second hold - always test supine) - 0(No drift) 6b. Right Leg: Motor (5-second hold - always test supine) - 0(No drift) 7. Limb Ataxia (finger/nose \T\ heel/grijalva - test with eyes open) - 0(Absent) 8. Sensory Loss (pinprick arms/legs/face) - 0(Normal) 9. Best Language: Aphasia (description/naming/reading) - 0(No aphasia) Initials: lg3 Signatures: Dispatcher [employer] EDMS Gulshan Otero PA PA cp Gibson, Lacie, RN RN lg3 Lesa Rutherford RN RN pf1 Delfin Jacques MD MD sp4 Rebekah Reyes RN RN cm10 Jack Kamara RN jb4 Corrections: (The following items were deleted from the chart) 01:01 07/01 23:35 Patient is a 37-year-old male with a history of seizures who cp presents to the emergency department with onset of confusion, general weakness, headache that started approximately 30 minutes ago and was observed by another coworker. Patient has 2 coworkers with him who reports serving the patient an hour ago in which he was normal. Coworkers report unsteady gait, slow speech and that patient has been altered. Since arriving in the emergency department symptoms have improved but have not resolved. cp 07/02 01:42 01:19 Doctor cp cp 02:30 01:42 DR Law cp lg3
[2023-07-02] MEDS ORDERED: NA CHLORIDE 0.9% 100 ML ONE (01:33)
[2023-07-02 01:42] LABS: Blood Morphology Comment NOT SEEN (NOT SEEN); Platelet Estimate ADEQ
[2023-07-02] MEDS ORDERED: METOCLOPRAMIDE 10 MG/2mL INJ ONE (02:16)
[2023-07-02 02:17] LABS: Barbiturates NEGATIVE (NEGATIVE); Benzodiazepines NEGATIVE (NEGATIVE); Cocaine NEGATIVE (NEGATIVE); METHAMPHETAM NEGATIVE (NEGATIVE); Methadone NEGATIVE (NEGATIVE); Opiates NEGATIVE (NEGATIVE); Phencyclidine NEGATIVE (NEGATIVE); THC Cannibis NEGATIVE (NEGATIVE)
[2023-07-02] MEDS ORDERED: POTASSIUM 25 MEQ EFFERV TAB ONE (02:17)
[2023-07-02] MEDS ORDERED: ACETAMINOPHEN 500 MG TAB ONE (02:17)
[2023-07-02] MEDS ORDERED: MORPHINE 4 MG/ML SYR ONE (02:29)
[2023-07-02 02:54] VITALS: TEMP 98.6
[2023-07-02 03:03] VITALS: BP 136/86; O2SAT 99
--- NOTE | 2023-07-02 11:18 | RAD REPORT ---
EXAM DESCRIPTION: CT - Ct Stroke Brain Wo Cont - 07/02/2023 7:09 am ADDENDUM #1 These critical findings were discussed with Dr. Jacques on 07/02/2023 at 12:09 AM central time Electronically signed by: Sunita Pinon DO 07/02/2023 12:35 AM CDT End of Addendum EXAM DESCRIPTION: CT head without IV contrast CLINICAL HISTORY: 37 years Male STROKE ALERT TECHNIQUE: Multiple axial CT images of the brain were performed followed by sagittal and coronal rec onstructed images. The CT study is performed according to ALARA (as low as reasonably achievable) or ALARA/IMAGE GENTLY, with automatic adjustment of mA and/or kV according to patient size. Performed on: 07/01/2023 at 11:44 PM Comparisons: CT head report from 05/26/2023. The images were unavailable for review.. FINDINGS: Brain: There is no evidence of mass, acute mass effect or midline shift. There are no acut e extra-axial fluid collections. There is no evidence of acute intracranial hemorrhage. The cerebra l sulci and ventricles are normal in size and configuration. There are no focal abnormal areas of inc reased or decreased attenuation. There may be a very small focal area of encephalomalacia over the le ft parietal convexity. Paranasal Sinuses and Mastoids: There is no significant mucosal thickening of the paranasal sinuses. The mastoid air cells are clear. Orbits: The orbital contents are grossly unremarkable. Bones: No acute osseous abnormalities are identified. There are remote postsurgical changes consisten t with a left parieto-occipital craniotomy. Soft Tissues: No focal soft tissue abnormalities are identified. IMPRESSION: 1. There is no evidence of acute intracranial pathology. 2. Remote left parieto-occipital craniotomy. 3. Suspect small focal area of encephalomalacia over the left parietal convexity. Electronically signed by: Sunita Pinon DO 07/02/2023 12:05 AM CDT Due to temporary technical issues with the PACS/Fluency reporting system, reports are being signed by the in house radiologist without review as a courtesy to ensure prompt reporting. The interpreting r adiologist is fully responsible for the content of the report.
--- NOTE | 2023-07-02 11:27 | RAD REPORT ---
EXAM DESCRIPTION: CT - Head angio - 07/02/2023 7:08 am CLINICAL HISTORY: 37 years, Male, altered mental status COMPARISON: CT head without contrast 07/01/2023 TECHNIQUE: Axial CTA images of the head and neck obtained following the administration of IV contras t. 3-D/MIP reformatted images available. This exam was performed according to our departmental dose-o ptimization program, which includes automated exposure control, adjustment of the mA and/or kV accord ing to patient size and/or use of iterative reconstruction technique. Assessment of carotid artery stenosis is based on measurements of the distal internal carotid artery diameter as the denominator for stenosis calcifications in the [place] symptomatic carotid end arterectomy trial (NASCET) stenosis criteria. FINDINGS: CTA head: Anterior circulation: The intracranial internal carotid arteries are patent. The internal carotid art eries bifurcate into patent A1 and M1 segments of the anterior and middle cerebral arteries respectiv candido. No evidence of flow-limiting stenosis, aneurysm, occlusion, or dissection in the anterior circul ation. The anterior communicating artery is patent. Posterior circulation: The intracranial vertebral, basilar, superior cerebellar, and posterior cerebr al arteries are patent. No evidence of stenosis, aneurysm, occlusion, or dissection in the posterior circulation. No definite acute intracranial abnormality identified. Postsurgical changes related to left parieto-o ccipital craniotomy again demonstrated. Paranasal sinuses and mastoid air cells are well aerated. CTA NECK: The aortic arch has normal anatomic configuration. The origin of the great vessels are patent. The right common carotid artery is patent and bifurcates into patent internal and external carotid ar teries. No significant stenosis. No evidence of occlusion or dissection. The left common carotid artery is patent and bifurcates into patent internal and external carotid art eries. No significant stenosis. No evidence of occlusion or dissection. The portions of the proximal vertebral arteries are not optimally visualized due to adjacent dense in travenous contrast. Visualized portions of the cervical vertebral arteries are patent throughout thei r course. No evidence of occlusion, stenosis, or dissection. No definite acute abnormalities in the neck soft tissues. No apical pneumothorax. Chronic appearing o pacities in the left lung apex are partially visualized. No acute osseous abnormalities. IMPRESSION: Intracranial and cervical arterial vasculature is widely patent. No aneurysm, stenosis, segmental occlusion, or dissection. Stable chronic postsurgical changes. Electronically signed by: Odalys Manuel MD 07/02/2023 12:57 AM CDT Due to temporary technical issues with the PACS/Fluency reporting system, reports are being signed by the in house radiologist without review as a courtesy to ensure prompt reporting. The interpreting r adiologist is fully responsible for the content of the report.
--- NOTE | 2023-07-02 11:51 | RAD REPORT ---
EXAM DESCRIPTION: RAD - Chest Single View - 07/02/2023 12:16 am CLINICAL HISTORY: 37-year-old male with altered mental status. TECHNIQUE: Single view, AP portable chest was obtained. COMPARISON: None. FINDINGS: Unremarkable cardiac and mediastinal silhouette. Heart size is normal. The right hemithorax is clear without focal opacity, pneumothorax or pleural effusions. Volume loss of the left hemithorax with apical pleural thickening. Overall increased density of the l eft hemithorax may be secondary to elevation of the left hemidiaphragm with subsegmental atelectasis versus consolidation. May be secondary to The visualized bones are within normal limits. IMPRESSION: Overall increased density of the left hemithorax may be secondary to elevation of the le ft hemidiaphragm with subsegmental atelectasis versus consolidation. Please correlate with patient cl inical findings and follow-up for resolution. Electronically signed by: Agueda Martino MD 07/02/2023 12:47 AM CDT Due to temporary technical issues with the PACS/Fluency reporting system, reports are being signed by the in house radiologist without review as a courtesy to ensure prompt reporting. The interpreting r adiologist is fully responsible for the content of the report.
--- NOTE | 2023-07-02 18:07 | EKG ---
Test Date: 2023-07-02 Test Time: 00:20:25 [place] Former: LEON MEASUREMENT RESULTS: Intervals: Rate: 86 MN: 134 QRSD: 86 QT: 384 QTc: 459 Point: P: 49 MN: 134 QRS: 11 T: 144 INTERPRETIVE STATEMENTS: Normal sinus rhythm T wave abnormality, consider lateral ischemia Abnormal ECG Compared to ECG 05/30/2023 18:56:29 T-wave abnormality now present ST (T wave) deviation no longer present Possible ischemia still present Electronically Signed On 07-02-23 18:06:18 CDT by Rhys Abdul
== END 2023-07-02 02:30 | disposition short-term general hospital (02) ==
LOC: ER 23:20
DX: R53.1 Weakness (principal); R47.01 Aphasia; R41.82 Altered mental status, unspecified; R29.704 NIHSS score 4; G40.909 Epilepsy, unspecified, not intractable, without status epilepticus; Z88.0 Allergy status to penicillin; Z88.1 Allergy status to other antibiotic agents; Z88.8 Allergy status to other drugs, medicaments and biological substances
CPT/HCPCS: 96375; 93005; 85025; 80048; 36415; 83735; 85610; 82565; 82947; 80076; 85730; 84484; 80307; 70496; 70498; 70450; 71045; Q9967; J3101; J1953; J2765; J2405; J7030

== ENCOUNTER 2023-07-25 19:34 | Observation (INO) | payer OTHER ==
--- OUTSIDE RECORDS SUMMARY | 2023-07-25 19:43 | XMS REPORT | Continuity of Care Document ---
:1985 Author Organization [facility] t Address [address] [place] [address] Care Team Providers Name Role Phone Betsy Cunningham Medical Primary Care Physician [phone] SAADIA HEREDIA Attending Clinician Unavailable SILVESTRE VELEZ Attending Clinician Unavailable Carlos EASTMAN, Janes Dennis Attending Clinician KARUNA LAW Attending Clinician Unavailable Karuna Law MD Attending Clinician [phone] Dangelo EASTMAN, Salma Hernandez Attending Clinician [phone] YANDY SOLARES Attending Clinician Unavailable LAB[facility] Attending Clinician Unavailable MARISSA CURRY Attending Clinician Unavailable FAWAD GONZALEZ Attending Clinician Unavailable [facility] Attending Clinician UnavailSaadia Le DO Attending Clinician CLARITZA BURKS Attending Clinician Unavailable MD JOSE JUAN ALVARENGA Attending Clinician Unavailable TAMIKO MAGAÑA Attending Clinician Unavailable Provider, [facility] Attending Clinician Unavailable Paulette Velez Attending Clinician PAULETTE ASTORGA Attending Clinician Unavailable SALMA PIERSON Admitting Clinician Unavailable JOSE JUAN ALVARENGA Admitting Clinician Unavailable MD JOSE JUAN ALVARENGA Admitting Clinician Unavailable Payers Payer Name Policy Type Policy Number Effective Date Expiration Date Brynn rocha CIGJOSE E [id number] 2021 00:00:00 HMO/POS/OPEN ACCESS CIGNA 2 [id number] 2022 00:00:00 Problems Condition Condition Condition Status Onset Resolution Last Treating Co mments Source Name Details Category Date Date Treatment Clinician Date 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 00:00: Medica l in in 00 Center remission remission Acute Acute Disease Active [facility] encephalop encephalop 07-02 Carmen kes athy athy 00:00: Medical 00 [place] Acute Acute Disease Active [facility] ischemic ischemic 07-02 [facility] stroke stroke 00:00: Medical 00 [place] Breakthrou Breakthrou Disease Active [facility] gh seizure gh seizure 07-02 Carmen kes 00:00: Medical 00 [place] Intractabl Intractabl Disease Active [facility] e migraine e migraine 07-02 Carmen kes with aura with aura 00:00: Medi erendira with with 00 Center status status migrainosu migrainosu s s Acute pain Acute pain Disease Active K elsey of left of left 6-03 [facility] shoulder shoulder 00:00: - 00 Externa [...] 00 Externa l Nonintract Nonintract Disease Active K elsey able able 5-05 [facility] epilepsy epilepsy 00:00: - without without 00 Externa status status l epilepticu epilepticu s s History of History of Disease Active Marko 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 00:00: - 00 [...] for Disease Active Metho di Tdap Tdap [address] vaccinatio vaccinatio 00:00: Ho spita n n 00 l Osteoporos Osteoporos Disease Active M ethodi is is 08-20 st 00:00: Hospita 00 l Bone pain Bone pain Disease Active Met hodi [address] [facility] 00:00: Hospita 00 l H/O stem [...] Brain Brain Disease Active Methodi metastases metastases 8-11 st 00:00: Hospita 00 l Depression Depression Disease Active M ethodi 04-15 st 00:00: Hospita 00 l Anxiety Anxiety Disease Active Methodi 04-15 st 00:00: Hospita 00 l No known No known Disease Unive rs active active ity of problems problems [facility] Allergies, Adverse Reactions, Alerts Allergy Allergy Status Severity Reaction(s) Onset Inactive Treating Comm ents Source Name Type Date Date Clinician Furosemi Drug Active Other (See [facility] Comments) 07-02 nce 00:00: Medical 00 Center Penicill Propensi Active Anaphylaxis [facility] adverse [facility]: Medical reaction 00 Center s Sulfa Propensi Active Anaphylaxis [facility] (Sulfona ty [facility] 07[facility]02 [facility] mide adverse 00:00: Medical Antibiot reaction 00 Center ics) s Alprazol Propensi Active Anaphylaxis [facility] am ty to 07-02 [facility] adverse 00:00: Medical reaction 00 Center s PENICILL Allergy Active High Anaphylaxis [facility]02 [facility] 00:[facility]: Medical 00 Center SULFA Allergy Active High Anaphylaxis [facility] (SULFONA 07-02kes MIDE 00:00: Medical ANTIBIOT 00 Center ICS) ALPRAZOL Allergy Active High Anaphylaxis [facility]02 [facility] 00:[facility]: Medical 00 Center FUROSEMI Allergy Active Other [facility]02 [facility] 00:[facility]: Medical 00 Center Furosemi Propensi Active Hypertension Methodi de ty [...] s to drug Alprazol Propensi Active Other "climbing Karel sey am ty to 07-12 up huang" Seybold adverse 00:00: and reaction 00 hallucina s tions Alprazol Propensi Active Other "climbing Karel sey am ty to 07-12 up huang" Seybold adverse 00:00: and - reaction 00 hallucina Exter na s tions l ALPRAZOL DRUG Active Other-Cmnt Univ ers AM INGREDI 07-12 ity of 00:00: [address] Alprazol Propensi Active Other (See "climbing Methodi [...] fever - reaction 00 Externa s l Penicill Propensi Active Hives Pt states Uni vers ins ty to 04-15 he gets ity of adverse 00:00: fevers Pt [place] reaction 00 states he Medic al s gets Branch fever PENICILL Drug Active Hives Univers INS Class 04-15 ity of 00:00: [place] 00 [facility] SULFA Drug Active Hives Univers (SULFONA Class 04-15 ity of MIDE 00:00: [place] ANTIBIOT 00 [...] Active Univers ALLERGIE Class ity of S [facility] Family History Family Member Diagnosis Comments Start Date Stop Date Source Natural father Diabetes type II [facility] Natural father Hyperlipidemia [facility] Natural father Hypertension [facility] Maternal grandfather Prostate cancer [facility] Maternal grandmother Breast cancer M [facility] Paternal grandfather Lung cancer [facility] Social History Social Habit Start Date Stop Date Quantity Comments Source History of tobacco Cigarette Smoker Betsy Harkins - use External Gender identity [facility] Sexual orientation [facility] History [employer] Transport Non-Med Medical Center History SD[employer] Housing Places Medical Ce nter Lived Exposure to 2023-06-22 2023-07-[address] [facility] SARS-CoV-2 (event) 00:00:00 03:54:00 Medica l Center Alcohol intake 2023-07-02 2023-07-02 Current drinker [facility] 00:[facility]00:00 alcohol (finding) Medical Center History [facility] 2023-07-02 2023-07-[address] [facility] Transport Med 00:00:00 00:00:[address] History [facility] 2023-07-02 2023-07-[address] [facility] Housing Unable to 00:00:00 00:00:00 Medical Center Pay History [facility] 2023-07-02 2023-07-[address] [facility] Housing Homeless 00:00:00 00:00:00 Medical Center Last Year Alcohol Comment 2023-07-02 2023-07-[address] [facility] 00:00:00 00:00:00 occasionally Medical Cent er Tobacco use and 2023-07-02 2023-07-[address] [facility] exposure 00:00:00 00:00:00 non-user Medical Center History of Social 2021-07-16 2021-07-[address] function 00:00:00 00:00:00 Hospital Sex Assigned At [address] [facility]en kes 00:00:00 00:00:00 Medical Center Smoking Status Start Date Stop Date Source Never smoked tobacco [facility] Ex-smoker 2021-03-28 00:00:00 2021-03-28 00:00:00 Betsy rogers - External Medications Ordered Filled Start Stop Current Ordering Indication Dosage Frequency Signature Comments Components Source Medication Medication Date Date Medication? Clinician (SIG) Name Name topiramate 2023- Yes 25mg QD Take [address] (TOPAMAX) 07-03 tablet (25 Lesly es 25 MG 00:00: 23:59 mg total) Medica l tablet 00 :00 by mouth Center nightly for 180 days. levETIRAcet 2022- No Take [address] (KEPPRA) 07-03 tablets Luke s 250 MG 00:00: 23:59 (1,000 mg Medic al tablet 00 :00 total) by Center mouth 2 (two) times daily for 2 days, THEN 3 tablets (750 mg total) 2 (two) times daily for 2 days, THEN 2 tablets (500 mg total) 2 (two) times daily for 2 days, THEN 1 tablet (250 mg total) 2 (two) times daily for 2 days. THEN stop taking the medication (total 8 day taper).. Levetiracet 3-0 Yes [id number] 500mg Take 1 Betsy am 500 MG 8-03 tablet Seybold oral Tablet 00:00: (500 mg - 00 total) by Externa mouth l every 12 hours Levetiracet 3-0 2023- No [id number] 500mg Take 1 Btesy am 500 MG 7-04 08-03 tablet Seybold oral Tablet 00:00: 00:00 (500 mg - 00 :00 total) by Externa mouth l every 12 hours venlafaxine 2023-0 Yes 75mg QD Take 75 mg Methodi XR 5-[address] (EFFEXOR-XR 13:28: daily. Hosp norma ) 75 MG 24 24 l hr capsule venlafaxine 2023-0 Yes 75mg QD Take 75 mg Methodi XR 5-[address] (EFFEXOR-XR 13:28: daily. Hosp norma ) 75 MG 24 24 l hr capsule venlafaxine 2023-0 Yes 75mg QD Take 75 mg Methodi XR 5-[address] (EFFEXOR-XR 13:28: daily. Hosp norma ) 75 MG 24 24 l hr capsule venlafaxine 2023-0 Yes 75mg QD Take 75 mg Methodi XR 5-[address] (EFFEXOR-XR 13:28: daily. Hosp norma ) 75 MG 24 24 l hr capsule Venlafaxine 2022-0 Yes [id number] 75mg Take 1 Betsy HCl 75 MG 6-03 capsule Seybold oral 00:00: (75 mg Capsule 24 00 total) by Hour mouth in Sustained the Release morning and 1 capsule (75 mg total) in the evening. Acetaminoph 2022-0 Yes [id number] 1{tbl} [id number] Take 1 Betsy en-Codeine 6-03 [id number] tablet by Seybold 300-30 MG 00:00: 3D mouth 3 oral Tablet 00 times daily as needed for pain Venlafaxine 0 Yes [id number] 75mg Take 1 Betsy HCl 75 MG 6-03 capsule Seybold oral 00:00: (75 mg - Capsule 24 00 total) by Exte rna Hour mouth in l Sustained the Release morning and 1 capsule (75 mg total) in the evening. Acetaminoph Yes [id number] 1{tbl} Q.[id number] Take 1 Betsy en-Codeine 6- [id number] tablet by Seybold 300-30 MG 00:00: 3D mouth 3 - oral Tablet 00 times Externa daily as l needed for pain Venlafaxine 2022- No [id number] 75mg Take 1 Betsy HCl 75 MG 6- 08- capsule Seybol d oral 00:00: 00:00 (75 mg - Capsule 24 00 :00 total) by Exte rna Hour mouth in l Sustained the Release morning and 1 capsule (75 mg total) in the evening. Acetaminoph 2022- No [id number] 1{tbl} Q.[id number] Take 1 Betsy en-Codeine 6- 08- [id number] tablet by Seybold 300-30 MG 00:00: 00:00 3D mouth 3 - oral Tablet 00 :00 times Externa daily as l needed for pain Cyclobenzap 0 Yes 10mg Take 10 mg Betsy rine HCl 10 - by mouth 3 Se ybold MG oral 00:00: times Tablet 00 daily Cyclobenzap 2021-0 Yes 10mg Take 1 Cristiane ey rine HCl 10 6- tablet (10 Se ybold MG oral 00:00: mg total) - Tablet 00 by mouth 3 Externa times l daily Cyclobenzap 0 2022- No 10mg Take 1 Karel sey rine HCl 10 6- 08-03 tablet (10 S eybold MG oral 00:00: 00:00 mg total) - Tablet 00 :00 by mouth 3 Externa times l daily Levetiracet 0 2021- No Levetirace Betsy am 1000 MG 8-10 06- zhang 500 Seybo ld oral Tablet 00:00: [...] (KEPPRA 2-15 mouth. ity of ORAL) 19:15: [address] Branch albuterol 2019-11- No [id number] 2{puff} Inhale 2 Univers (VENTOLIN 2-15 01-15 Puffs ity of HFA) 90 00:00: 05:59 every 6 [place] mcg/actuati 00 :00 (six) Medical on inhaler hours as Branc h needed for Shortness of Breath for up to 30 days. benzonatate 2019-11- No [id number] 100mg Take 1 Univers (TESSALON 2-15 12-30 [...] Date Status Commen ts Source Name Name [facility] COVID-19 MRNA 2021-04-05 Completed Meth odist VACCINATION 00:00:00 [facility] PFIZER COVID-19 MRNA 2021-04-05 Completed Meth odist VACCINATION 00:00:00 [facility] PFIZER COVID-19 MRNA 2021-04-05 Completed Meth odist VACCINATION 00:00:00 [facility] PFIZER COVID-19 MRNA 2021-04-05 Completed [facility]ist VACCINATION 00:00:00 Hospital Covid-19 Vaccine 2021-03-12 Completed Betsy rogers ([place]), Mrna-lnp, 00:00:00 - Ext ernal Dagoberto Protein, Pf, 30mcg/0.3ml,IM Covid-19 Vaccine 2021-03-12 Completed Betsy rogers ([place]), Mrna-lnp, 00:00:00 - Ext ernal Dagoberto Protein, Pf, 30mcg/0.3ml,IM PFIZER COVID-19 MRNA 2021-03-12 Completed Meth odist VACCINATION 00:00:00 [facility] PFIZER COVID-19 MRNA 2021-03-12 Completed Meth odist VACCINATION 00:00:00 [facility] PFIZER COVID-19 MRNA 2021-03-12 Completed Meth odist VACCINATION 00:00:00 [facility] PFIZER COVID-19 MRNA 2021-03-12 Completed Meth odist VACCINATION 00:00:00 [facility] Covid-19 Vaccine 2021-03-02 Completed Betsy rogers ([place]), Mrna-lnp, 00:00:00 - Ext ernal Dagoberto Protein, Pf, 30mcg/0.3ml,IM Covid-19 Vaccine 2021-03-02 Completed Betsy rogers ([place]), Mrna-lnp, 00:00:00 Dagoberto Protein, Pf, 30mcg/0.3ml,IM Covid-19 Vaccine 2021-03-02 Completed Betsy rogers ([place]), Mrna-lnp, 00:00:00 - Ext ernal Dagoberto Protein, Pf, 30mcg/0.3ml,IM Influenza, 2021-02-05 Completed Betsy Harkins Injectable, Mdck, 00:00:00 - Exter nal Preservative Free, Quadrivalt Influenza, 2021-02-05 Completed Betsy Leónold Injectable, Mdck, 00:00:00 Preservative Free, Quadrivalt Influenza, [...] 00:00:00 - External Zoster Vaccine 2019-07-15 Completed [facility]com[facility] 00:[facility]:00 Hospital Zoster Vaccine 2019-07-15 Completed [facility] Recombinant 00:00:00 Hospital Zoster Vaccine 2019-07-15 Completed [facility] Recombinant 00:00:00 Hospital Zoster Vaccine 2019-07-15 Completed [facility] Recombinant 00:00:00 Hospital MMR- Measles, Mumps, 2019-05-13 [...] Polysaccharide 00:00:00 - External MMR 2019-05-13 Completed [facility] 00:[facility]:00 Hospital Pneumococcal 2019-05-13 Completed [facility] Polysaccharide 00:00:00 Hospital MMR 2019-05-13 Completed [facility] 00:00:00 Hospital Pneumococcal 2019-05-13 Completed [facility] Polysaccharide 00:00:00 Hospital MMR 2019-05-13 Completed [facility] 00:00:00 Hospital Pneumococcal 2019-05-13 Completed [facility] Polysaccharide 00:00:00 Hospital MMR 2019-05-13 Completed [facility] 00:00:00 Hospital Pneumococcal 2019-05-13 Completed [facility] Polysaccharide 00:00:00 Hospital MMR- Measles, Mumps, 2019-04-13 [...] (Shingrix) 00:00:00 - External MMR 2019-04-13 Completed [facility] 00:[facility]:00 [facility] Zoster Vaccine 2019-04-13 Completed [facility] Recombinant 00:00:00 Hospital MMR 2019-04-13 Completed [facility] 00:00:00 Hospital Zoster Vaccine 2019-04-13 Completed [facility] Recombinant 00:00:00 Hospital MMR 2019-04-13 Completed [facility] 00:00:00 Hospital Zoster Vaccine 2019-04-13 Completed [facility] Recombinant 00:00:00 Hospital MMR 2019-04-13 Completed [facility] 00:00:00 Hospital Zoster Vaccine 2019-04-13 Completed [facility] Recombinant 00:00:00 Hospital Tetanus Toxoid/HIB 2019-01-12 Completed Betsy Seybold 00:00:00 - External Tetanus Toxoid/HIB 2019-01-12 Completed Betsy Seybold 00:00:00 Tetanus Toxoid/HIB 2019-01-12 Completed Betsy Seybold 00:00:00 - External Hib (PRP-T) 2019-01-12 Completed [facility] 00:[facility]:00 [facility] Hib (PRP-T) 2019-01-12 Completed [facility] 00:00:00 Hospital Hib (PRP-T) 2019-01-12 Completed [facility] 00:[facility]:00 Hospital Hib (PRP-T) 2019-01-12 Completed [facility] 00:[facility]:00 Hospital Hepatitis B, Adult (3 2018-09-30 [...] Vaccine 00:00:00 - External IPV 2018-09-30 Completed [facility] 00:[facility]:00 [facility] Hepatitis B 2018-09-30 Completed [facility] 00:[facility]:00 [facility] IPV 2018-09-30 Completed [facility] 00:00:00 Hospital Hepatitis B 2018-09-30 Completed [facility] 00:00:00 Hospital IPV 2018-09-30 Completed [facility] 00:00:00 Hospital Hepatitis B 2018-09-30 Completed [facility] 00:00:00 Hospital IPV 2018-09-30 Completed [facility] 00:00:00 Hospital Hepatitis B 2018-09-30 Completed [facility] 00:[facility]:00 Hospital IPV- Inactivated 2018-07-29 Completed Betsy [...] Adacel) 00:00:00 - External Tdap 2018-07-29 Completed [facility] 00:[facility]:00 [facility] IPV 2018-07-29 Completed [facility] 00:00:00 Hospital Tdap 2018-07-29 Completed [facility] 00:00:00 Hospital IPV 2018-07-29 Completed [facility] 00:00:00 Hospital Tdap 2018-07-29 Completed [facility] 00:00:00 Hospital IPV 2018-07-29 Completed [facility] 00:00:00 Hospital Tdap 2018-07-29 Completed [facility] 00:00:00 [facility] IPV 2018-07-29 Completed [facility] 00:00:00 Hospital HEPATITIS A- ADULT 2018-06-24 Completed [...] - External Conjugate(Menactra) Hepatitis A 2018-06-24 Completed [facility] 00:[facility]:00 Hospital Meningococcal MCV4P 2018-06-24 Completed [facility] 00:00:00 Hospital Hib (PRP-T) 2018-06-24 Completed [facility] 00:00:00 Hospital Hepatitis A 2018-06-24 Completed [facility] 00:00:00 Hospital Meningococcal MCV4P 2018-06-24 Completed [facility] 00:00:00 Hospital Hib (PRP-T) 2018-06-24 Completed [facility] 00:00:00 Hospital Hepatitis A 2018-06-24 Completed [facility] 00:00:00 Hospital Meningococcal MCV4P 2018-06-24 Completed [facility] 00:00:00 Hospital Hib (PRP-T) 2018-06-24 Completed [facility] 00:00:00 Hospital Hepatitis A 2018-06-24 Completed [facility] 00:00:00 Hospital Meningococcal MCV4P 2018-06-24 Completed [facility] 00:00:00 Hospital Hib (PRP-T) 2018-06-24 Completed [facility] 00:[facility]:00 Hospital IPV- Inactivated 2018-04-28 Completed Betsy [...] Adacel) 00:00:00 - External Tdap 2018-04-28 Completed [facility] 00:[facility]:00 [facility] IPV 2018-04-28 Completed [facility] 00:00:00 Hospital Pneumococcal 2018-04-28 Completed [facility] Conjugate 13-Valent 00:00:00 Hospi jac Tdap 2018-04-28 Completed [facility] 00:00:00 Hospital IPV 2018-04-28 Completed [facility] 00:00:00 Hospital Pneumococcal 2018-04-28 Completed [facility] Conjugate 13-Valent 00:00:00 Hospi jac Tdap 2018-04-28 Completed [facility] 00:00:00 Hospital IPV 2018-04-28 Completed [facility] 00:00:00 Hospital Pneumococcal 2018-04-28 Completed [facility] Conjugate 13-Valent 00:00:00 Hospi jac Tdap 2018-04-28 Completed [facility] 00:00:00 Hospital IPV 2018-04-28 Completed [facility] 00:00:00 Hospital Pneumococcal 2018-04-28 Completed [facility] 2018-03-31 Completed Karel alena Tapiaybold dose) 00:00:00 - External Tetanus Toxoid/HIB 2018-03-31 Completed Betsy Seybold 00:00:00 - External Hepatitis B, Adult (3 2018-03-31 Completed Karel sey Seybold dose) 00:00:00 Tetanus Toxoid/HIB 2018-03-31 Completed Betsy Seybold 00:00:00 Hepatitis B, Adult (3 2018-03-31 Completed Karel sey Seybold dose) 00:00:00 - External Tetanus Toxoid/HIB 2018-03-31 Completed Betsy Seybold 00:00:00 - External Hepatitis B 2018-03-31 Completed [facility] Hib (PRP-T) 2018-03-31 Completed [facility] 00:[facility]:00 Hospital Hepatitis B 2018-03-31 Completed [facility] 00:[facility]:00 Hospital Hib (PRP-T) 2018-03-31 Completed [facility] 00:00:00 Hospital Hepatitis B 2018-03-31 Completed [facility] 00:00:00 Hospital Hib (PRP-T) 2018-03-31 Completed [facility] 00:00:00 Hospital Hepatitis B 2018-03-31 Completed [facility] 00:00:00 [facility] Hib (PRP-T) 2018-03-31 Completed [facility] 00:00:00 Hospital Hepatitis B, Adult (3 2018-02-04 [...] S eybold Adacel) 00:00:00 - External Tdap 2018-02-04 Completed [facility] 00:00:00 Hospital Hepatitis B 2018-02-04 Completed [facility] 00:00:00 Hospital Tdap 2018-02-04 Completed [facility] 00:00:00 Hospital Hepatitis B 2018-02-04 Completed [facility] 00:00:00 Hospital Tdap 2018-02-04 Completed [facility] 00:00:00 Hospital Hepatitis B 2018-02-04 Completed [facility] 00:00:00 Hospital Tdap 2018-02-04 Completed [facility] 00:00:00 [facility] Hepatitis B 2018-02-04 Completed [facility] 00:00:00 Hospital Vital Signs Vital Name Observation Time Observation Value Comments Source HEIGHT 2023-07-02 03:45:00 172.7 cm WEIGHT 2023-07-02 03:45:00 84 kg HEIGHT 2023-07-02 03:45:00 172.7 cm WEIGHT 2023-07-02 03:45:00 84 kg HEIGHT 2023-07-02 03:45:00 172.7 cm WEIGHT 2023-07-02 03:45:00 84 kg Systolic blood 2023-06-26 20:29:00 125 mm[Hg] Betsy Seybold - pressure External Diastolic blood 2023-06-26 20:29:00 75 mm[Hg] Kelse y Seybold - pressure External Heart rate 2023-06-26 20:29:00 81 /min Betsy S eybold - External Body temperature 2023-06-26 20:29:00 36.17 Mayuri Cristiane ey Seybold - External Respiratory rate 2023-06-26 20:29:00 16 /min Cristiane ey Seybold - External Body height 2023-06-26 20:29:00 172.7 cm Betsy S eybold - External Body weight 2023-06-26 20:29:00 86.183 kg Betsy S eybold - External BMI 2023-06-26 20:29:00 28.89 kg/m2 Betsy S eybold - External Oxygen saturation in 2023-06-26 20:29:00 98 /min Betsy Seybold - Arterial blood by External Pulse oximetry Heart rate 2023-05-26 19:40:00 104 /min Betsy S eybold - External Body temperature 2023-05-26 19:40:00 36.83 Mayuri Cristiane ey Seybold - External Oxygen saturation in 2023-05-26 19:40:00 98 /min Betsy Seybold - Arterial blood by External Pulse oximetry [...] 19:14:00 126 mm[Hg] Univer sity of pressure [facility] Diastolic blood 2020-11-07 19:14:00 74 mm[Hg] Unive rsity of [facility] Heart rate 2020-11-07 19:14:00 113 /min Universi ty [facility] Body temperature 2020-11-07 19:14:00 36.67 Mayuri [facility] Respiratory rate 2020-11-07 19:14:00 18 /[facility] height 2020-11-07 19:14:00 175.3 cm Universi ty [facility] Body weight 2020-11-07 19:14:00 81.647 kg Universi ty [facility] BMI 2020-11-07 19:14:00 26.58 kg/m2 Universi ty [facility] Oxygen saturation in 2020-11-07 19:14:00 98 /min University of Arterial blood by [facility] Pulse oximetry [place] Systolic blood 2020-11-07 19:14:00 126 mm[Hg] Univer sity of pressure [facility] Diastolic blood 2020-11-07 19:14:00 74 mm[Hg] Unive rsity of pressure [facility] Heart rate 2020-11-07 19:14:00 113 /min [facility] Body temperature 2020-11-07 19:14:00 36.67 Mayuri [facility] Respiratory rate 2020-11-07 19:14:00 18 /min [facility] Body height 2020-11-07 19:14:00 175.3 cm [facility] Body weight 2020-11-07 19:14:00 81.647 kg [facility] BMI 2020-11-07 19:14:00 26.58 kg/m2 [facility] Oxygen saturation in 2020-11-07 19:14:00 98 /min [facility] Arterial blood by [facility] Pulse oximetry [place] Systolic blood 2023-07-03 13:00:00 149 mm[Hg] [facility] Diastolic blood 2023-07-03 13:00:00 89 mm[Hg] [facility] Heart rate 2023-07-03 13:00:00 91 /min [facility] Respiratory rate 2023-07-03 13:00:00 19 /min [facility] Oxygen saturation in 2023-07-03 13:00:00 97 /min [facility] Arterial blood by Medical nter Pulse oximetry Body temperature 2023-07-03 08:00:00 36.72 Mayuri [facility] Body height 2023-07-02 07:59:00 172.7 cm [facility] Body weight 2023-07-02 07:59:00 84 kg [facility] BMI 2023-07-02 07:59:00 28.16 kg/m2 [facility] Systolic blood 2023-04-15 18:24:00 132 mm[Hg] [facility] pressure Diastolic blood 2023-04-15 18:24:00 78 mm[Hg] [facility] pressure Heart rate 2023-04-15 18:24:00 85 /min [facility] Body weight 2023-04-15 18:24:00 85.276 kg [facility] BMI 2023-04-15 18:24:00 27.76 kg/m2 [facility] Oxygen saturation in 2023-04-15 18:24:00 98 /[facility] Arterial blood by Pulse oximetry Procedures Procedure Date / Time Performing Clinician Source Performed BASIC METABOLIC PANEL 2023-07-03 03:[facility] 2023-07-03 03:[facility] & AUTO 2023-07-03 03:33:00 [facility] MR BRAIN WITH & WITHOUT 2023-07-02 22:16:45 Jorge Escalera [facility] IV CONTRAST Center EEG AWAKE/ASLEEP AND 2023-07-02 16:27:36 Jorge Escalera [facility] SLEEP Center RAPID DRUG SCREEN, URINE 2023-07-02 11:16:00 Salma Pierson [facility] BASIC METABOLIC PANEL 2023-07-02 05:44:00 [facility] LIPID PANEL 2023-07-02 05:44[facility] CBC W/PLT COUNT & AUTO 2023-07-02 05:44:00 [facility] HIGH SENSITIVITY 2023-07-02 05:44:00 [facility] TROPONIN I Center HEMOGLOBIN A1C 2023-07-02 05:44:00 [facility] HEPATIC FUNCTION PANEL 2023-07-02 05:44:00 [facility] [facility] [place] RPR 2023-07-02 05:44:00 [facility] APTT 2023-07-02 05:44:00 [facility] PROTHROMBIN TIME/INR 2023-07-02 05:44:00 [facility] VITAMIN B12 2023-07-02 05:44:00 [facility] C-REACTIVE PROTEIN 2023-07-02 05:44:00 [facility] LEVETIRACETAM LEVEL 2023-07-02 05:44:00 [facility] CBC W/PLT COUNT & AUTO 2023-07-02 05:44:00 [facility] MAGNESIUM LEVEL 2023-04-25 18:00:00 [facility] CBC WITH PLATELET AND 2023-04-15 19:06:00 [facility] DIFFERENTIAL COMPREHENSIVE METABOLIC 2023-04-15 19:06:00 [facility] PANEL AMYLASE LEVEL 2023-04-15 19:06:00 [facility] LIPASE LEVEL 2023-04-15 19:06:00 [facility] LDH 2023-04-15 19:06:00 [facility] MAGNESIUM LEVEL 2023-04-15 19:06:00 [facility] VITAMIN D 25 HYDROXY 2023-04-15 19:06:[address] [facility] Hospital LEVEL POCT FLU A AND B 2020-11-07 19:37:00 Paulette Astorga [facility] (MOLECULAR) Medical Branch Plan of Care Planned Activity Planned Date Details Comments Source Future Scheduled 2028-07-29 DTAP/TDAP/TD VACCINES ([address] [facility] Test 00:00:00 - Td or Tdap) [code = [facility] DTAP/TDAP/TD VACCINES (4 - Td or Tdap)] Future Scheduled 2028-07-02 Lipid panel (procedure) [facility] Test 00:00:00 [code = 30088324] Medical Ce nter Future Scheduled 2024-07-02 Tobacco Cessation [facility] 00:00:00 Counseling and Screening Med ical Center (12+) [code = Tobacco Cessation Counseling and Screening (12+)] Future Scheduled 2024-05-13 Pneumococcal Vaccine: [facility] 00:00:00 0-64 Years (3 - PPSV23 if Nh dicmt Center available, else PCV20) [code = Pneumococcal Vaccine: 0-64 Years (3 - PPSV23 if available, else PCV20)] Future Scheduled 2023-07-25 COVID-19 VACCINE (3 - [facility] 08:18:56 Pfizer risk series) [code Ho spital = COVID-19 VACCINE (3 - Pfizer risk series)] Future Scheduled 2023-07-25 INFLUENZA VACCINE (#1) M ethodist Test 08:18:56 [code = INFLUENZA VACCINE Ho spital (#1)] Future Scheduled 2023-07-25 Pneumococcal Vaccine: [facility] Test 08:18:56 Pediatrics (0 to 5 Years) Ho spital and At-Risk Patients (6 to 64 Years) (3 - PPSV23 if available, else PCV20) [code = Pneumococcal Vaccine: Pediatrics (0 to 5 Years) and At-Risk Patients (6 to 64 Years) (3 - PPSV23 if available, else PCV20)] Future Scheduled 2023-07-25 Influenza Vaccine (#1) [facility] 00:00:00 [code = Influenza Vaccine [facility] (#1)] Future Scheduled 2023-06-30 COVID-19 VACCINE (3 - [facility] Test 10:05:23 Pfizer risk series) [code Ho spital = COVID-19 VACCINE (3 - Pfizer risk series)] Future Scheduled 2023-06-30 INFLUENZA VACCINE [code = [facility] Test 10:05:23 INFLUENZA VACCINE] [facility] Future Scheduled 2023-06-30 Pneumococcal Vaccine: [facility] Test 10:05:23 Pediatrics (0 to 5 Years) Ho spital and At-Risk Patients (6 to 64 Years) (3 - PPSV23 if available, else PCV20) [code = Pneumococcal Vaccine: Pediatrics (0 to 5 Years) and At-Risk Patients (6 to 64 Years) (3 - PPSV23 if available, else PCV20)] Future Scheduled 2023-05-30 COVID-19 VACCINE (3 - [facility] Test 11:09:18 Pfizer risk series) [code Ho spital = COVID-19 VACCINE (3 - Pfizer risk series)] Future Scheduled 2023-05-30 INFLUENZA VACCINE [code = [facility] Test 11:09:18 INFLUENZA VACCINE] Hospital Future Scheduled 2023-05-30 Pneumococcal Vaccine: [facility] Test 11:09:18 Pediatrics (0 to 5 Years) Ho spital and At-Risk Patients (6 to 64 Years) (3 - PPSV23 if available, else PCV20) [code = Pneumococcal Vaccine: Pediatrics (0 to 5 Years) and At-Risk Patients (6 to 64 Years) (3 - PPSV23 if available, else PCV20)] Future Scheduled 2023-05-26 COVID-19 VACCINE (3 - [facility] Test 15:37:18 Pfizer risk series) [code Ho spital = COVID-19 VACCINE (3 - Pfizer risk series)] Future Scheduled 2023-05-26 INFLUENZA VACCINE [code = [facility] Test 15:37:18 INFLUENZA VACCINE] Hospital Future Scheduled 2023-05-26 Pneumococcal Vaccine: [facility] Test 15:37:18 Pediatrics (0 to 5 Years) Ho spital and At-Risk Patients (6 to 64 Years) (3 - PPSV23 if available, else PCV20) [code = Pneumococcal Vaccine: Pediatrics (0 to 5 Years) and At-Risk Patients (6 to 64 Years) (3 - PPSV23 if available, else PCV20)] Future Scheduled 2022-11-[address] [facility] Test 00:00:00 (12+) [code = DEPRESSION Med [facility] Center SCREENING (12+)] Future Scheduled 2021-05-31 COVID-19 VACCINE (4 - [facility] 00:00:00 Booster for Pfizer Medical C enter series) [code = COVID-19 VACCINE (4 - Booster for Pfizer series)] Future Scheduled 2002 HEPATITIS C [facility]CRE[facility]ING [facility] 00:00:00 [code = HEPATITIS C Medical Center SCREENING] Future Scheduled [address] Human immunodeficiency [facility] 00:00:00 virus screening Medical Cent er (procedure) [code = 310128396] Encounters Start End Encounter Admission Attending Care Care Encounter Source Date/Time Date/Time Type Type Clinicians Facility Department ID 2023-07-02 Inpatient ER [facility] [id number] SLE 21:03:39 2023-09-24 2023-09-24 Outpatient BETSY HEREDIA BETSY [id number] [place] 16:15:00 16:15:00 SAADIA Seybol d 2023-09-02 2023-09-02 Outpatient BETSY VELEZ BETSY [id number] [place] 08:15:00 08:15:00 SILVESTRE Interiano ld 2023-07-25 2023-07-25 Orders [place], 1.2.840.1 [id number] Methodi 00:00:00 00:00:00 Only Garth 98808.1.[address] [facility] 3.430.2.7 Hospit a .3.891657 l .8 2023-07-18 2023-07-18 Orders [place], 1.2.840.1 656 [id number] Methodi 00:00:00 00:00:00 Only Garth 28913.1.[address] [facility] 3.430.2.7 Hospit a .3.253868 l .8 2023-07-16 2023-07-16 Outpatient BETSY HEREDIA BETSY [id number] [place] 00:00:00 00:00:00 SAADIA Seybol d 2023-07-11 2023-07-11 Orders [place], 1.2.840.1 [id number] Methodi 00:00:00 00:00:00 Only Garth 84995.1.[address] [place] 3.430.2.7 Hospit a .3.402120 l .8 2023-07-08 2023-07-08 Outpatient BETSY HEREDIA BETSY [id number] [place] 00:00:00 00:00:00 SAADIA Seybol d 2023-07-04 2023-07-04 Orders [place], 1.2.840.1 [id number] Methodi 00:00:00 00:00:00 Only Garth [address]254.1.[address] [facility] 3.430.2.7 Hospit a .3.638527 l .8 2023-07-02 2023-07-03 Inpatient ER VERONICA LAW Neurology [id number] [facility] 03:26:00 15:10:00 KARUNA 2023-07-02 2023-07-03 [facility] [id number] [facility] 03:26:00 15:10:00 Encounter Dangelo Salmatri Hernandez [facility] 2023-07-03 2023-07-03 Outpatient BETSY SOLARES [id number] [place] 00:00:00 00:00:00 YANDY Seybol d 2023-07-02 2023-07-02 Travel [facility] [id number] [facility] 00:[facility] 00:00:00 [facility] 2023-06-27 2023-06-27 Outpatient BETSY HEREDIA [id number] [place] 00:00:00 00:00:00 SAADIA Seybol d 2023-06-27 2023-06-27 Orders [place], 1.2.840.1 [id number] Methodi 00:00:00 00:00:00 Only Garth 18789.1.[address] [facility] 3.430.2.7 Hospit a .3.764317 l .8 2023-06-27 2023-06-27 Orders [place], 1.2.840.1 204 [id number] Methodi 00:00:00 00:00:00 Only Garth 61727.1.[address] [facility] 3.430.2.7 Hospit a .3.562400 l .8 2023-06-26 2023-06-26 Outpatient LAB90 BETSY HO [id number] [place] 16:00:00 16:00:00 Seybol d 2023-06-26 2023-06-26 Outpatient BETSY HEREDIA [id number] [place] 15:30:00 15:30:00 SAADIA Seybol d 2023-06-20 2023-06-20 Orders [place], 1.2.840.1 [id number] Methodi 00:00:00 00:00:00 Only Garth 65862.1.[address] [place] 3.430.2.7 Hospit a .3.910732 l .8 2023-06-20 2023-06-20 Orders [place], 1.2.840.1 689 [id number] Methodi 00:00:00 00:00:00 Only Garth 61166.1.[address] [place] 3.430.2.7 Hospit a .3.693562 l .8 2023-06-13 2023-06-13 Orders [place], 1.2.840.1 833 [id number] Methodi 00:00:00 00:00:00 Only Garth 22862.1.[address] [place] 3.430.2.7 Hospit a .3.887026 l .8 2023-06-13 2023-06-13 Orders [place], 1.2.840.1 [id number] Methodi 00:00:00 00:00:00 Only Garth 62508.1.[address] [place] 3.430.2.7 Hospit a .3.327043 l .8 2023-06-06 2023-06-06 Orders [place], 1.2.840.1 205 [id number] Methodi 00:00:00 00:00:00 Only Garth 78621.1.[address] [place] 3.430.2.7 Hospit a .3.389205 l .8 2023-06-06 2023-06-06 Orders [place], 1.2.840.1 [id number] Methodi 00:00:00 00:00:00 Only Garth 83093.1.[address] [place] 3.430.2.7 Hospit a .3.989873 l .8 2023-05-30 2023-05-30 BETSY Will [id number] [place] 00:00:00 00:00:00 MARISSA camacho 2023-05-30 2023-05-30 Orders [place], 1.2.840.1 [id number] Methodi 00:00:00 00:00:00 Only Garth 49318.1.[address] [place] 3.430.2.7 Hospit a .3.745975 l .8 2023-05-30 2023-05-30 Orders [place], 1.2.840.1 [id number] Methodi 00:00:00 00:00:00 Only Garth 10876.1.[address] [facility] 3.430.2.7 Hospit a .3.192482 l .8 2023-05-26 2023-05-26 Outpatient BETSY GONZALEZ [id number] [place] 15:30:00 15:30:00 FAWAD camacho 2023-05-26 2023-05-26 Outpatient BETSY CUNNINGHAM [id number] [place] 00:00:00 00:00:00 BETSY camacho 2023-05-23 2023-05-23 Orders [place], 1.2.840.1 [id number] Methodi 00:00:00 00:00:00 Only Garth 60055.1.[address] [place] 3.430.2.7 Hospit a .3.580937 l .8 2023-05-23 2023-05-23 Orders [place], 1.2.840.1 963 [id number] Methodi 00:00:00 00:00:00 Only Garth 06664.1.[address] [place] 3.430.2.7 Hospit a .3.029962 l .8 2023-05-16 2023-05-16 Orders [place], 1.2.840.1 [id number] Methodi 00:00:00 00:00:00 Only Garth 33141.1.[address] [place] 3.430.2.7 Hospit a .3.845950 l .8 2023-05-16 2023-05-16 Orders [place], 1.2.840.1 [id number] Methodi 00:00:00 00:00:00 Only Garth 39488.1.[address] [place] 3.430.2.7 Hospit a .3.592707 l .8 2023-05-09 2023-05-09 Orders [place], 1.2.840.1 [id number] Methodi 00:00:00 00:00:00 Only Garth 68233.1.[address] [place] 3.430.2.7 Hospit a .3.815237 l .8 2023-05-09 2023-05-09 Orders [place], 1.2.840.1 [id number] Methodi 00:00:00 00:00:00 Only Garth 76898.1.[address] [place] 3.430.2.7 Hospit a .3.366546 l .8 2023-05-02 2023-05-02 Orders [place], 1.2.840.1 [id number] Methodi 00:00:00 00:00:00 Only Garth 31674.1.[address] [place] 3.430.2.7 Hospit a .3.207984 l .8 2023-05-02 2023-05-02 Orders [place], 1.2.840.1 [id number] Methodi 00:00:00 00:00:00 Only Garth 16707.1.[address] [place] 3.430.2.7 Hospit a .3.432950 l .8 2023-04-25 2023-04-25 Orders [place], 1.2.840.1 [id number] Methodi 00:00:00 00:00:00 Only Garth 72830.1.[address] [place] 3.430.2.7 Hospit a .3.174633 l .8 2023-04-25 2023-04-25 Orders [place], 1.2.840.1 [id number] Methodi 00:00:00 00:00:00 Only Garth 68985.1.[address] [place] 3.430.2.7 Hospit a .3.832940 l .8 2023-04-18 2023-04-18 Orders [place], 1.2.840.1 [id number] Methodi 00:00:00 00:00:00 Only Janes 67444.1.[address] [place] 3.430.2.7 Hospit a .3.964605 l .8 2023-04-18 2023-04-18 Orders [place], 1.2.840.1 [id number] Methodi 00:00:00 00:00:00 Only Janes 26571.1.[address] [place] 3.430.2.7 Hospit a .3.141552 l .8 2023-04-15 2023-04-15 Office [place], 1.2.840.1 739 [id number] Methodi 13:30:00 14:17:09 Visit Janes 32441.1.[address] [place] 3.430.2.7 Hospit a .3.702340 l .8 2023-04-15 2023-04-15 Office [place], 1.2.840.1 [id number] Methodi 13:30:00 14:17:09 Visit Janes 24906.1.[address] [place] 3.430.2.7 Hospit a .3.425061 l .8 2023-04-15 2023-04-15 Travel 1.2.840.1 1.2.608.668 0465 [id number] Methodi 00:00:00 00:00:[address] 3.430.2.7 0.2.7.3.698 Ho spita .3.750950 084.8 l .8 2023-04-15 2023-04-15 Travel 1.2.840.1 1.2.554.389 8535 [id number] Methodi 00:00:00 00:00:[address] 3.430.2.7 0.2.7.3.698 Ho spita .3.780973 084.8 l .8 2023-03-19 2023-03-19 Abstract [facility], 1.2.840.1 [id number] Methodi 00:00:00 00:00:00 Garth 33317.1.1 [address] [facility] 3.430.2.7 Hospit a .3.537480 l .8 2023-03-19 2023-03-19 Abstract [place], 1.2.840.1 [id number] Methodi 00:00:00 00:00:00 Garth 70711.1.1 397 [facility] 3.430.2.7 Hospit a .3.730264 l .8 2022-05-03 2022-05-03 Outpatient BETSY HEREDIA [id number] [place] 00:00:00 00:00:00 SAADIA camacho 2022-04-26 2022-04-26 Office Darrell Heredia 1.2.840.114 [id number] [place] 16:30:00 16:45:00 Visit [facility] 1.2.7.2.686 [id number] 0 2022-04-15 2022-04-15 Outpatient [facility], [facility] [id number] [place] 00:00:00 00:00:00 GARTH 637 Method i 2022-04-15 2022-04-15 Outpatient [place], [facility] [id number] [place] 00:00:00 00:00:00 GARTH 487 Method i 2021-10-22 2021-10-22 Outpatient [place], [facility] [id number] [place] 00:00:00 00:00:00 GARTH 701 Method i 2021-07-16 2021-07-16 Outpatient [facility]ART, [facility] [id number] [place] 00:00:00 00:00:00 GARTH 154 Method i 2021-07-16 2021-07-16 Outpatient BE[place]ART, [facility] [id number] [place] 00:00:00 00:00:00 GARTH 411 Method i 2021-03-12 2021-03-12 Outpatient BE[place]ART, [facility] [id number] [place] 00:00:00 00:00:00 GARTH [address] 2021-02-19 2021-02-19 Outpatient [facility] [id number] [place] 00:00:00 00:00:[address] 2021-02-12 2021-02-12 Outpatient BEINART, [facility] [id number] [place] 00:00:00 00:00:00 GARTH [address] 2021-02-01 2021-02-05 Inpatient JOGLEKAR, [facility] [id number] [place] 00:00:00 00:00:00 CLARITZA [address] 2021-02-01 2021-02-01 Outpatient [facility] [id number] [place] 00:00:00 00:00:[address] 2021-02-01 2021-02-01 Outpatient TRACHTENBER [facility] [id number] [place] 00:00:00 00:00:00 TAMIKO Guillermo [address] 2020-12-20 2020-12-20 Outpatient [place], [facility] [id number] [place] 00:00:00 00:00:00 GARTH [address] 2020-11-07 2020-11-07 Urgent Provider, [facility] 1.2.534.686 [id number] 13:02:18 13:56:39 [facility] 350.1.13.10 Care [place] 4.2.7.2.686 Professio [phone] [place] [address] [address] 2020-11-07 2020-11-07 Urgent Provider, [facility] 1.2.840.114 [id number] [facility] 13:02:18 13:56:39 Care Anene, [facility] 350.1.13.10 ity [facility] [place] 4.2.7.2.686 C[place] as Professio [phone] [place] [address] [address] 2020-11-07 2020-11-07 Outpatient R ANENE, [facility] [id number] [facility] 13:00:00 13:00:00 PAULETTE ity [facility] 2020-10-26 2020-10-26 Outpatient BEINART, [facility] [id number] [place] 00:00:00 00:00:00 GARTH 049 Method i 2020-09-20 2020-09-20 Outpatient BEINART, [facility] [id number] [place] 00:00:00 00:00:00 GARTH 508 Method i 2020-09-19 2020-09-19 Outpatient [place]INART, [facility] [id number] [place] 00:00:00 00:00:00 GARTH 922 Method i 2020-09-19 2020-09-19 Outpatient BEINART, [facility] [id number] [place] 00:00:00 00:00:00 GARTH 920 Method i 2019-11-12 2019-11-12 Outpatient BEINART, [facility] [id number] [place] 00:00:00 00:00:00 GARTH 351 Method i 2019-11-12 2019-11-12 Outpatient BEINART, [facility] [id number] [place] 00:00:00 00:00:00 GARTH [address] Results Test Description Test Time Test Comments Results Result [facility] e Comments MR BRAIN WITH & 2023-06-24 WITHOUT IV 0 CONTRAST 14:23:24 [facility] 1985 Sex: M MRI Brain with and without contrastCLINICAL HISTORY: Neuro deficit, acute, stroke suspectedBrain mass or lesionTechnique: Multiplanar, multisequence MRI images of the brain obtainedwith and without IV contrast.Comparisons: NoneFindings:Left parietal susceptibility artifact likely from craniotomy withsubjacent T2*hypointensity suggestive of hemosiderin staining withencephalomalacia. There is nonspecific left frontal lobe curvilinearsubcortical T2 FLAIR hyperintensity and bilateral periventricular andleft temporal lobe T2 FLAIR hyperintensities. No acute infarct or DWIhyperintense lesion.No midline shift or hydrocephalus. No acute intracranial hemorrhage.Linear enhancement along the margin of the left parietal lobe, subjacentto the craniotomy is without nodularity. Orbits and globes areunremarkable. Paranasal sinuses are clear. Small left mastoid effusion.No destructive osseous lesion.IMPRESSION:Left parietal craniotomy with subjacent encephalomalacia, hemosiderinstaining at postoperative linear enhancement. No nodular enhancement tosuggest residual or recurrent lesion but correlation with preoperativeimaging would be helpful for comparison.Minimal nonspecific cerebral white matter T2 FLAIR hyperintensities,more than typically seen for age, may be sequela of early chronicmicroangiopathic ischemic changes, migraine headaches, demyelinatingdisease or trauma.Electronically Signed By: Richard Salazar07/03/2023 14:25 CDTWorkstation Name: [id number] PHOSPHORUS 2023-07-03 04:09:48 Test Item Value Reference Range Interpretation Comme nts PHOSPHORUS (BEAKER) (test code = 604) 3.8 mg/dL 2.3-4.7 Transport Coordinator ID - MMBASIC METABOLIC [id number] 04:09:47 Test Item Value Reference Range Interpretation Comments SODIUM (BEAKER) 138 meq/L 136-145 (test code = 381) POTASSIUM 3.9 meq/L 3.5-5.1 (BEAKER) (test code = 379) CHLORIDE (BEAKER) 107 meq/L 98-107 (test code = 382) CO2 (BEAKER) 20 meq/L 22-29 L (test code = 355) BLOOD UREA 11 mg/dL 7-21 NITROGEN (BEAKER) (test code = 354) CREATININE 1.01 mg/dL 0.57-1.25 (BEAKER) (test code = 358) GLUCOSE RANDOM 98 mg/dL 70-105 (BEAKER) (test code = 652) CALCIUM (BEAKER) 8.6 mg/dL 8.4-10.2 (test code = 697) EGFR (BEAKER) 99 Interpretatio n of eGFR (test code = mL/min/1.73 values Stage De scription 1092) sq m Result G1 Falguni l or high >=90 G2 Mildly decreased 60-89 G3a Mildl y to moderately 45-5 9 G3b Moderately to s everely 30-44 G4 Severl y decreased 15-29 G5 Kidney failure <15Reported eGF R is based on the CKD-EPI 202 equation that d oes not use a race coefficientEsti mated GFR is not as accur ate as Creatinine Cristina janna in predicting glom erular filtration rate . Estimated GFR is not appl icable for dialysis patien ts Transport Coordinator ID - [id number] 04:09:47 Test Item Value Reference Range Interpretation Comments MAGNESIUM (BEAKER) (test code = 2.0 mg/dL 1.6-2.6 627) Transport Coordinator ID - MMCBC W/PLT COUNT & AUTO [id number] 03:56:57 Test Item Value Reference Range Interpretation Comments WHITE BLOOD CELL COUNT (BEAKER) 5.9 K/ L 3.5-10.5 (test code = 775) RED BLOOD CELL COUNT (BEAKER) 4.20 M/ L 4.63-6.08 L (test code = 761) HEMOGLOBIN (BEAKER) (test code = 12.7 GM/DL 13.7-17.5 L 410) HEMATOCRIT (BEAKER) (test code = 37.0 % 40.1-51.0 L 411) MEAN CORPUSCULAR VOLUME (BEAKER) 88 fL 79-92 (test code = 753) MEAN CORPUSCULAR HEMOGLOBIN 30.2 pg 25.7-32.2 (BEAKER) (test code = 751) MEAN CORPUSCULAR HEMOGLOBIN CONC 34.3 GM/DL 32.3-36.5 (BEAKER) (test code = 752) RED CELL DISTRIBUTION WIDTH 12.3 % 11.6-14.4 (BEAKER) (test code = 412) PLATELET COUNT (BEAKER) (test 253 K/CU MM 150-450 code = 756) MEAN PLATELET VOLUME (BEAKER) 9.0 fL 9.4-12.4 L (test code = 754) NUCLEATED RED BLOOD CELLS 0 /100 WBC 0-0 (BEAKER) (test code = 413) NEUTROPHILS RELATIVE PERCENT 43 % (BEAKER) (test code = 429) LYMPHOCYTES RELATIVE PERCENT 45 % (BEAKER) (test code = 430) MONOCYTES RELATIVE PERCENT 9 % (BEAKER) (test code = 431) EOSINOPHILS RELATIVE PERCENT 2 % (BEAKER) (test code = 432) BASOPHILS RELATIVE PERCENT 1 % (BEAKER) (test code = 437) NEUTROPHILS ABSOLUTE COUNT 2.50 K/ L 1.78-5.38 (BEAKER) (test code = 670) LYMPHOCYTES ABSOLUTE COUNT 2.65 K/ L 1.32-3.57 (BEAKER) (test code = 414) MONOCYTES ABSOLUTE COUNT (BEAKER) 0.55 K/ L 0.30-0.82 (test code = 415) EOSINOPHILS ABSOLUTE COUNT 0.12 K/ L 0.04-0.54 (BEAKER) (test code = 416) BASOPHILS ABSOLUTE COUNT (BEAKER) 0.03 K/ L 0.01-0.08 (test code = 417) IMMATURE GRANULOCYTES-RELATIVE 0.20 % 0.00-1.00 PERCENT (BEAKER) (test code = 2801) [id number] 14:54:14 Test Item Value Reference Range Interpretation Comments RPR SCREEN (BEAKER) (test code = Nonreactive Nonreactive 420) Rapid drug screen, [id number] 14:02:56 Test Item Value Reference Range Interpretation Comments Barbiturate Screen Negative Negative (test code = 63603-3) Benzodiazepine Screen Negative Negative (test code = 06435-8) Cocaine (Metab.) Negative Negative Screen (test code = 3397-7) Methadone Screen (test Negative Negative code = 19449-9) Opiate Screen (test Positive Negative A code = 27270-0) Cannabinoid Screen Negative Negative (test code = 36093-0) Amph/Methamph Screen Negative Negative (test code = 94659-3) Phencyclidine Screen Negative Negative (test code = 29746-0) pH, UA (test code = 7.5 5.0-8.0 5803-2) LIDIA (test code = LIDIA) DRUG CUTOFF CONC.Cocaine 300 ng/mL Cannabinoid 50 ng/mLBenzodiazepine 200 ng/mLBarbiturate 200 ng/mLPhencyclidine 25 ng/mLOpiate 300 ng/mLMethadone 300 ng/mLAmphetamine/ 1000 ng/mL Methamphetamine This assay provides an unconfirmed qualitative test result for the clinical management of patients in emergency situations. Chain of custody not maintained. Some ghcq-amc-ryseazr medications, as well as adulterants, may cause inaccurate results. Clinical correlation should be applied. A more comprehensive drug screen or confirmation of a detected drug may be performed upon request.Transport Coordinator ID - ADMIN Lab Interpretation Abnormal (test code = 95539-7) [facility] [id number] 14:02:56 Test Item Value Reference Range Interpretation Comments BARBITURATE URINE (BEAKER) (test Negative Negative code = 725) BENZODIAZEPINE SCREEN URINE (BEAKER) Negative Negative (test code = 726) COCAINE (METAB.) SCREEN (BEAKER) Negative Negative (test code = 1164) METHADONE SCREEN (BEAKER) (test code Negative Negative = 1436) OPIATE SCREEN URINE (BEAKER) (test Positive Negative A code = 734) CANNABINOID SCREEN URINE (BEAKER) Negative Negative (test code = 727) AMPH/METHAMPH SCREEN (BEAKER) (test Negative Negative code = 1438) PHENCYCLIDINE SCREEN URINE (BEAKER) Negative Negative (test code = 608) PH UA (BEAKER) (test code = 467) 7.5 5.0-8.0 DRUG CUTOFF CONC.Cocaine 300 ng/mL Cannabinoid 50 ng/mLBenzodiazepine 200 ng/mLBarbiturate 200 ng/mLPhencyclidine 25 ng/mLOpiate 300 ng/mLMethadone 300 ng/mLAmphetamine/ 1000 ng/mL MethamphetamineThisassay provides an unconfirmed qualitative test result for the clinical management of patients in emergency situations. Chain of custody not maintained. Some cgah-glz-bobsinr medications, as well as adulterants, may cause inaccurate results. Clinical correlation should be applied. A more comprehensive drug screen or confirmation of a detected drug may be performed upon request.Transport Coordinator ID - ADMINHEMOGLOBIN A1C 2023-07-02 11:46:44 Test Item Value Reference Range Interpretation Comments HEMOGLOBIN A1C 5.4 % See_Comment [Automated m essage] ELECTROPHORESIS (BEAKER) The system which (test code = 3811) generated this result transmitted ref erence range: <=5.6%. The reference range was not used to int erpret this result as normal/abnormal . "The A1c is measured using a NGSP-certified method. HbA1c value equal to or greater than 6.5% as thediagnosis cutoff for diabetes. An HbA1c value of 5.7- 6.4% indicates increased risk for diabetes (prediabetes)."Transport Coordinator ID - ADMOperator ID - ADMVITAMIN [id number] 07:01:19 Test Item Value Reference Range Interpretation Comments VITAMIN B12 (BEAKER) (test code = 915 pg/mL 213-816 H 774) Transport Coordinator ID - EMHEPATIC FUNCTION [id number] 06:26:29 Test Item Value Reference Range Interpretation Comments TOTAL PROTEIN (BEAKER) (test code = 6.6 gm/dL 6.0-8.3 770) ALBUMIN (BEAKER) (test code = 1145) 4.0 g/dL 3.5-5.0 BILIRUBIN TOTAL (BEAKER) (test code 0.4 mg/dL 0.2-1.2 = 377) BILIRUBIN DIRECT (BEAKER) (test 0.2 mg/dL 0.1-0.5 code = 706) ALKALINE PHOSPHATASE (BEAKER) (test 54 U/L 40-150 code = 346) AST (SGOT) (BEAKER) (test code = 23 U/L 5-34 353) ALT (SGPT) (BEAKER) (test code = 42 U/L 6-55 347) Transport Coordinator ID - BSC-REACTIVE [id number] 06:26:29 Test Item Value Reference Range Interpretation Comments C-REACTIVE PROTEIN (BEAKER) (test 0.15 mg/dL 0.00-0.50 code = 676) Transport Coordinator ID - BSLIPID [id number] 06:26:24 Test Item Value Reference Range Interpretation Comments TRIGLYCERIDES (BEAKER) (test code = 210 mg/dL 540) CHOLESTEROL (BEAKER) (test code = 180 mg/dL 631) HDL CHOLESTEROL (BEAKER) (test code 25 mg/dL = 976) LDL CHOLESTEROL CALCULATED (BEAKER) 113 mg/dL (test code = 633) Triglyceride Reference Range: Low Risk <150 Borderline 150-199 High Risk 200- 499 Very High Risk >=500Cholesterol Reference Range: Low Risk <200 Borderline 200-239 High Risk >240HDL Cholesterol Reference Range: Low Risk >=60 High Risk <40LDL Cholesterol Reference Range: Optimal <100 Near Optimal 100-129 Borderline 130-159 High 160-189 Very High >=190 Transport Coordinator ID - BSBASIC METABOLIC [id number] 06:26:23 Test Item Value Reference Range Interpretation Comments SODIUM (BEAKER) 135 meq/L 136-145 L (test code = 381) POTASSIUM 4.0 meq/L 3.5-5.1 (BEAKER) (test code = 379) CHLORIDE (BEAKER) 102 meq/L 98-107 (test code = 382) CO2 (BEAKER) 22 meq/L 22-29 (test code = 355) BLOOD UREA 11 mg/dL 7-21 NITROGEN (BEAKER) (test code = 354) CREATININE 1.03 mg/dL 0.57-1.25 (BEAKER) (test code = 358) GLUCOSE RANDOM 111 mg/dL 70-105 H (BEAKER) (test code = 652) CALCIUM (BEAKER) 8.3 mg/dL 8.4-10.2 L (test code = 697) EGFR (BEAKER) 96 Interpretatio n of eGFR (test code = mL/min/1.73 values Stage De scription 1092) sq m Result G1 Falguni l or high >=90 G2 Mildly decreased 60-89 G3a Mildl y to moderately 45-5 9 G3b Moderately to s everely 30-44 G4 Severl y decreased 15-29 G5 Kidney failure <15Reported eGF R is based on the CKD-EPI 2020 equation that d oes not use a race coefficientEsti mated GFR is not as accur ate as Creatinine Cristina janna in predicting glom erular filtration rate . Estimated GFR is not appl icable for dialysis patien ts Transport Coordinator ID - BSHIGH SENSITIVITY TROPONIN [id number] 06:22:44 Test Item Value Reference Range Interpretation Comments HIGH SENSITIVITY < pg/ml See_Comment [Automated message] TROPONIN I (test code = The system which [id number]) generated this result transmitted ref erence range: <=35. Th e reference range was not used to interpr et this result as normal/abnormal . Transport Coordinator ID - BSThe PRACTICAL NURSE STAT High Sensitivity Troponin-I results should be used in conjunctionwith other diagnostic information such as ECG, clinical observations and information, and patient symptoms to aid in the diagnosis of [place].PROTHROMBIN TIME/[id number] 06:19:50 Test Item Value Reference Range Interpretation Comments PROTIME (BEAKER) 14.9 seconds 11.9-14.2 H (test code = 759) INR (BEAKER) (test 1.24 See_Comment [Automat ed message] code = 370) The system [employer] generated this result transmitted ref erence range: <=5.90. The reference range was not used to int erpret this result as normal/abnormal . RECOMMENDED COUMADIN/WARFARIN INR THERAPY RANGESSTANDARD DOSE: 2.0 - 3.0 Includes: PROPHYLAXIS for venous thrombosis, systemic embolization; TREATMENT for venous thrombosis and/or pulmonary embolus.HIGH RISK: Target INR is 2.5-3.5 for patients with mechanical heart valves.[id number] 06:11:21 Test Item Value Reference Range Interpretation Comments PARTIAL THROMBOPLASTIN TIME 25.8 seconds 22.5-36.0 (BEAKER) (test code = 760) CBC W/PLT COUNT & AUTO [id number] 06:00:16 Test Item Value Reference Range Interpretation Comments WHITE BLOOD CELL COUNT (BEAKER) 8.3 K/ L 3.5-10.5 (test code = 775) RED BLOOD CELL COUNT (BEAKER) 3.93 M/ L 4.63-6.08 L (test code = 761) HEMOGLOBIN (BEAKER) (test code = 11.8 GM/DL 13.7-17.5 L 410) HEMATOCRIT (BEAKER) (test code = 34.9 % 40.1-51.0 L 411) MEAN CORPUSCULAR VOLUME (BEAKER) 89 fL 79-92 (test code = 753) MEAN CORPUSCULAR HEMOGLOBIN 30.0 pg 25.7-32.2 (BEAKER) (test code = 751) MEAN CORPUSCULAR HEMOGLOBIN CONC 33.8 GM/DL 32.3-36.5 (BEAKER) (test code = 752) RED CELL DISTRIBUTION WIDTH 12.3 % 11.6-14.4 (BEAKER) (test code = 412) PLATELET COUNT (BEAKER) (test 233 K/CU MM 150-450 code = 756) MEAN PLATELET VOLUME (BEAKER) 9.3 fL 9.4-12.4 L (test code = 754) NUCLEATED RED BLOOD CELLS 0 /100 WBC 0-0 (BEAKER) (test code = 413) NEUTROPHILS RELATIVE PERCENT 71 % (BEAKER) (test code = 429) LYMPHOCYTES RELATIVE PERCENT 22 % (BEAKER) (test code = 430) MONOCYTES RELATIVE PERCENT 6 % (BEAKER) (test code = 431) EOSINOPHILS RELATIVE PERCENT 0 % (BEAKER) (test code = 432) BASOPHILS RELATIVE PERCENT 0 % (BEAKER) (test code = 437) NEUTROPHILS ABSOLUTE COUNT 5.87 K/ L 1.78-5.38 H (BEAKER) (test code = 670) LYMPHOCYTES ABSOLUTE COUNT 1.84 K/ L 1.32-3.57 (BEAKER) (test code = 414) MONOCYTES ABSOLUTE COUNT (BEAKER) 0.51 K/ L 0.30-0.82 (test code = 415) EOSINOPHILS ABSOLUTE COUNT 0.02 K/ L 0.04-0.54 L (BEAKER) (test code = 416) BASOPHILS ABSOLUTE COUNT (BEAKER) 0.03 K/ L 0.01-0.08 (test code = 417) IMMATURE GRANULOCYTES-RELATIVE 0.20 % 0.00-1.00 PERCENT (BEAKER) (test code = 2801) Magnesium [id number] 23:00:00 Test Item Value Reference Range Interpretation Comments Magnesium (test code = TNP 23927-8) LIDIA (test code = LIDIA) Tests marked TNP not performed.Please contact the lab for more information. [facility] [id number] 23:00:00 Test Item Value Reference Range Interpretation Comments Magnesium (test code = TNP 77544-2) LIDIA (test code = LIDIA) Tests marked TNP not performed.Please contact the lab for more information. [facility] [id number] 23:00:00 Test Item Value Reference Range Interpretation Comments Magnesium (test code = TNP 31019-3) LIDIA (test code = LIDIA) Tests marked TNP not performed.Please contact the lab for more information. [facility] [id number] 23:00:00 Test Item Value Reference Range Interpretation Comments Magnesium (test code = TNP 47421-3) LIDIA (test code = LIDIA) Tests marked TNP not performed.Please contact the lab for more information. [facility] 25 hydroxy [id number] 21:03:00 Test Item Value Reference Range Interpretation Comments Vitamin D, 25-hydroxy 32 ng/mL 30-100 (test code = 1988-3) LIDIA (test code = LIDIA) Items were attached to this order: xgld, xgr [facility] hydroxy [id number] 21:03:00 Test Item Value Reference Range Interpretation Comments Vitamin D, 25-hydroxy 32 ng/mL 30-100 (test code = 1989-01) LIDIA (test code = LIDIA) Items were attached to this order: xgld, [facility] [id number] 21:03:00 Test Item Value Reference Range Interpretation Comments Vitamin D, 25-hydroxy 32 ng/mL 30-100 (test code = 1989-01) LIDIA (test code = LIDIA) Items were attached to this order: xgld, [facility] [id number] 21:03:00 Test Item Value Reference Range Interpretation Comments Vitamin D, 25-hydroxy 32 ng/mL 30-100 (test code = 1989-01) LIDIA (test code = LIDIA) Items were attached to this order: xgld, [facility] [id number] 20:44:00 Test Item Value Reference Range Interpretation Comments Hemolysis (test <15 <=15 code = 3440) Sodium (test code = 139 mmol/L 135-654 2010436) Potassium (test 4.4 mmol/L 3.5-5.0 code = 2742089) Chloride (test code 102 mmol/L 98-107 = 2075-0) CO2 (test code = 26 mmol/L 23-32 2027-) Glucose (test code 89 mg/dL 60-100 = 2345-7) BUN (test code = 16 mg/dL 9-20 3896783) Creatinine (test 1.1 mg/dL 0.7-1.3 code = 1430301) eGFR MDRD (test 73.9 See_Comment If code = 8846) [place], multi ply the GFR by 1.21 0. [Automated mess age] The system [employer] generated this result transmit noemy reference range : 60.0 - 137.0 mL/min/1.73m^2. The reference range was not used to interpret this result as normal/abnormal . Total bilirubin 0.4 mg/dL 0.2-1.3 (test code = 1975-2) Alkaline 74 U/L 38-126 phosphatase (test code = 6768-6) Protein (test code 7.9 g/dL 6.0-8.5 = 2885-2) Albumin (test code 4.7 g/dL 3.5-5.0 = 4897874) Calcium (test code 10.2 mg/dL 8.4-10.6 = 3723359) AST (test code = 26 U/L 1050 1920-8) ALT (test code = 48 U/L 60 1742-6) Anion gap (test 15.0 5.0-17.0 code = 1552508) BUN/creatinine 14.0 7.0-25.0 ratio (test code = 3097-3) LIDIA (test code = Items were LIDIA) attached to this order: xgld, [facility] Hospital[facility] [id number] 20:44:00 Test Item Value Reference Range Interpretation Comments Amylase (test code = 84 U/L 28-100 1798-8) LIDIA (test code = LIDIA) Items were attached to this order: xgld, [facility] 20:44:00 Test Item Value Reference Range Interpretation Comments Hemolysis (test code = <15 <=15 3440) LDH (test code = 191 U/L 135-594 4588061) LIDIA (test code = LIDIA) Items were attached to this order: xgld, [facility] HospitalLipase [id number] 20:44:00 Test Item Value Reference Range Interpretation Comments Lipase (test code = 35 U/L 1360 3040-3) LIDIA (test code = LIDIA) Items were attached to this order: xgld, [facility] [id number] 20:44:00 Test Item Value Reference Range Interpretation Comments Hemolysis (test <15 <=15 code = 3440) Sodium (test code = 139 mmol/L 135-450 8757343) Potassium (test 4.4 mmol/L 3.5-5.0 code = 0161519) Chloride (test code 102 mmol/L 98-107 = 2075-0) CO2 (test code = 26 mmol/L 23-32 2027-9) Glucose (test code 89 mg/dL 60-100 = 2345-7) BUN (test code = 16 mg/dL -20 1831088) Creatinine (test 1.1 mg/dL 0.7-1.3 code = 2296170) eGFR MDRD (test 73.9 See_Comment If code = 8846) [place], multi ply the GFR by 1.21 0. [Automated mess age] The system [employer] generated this result transmit noemy reference range : 60.0 - 137.0 mL/min/1.73m^2. The reference range was not used to interpret this result as normal/abnormal . Total bilirubin 0.4 mg/dL 0.2-1.3 (test code = 1975-2) Alkaline 74 U/L 38-126 phosphatase (test code = 6768-6) Protein (test code 7.9 g/dL 6.0-8.5 = 2885-2) Albumin (test code 4.7 g/dL 3.5-5.0 = 6917483) Calcium (test code 10.2 mg/dL 8.4-10.6 = 9368996) AST (test code = 26 U/L 50 1920-8) ALT (test code = 48 U/L 60 1742-6) Anion gap (test 15.0 5.0-17.0 code = 2821323) BUN/creatinine 14.0 7.0-25.0 ratio (test code = 3097-3) LIDIA (test code = Items were LIDIA) attached to this order: xgld, [facility] Center[facility] [id number] 20:44:00 Test Item Value Reference Range Interpretation Comments Amylase (test code = 84 U/L 28-100 1798-8) LIDIA (test code = LIDIA) Items were attached to this order: xgld, [facility]LD[facility] 20:44:00 Test Item Value Reference Range Interpretation Comments Hemolysis (test code = <15 <=15 3440) LDH (test code = 191 U/L 135-304 5093114) LIDIA (test code = LIDIA) Items were attached to this order: xgld, [facility] Center[facility] [id number] 20:44:00 Test Item Value Reference Range Interpretation Comments Lipase (test code = 35 U/L 1360 3040-3) LIDIA (test code = LIDIA) Items were attached to this order: xgld, [facility] [id number] 20:44:00 Test Item Value Reference Range Interpretation Comments Hemolysis (test <15 See_Comment [Automated code = 1640) message] The sy stem which generated this result transmitted reference range : <=15. The refer ence range was not u sed to interpret th is result as normal/abnormal . Sodium (test code = 139 mmol/L 135-050 5265542) Potassium (test 4.4 mmol/L 3.5-5.0 code = 7770828) Chloride (test code 102 mmol/L 98-107 = 2075-0) CO2 (test code = 26 mmol/L 23-32 2027-9) Glucose (test code 89 mg/dL 60-100 = 2345-7) BUN (test code = 16 mg/dL -20 8431330) Creatinine (test 1.1 mg/dL 0.7-1.3 code = 9293021) eGFR MDRD (test 73.9 See_Comment If code = 8846) [place], multi ply the GFR by 1.21 0. [Automated mess age] The system [employer] generated this result transmit noemy reference range : 60.0 - 137.0 mL/min/1.73m^2. The reference range was not used to interpret this result as normal/abnormal . Total bilirubin 0.4 mg/dL 0.2-1.3 (test code = 1975-2) Alkaline 74 U/L 38-126 phosphatase (test code = 6768-6) Protein (test code 7.9 g/dL 6.0-8.5 = 2885-2) Albumin (test code 4.7 g/dL 3.5-5.0 = 8881298) Calcium (test code 10.2 mg/dL 8.4-10.6 = 5358768) AST (test code = 26 U/L 10-50 1920-8) ALT (test code = 48 U/L 60 1742-6) Anion gap (test 15.0 5.0-17.0 code = 2522645) BUN/creatinine 14.0 7.0-25.0 ratio (test code = 3097-3) LIDIA (test code = Items were LIDIA) attached to this order: xgld, [facility] [id number] 20:44:00 Test Item Value Reference Range Interpretation Comments Amylase (test code = 84 U/L 28-100 1798-8) LIDIA (test code = LIDIA) Items were attached to this order: xgld, xgr [facility] [id number] 20:44:00 Test Item Value Reference Range Interpretation Comments Hemolysis (test <15 See_Comment [Automated code = 0080) message] The sy stem which generated this result transmitted reference range : <=15. The refer ence range was not u sed to interpret th is result as normal/abnormal . LDH (test code = 191 U/L 135-912 6829152) LIDIA (test code = Items were LIDIA) attached to this order: xgld, [facility] [id number] 20:44:00 Test Item Value Reference Range Interpretation Comments Lipase (test code = 35 U/L 13-60 3040-3) LIDIA (test code = LIDIA) Items were attached to this order: xgld, [facility] [id number] 20:44:00 Test Item Value Reference Range Interpretation Comments Hemolysis (test <15 See_Comment [Automated code = 6710) message] The sy stem which generated this result transmitted reference range : <=15. The refer ence range was not u sed to interpret th is result as normal/abnormal . Sodium (test code = 139 mmol/L 135-588 0304193) Potassium (test 4.4 mmol/L 3.5-5.0 code = 7782537) Chloride (test code 102 mmol/L 98-107 = 2075-0) CO2 (test code = 26 mmol/L -32 2028-07) Glucose (test code 89 mg/dL 60-100 = 2345-7) BUN (test code = 16 mg/dL - 0284389) Creatinine (test 1.1 mg/dL 0.7-1.3 code = 7720171) eGFR MDRD (test 73.9 See_Comment If code = 8846) [place], multi ply the GFR by 1.21 0. [Automated mess age] The system [employer] generated this result transmit noemy reference range : 60.0 - 137.0 mL/min/1.73m^2. The reference range was not used to interpret this result as normal/abnormal . Total bilirubin 0.4 mg/dL 0.2-1.3 (test code = 1975-2) Alkaline 74 U/L 38-126 phosphatase (test code = 6768-6) Protein (test code 7.9 g/dL 6.0-8.5 = 2885-2) Albumin (test code 4.7 g/dL 3.5-5.0 = 7591469) Calcium (test code 10.2 mg/dL 8.4-10.6 = 6448644) AST (test code = 26 U/L 10-50 1920-8) ALT (test code = 48 U/L 60 1742-6) Anion gap (test 15.0 5.0-17.0 code = 7492996) BUN/creatinine 14.0 7.0-25.0 ratio (test code = 3097-3) LIDIA (test code = Items were LIDIA) attached to this order: xgld, [facility] HospitalAmylase [id number] 20:44:00 Test Item Value Reference Range Interpretation Comments Amylase (test code = 84 U/L 28-100 1798-8) LIDIA (test code = LIDIA) Items were attached to this order: xgld, [facility] CenterLDH20[facility] 20:44:00 Test Item Value Reference Range Interpretation Comments Hemolysis (test <15 See_Comment [Automated code = 3440) message] The sy stem which generated this result transmitted reference range : <=15. The refer ence range was not u sed to interpret th is result as normal/abnormal . LDH (test code = 191 U/L 135-815 5815583) LIDIA (test code = Items were LIDIA) attached to this order: xgld, [facility] CenterLipase [id number] 20:44:00 Test Item Value Reference Range Interpretation Comments Lipase (test code = 35 U/L 13-60 3040-3) LIDIA (test code = LIDIA) Items were attached to this order: xgld, [facility] HospitalCBC with platelet and [id number] 20:37:00 Test Item Value Reference Range Interpretation Comments WBC (test code = 6690-2) 6.8 10^3/uL 4.0-10.6 RBC (test code = 0247941) 4.65 10^6/uL 4.15-4.90 HGB (test code = 280) 14.6 g/dL 13.0-18.0 HCT (test code = 9879916) 41.9 % 42.0-52.0 L MCV (test code = 8593557) 90.1 fL 80.0-98.0 MCH (test code = 9540376) 31.4 pg 28.0-33.0 MCHC (test code = 2970906) 34.8 g/dL 32.0-36.0 RDW (test code = 2973) 12.4 % 10.6-15.4 Platelet count (test code 312 10^3/uL 150-400 = 777-3) MPV (test code = 3380545) 9.4 fL 9.4-12.4 Nucleated RBC (test code = 0.0 % 0.0-1.0 254) Absolute nRBC (test code = 0.0 10^3/uL 0.0-0.0 1003759) Neutrophils (test code = 50.5 % 45.0-74.0 4354079) Lymphocytes (test code = 39.3 % 16.0-45.0 736-9) Monocytes (test code = 8.1 % 4.0-10.0 5905-5) Eosinophils (test code = 1.0 % 0.0-5.0 1352) Basophils (test code = 0.7 % 0.0-2.0 706-2) Immature granulocytes 0.4 % 0.0-1.0 (test code = 1594) Neutrophils, absolute 3.4 10^3/uL 1.6-9.0 (test code = 1801) Lymphocytes, absolute 2.7 10^3/uL 0.4-4.4 (test code = 7270574) Monocytes, absolute (test 0.6 10^3/uL 0.2-1.7 code = 9856741) Eosinophils, absolute 0.1 10^3/uL 0.0-1.7 (test code = 1353) Basophils, absolute (test 0.1 10^3/uL 0.0-0.3 code = 929) Immature granulocytes, 0.0 10^3/uL 0.0-0.0 absolute (test code = 2839) LIDIA (test code = LIDIA) Items were attached to this order: xgld, xgr Lab Interpretation (test Abnormal code = 18142-9) [facility] with platelet and [id number] 20:37:00 Test Item Value Reference Range Interpretation Comments WBC (test code = 6690-2) 6.8 10^3/uL 4.0-10.6 RBC (test code = 7070011) 4.65 10^6/uL 4.15-4.90 HGB (test code = 280) 14.6 g/dL 13.0-18.0 HCT (test code = 6670268) 41.9 % 42.0-52.0 L MCV (test code = 0645482) 90.1 fL 80.0-98.0 MCH (test code = 8187229) 31.4 pg 28.0-33.0 MCHC (test code = 1202298) 34.8 g/dL 32.0-36.0 RDW (test code = 2973) 12.4 % 10.6-15.4 Platelet count (test code 312 10^3/uL 150-400 = 777-3) MPV (test code = 8064893) 9.4 fL 9.4-12.4 Nucleated RBC (test code = 0.0 % 0.0-1.0 254) Absolute nRBC (test code = 0.0 10^3/uL 0.0-0.0 4550973) Neutrophils (test code = 50.5 % 45.0-74.0 7231493) Lymphocytes (test code = 39.3 % 16.0-45.0 736-9) Monocytes (test code = 8.1 % 4.0-10.0 5905-5) Eosinophils (test code = 1.0 % 0.0-5.0 1352) Basophils (test code = 0.7 % 0.0-2.0 706-2) Immature granulocytes 0.4 % 0.0-1.0 (test code = 1594) Neutrophils, absolute 3.4 10^3/uL 1.6-9.0 (test code = 1801) Lymphocytes, absolute 2.7 10^3/uL 0.4-4.4 (test code = 1692384) Monocytes, absolute (test 0.6 10^3/uL 0.2-1.7 code = 5934820) Eosinophils, absolute 0.1 10^3/uL 0.0-1.7 (test code = 1353) Basophils, absolute (test 0.1 10^3/uL 0.0-0.3 code = 929) Immature granulocytes, 0.0 10^3/uL 0.0-0.0 absolute (test code = 2839) LIDIA (test code = LIDIA) Items were attached to this order: xgld, xgr Lab Interpretation (test Abnormal code = 93695-2) [facility] with platelet and [id number] 20:37:00 Test Item Value Reference Range Interpretation Comments WBC (test code = 6690-2) 6.8 10^3/uL 4.0-10.6 RBC (test code = 5718952) 4.65 10^6/uL 4.15-4.90 HGB (test code = 280) 14.6 g/dL 13.0-18.0 HCT (test code = 9823632) 41.9 % 42.0-52.0 L MCV (test code = 0476499) 90.1 fL 80.0-98.0 MCH (test code = 0373852) 31.4 pg 28.0-33.0 MCHC (test code = 3113649) 34.8 g/dL 32.0-36.0 RDW (test code = 2973) 12.4 % 10.6-15.4 Platelet count (test code 312 10^3/uL 150-400 = 777-3) MPV (test code = 9907207) 9.4 fL 9.4-12.4 Nucleated RBC (test code = 0.0 % 0.0-1.0 254) Absolute nRBC (test code = 0.0 10^3/uL 0.0-0.0 8572557) Neutrophils (test code = 50.5 % 45.0-74.0 7264340) Lymphocytes (test code = 39.3 % 16.0-45.0 736-9) Monocytes (test code = 8.1 % 4.0-10.0 5905-5) Eosinophils (test code = 1.0 % 0.0-5.0 1352) Basophils (test code = 0.7 % 0.0-2.0 706-2) Immature granulocytes 0.4 % 0.0-1.0 (test code = 1594) Neutrophils, absolute 3.4 10^3/uL 1.6-9.0 (test code = 1801) Lymphocytes, absolute 2.7 10^3/uL 0.4-4.4 (test code = 7384155) Monocytes, absolute (test 0.6 10^3/uL 0.2-1.7 code = 1687508) Eosinophils, absolute 0.1 10^3/uL 0.0-1.7 (test code = 1353) Basophils, absolute (test 0.1 10^3/uL 0.0-0.3 code = 929) Immature granulocytes, 0.0 10^3/uL 0.0-0.0 absolute (test code = 2839) LIDIA (test code = LIDIA) Items were attached to this order: xgld, xgr Lab Interpretation (test Abnormal code = 12823-3) [facility] with platelet and [id number] 20:37:00 Test Item Value Reference Range Interpretation Comments WBC (test code = 6690-2) 6.8 10^3/uL 4.0-10.6 RBC (test code = 1697940) 4.65 10^6/uL 4.15-4.90 HGB (test code = 280) 14.6 g/dL 13.0-18.0 HCT (test code = 7512010) 41.9 % 42.0-52.0 L MCV (test code = 5682733) 90.1 fL 80.0-98.0 MCH (test code = 9534982) 31.4 pg 28.0-33.0 MCHC (test code = 8558983) 34.8 g/dL 32.0-36.0 RDW (test code = 2973) 12.4 % 10.6-15.4 Platelet count (test code 312 10^3/uL 150-400 = 777-3) MPV (test code = 7409646) 9.4 fL 9.4-12.4 Nucleated RBC (test code = 0.0 % 0.0-1.0 254) Absolute nRBC (test code = 0.0 10^3/uL 0.0-0.0 9371414) Neutrophils (test code = 50.5 % 45.0-74.0 0840802) Lymphocytes (test code = 39.3 % 16.0-45.0 736-9) Monocytes (test code = 8.1 % 4.0-10.0 5905-5) Eosinophils (test code = 1.0 % 0.0-5.0 1352) Basophils (test code = 0.7 % 0.0-2.0 706-2) Immature granulocytes 0.4 % 0.0-1.0 (test code = 1594) Neutrophils, absolute 3.4 10^3/uL 1.6-9.0 (test code = 1801) Lymphocytes, absolute 2.7 10^3/uL 0.4-4.4 (test code = 9420559) Monocytes, absolute (test 0.6 10^3/uL 0.2-1.7 code = 7695739) Eosinophils, absolute 0.1 10^3/uL 0.0-1.7 (test code = 1353) Basophils, absolute (test 0.1 10^3/uL 0.0-0.3 code = 929) Immature granulocytes, 0.0 10^3/uL 0.0-0.0 absolute (test code = 2839) LIDIA (test code = LIDIA) Items were attached to this order: xgld, xgr Lab Interpretation (test Abnormal code = 54401-8) [facility] CywovxklWOQK-NeJ-4 (COVID-19) RNA [Presence] in Respiratory specimen by BRO with probe [id number] 02:43:04 Test Item Value Reference Range Interpretation Comments SARS-CoV-2 (COVID-19) RNA Not detected Not-Detected [Presence] in Respiratory specimen by BRO with probe detection (test code = 33494-0) [facility] WESTPOCT FLU A AND B (MOLECULAR)2020-11-07 19:37:00 Test Item Value Reference Range Interpretation Comments POCT INFLUENZA A (test code = 3840) neg Negative - Negativ e POCT INFLUENZA B (test code = 3841) neg Negative - Negativ e [facility] Notes Date/Time Note Provider Source 2023-06-26 Formatting of this note might be differe nt from the original. Rayna Mikael Betsy-Seybold 15:32:08-00:00 Patient is here for follow u p for seizures. VSS Medications reconciled. Clinic Electronically signed by Rayna Youssef at 2022 3:34 PM CDT
[2023-07-25 20:56] LABS: Absolute Lymphocytes (CBC) 3.3 K/uL (0.7-4.9); Hematocrit 39.7 % (39.6-49.0); Lymphocytes % 47.1 % (15.3-44.8); MCV 89.8 fL (80-100); MPV 6.7 fL (7.6-11.3); Platelets 286 thou/uL (152-406); RBC Red Blood Cell Count 4.42 M/uL (4.33-5.43)
[2023-07-25 20:58] LABS: Protime INR 0.97
[2023-07-25] MEDS ORDERED: ASPIRIN 81 MG CHEWABLE TABLET ONE (21:03)
[2023-07-25 21:14] LABS: Bicarbonate 23 mEq/L (21-32); Potassium 3.8 mEq/L (3.5-5.1); Sodium Level 137 mEq/L (136-145)
[2023-07-25 21:15] LABS: ALT/SGPT 90 U/L (16-61); AST/SGOT 28 U/L (15-37); Albumin 3.7 g/dL (3.4-5.0); Alkaline Phosphatase 72 U/L (45-117); BUN Blood Urea Nitrogen 20 mg/dL (7-18); Bilirubin Direct < 0.1 mg/dL (0-0.2); Bilirubin Total 0.3 mg/dL (0.2-1.0); Glomerular Filtration Rate 59 ml/min (=/>90); Glucose Level 96 mg/dL (74-106); Magnesium 2.1 mg/dL (1.6-2.4); NT PRO-BNP 58 pg/mL (<125); Protein, Total 7.1 g/dL (6.4-8.2); Troponin High Sensitivity 9.3 pg/mL (<58.9)
[2023-07-25 21:16] LABS: Bilirubin Indirect, Calculated ND mg/dL (0.2-0.8)
[2023-07-25] MEDS ORDERED: ONDANSETRON 4 MG/2 ML VIAL ONE (21:38)
--- NOTE | 2023-07-25 21:52 | RAD REPORT ---
EXAM DESCRIPTION: RAD - Chest Single View - 07/25/2023 9:45 pm CLINICAL HISTORY: CHEST PAIN Chest pain. COMPARISON: Chest Single View dated 07/02/2023; Chest Single View dated 05/26/2023; Chest Single View da noemy 05/03/2022; Chest Single View dated 01/24/2021 FINDINGS: Portable technique limits examination quality. Hazy appearance to the left lung is chronic and stable. The right lung is grossly clear. The heart is normal in size. No displaced fractures. IMPRESSION: No acute intrathoracic process suspected.
[2023-07-25] MEDS ORDERED: NA CHLORIDE 0.9% 1,000 ML ONE ×2 (22:38→23:47)
--- NOTE | 2023-07-25 22:49 | ER ---
Nurse's Notes [facility] Name: Alvarez Ortiz Age: 37 yrs Sex: Male : 1985 Arrival Date: 07/25/2023 Time: 19:34 Bed 19 Private MD: Diagnosis: Chest pain, unspecified Presentation: 07/25 19:57 Chief complaint: Patient states: "I was having shortness of breath, dizziness, vc1 lightheaded and overall weakness. Getting super tired really easy going super short distance. It's kind of subsided now but I having numbness and tingling in both legs with some discoloration". Coronavirus screen: Client denies travel out of the [place] in the last 14 days. shortness of breath, Client presents with at least one sign or symptom that may indicate coronavirus-19. Ebola Screen: Patient negative for fever greater than or equal to 101.5 degrees Fahrenheit, and additional compatible Ebola Virus Disease symptoms Patient denies exposure to infectious person. Patient denies travel to an Ebola-affected area in the 21 days before illness onset. No symptoms or risks identified at this time. Risk Assessment: Do you want to hurt yourself or someone else? Patient reports no desire to harm self or others. Onset of symptoms was July 25, 2023. 19:57 Method Of Arrival: Wheelchair vc1 19:57 Acuity: EAN 3 vc1 20:54 Initial Sepsis Screen: Does the patient meet any 2 criteria? No. Patient's initial fl1 sepsis screen is negative. Does the patient have a suspected source of infection? No. Patient's initial sepsis screen is negative. 20:55 Initial Sepsis Screen: Does the patient have a suspected source of infection?. nj1 Triage Assessment: 20:05 General: Appears in no apparent distress. uncomfortable, Behavior is anxious. Pain: vc1 Complains of pain in left lateral anterior chest Pain radiates to left breast Pain currently is 9 out of 10 on a pain scale. Quality of pain is described as sharp, Pain began suddenly, Is intermittent. EENT: No deficits noted. No signs and/or symptoms were reported regarding the EENT system. Neuro: Level of Consciousness is awake, alert, obeys commands, Oriented to person, place, time, situation, Appropriate for age. Cardiovascular: Reports chest pain, shortness of breath. Respiratory: Reports shortness of breath at rest Onset: The symptoms/episode began/occurred today, the patient has mild shortness of breath. GI: No deficits noted. No signs and/or symptoms were reported involving the gastrointestinal system. : No deficits noted. No signs and/or symptoms were reported regarding the genitourinary system. Derm: No deficits noted. No signs and/or symptoms reported regarding the dermatologic system. Musculoskeletal: No deficits noted. No signs and/or symptoms reported regarding the musculoskeletal system. 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 - Social history:: Smoking status: Patient/guardian denies using tobacco, but has a distant history of tobacco abuse. Screenin:54 [facility] ED Fall Risk Assessment (Adult) Score/Fall Risk Level 0 - 2 = Low Risk nj1 Oriented to surroundings, Maintained a safe environment, Hourly rounding (assess needs \\T\\ fall precautionary measures) done, Used ambulatory aids as needed (educated on \\T\\ assisted with). Abuse screen: Denies threats or abuse. Denies injuries from another. Nutritional screening: No deficits noted. Tuberculosis screening: No symptoms or risk factors identified. Assessment: 20:40 General: Appears in no apparent distress. comfortable, Behavior is calm, cooperative, nj1 appropriate for age. Pain: Complains of pain in chest Pain currently is 4 out of 10 on a pain scale. at worst was 8 out of 10 on a pain scale. Quality of pain is described as sharp. Neuro: Level of Consciousness is awake, alert, obeys commands, Oriented to person, place, time, situation. Cardiovascular: Rhythm is regular. Respiratory: Airway is patent Respiratory effort is even, unlabored, Breath sounds are clear. 21:22 General: Appears in no apparent distress. comfortable, Behavior is calm, cooperative. lg3 Pain: Complains of pain in left breast Quality of pain is described as pressure. Neuro: No deficits noted. Gray Agitation-Sedation Scale (RASS): 0 - Alert and Calm Level of Consciousness is awake, alert, obeys commands, Oriented to person, place, time, situation. Cardiovascular: No deficits noted. Capillary refill < 3 seconds Clubbing of nail beds is absent JVD is absent Patient's skin is warm and dry. Respiratory: No deficits noted. Airway is patent Respiratory effort is even, unlabored, Respiratory pattern is regular, symmetrical. GI: No deficits noted. Abdomen is round non-distended, Reports nausea. : No deficits noted. No signs and/or symptoms were reported regarding the genitourinary system. EENT: No deficits noted. No signs and/or symptoms were reported regarding the EENT system. Derm: No deficits noted. No signs and/or symptoms reported regarding the dermatologic system. Skin is intact, is healthy with good turgor, Skin is dry, Skin is normal, Skin temperature is warm. Musculoskeletal: No deficits noted. Reports generalized weakness. 22:21 Reassessment: Patient appears in no apparent distress at this time. No changes from lg3 previously documented assessment. Patient and/or family updated on plan of care and expected duration. Pain level reassessed. Patient is alert, oriented x 3, equal unlabored respirations, skin warm/dry/pink. Patient states symptoms have improved. 23:00 Reassessment: No changes from previously documented assessment. Patient and/or family lg3 updated on plan of care and expected duration. Pain level reassessed. Patient is alert, oriented x 3, equal unlabored respirations, skin warm/dry/pink. 07/26 00:00 Reassessment: No changes from previously documented assessment. Patient and/or family lg3 updated on plan of care and expected duration. Pain level reassessed. Patient is alert, oriented x 3, equal unlabored respirations, skin warm/dry/pink. 01:00 Reassessment: No changes from previously documented assessment. Patient and/or family lg3 updated on plan of care and expected duration. Pain level reassessed. Patient is alert, oriented x 3, equal unlabored respirations, skin warm/dry/pink. 03:02 Reassessment: Patient appears in no apparent distress at this time. No changes from lg3 previously documented assessment. Patient and/or family updated on plan of care and expected duration. Pain level reassessed. Patient is alert, oriented x 3, equal unlabored respirations, skin warm/dry/pink. Patient states feeling better. Vital Signs: 07/25 19:57 Weight 86.18 kg; Height 5 ft. 8 in. ; Pain 6/10; vc1 20:09 BP 121 / 80; Pulse 91; Resp 20; Temp 98.9; vc1 21:22 BP 124 / 87; Pulse 84; Resp 15 S; Pulse Ox 96% on R/A; lg3 22:21 BP 138 / 75; Pulse 91; Resp 18 S; Pulse Ox 99% on R/A; lg3 23:00 BP 129 / 81; Pulse 91; Resp 19; Pulse Ox 99% ; lg3 07/26 01:29 BP 130 / 75; Pulse 76; Resp 19; Pulse Ox 100% ; lg3 03:03 BP 121 / 84; Pulse 80; Resp 18 S; Pulse Ox 100% on R/A; lg3 07/25 19:57 Body Mass Index 28.89 (86.18 kg, 172.72 cm) vc1 07/25 19:57 Pain Scale: Adult vc1 ED Course: 07/25 19:36 Patient arrived in ED. im 19:40 [facility]C [facility] snw 19:40 Tan Carroll MD is Attending Physician. snw 20:01 Triage completed. vc1 20:05 Arm band placed on left wrist. vc1 20:38 Falguni Phelan, RN is Primary Nurse. nj1 20:45 Inserted saline lock: 22 gauge in right antecubital area, using aseptic technique. nj1 Blood collected. 20:55 Patient has correct armband on for positive identification. Bed in low position. Call nj1 light in reach. Adult w/ patient. Provided Education on: fall precautions, call light. 21:22 Client placed on continuous cardiac and pulse oximetry monitoring. NIBP monitoring lg3 applied. monitor car operator on. Door closed. Noise minimized. Warm blanket given. Family accompanied patient. 21:22 Patient maintains SpO2 saturation greater than 95% on room air. lg3 21:47 XRAY Chest (1 view) In Process Unspecified. EDMS 22:48 Juarez Shi is Hospitalizing Provider. snw 22:53 Yeison Carroll MD is Hospitalizing Provider. la1 23:25 Fito Barakat MD is Hospitalizing Provider. la1 07/26 00:00 Chest For PE Angio CT In Process Unspecified. EDMS 03:04 No provider procedures requiring assistance completed. Patient admitted, IV remains in lg3 place. No redness/swelling at site. Administered Medications: 07/25 20:52 Drug: Aspirin PO Chewable Tablet 324 mg Route: PO; nj1 23:34 Follow up: Response: No adverse reaction lg3 22:24 Drug: Ondansetron IVP 2 mg Route: IVP; Site: right antecubital; lg3 23:34 Follow up: Response: No adverse reaction lg3 22:30 Drug: NS 0.9% IV 1000 ml Route: IV; Rate: 1 bolus; Site: right antecubital; lg3 23:41 Follow up: IV Status: Completed infusion; IV Intake: 1000ml lg3 23:41 Drug: NS 0.9% IV 1000 ml Route: IV; Rate: 125 ml/hr; Site: right antecubital; lg3 07/26 03:04 Follow up: IV Status: Infusion continued upon admission lg3 01:10 CANCELLED (Physician Discretion): Topamax PO 25 mg PO once pf1 01:59 Drug: Topamax PO 25 mg Route: PO; lg3 03:04 Follow up: Response: No adverse reaction lg3 Medication: 03:04 VIS not applicable for this client. lg3 Intake: 07/25 23:41 IV: 1000ml; Total: 1000ml. lg3 Outcome: 22:49 Decision to Hospitalize by Provider. snw 07/26 03:04 Admitted to Med/surg accompanied by nurse, via wheelchair, Report called to josefina lg3 Condition: stable Instructed on the need for admit. 03:04 Patient left the ED. lg3 Signatures: Dispatcher [employer] EDVT Kaitlin Rader, SCALE TANK OPERATOR-C SCALE TANK OPERATOR-Csnw Reji Tubbs FNP-C FNP-ClaAyah Bob, MAURI RN lg3 Daphney Leach RN RN vc1 Falguni Phelan RN RN nj1 Kayla Barnhart Pamala RN pf1 Corrections: (The following items were deleted from the chart) 07/25 20:01 19:57 BP 5 / ???; 86.18 kg; Height 5 ft. 8 in.; BMI: 28.8; Pain 6/10, Adult; vc1 vc1 20:55 20:54 Initial Sepsis Screen: Does the patient meet any 2 criteria? nj1 nj1 22:30 22:21 BP 131 / 88; Pulse 86bpm; Resp 16bpm; Spontaneous; Pulse Ox 97% RA; lg3 lg3
--- NOTE | 2023-07-25 22:49 | EDPHYS ---
Physician Documentation [facility] Name: Alvarez Ortiz Age: 37 yrs Sex: Male : 1985 Arrival Date: 07/25/2023 Time: 19:34 Bed 19 Private MD: ED Physician Tan Carroll HPI: 07/25 20:38 This 37 yrs old Male presents to ER via Wheelchair with complaints of Shortness Of snw Breath, Chest Tightness. 20:38 The patient has shortness of breath at rest. Onset: The symptoms/episode began/occurred snw acutely. Duration: The symptoms are continuous, and are steadily getting worse. Associated signs and symptoms: Pertinent positives: chest pain, SOB. Severity of symptoms: At their worst the symptoms were moderate. It is unknown whether or not the patient has had similar symptoms in the past. The patient has been recently seen by a physician: a neurologist, Pt with hx of non hodgkin's lymphoma, here a few weeks ago for stroke like s/s, Saw Dr. Salas and was changed from Keppra to Topamax and has been doing well.. 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 - Social history:: Smoking status: Patient/guardian denies using tobacco, but has a distant history of tobacco abuse. ROS: 20:38 Eyes: Negative for injury, pain, redness, and discharge, ENT: Negative for injury, snw pain, and discharge, Neck: Negative for injury, pain, and swelling. 20:38 Abdomen/GI: Negative for abdominal pain, nausea, vomiting, diarrhea, and constipation, Back: Negative for injury and pain, : Negative for injury, bleeding, discharge, and swelling, MS/Extremity: Negative for injury and deformity, Skin: Negative for injury, rash, and discoloration, Neuro: Negative for headache, weakness, numbness, tingling, and seizure. 20:38 Constitutional: Positive for body aches, malaise. 20:38 Cardiovascular: Positive for chest pain, of the left lateral anterior chest. 20:38 Respiratory: Positive for shortness of breath, at rest. 20:38 Psych: Positive for anxiety. Exam: 20:32 Constitutional: This is a well developed, well nourished patient who is awake, alert, snw and in no acute distress. Head/Face: Normocephalic, atraumatic. Eyes: Pupils equal round and reactive to light, extra-ocular motions intact. Lids and lashes normal. Conjunctiva and sclera are non-icteric and not injected. Cornea within normal limits. Periorbital areas with no swelling, redness, or edema. ENT: Nares patent. No nasal discharge, no septal abnormalities noted. Tympanic membranes are normal and external auditory canals are clear. Oropharynx with no redness, swelling, or masses, exudates, or evidence of obstruction, uvula midline. Mucous membranes moist. Neck: Trachea midline, no thyromegaly or masses palpated, and no cervical lymphadenopathy. Supple, full range of motion without nuchal rigidity, or vertebral point tenderness. No Meningismus. Chest/axilla: Normal chest wall appearance and motion. Nontender with no deformity. No lesions are appreciated. Cardiovascular: Regular rate and rhythm with a normal S1 and S2. No gallops, murmurs, or rubs. Normal PMI, no JVD. No pulse deficits. Respiratory: Lungs have equal breath sounds bilaterally, clear to auscultation and percussion. No rales, rhonchi or wheezes noted. No increased work of breathing, no retractions or nasal flaring. Abdomen/GI: Soft, non-tender, with normal bowel sounds. No distension or tympany. No guarding or rebound. No evidence of tenderness throughout. Back: No spinal tenderness. No costovertebral tenderness. Full range of motion. MS/ Extremity: Pulses equal, no cyanosis. Neurovascular intact. Full, normal range of motion. Neuro: Awake and alert, GCS 15, oriented to person, place, time, and situation. Cranial nerves II-XII grossly intact. Motor strength 5/5 in all extremities. Sensory grossly intact. Cerebellar exam normal. Normal gait. Psych: Awake, alert, with orientation to person, place and time. Behavior, mood, and affect are within normal limits. 20:32 Skin: Warm, dry with normal turgor. Normal color with no rashes, no lesions, and no evidence of cellulitis. Vital Signs: 19:57 Weight 86.18 kg; Height 5 ft. 8 in. ; Pain 6/10; vc1 20:09 BP 121 / 80; Pulse 91; Resp 20; Temp 98.9; vc1 21:22 BP 124 / 87; Pulse 84; Resp 15 S; Pulse Ox 96% on R/A; lg3 22:21 BP 138 / 75; Pulse 91; Resp 18 S; Pulse Ox 99% on R/A; lg3 23:00 BP 129 / 81; Pulse 91; Resp 19; Pulse Ox 99% ; lg3 07/26 01:29 BP 130 / 75; Pulse 76; Resp 19; Pulse Ox 100% ; lg3 03:03 BP 121 / 84; Pulse 80; Resp 18 S; Pulse Ox 100% on R/A; lg3 07/25 19:57 Body Mass Index 28.89 (86.18 kg, 172.72 cm) vc1 07/25 19:57 Pain Scale: Adult vc1 MDM: 07/25 20:12 Patient medically screened. snw 20:33 Differential diagnosis: Anemia Anxiety Reaction asthma, Myocardial Infarction. Data snw reviewed: vital signs, nurses notes. Counseling: I had a detailed discussion with the patient and/or guardian regarding the historical points, exam findings, and any diagnostic results supporting the discharge/admit diagnosis, the presence of at least one elevated blood pressure reading (>120/80) during this emergency department visit, lab results, radiology results. 22:47 Management of patient was discussed with the following: Hospitalist: Sreedhar Chun. snw Response to treatment: There is no appreciated change of the patient's symptoms at this time. Special discussion:. 07/25 20:20 Order name: Basic Metabolic Panel; Complete Time: 21:18 snw 07/25 20:20 Order name: CBC with Diff; Complete Time: 21:05 snw 07/25 20:20 Order name: LFT's; Complete Time: 21:18 snw 07/25 20:20 Order name: Magnesium; Complete Time: 21:18 snw 07/25 20:20 Order name: NT PRO-BNP; Complete Time: 21:18 snw 07/25 20:20 Order name: PT-INR; Complete Time: 21:00 snw 07/25 20:20 Order name: Troponin HS; Complete Time: 21:18 snw 07/25 20:20 Order name: SARS-COV-2 RT PCR; Complete Time: 21:28 snw 07/25 20:20 Order name: XRAY Chest (1 view); Complete Time: 21:59 snw 07/25 23:06 Order name: Chest For PE Angio CT la1 07/25 20:20 Order name: EKG; Complete Time: 20:27 snw 07/25 20:20 Order name: Cardiac monitoring; Complete Time: 20:38 snw 07/25 20:20 Order name: EKG - Nurse/Tech; Complete Time: 20:38 snw 07/25 20:20 Order name: IV Saline Lock; Complete Time: 20:52 snw 07/25 20:20 Order name: Labs collected and sent; Complete Time: 20:52 snw 07/25 20:20 Order name: O2 Per Protocol; Complete Time: 20:38 snw 07/25 20:20 Order name: O2 Sat Monitoring; Complete Time: 20:38 snw EC:18 Rate is 71 beats/min. Rhythm is regular. QRS [place] is Normal. T waves are Inverted in snw leads I, aVL. T waves are Flattened in leads V4, V5, V6. Clinical impression: NSR w/ Non-specific ST/T Changes. Administered Medications: 20:52 Drug: Aspirin PO Chewable Tablet 324 mg Route: PO; nj1 23:34 Follow up: Response: No adverse reaction lg3 22:24 Drug: Ondansetron IVP 2 mg Route: IVP; Site: right antecubital; lg3 23:34 Follow up: Response: No adverse reaction lg3 22:30 Drug: NS 0.9% IV 1000 ml Route: IV; Rate: 1 bolus; Site: right antecubital; lg3 23:41 Follow up: IV Status: Completed infusion; IV Intake: 1000ml lg3 23:41 Drug: NS 0.9% IV 1000 ml Route: IV; Rate: 125 ml/hr; Site: right antecubital; lg3 07/26 03:04 Follow up: IV Status: Infusion continued upon admission lg3 01:10 CANCELLED (Physician Discretion): Topamax PO 25 mg PO once pf1 01:59 Drug: Topamax PO 25 mg Route: PO; lg3 03:04 Follow up: Response: No adverse reaction lg3 Disposition Summary: 07/25/23 22:49 Hospitalization Ordered Location: Telemetry/MedSurg (observation) snw Condition: Stable snw Problem: new snw Symptoms: have improved snw Bed/Room Type: Standard snw Hospitalization Status: Observation(07/25/23 22:53) la1 Provider: Fito Barakat(07/25/23 23:25) la1 Room Assignment: 205(07/26/23 02:08) cg Diagnosis - Chest pain, unspecified snw Forms: - Medication Reconciliation Form snw - SBAR form snw - Leadership Thank You Letter snw Addendum: 07/28/2023 07:03 Co-signature as Attending Physician, Tan Carroll MD I reviewed the patient's care r n provided by the Advanced Practice Provider and agree with the diagnosis and treatment plan. Signatures: Dispatcher [employer] EDKaitlin Arana, PRODUCT SPECIALIST-C PRODUCT SPECIALIST-Csnw Tan Carroll MD MD rn Attema, Lee, PRODUCT SPECIALIST-C PRODUCT SPECIALIST-Cla1 Estefani Mckeon, RN RN cg Ayah Blackwood, RN MAURI lg3 Daphney Leach RN RN vc1 Lesa Rutherford RN RN pf1 Falguni Phelan RN RN nj1 Corrections: (The following items were deleted from the chart) 07/25 22:53 22:49 Inpatient Admission snw la1 22:53 22:49 Juarez Shi snw la1 23:25 22:53 Yeison Carroll la1 la1 07/26 01:10 00:13 Topamax PO 25 mg PO once ordered. lg3 pf1 01:10 01:10 Topamax PO 25 mg PO once ordered. pf1 pf1 02:08 07/25 22:49 snw cg
[2023-07-26] MEDS ORDERED: TOPIRAMATE 25 MG TAB ONE (02:03)
[2023-07-26] MEDS ORDERED: ONDANSETRON 4 MG/2 ML VIAL IV PRN (03:00)
--- NOTE | 2023-07-26 03:10 | P.HP ---
Certification for Inpatient Patient admitted to: Observation With expected LOS: <2 Midnights Patient will require the following post-hospital care: None Practitioner: I am a practitioner with admitting privileges, knowledge of patient current condition, hospital course, and medical plan of care. Services: Services provided to patient in accordance with Admission requirements found in Title 42 Section 412.3 of the Code of Federal Regulations Patient History Date of Service: 07/26/23 Reason for admission: Chest pain History of Present Illness: 37-year-old male with history of seizure disorder, non-Hodgkin's lymphoma in remission, anxiety presents to the emergency department with chief complaint of shortness of breath and chest pain. He reports dyspnea on exertion, lightheadedness and some intermittent sharp/stabbing chest pain that last for a couple of minutes at a time. He cannot identify anything that exacerbates or relieves his symptoms they are not reproducible with range of motion or palpation. He denies having similar episodes in the past. In 2014 he did require a pericardial window as well as a lobectomy relation to a mass for his non-Hodgkin's lymphoma. He was last treated for non-Hodgkin's lymphoma from 6420-1080 with stem cell therapy and has been in remission since without any further incidents. He was evaluated in the emergency department his initial high-sensitivity troponin was 9.3 creatinine 1.53 GFR 59 CTA chest was obtained to rule out pulm embolism or findings related to hypovolemia effusion or other changes given his surgical history. CTA chest was negative for acute findings including thoracic aortic dissection or pulmonary embolism. ED provider wishes to admit under observation for ACS rule out. Allergies amoxicillin [Amoxicillin] Allergy (Mild, Verified 07/02/16 18:37) Hives Penicillins Allergy (Mild, Verified 07/02/16 18:37) Hives aztreonam Allergy (Verified 08/08/17 05:57) Itching/Hives/Rash cefotetan [From Cefotan] Allergy (Verified 07/02/16 18:37) Unknown alprazolam [From Xanax] Adverse Reaction (Verified 08/08/17 05:54) Itching cefadyl Allergy (Uncoded 08/11/17 01:42) Unknown KENDELL Allergy (Uncoded 07/02/16 18:37) Unknown Sulfa (Sulfona Allergy (Uncoded 08/11/17 01:42) Unknown Sulfa (Sulfonam Allergy (Uncoded 07/02/16 18:37) Unknown Sulfa (Sulfonamide Antibiotic Allergy (Uncoded 07/02/16 18:37) Unknown Home Medications: Venlafaxine HCl [Venlafaxine HCl ER] 150 mg PO DAILY 07/02/16 Alendronate Sodium 70 mg PO EVERY 7TH DAY 08/08/17 Gabapentin [Neurontin*] 400 mg PO TID 08/08/17 Mirtazapine 15 mg PO BEDTIME 08/08/17 Montelukast [Singulair*] 10 mg PO DAILY 08/08/17 Morphine *Extended Release* [MS Contin*] 15 mg PO BID 08/08/17 Potassium Oral Tab [Klor-Con 10 mEq Tab*] 20 meq PO BID 08/08/17 Valacyclovir [Valtrex*] 500 mg PO DAILY 08/08/17 levETIRAcetam [Keppra*] 500 mg PO BID 08/08/17 Doxycycline Monohydrate 100 mg PO BID #28 capsule 08/09/17 - Past Medical/Surgical History Diabetic: No -: Large B-cell lymphoma -: Status post chemotherapy and radiation -: Status post gamma knife radiation -: Stem cell transplant -: seizures -: appendectomy -: tonsillectomy -: pericardial window -: plural sac opening -: feeding tube -: brain sx to remove tumor -: back sx-kyphoplasty Psychosocial/ Personal History: Lives at home with his family - Family History Father -: Heart disease, Hypertension, GI disease, Diabetes, Kidney disease Mother -: GI disease - Social History Smoking Status: Never smoker Alcohol use: No CD- Drugs: No Caffeine use: Yes Place of Residence: Home Review of Systems 10-point ROS is otherwise unremarkable Respiratory: Shortness of Breath, SOB with Excertion Cardiovascular: Chest Pain Physical Examination - Physical Exam General: Alert, In no apparent distress, Oriented x3 HEENT: Atraumatic, PERRLA, Mucous membr. moist/pink, EOMI, Sclerae nonicteric Neck: Supple, 2+ carotid pulse no bruit, No LAD, Without JVD or thyroid abnormality Respiratory: Clear to auscultation bilaterally, Normal air movement Cardiovascular: Regular rate/rhythm, Normal S1 S2 Capillary refill: <2 Seconds Gastrointestinal: Normal bowel sounds, No tenderness Musculoskeletal: No tenderness Integumentary: No rashes Neurological: Normal speech, Normal strength at 5/5 x4 extr, Normal tone, Normal affect - Studies Laboratory Data (last 24 hrs) 07/25/23 07/25/23 07/25/23 20:45 20:45 20:45 WBC 7.10 Hgb 14.0 Hct 39.7 Plt Count 286 PT 10.7 INR 0.97 Sodium 137 Potassium 3.8 BUN 20 H Creatinine 1.53 H Glucose 96 Magnesium 2.1 Total Bilirubin 0.3 AST 28 ALT 90 H Alkaline Phosphatase 72 Assessment and Plan - Plan Assessment: Chest pain rule out ACS Seizure disorder Plan: Chest pain rule out ACS Trend troponin, monitor on telemetry, cardiology consult, daily aspirin. Chest pain is atypical in nature, CTA of the chest negative for acute findings. No complications noted from previous lobectomy or pericardial window. Seizure disorder Continue home medications. DVT PPX: Lovenox Code status: Full Discharge Plan: Home Plan to discharge in: 24 Hours - Advance Directives Does patient have a Living Will: Yes Does patient have a Durable POA for Healthcare: Yes - Code Status/Comfort Care Code Status Assessed: Yes (Chest pain) Critical Care: No Time Spent Managing Pts Care (In Minutes): 55
[2023-07-26 03:15] VITALS: O2SAT 100
[2023-07-26 03:36] VITALS: BMI 28.8
[2023-07-26 04:22] LABS: Absolute Lymphocytes (CBC) 3.3 K/uL (0.7-4.9); Hematocrit 37.3 % (39.6-49.0); Lymphocytes % 48.6 % (15.3-44.8); MCV 89.9 fL (80-100); MPV 7.3 fL (7.6-11.3); Platelets 293 thou/uL (152-406); RBC Red Blood Cell Count 4.15 M/uL (4.33-5.43)
[2023-07-26 04:44] LABS: Potassium 3.7 mEq/L (3.5-5.1); Troponin High Sensitivity 10.5 pg/mL (<58.9)
[2023-07-26 05:51] LABS: Specific Gravity 1.025 (1.005-1.030); Urine Bilirubin NEGATIVE (Negative); Urine Blood Negative (Negative); Urine Clarity Clear (Clear); Urine Color Colorless (Yellow); Urine Glucose NEGATIVE (Negative); Urine Protein NEGATIVE (Negative); Urine Urobilinogen Normal (Normal); Urine pH 6.5 (5.0-7.0)
[2023-07-26] MEDS: levETIRAcetam 500 MG TAB PO SCH ×2 (08:04→08:14)
[2023-07-26] MEDS ORDERED: ENOXAPARIN 40 MG/0.4 ML SQ SCH (09:00)
[2023-07-26] MEDS ORDERED: ASPIRIN EC 81 MG TAB PO SCH (09:00)
[2023-07-26] MEDS ORDERED: PNEUMOCOCCAL VACCINE 0.5 ML IMVAC ONE (12:00)
[2023-07-26] MEDS ORDERED: TOPIRAMATE 25 MG TAB PO SCH (12:00)
[2023-07-26] MEDS ORDERED: DOCUSATE NA 100 MG CAP PO PRN (13:30)
--- NOTE | 2023-07-26 14:37 | EKG ---
Test Date: 2023-07-25 Test Time: 20:16:23 Mechanical Repair Worker: SACHI MEASUREMENT RESULTS: Intervals: Rate: 71 SD: 160 QRSD: 80 QT: 384 QTc: 417 [place]: P: 59 SD: 160 QRS: 25 T: 143 INTERPRETIVE STATEMENTS: Normal sinus rhythm T wave abnormality, consider lateral ischemia Abnormal ECG Compared to ECG 07/02/2023 00:20:25 No significant changes Electronically Signed On 07-26-23 14:36:11 CDT by Rhys Abdul
[2023-07-26 16:28] VITALS: BP 112/68; TEMP 97.1
--- NOTE | 2023-07-26 17:09 | CON ---
Date of Consultation: 07/26/2023 Reason For Consultation: Chest pain. History Of Present Illness: This 37-year-old male with history of non-Hodgkin lymphoma, in remission , seizure disorder, presented with the shortness of breath on exertion, chest pain, sharp, lasts for few minutes and goes away. Generally he is weak. No other complaints. No history of cardiac diseas e. This patient had a pericardial window due to severe effusion in the past that is related to the c ancer. Past Medical History: As outlined above in the HPI. Medications: Refer to reconciliation sheet for detailed list. Allergies: PENICILLIN AND CEPHALOSPORINS, AZTREONAM, ALPRAZOLAM. Family History: No premature coronary artery disease or cancer. Social History: Does not smoke or drink. Does not use any drugs. Review of Systems: All systems were reviewed, they were negative except what was mentioned in HPI. Physical Examination: Vital Signs: Showed temperature is 97.2, heart rate is 83, breathing at 16, blood pressure 120/69, s aturating 100% on room air. General: Pleasant young male, in no apparent distress. Head and Neck: Pupils are equal, reactive to light. Intact eye movements. No JVD. No cervical lym phadenopathy. Neck is supple. Thyroid is not enlarged. Lungs: Clear to auscultation bilaterally. No rhonchi, rales, or crackles. No accessory muscle use. Heart: Regular rate and rhythm. No extra sounds. Abdomen: Soft, nontender. Bowel sounds positive. No organomegaly. No masses or hernia. No rigidi ty or rebound. Extremities: No edema, clubbing, or cyanosis. Intact pulses. Skin: No rash. No nodule. Neurologic: Alert, awake, oriented x3. No acute focal deficits appreciated. Investigations: BUN 19, creatinine 1.24 down from 1.53. Troponins x3 are negative. Assessment And Recommendations: 1.Chest pain. History of cancer. Cardiac enzymes are negative. Await on CT angiogram of the lungs . The patient will need ischemia workup, which can be done as an outpatient. If the CT angiogram of the lungs is negative, patient can be released and I will see him early next week in the office and obtain an echo and stress test. 2.Acute renal failure due to dehydration, responded very well to fluids and creatinine has normalize d. SR/MODL Voice ID: [id number] Report ID: [id number]
--- NOTE | 2023-07-26 18:29 | P.DS ---
Admission Date: 07/26/23 Discharge Date: 07/26/23 Disposition: ROUTINE DISCHARGE Discharge Condition: GOOD Reason for Admission: Chest pain Consultations: CardiologyDr. Cheng Procedures: Chest x-ray 07/25/2023 FINDINGS: Portable technique limits examination quality. Hazy appearance to the left lung is chronic and stable. The right lung is grossly clear. The heart is normal in size. No displaced fractures. IMPRESSION: No acute intrathoracic process suspected. CTA chest 07/25/2023 No PE or acute findings see full report for details. Brief History of Present Illness: 37-year-old male with history of seizure disorder, non-Hodgkin's lymphoma in remission, anxiety presents to the emergency department with chief complaint of shortness of breath and chest pain. He reports dyspnea on exertion, lightheadedness and some intermittent sharp/stabbing chest pain that last for a couple of minutes at a time. He cannot identify anything that exacerbates or relieves his symptoms they are not reproducible with range of motion or palpation. He denies having similar episodes in the past. In 2014 he did require a pericardial window as well as a lobectomy relation to a mass for his non-Hodgkin's lymphoma. He was last treated for non-Hodgkin's lymphoma from 4233-5940 with stem cell therapy and has been in remission since without any further incidents. He was evaluated in the emergency department his initial high-sensitivity troponin was 9.3 creatinine 1.53 GFR 59 CTA chest was obtained to rule out pulm embolism or findings related to hypovolemia effusion or other changes given his surgical history. CTA chest was negative for acute findings including thoracic aortic dissection or pulmonary embolism. ED provider wishes to admit under observation for ACS rule out. Hospital Course: Patient was admitted under observation for ACS rule out. He had [address] PE protocol was negative for pulmonary embolism or other acute findings. He was evaluated by cardiology in the hospital and is recommended for outpatient stress/echo. Patient has been chest pain-free since has been in the hospital, is amenable with plan. He will be discharged to follow-up with PCP and cardiology. Vital Signs/Physical Exam: Temp Pulse Resp BP Pulse Ox 97.1 F 79 19 112/68 99 07/26/23 16:00 07/26/23 16:00 07/26/23 16:00 07/26/23 16:00 07/26/23 16:00 General: Alert, In no apparent distress, Oriented x3 HEENT: Atraumatic, PERRLA, EOMI Neck: Supple, JVD not distended Respiratory: Clear to auscultation bilaterally, Normal air movement Cardiovascular: Regular rate/rhythm, Normal S1 S2 Capillary refill: <2 Seconds Gastrointestinal: Normal bowel sounds, No tenderness Musculoskeletal: No tenderness Integumentary: No rashes Neurological: Normal speech, Normal tone, Normal affect Laboratory Data at Discharge: WBC 6.80 thou/uL (4.3-10.9) 07/26/23 03:09 Hgb 13.3 g/dL (13.6-17.9) L 07/26/23 03:09 Hct 37.3 % (39.6-49.0) L 07/26/23 03:09 Plt Count 293 thou/uL (152-406) 07/26/23 03:09 PT 10.7 SECONDS (9.5-12.5) 07/25/23 20:45 INR 0.97 07/25/23 20:45 Sodium 139 mEq/L (136-145) 07/26/23 03:09 Potassium 3.7 mEq/L (3.5-5.1) 07/26/23 03:09 BUN 19 mg/dL (7-18) H 07/26/23 03:09 Creatinine 1.24 mg/dL (0.70-1.30) 07/26/23 03:09 Glucose 91 mg/dL (74-106) 07/26/23 03:09 Magnesium 2.1 mg/dL (1.6-2.4) 07/25/23 20:45 Total Bilirubin 0.3 mg/dL (0.2-1.0) 07/25/23 20:45 AST 28 U/L (15-37) 07/25/23 20:45 ALT 90 U/L (16-61) H 07/25/23 20:45 Alkaline Phosphatase 72 U/L (45-117) 07/25/23 20:45 Home Medications: Topiramate [Topamax] 25 mg PO BID 07/26/23 Diet: AHA Activity: Ad elton Followup: Magdaleno Heredia DO [Primary Care Provider] - 1-2 Weeks Rhys Abdul MD [ACTIVE - CAN ADMIT] - 1 Week Time spent managing pt's care (in minutes): 20
--- NOTE | 2023-07-26 20:55 | RAD REPORT ---
EXAM DESCRIPTION: CT - Chest For Pe Angio - 07/26/2023 6:16 am CLINICAL HISTORY: 37 years, Male, Chest pain, dyspnea, hx pericardial window COMPARISON: None TECHNIQUE: Multiple transaxial tomograms of the chest were obtained from the lung apices through the lung bases utilizing 2 mm slice thickness at 2 mm interval reconstruction after the administration o f large bolus of IV contrast for complete opacification of the pulmonary arteries. Subsequent 3-D maximum intensity projection images were generated in the coronal and sagittal plane f or review. This exam was performed according to our departmental dose-optimization protocol, which includes auto mated exposure control, adjustment of the mA and/or kV according to patient size and/or use of iterat arie reconstruction technique. FINDINGS: The lungs parenchyma demonstrate status post left lobectomy with a pleuroparenchymal hastings es/minimal atelectasis/or scarring inferior aspect residual left lung parenchyma. The right lung demo nstrate to be clear. No masses, nodules and/or consolidations are identified. The trachea mainstem bronchus demonstrate to be normal. There is no significant pericardial or pleura l effusions. The thoracic aorta demonstrate to be unremarkable. The heart is normal in size. There are no coronary artery calcifications. No evidence for right ventricular strain. There is no significant mediastinal and/or hilar lymphadenopathy. The axillary regions demonstrate to be clear. Pulmonary arteries demonstrate to be normal, no intraluminal defect are seen that would suggest pulmo nary embolus. The bone windows demonstrate diffuse bony osteopenia. There is a status post vertebroplasty of T9 and T10. The visualized portions of the upper abdomen demonstrate mild elevation of the left hemidiaphragm due to volume loss. Otherwise unremarkable. IMPRESSION: No evidence for pulmonary embolism and/or thoracic aortic dissection. Status post left lobectomy with a pleuroparenchymal changes/minimal atelectasis/or scarring inferior aspect residual left lung parenchyma. Diffuse bony osteopenia with a status post vertebroplasty of T9 and T10. Electronically signed by: Von Fairchild MD 07/26/2023 12:21 AM CDT Due to temporary technical issues with the PACS/Fluency reporting system, reports are being signed by the in house radiologists without review as a courtesy to insure prompt reporting. The interpreting radiologist is fully responsible for the content of the report.
--- NOTE | 2023-07-29 16:58 | EKG ---
Test Date: 2023-07-26 Test Time: 09:04:01 Manager Community Development: LUIS FELIPE Ovalles MEASUREMENT RESULTS: Intervals: Rate: 74 NH: 158 QRSD: 84 QT: 386 QTc: 428 [place]: P: 30 NH: 158 QRS: 16 T: 154 INTERPRETIVE STATEMENTS: Normal sinus rhythm Nonspecific T wave abnormality Abnormal ECG Compared to ECG 07/25/2023 20:16:23 Possible ischemia no longer present T-wave abnormality still present Electronically Signed On 07-29-23 16:48:04 CDT by Rhys Abdul
--- NOTE | 2023-07-29 16:58 | EKG ---
Test Date: 2023-07-26 Test Time: 08:37:21 Market Risk Manager: CHERI MEASUREMENT RESULTS: Intervals: Rate: 73 DE: 170 QRSD: 72 QT: 354 QTc: 389 [place]: P: 50 DE: 170 QRS: 20 T: 77 INTERPRETIVE STATEMENTS: Normal sinus rhythm Left ventricular hypertrophy with repolarization abnormality Abnormal ECG Compared to ECG 07/25/2023 20:16:23 Left ventricular hypertrophy now present Early repolarization now present T-wave abnormality no longer present Possible ischemia no longer present Electronically Signed On 07-29-23 16:48:06 CDT by Rhys Abdul
== END 2023-07-26 18:47 | disposition home or self-care (01) ==
LOC: ER 19:34 → ERHOLD 07-26 01:55 → 2ND 07-26 02:17
PROVIDERS: ADMIT Internal Medicine; ATTEND Internal Medicine
DX: R07.9 Chest pain, unspecified (principal); F41.9 Anxiety disorder, unspecified; N17.9 Acute kidney failure, unspecified; R56.9 Unspecified convulsions; C85.90 Non-Hodgkin lymphoma, unspecified, unspecified site; R06.02 Shortness of breath; Z90.2 Acquired absence of lung [part of]; Z88.1 Allergy status to other antibiotic agents; Z88.0 Allergy status to penicillin; Z82.49 Family history of ischemic heart disease and other diseases of the circulatory system; Z84.1 Family history of disorders of kidney and ureter; Z83.3 Family history of diabetes mellitus; Z20.822 Contact with and (suspected) exposure to COVID-19; Z23 Encounter for immunization
CPT/HCPCS: 96361; 93005; 85025 ×2; 80048 ×2; 36415; 83735; 85610; 80076; 81003; 84484 ×4; 83880; 87635; 71275; 71045; 96374; 99285; Q9967; J1650; J2405; J7030 ×2; G0378

== ENCOUNTER → 2024-01-11 | Emergency (ER) | payer OTHER ==
[~2024-01-11] MED LIST: CYCLOBENZAPRINE 10 MG TAB ONE; KETAMINE HCL IN 0.9 % NACL 50 MG/5 ML SYRINGE IV ONE; ROCURONIUM 50 MG/5 ML VIAL IV ONE
[2024-01-11 16:40] LABS: Absolute Lymphocytes (CBC) 2.7 K/uL (0.7-4.9); Hematocrit 41.7 % (39.6-49.0); Lymphocytes % 37.1 % (15.3-44.8); MPV 7.3 fL (7.6-11.3); Platelets 330 thou/uL (152-406); RBC Red Blood Cell Count 4.63 M/uL (4.33-5.43)
[2024-01-11 16:53] LABS: Albumin 3.7 g/dL (3.4-5.0); Bilirubin Total 0.5 mg/dL (0.2-1.0); Magnesium 2.1 mg/dL (1.6-2.4); Protein, Total 7.5 g/dL (6.4-8.2)
--- NOTE | 2024-01-11 17:14 | ER ---
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 [place] [facility] [place]". Doesn't loose consciousness but cant control body. Coronavirus screen: At this time, the client does not indicate any symptoms associated with coronavirus-19. Ebola Screen: No symptoms or risks identified at this time. Initial Sepsis Screen: Does the patient meet any 2 criteria? No. Patient's initial sepsis screen is negative. Does the patient have a suspected source of infection? No. Patient's initial sepsis screen is negative. Risk Assessment: Do you want to hurt yourself or someone else? Patient reports no desire to harm self or others. Onset of symptoms was January 11, 2024. 14:29 Method Of Arrival: Wheelchair ko1 14:29 Acuity: EAN 3 ko1 Triage Assessment: 14:35 General: Appears in no apparent distress. uncomfortable, Behavior is calm, cooperative, ko1 appropriate for age. Pain: Complains of pain in generalized stiffness. Neuro: Seizure activity reported prior to arrival. Historical: - Allergies: 14:35 Alprazolam; ko1 14:35 Amoxicillin; ko1 14:35 Aztreonam; ko1 14:35 cefotetan; ko1 14:35 PENICILLINS; ko1 - PMHx: 14:35 Anxiety; Migraine; non hodgkin's lymphoma; Seizure; ko1 - PSHx: 14:35 Rajesh tumor removed; Pericardial window; ko1 - Immunization history:: Adult Immunizations up to date. - Social history:: Smoking status: Patient denies any tobacco usage or history of. - Family history:: not pertinent. Screenin:35 [facility] ED Fall Risk Assessment (Adult) History of falling in the last 3 months, tl4 including since admission No falls in past 3 months (0 pts) Confusion or Disorientation No (0 pts) Intoxicated or Sedated No (0 pts) Impaired Gait No (0 pts) Mobility Assist Device Used No (0 pt) Altered Elimination No (0 pt) Score/Fall Risk Level 0 - 2 = Low Risk Oriented to surroundings, Maintained a safe environment, Educated pt \\T\\ family on fall prevention, incl call for assistance when getting out of bed, Assessed \\T\\ reinforced patient's understanding of fall precautions, Provided non-skid footwear, Hourly rounding (assess needs \\T\\ fall precautionary measures) done, Used ambulatory aids as needed (educated on \\T\\ assisted with), Used gait belt as appropriate. Abuse screen: Denies threats or abuse. Denies injuries from another. Nutritional screening: No deficits noted. Tuberculosis screening: No symptoms or risk factors identified. Assessment: 18:11 General: Appears uncomfortable, Behavior is cooperative. Pain: Complains of pain in tl4 generalized body aches/stiffness. Neuro: Reports headache Denies weakness blurred vision dizziness. Cardiovascular: No deficits noted. Denies chest pain, diaphoresis, lightheadedness, palpitations. Respiratory: No deficits noted. Breath sounds are clear bilaterally. Denies cough, shortness of breath. GI: No deficits noted. No signs and/or symptoms were reported involving the gastrointestinal system. : No deficits noted. No signs and/or symptoms were reported regarding the genitourinary system. EENT: No deficits noted. No signs and/or symptoms were reported regarding the EENT system. Derm: No deficits noted. No signs and/or symptoms reported regarding the dermatologic system. Vital Signs: 14:29 BP 132 / 81; Pulse 108; Resp 16; Temp 97.2; Pulse Ox 100% ; ko1 16:08 BP 135 / 87; Pulse 79; Resp 18; Pulse Ox 99% on R/A; tl4 18:12 BP 125 / 76; Pulse 89; Resp 16; Temp 97.9(TE); Pulse Ox 99% on R/A; Pain 2/10; tl4 18:12 Pain Scale: Adult tl4 [place] Coma Score: 14:35 Eye Response: spontaneous(4). Motor Response: obeys commands(6). Verbal Response: ko1 oriented(5). Total: 15. ED Course: 13:59 Patient arrived in ED. ra3 14:03 Omega Croft MD is Attending Physician. rt 14:35 Triage completed. ko1 14:35 Arm band placed on right wrist. Patient placed in waiting room, Patient notified of ko1 wait time. 15:58 Rajesh Mcneal, RN is Primary Nurse. bp 16:20 Inserted saline lock: 20 gauge in right hand, using aseptic technique. Blood collected. tl4 16:24 CPK Sent. bp 16:24 Magnesium Sent. bp 16:24 CMP Sent. bp 16:24 CBC with Diff Sent. bp 18:14 Patient has correct armband on for positive identification. Placed in gown. Bed in low tl4 position. Call light in reach. Side rails up X 1. Adult w/ patient. Provided Education on: ed process. Client placed on continuous cardiac and pulse oximetry monitoring. NIBP monitoring applied. Door closed. Noise minimized. Lights dimmed. Moved to private room. Warm blanket given. 18:14 No provider procedures requiring assistance completed. tl4 18:15 IV discontinued, intact, bleeding controlled, No redness/swelling at site. Pressure tl4 dressing applied. 18:16 Seizure precautions initiated. tl4 Administered Medications: 16:24 Drug: Cyclobenzaprine PO 10 mg PO once Route: PO; bp 18:11 Follow up: Response: Pain is decreased tl4 Medication: 18:15 VIS not applicable for this client. tl4 Outcome: 17:13 Discharge ordered by MD. rt 18:15 Discharged to home ambulatory, with family, tl4 18:15 Condition: stable 18:15 Discharge instructions given to patient, family, Instructed on discharge instructions, follow up and referral plans. medication usage, Demonstrated understanding of instructions, follow-up care, medications, Prescriptions given X 1, 18:16 Patient left the ED. tl4 Signatures: Rajesh Mcneal, RN RN bp Steff Earl RN RN ko1 Omega Croft MD MD rt Gildardo Atkinson RN RN tl4 Kisha Hayden ra3
--- NOTE | 2024-01-11 17:14 | EDPHYS ---
Physician Documentation [facility] Name: Alvarez Ortiz Age: 38 yrs Sex: Male : 1985 Arrival Date: 01/11/2024 Time: 13:55 Bed 20 Private MD: ED Physician Omega Croft HPI: 01/11 15:10 This 38 yrs old Male presents to ER via Wheelchair with complaints of Seizure. rt 15:10 Patient with history of seizure disorder secondary to resected tumor (no active cancer) rt presents to the ED with concerns for a partial seizure. Patient states that he felt off, was on balance but did not fall. States that a loud base at a store triggered the seizure. Reports compliance with his antiepileptic. States that he feels better now, however, he feels like his muscles are stiff. Denies other acute complaints, symptoms are moderate in severity, no other aggravating or alleviating factors.. Historical: - Allergies: 14:35 Alprazolam; ko1 14:35 Amoxicillin; ko1 14:35 Aztreonam; ko1 14:35 cefotetan; ko1 14:35 PENICILLINS; ko1 - PMHx: 14:35 Anxiety; Migraine; non hodgkin's lymphoma; Seizure; ko1 - PSHx: 14:35 Rajesh tumor removed; Pericardial window; ko1 - Immunization history:: Adult Immunizations up to date. - Social history:: Smoking status: Patient denies any tobacco usage or history of. - Family history:: not pertinent. ROS: 15:10 Constitutional: Negative for fever, chills, and weight loss, Cardiovascular: Negative rt for chest pain, palpitations, and edema, Respiratory: Negative for shortness of breath, cough, wheezing, and pleuritic chest pain, Abdomen/GI: Negative for abdominal pain, nausea, vomiting, diarrhea, and constipation, MS/Extremity: Negative for injury and deformity, Skin: Negative for injury, rash, and discoloration, Psych: Negative for depression, anxiety, suicide ideation, homicidal ideation, and hallucinations, 15:10 Neuro: Positive for Stiffness, seizure-like activity, Exam: 15:10 Constitutional: This is a well developed, well nourished patient who is awake, alert, rt and in no acute distress. Head/Face: Normocephalic, atraumatic. Chest/axilla: Normal chest wall appearance and motion. Nontender with no deformity. No lesions are appreciated. Cardiovascular: Regular rate and rhythm with a normal S1 and S2. No gallops, murmurs, or rubs. Normal PMI, no JVD. No pulse deficits. Respiratory: Lungs have equal breath sounds bilaterally, clear to auscultation and percussion. No rales, rhonchi or wheezes noted. No increased work of breathing, no retractions or nasal flaring. Abdomen/GI: Soft, non-tender, with normal bowel sounds. No distension or tympany. No guarding or rebound. No evidence of tenderness throughout. Skin: Warm, dry with normal turgor. Normal color with no rashes, no lesions, and no evidence of cellulitis. MS/ Extremity: Pulses equal, no cyanosis. Neurovascular intact. Full, normal range of motion. Neuro: Awake and alert, GCS 15, oriented to person, place, time, and situation. Cranial nerves II-XII grossly intact. Motor strength 5/5 in all extremities. Sensory grossly intact. Cerebellar exam normal. Normal gait. Psych: Awake, alert, with orientation to person, place and time. Behavior, mood, and affect are within normal limits. Vital Signs: 14:29 BP 132 / 81; Pulse 108; Resp 16; Temp 97.2; Pulse Ox 100% ; ko1 16:08 BP 135 / 87; Pulse 79; Resp 18; Pulse Ox 99% on R/A; tl4 18:12 BP 125 / 76; Pulse 89; Resp 16; Temp 97.9(TE); Pulse Ox 99% on R/A; Pain 2/10; tl4 18:12 Pain Scale: Adult tl4 [place] Coma Score: 14:35 Eye Response: spontaneous(4). Motor Response: obeys commands(6). Verbal Response: ko1 oriented(5). Total: 15. MDM: 14:33 Patient medically screened. rt 17:14 Differential diagnosis: Breakthrough seizure, without disturbance, rhabdo. Data rt reviewed: vital signs, nurses notes, lab test result(s). Test considered but Not performed: CT: Pre-existing seizure disorder history, seizures are in character compared to prior seizures, do not believe that neuroimaging is indicated.. Care significantly affected by the following chronic conditions: Seizure disorder. Counseling: I had a detailed discussion with the patient and/or guardian regarding the historical points, exam findings, and any diagnostic results supporting the discharge/admit diagnosis, lab results, the need for outpatient follow up, to return to the emergency department if symptoms worsen or persist or if there are any questions or concerns that arise at home. Response to treatment: the patient's symptoms have markedly improved after treatment. 01/11 14:40 Order name: CBC with Diff; Complete Time: 16:57 rt 01/11 14:40 Order name: CMP; Complete Time: 16:57 rt 01/11 14:40 Order name: Magnesium; Complete Time: 16:57 rt 01/11 15:12 Order name: CPK; Complete Time: 17:09 rt Administered Medications: 16:24 Drug: Cyclobenzaprine PO 10 mg PO once Route: PO; bp 18:11 Follow up: Response: Pain is decreased tl4 Disposition Summary: 01/11/24 17:13 Discharge Ordered Notes: Location: Home rt Problem: an acute exacerbation rt Symptoms: have improved rt Condition: Stable rt Diagnosis - Breakthrough seizure rt Followup: rt - With: Private Physician - When: 2 - 3 days - Reason: Discharge Instructions: - Discharge Summary Sheet rt - Seizure, Adult rt Forms: - Work release form sb4 - Medication Reconciliation Form rt - Thank You Letter rt - Antibiotic Education rt - Prescription Opioid Use rt - Patient Portal Instructions rt - Leadership Thank You Letter rt Prescriptions: - Cyclobenzaprine 10 mg Oral tablet - take 1 tablet ORAL route every 8 hours As needed; 12 tablet; Refills: 0, rt Product Selection Permitted Signatures: Dispatcher [employer] Rajesh Spaulding RN RN bp Steff Earl RN RN ko1 Omega Croft MD MD rt Gildardo Atkinson RN tl4
[2024-01-11 18:47] VITALS: BP 125/76; TEMP 97.9; O2SAT 99
== END ==
LOC: ER 13:55
DX: G40.901 Epilepsy, unspecified, not intractable, with status epilepticus (principal); Z85.841 Personal history of malignant neoplasm of brain; Z88.0 Allergy status to penicillin; Z88.1 Allergy status to other antibiotic agents; Z88.8 Allergy status to other drugs, medicaments and biological substances
CPT/HCPCS: 36415; 80053; 82550; 83735; 85025

== ENCOUNTER 2024-10-01 12:44 | Emergency (ER) | payer OTHER ==
[2024-10-01 14:03] LABS: SARS-CoV-2 Antigen CONTROL BLUE LINE VIS/BG OK; SARS-CoV-2 Antigen Rapid Res Negative (Negative)
--- NOTE | 2024-10-01 15:05 | RAD REPORT ---
Procedure: Chest Pa And Lat (2 Views) HISTORY: Cough COMPARISON: 2022 FINDINGS: Chronic elevation left hemidiaphragm. Mild chronic interstitial opacities left lung. The lungs appear clear of acute infiltrate. No significant pleural effusion noted. The heart is normal size. Chronic compression fractures spine IMPRESSION: No acute abnormality is displayed.
--- NOTE | 2024-10-01 15:20 | EDPHYS ---
Physician Documentation [facility] Name: Alvarez Ortiz Age: 38 yrs Sex: Male : 1985 Arrival Date: 10/01/2024 Time: 12:44 Bed IW2 Private MD: ED Physician Hansel Hoffman HPI: 10/01 13:52 This 38 yrs old Male presents to ER via Ambulatory with complaints of Breathing ms3 Difficulty. 13:52 38 year old male presents to the Emergency Department for onset of sinus and bronchial ms3 infection symptoms yesterday, with significant worsening noticed this morning. The symptoms include difficulty breathing, chills last night despite maintaining usual room temperature, and a sore throat that makes it hard to talk. The patient notes productive coughing but is unsure if it contributes to their symptoms. No medications have been taken for relief, and symptoms have neither improved nor worsened with any actions today.. Historical: - Allergies: 13:05 Aztreonam; iw 13:05 Amoxicillin; iw 13:05 cefotetan; iw 13:05 Alprazolam; iw 13:05 PENICILLINS; iw - PMHx: 13:05 non hodgkin's lymphoma; Anxiety; Migraine; Seizure; iw - PSHx: 13:05 Rajesh tumor removed; Pericardial window; iw - Immunization history:: Adult Immunizations up to date. - Infectious Disease History:: Denies. - Social history:: Smoking status: Patient/guardian denies using tobacco, Stopped _ months ago 20. ROS: 13:52 Constitutional: Negative for fever, and chills. Neck: Negative for injury, pain, and ms3 swelling, Cardiovascular: Negative for chest pain, and palpitations. Abdomen/GI: Negative for abdominal pain, nausea, vomiting, diarrhea, and constipation, 13:52 MS/Extremity: Negative for injury and deformity, 13:52 ENT: Positive for sinus congestion, sore throat, 13:52 Respiratory: Positive for cough, Exam: 13:52 Constitutional: This is a well developed, well nourished patient who is awake, alert, ms3 and in no acute distress. Head/Face: Normocephalic, atraumatic. Neck: Trachea midline, no cervical lymphadenopathy. Supple, full range of motion without nuchal rigidity, or vertebral point tenderness. No Meningismus. Chest/axilla: Normal chest wall appearance and motion. Nontender with no deformity. Respiratory: Lungs have equal breath sounds bilaterally, clear to auscultation and percussion. No rales, rhonchi or wheezes noted. No increased work of breathing, no retractions or nasal flaring. Abdomen/GI: Soft, non-tender, with normal bowel sounds. No distension or tympany. No guarding or rebound. No evidence of tenderness throughout. Skin: Warm, dry with normal turgor. Normal color with no rashes, no lesions, and no evidence of cellulitis. 13:52 Cardiovascular: Rate: tachycardic, Rhythm: regular, Pulses: no pulse deficits are appreciated, Heart sounds: normal, normal S1and S2, Vital Signs: 13:03 BP 123 / 80; Pulse 108; Resp 18; Temp 98.5(O); Pulse Ox 100% on R/A; Weight 86.18 kg; iw Height 5 ft. 7 in. ; 13:03 Body Mass Index 29.76 (86.18 kg, 170.18 cm) iw MDM: 13:12 Medical Screening Exam initiated ms3 13:52 Differential diagnosis: Bronchitis pneumonia, URI. ms3 15:19 Data reviewed: vital signs, nurses notes, lab test result(s), radiologic studies, and ms3 as a result, I will discharge patient. Independent interpretation of the following test(s) in the Emergency Department X-Ray: My interpretation is Chest x-ray image reviewed by me does not reveal pneumonia. Left hemidiaphragm elevation. Counseling: I had a detailed discussion with the patient and/or guardian regarding the historical points, exam findings, and any diagnostic results supporting the discharge/admit diagnosis, lab results, radiology results, the need for outpatient follow up, to return to the emergency department if symptoms worsen or persist or if there are any questions or concerns that arise at home. Special discussion: I discussed with the patient/guardian in detail that at this point there is no indication for admission to the hospital. It is understood, however, that if the symptoms persist or worsen the patient needs to return immediately for re-evaluation. ED course: Discussed negative flu, COVID with patient and his father. Discussed chest x-ray findings with the patient and his father. They understand agree with plan. All questions were answered. Return precautions discussed include worsening symptoms, or any other concerns. On reevaluation patient is alert and oriented x 4, no apparent distress, nontoxic appearing, speaking full sentences, without wheezes, rales, rhonchi on lung auscultation.. 10/01 13:13 Order name: Flu; Complete Time: 14:18 ms3 10/01 13:13 Order name: SARS RAPID; Complete Time: 14:18 ms3 10/01 13:13 Order name: Chest Pa And Lat (2 Views) XRAY; Complete Time: 15:10 ms3 Administered Medications: No medications were administered Disposition Summary: 10/01/24 15:19 Discharge Ordered Notes: Location: Home ms3 Condition: Stable ms3 Diagnosis - Acute upper respiratory infection, unspecified ms3 Followup: ms3 - With: Tyrell Law DO - When: 2 - 3 days - Reason: Recheck today's complaints Discharge Instructions: - Discharge Summary Sheet ms3 - Upper Respiratory Infection, Adult ms3 Forms: - Work release form sp - Medication Reconciliation Form ms3 - Antibiotic Education ms3 - Prescription Opioid Use ms3 - Patient Portal Instructions ms3 - Leadership Thank You Letter ms3 Prescriptions: - Claritin 10 mg Oral Tablet - take 1 tablet ORAL route once daily As needed; 30 tablet; Refills: 0, Product ms3 Selection Permitted Signatures: Dispatcher [employer] Mine Villalta RN RN iw Hansel Hoffman DO DO ms3 Corrections: (The following items were deleted from the chart) 13:13 13:13 Chest Pa And Lat (2 Views)+[email or web address] ordered. EDMS EDMS
--- NOTE | 2024-10-01 15:20 | ER ---
Nurse's Notes [facility] Name: Alvarez Ortiz Age: 38 yrs Sex: Male : 1985 Arrival Date: 10/01/2024 Time: 12:44 Bed IW2 Private MD: Diagnosis: Acute upper respiratory infection, unspecified Presentation: 10/01 13:03 Chief complaint: Patient states: three days ago coworkers were sick, started feeling iw sick yesterday having chest tightness, cough , sore throat. Coronavirus screen: Client presents with at least one sign or symptom that may indicate coronavirus-19. Ebola Screen: No symptoms or risks identified at this time. Initial Sepsis Screen: Does the patient meet any 2 criteria? HR > 90 bpm. Does the patient have a suspected source of infection? No. Patient's initial sepsis screen is negative. Risk Assessment: Do you want to hurt yourself or someone else? Patient reports no desire to harm self or others. Onset of symptoms was September 30, 2024. 13:03 Method Of Arrival: Ambulatory iw 13:05 Acuity: EAN 4 iw 13:05 Acuity: EAN 3 iw Triage Assessment: 13:37 General: Appears. General: Behavior is calm, cooperative, appropriate for age. iw Respiratory: Onset: The symptoms/episode began/occurred yesterday, the patient has mild shortness of breath. Respiratory: Reports shortness of breath cough that is. Historical: - Allergies: 13:05 Aztreonam; iw 13:05 Amoxicillin; iw 13:05 cefotetan; iw 13:05 Alprazolam; iw 13:05 PENICILLINS; iw - PMHx: 13:05 non hodgkin's lymphoma; Anxiety; Migraine; Seizure; iw - PSHx: 13:05 Rajesh tumor removed; Pericardial window; iw - Immunization history:: Adult Immunizations up to date. - Infectious Disease History:: Denies. - Social history:: Smoking status: Patient/guardian denies using tobacco, Stopped _ months ago 20. Screenin:38 [facility] ED Fall Risk Assessment (Adult) History of falling in the last 3 months, iw including since admission No falls in past 3 months (0 pts) Confusion or Disorientation No (0 pts) Intoxicated or Sedated No (0 pts) Impaired Gait No (0 pts) Mobility Assist Device Used No (0 pt) Altered Elimination No (0 pt) Score/Fall Risk Level 0 - 2 = Low Risk Oriented to surroundings. Abuse screen: Denies threats or abuse. Nutritional screening: No deficits noted. Tuberculosis screening: No symptoms or risk factors identified. Assessment: 13:37 General: Appears in no apparent distress. Behavior is calm, cooperative. Pain: iw Complains of pain in chest. Cardiovascular: Denies Rhythm is regular. Respiratory: Reports shortness of breath cough that is Airway is patent Respiratory effort is even, unlabored, Breath sounds are clear bilaterally. Vital Signs: 13:03 BP 123 / 80; Pulse 108; Resp 18; Temp 98.5(O); Pulse Ox 100% on R/A; Weight 86.18 kg; iw Height 5 ft. 7 in. ; 13:03 Body Mass Index 29.76 (86.18 kg, 170.18 cm) iw ED Course: 12:47 Patient arrived in ED. ra3 12:57 Hansel Hoffman DO is Attending Physician. ms3 13:05 Triage completed. iw 13:05 Arm band placed on. iw 13:37 Mine Hammer, MAURI is Primary Nurse. iw 13:37 SARS RAPID Sent. iw 13:37 Flu Sent. iw 14:49 Chest Pa And Lat (2 Views) XRAY In Process Unspecified. EDMS 15:19 Tyrell Law DO is Referral Physician. ms3 Administered Medications: No medications were administered Medication: 13:38 VIS not applicable for this client. iw Outcome: 15:19 Discharge ordered by . ms3 15:58 Patient left the ED. iw Signatures: Dispatcher [employer] EDMS Mine Hammer RN RN iw Hansel Hoffman DO DO ms3 Kisha Hayden ra3 Corrections: (The following items were deleted from the chart) 13:05 13:03 Chief complaint: Patient states: three days ago coworkers were sick, started iw feeling sick yesterday having chest tightness, cough iw 13:07 13:03 BP 123 / 80; Pulse 108bpm; Resp 18bpm; Pulse Ox 100% RA; iw iw
[2024-10-01 16:04] VITALS: BP 123/80; TEMP 98.5; O2SAT 100
== END 2024-10-01 15:58 | disposition home or self-care (01) ==
LOC: ER 12:44
DX: J06.9 Acute upper respiratory infection, unspecified (principal); Z11.52 Encounter for screening for COVID-19
CPT/HCPCS: 36415; 71046; 87804; 87811; 99282